=== PATIENT | female | born 1950 | race Caucasian/White ===

== ENCOUNTER 2022-07-01 08:33 | Outpatient (CLI) | payer MEDICARE, BC, SELFPAY ==
[2022-07-01 12:37] LABS: Creatinine Urine 123.6 mg/dL
[2022-07-01 12:45] LABS: Microalbumin Creatinine Ratio 30 mg/g (0-30); Microalbumin Urine 4 mg/dL
== END 2022-07-01 08:34 | disposition home or self-care (01) ==
LOC: NFLDREF 10:30
PROVIDERS: PCP Internal Medicine; Visit Provider Internal Medicine
DX: E11.9 Type 2 diabetes mellitus without complications (principal); F41.8 Other specified anxiety disorders
CPT/HCPCS: 82043; 82570

== ENCOUNTER 2022-08-12 09:03 | Outpatient (CLI) | payer MEDICARE, BC, SELFPAY ==
--- OUTSIDE RECORDS SUMMARY | 2022-08-12 09:06 | XMS_ITS | Clinical Summary ---
:1950 Author Organization [facility] Address [address], [place] [address] Care Team Providers Name Role Phone Tiffanie Romero MD Primary Care Provider Source Comments You are receiving this document as you are listed as the primary care provider,follow-up provider, or the patient has been referred to you for consultation.This is in compliance with the Medicare and Medicaid EHR Incentive Program,which states Providers who transition their patient to another setting of careor provider of care or refers their patient to another provider of care shouldprovide summarycare record for each transition of care or referral. [facility] Allergies No known active allergies Medications Medication Sig Dispensed Refills Start Date End Date Status alendronate (FOSAMAX) Take 35 mg by 0 Active 35 MG tablet mouth once every week. citalopram (CELEXA) 10 Take 10 mg by 0 Active MG tablet mouth daily. atorvastatin (LIPITOR) Take 20 mg by 0 Active 20 MG tablet mouth daily. fluticasone (FLONASE) Place 2 Sprays 0 Active 50 MCG/ACT nasal into both solution nostrils daily. nitroglycerin Place 0.4 mg 0 Act rivera (NITROSTAT) 0.4 MG under tongue sublingual tablet every 5 minutes as needed for Chest Pain. If no relief after 5 min call 911;continue 1 tab every 5 min max 3 tab aspirin 81 MG tablet Take 81 mg by 0 Active mouth daily. Resolved Problems Problem Noted Date Resolved Date Lumbar pain 07/01/2018 11/12/2018 Lumbar radiculopathy 07/01/2018 11/12/2018 Social History Tobacco Use Types Packs/Day Years Used Date Smoking Tobacco: Never Assessed Sex Assigned at Date Recorded Not on file Plan of Treatment Health Maintenance Due Date Last Done Comments Colon Cancer Screening Plan 1950 Due Hep C Screening (Preventive 1950 Services) Medicare Welcome Visit 1950 Mammogram 1950 COVID-19 Vaccine (#1) 01[birth year]02/1951 Cholesterol 1993 Dexa 2013 Pneumococcal 65+ Yrs (2 - 02/16/2016 02/15/2015, 07/05/2010 PPSV23) Influenza (#1) 2022 09/11/2020, 09/06/2019, 08/27/2017, Additional history exists DTaP/Tdap/Td (2 - Tdap) 08/16/2023 08/16/2013 Zoster/Shingles Completed 07/15/2019, 06/10/2019, 03/10/2019, Additional history exists HepA Aged Out No longer eligib le based on patient 's age to complete this topic HepB Aged Out No longer eligib le based on patient 's age to complete this topic Hib Aged Out No longer eligib le based on patient 's age to complete this topic IPV (Polio) Aged Out No longer eligib le based on patient 's age to complete this topic MCV4 Aged Out No longer eligib le based on patient 's age to complete this topic Insurance Payer Benefit Plan / Subscriber ID Effective Dates Phone Addre ss Type Group BCBS BCBS MANZANITA [id number] [facility] [phone] [address] [address] Medicare BLUE t 5 [place] [address] Nicolette Sweeney Personal/Family Self 1950 [address] (Home) [place] [address] Care Teams Sql Report Developer Relationship Specialty Start Date End Date Tiffanie Romero MD PCP - General Internal Medicine 06/30/[address] [place] [id number]
--- OUTSIDE RECORDS SUMMARY | 2022-08-12 09:06 | XMS_ITS | Encounter Summary ---
:1950 Author Organization [facility] Address [address] [place] [address] Care Team Providers Name Role Phone Tiffanie Romero MD Primary Care Provider Reason for Visit Reason Comments BACK PAIN, LOW LEG PAIN Consult/Transfer Care (Routine) - Discharged Specialty Diagnoses / Procedures Referred By Contact Refer red To Contact Physical Therapy Diagnoses CLBP Tiffanie Romero MD [facility] [address] [address] [place] [address] [address] [place] [address] Phone: Fax: Referral ID Status Reason Start Date Expiration Date Visits V isits Requested Authorized [id number] Discharged 06/30/2018 09/29/2019 24 24 Encounter Details Date Type Department Care Team Description 10/28/2018 Therapy Physicians Neck and Back Dylon Majano, Lumbar pain; [facility] Lumbar radiculopathy [id number], [address] [place], [place] [id number] Social History Tobacco Use Types Packs/Day Years Used Date Smoking Tobacco: Never Assessed Sex Assigned at Date Recorded Not on file documented as of this encounter Progress Notes Jayashree Majano, PT - 10/28/2018 9:30 AM CST 10/28/2018 Visit # 16 Protocol: Back, Disc and Osteo Start: 9:36 AM Stop: 10:16 AM (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 A time gap of 1 week between rehab sessions due to the Thanksgiving holiday. L lateral thigh stiffness persists. Cervical Not performed today. Objective Tests & Measures: 4# increase in L-Ext Tests performed today (see [facility] for score and outcomes): : None Performed Today Warm Up: Movement Specific Training: Not Completed Bike: Minutes 5 Intensity Level 4 ICE: Back Lumbar Lumbar & Torso 10/28/2018 Set 1 Ext % Max 100% Set 1 Ext ROM 12-45 Set 1 Ext Wgt 120 Set 1 Ext Reps 20 Set 1 Ext Tul 121 Set 1 Ext Tyson RPE 10 Set 2 Ext % Max 100% Set 2 Ext ROM 12-45 Set 2 Ext Wgt 120 Set 2 Ext Reps 18 Set 2 Ext Tul 118 Set 2 Tyson RPE Failure Left Rot % Max 60% Left Rot ROM 35 Left Rot Wgt 26 Left Rot Reps 25 Left Rot Viet RPE 3-4 Right Rot % Max 60% Right Rot ROM 35 Right Rot Wgt 26 Right Rot Reps 25 Right Rot Tyson RPE 3-4 Therapeutic Exercise (32 min): Patient performed isolated lumbar extension exercise and auxillary exercises to improve muscle strength, to improve muscle endurance, to improve muscle flexibility, to improve range of motion, to increase strength for seated posture, to increase strength for standing posture and increase strength and e ndurance levels of supporting spinal muscle groups to increase tolerance for sitting, standing, lifting and household tasks. Pt presented with an appropriate pace/control of the weights and a proper breathing pattern while exercising in all of the equipment. Neuromuscular Re-Education (8 min): Light resistance in T-Roto for proper movement patterns, muscle recruitment and posture lifting/moving heavier loads from one surface to another without placing excessive strain on pt's lumbar spine. Good pace and form in this MedX.. Auxillary Auxillary 10/28/2018 Abs Wgt Set 1 60 Abs Reps Set 1 20 Abs Wgt Set 2 60 Abs Reps Set 2 20 Glute Wgt Set 1 110 Glute Reps Set 1 14/6 Glute Wgt Set 2 110 Glute Reps Set 2 11/9 Leg Press Wgt Set 1 175 Leg Press Reps Set 1 23 Leg Press Wgt Set 2 175 Leg Press Reps Set 2 25 Lats Wgt Set 1 65 Lats Reps Set 1 20 Lats Wgt Set 2 65 Lats Reps Set 2 20 Other - HEP - Therapeutic Activities (0 min): Not performed today. Patient Education: Patient was instructed in correlation of strength and function to increase her understanding of the benefits related to completing the [facility] program. Assessment: Pt applied very good effort throughout this workout. L-Ext wt of 120# was quite challenging with failure occurring in the 2nd set of reps. Despite the difficulty with this heavier load, pt was able to maintain a good pace and form in L-Ext. Her primary issue at this time is subjective L lateral thigh stiffness, especially noted after arising from a prolonged sitting period on her couch. Pt is quickly approaching a lumbar strength plateau; anticipate that pt will achieve this maximum level in another 1-2 weeks. Will need to place our emphasis on pt's lumbar maintenance HEP (Tao Chair) to ensure proper form/technique prior to program completion. Goals: Short Term Goals (4-6 weeks): 1. Pt will be able to transfer out of her car without low back or R buttock pain.Met 08/28/18 2. Pt will be able to arise to a standing position after sitting for a prolonged period of time without LBP. 10/21/18 - Goal Met. Pt denies LBP with this activity. L lateral thigh stiffness may occur after sitting for a prolonged period of time. 3. Pt will be able to sit x 30' to read/watch TV, etc with low back, R buttock pain </= 2/10.??Met 08/28/18 4. Pt will be able to lift/carry 10# with proper body mechanics and without low back/R buttock pain.??Met 08/28/18 (per note) ? General Intern Goals (>6 weeks): 1. Patient will be independent with home exercise program after discontinued from Physical Therapy.??Progressing, will have therapy gap when vacationing for 2 weeks and need further training on maintenance exercises while away. ??08/28/18 2. Pt will be able to kneel and work in her garden x 10-15' with low back/R buttock pain </= 2/10.??Met 08/28/18 3. Pt will be able to engage in activities with her young grandchildren with low back/R buttock pain</=2/10.Met 08/28/18 4. Pt will be able to arise to a standing position from the floor with proper mechanics and with lowback/R buttock pain </= 2/10.??10/21/18 - Pt was able to transition from the floor to a standing position without back or L thigh pain when using proper body mechanics. Goal Met. ? Insurance: ??Medicare, Needs G-Codes, Recert Date: ??12/27/18 Initial Eval G-Codes: ??Current: 8981-CJ ?Goal: 8982-CH G-Codes based on pt's Oswestry score of 8% and difficulty with prolonged sitting, standing, transferring out of her car, kneeling to work in the garden, transitioning from a kneeling position to standing from the ground and engaging in activities with her grandchildren. 08/28/18: 10th Visit G-Codes: ??Current 8981 CI and Goal 8982 CH. ??G-Codes based on Oswestry = 6%; Patient able to transfer out of car without LBP or R Buttock Pain; Patient able to sit for 30 minutes to watch TV with LBP and R Buttock Pain </= 2/10; Patient able to kneel to garden for 10 to 15 minutes with LBP and R Buttock Pain </= 2/10. ? Plan of Care Frequency:??2x/wk Duration:??90 days ?? Therapeutic Exercise: ??Increase Strength and Endurance to improve transitional movements (sit to stand). Neuromuscular Re-Education: ??Improve neuromuscular 20abilities to improve posture and motor controlwith ADLs??. Therapeutic Activities: ??Train in proper body mechanics/posture to ensure safety and proper form when lifting/carrying heavy objects at home. ?? Recertification from??09/28/18??to 12/27/18 ?? Precautions/Other Information: Full Low Back: Osteo and Disc. ??Advance ROM as tolerated. 80% T-Rotoper Osteo protocol. ??Awaiting MRI results prior to starting MedX. ?PMH includes: Breast CA (2009with lumpectomy and radiation treatments), Osteopenia, L Rotator Cuff discomfort. 07/29/18 - Clearance received. No evidence of osseous metastatic disease. ?? Recommendations/Communication: 60% L-Ext. 100% T-Roto. Review Tao Chair to ensure independence with proper form/technique. Total timed code min: 40 Total treatment time: 40 Jayashree Majano, PT 10/28/2018, 1:35 PM OLOGY DOCTOR documented in this encounter Plan of Treatment Not on filedocumented as of this encounter Visit Diagnoses Diagnosis Lumbar pain Lumbago Lumbar radiculopathy Thoracic or lumbosacral neuritis or radi culitis, unspecified documented in this encounter Care Teams Automatic Buffing Wheel Former Relationship Specialty Start Date End Date Tiffanie Romero MD PCP - General Internal Medicine 06/30/[address] [place] [address] documented as of this encounter
--- OUTSIDE RECORDS SUMMARY | 2022-08-12 09:06 | XMS_ITS | Encounter Summary ---
:1950 Author Organization [facility] Address [address] [place] [address] Care Team Providers Name Role Phone Tiffanie Romero MD Primary Care Provider Reason for Visit Reason Comments BACK PAIN, LOW Consult/Transfer Care (Routine) - Discharged Specialty Diagnoses / Procedures Referred By Contact Refer red To Contact Physical Therapy Diagnoses CLBP Tiffanie Romero MD [facility] [address] [address] [place] [address] [address] [place] [address] Phone: Fax: Referral ID Status Reason Start Date Expiration Date Visits V isits Requested Authorized [id number] Discharged 06/30/2018 09/29/2019 24 24 Encounter Details Date Type Department Care Team Description 10/07/2018 Therapy Physicians Neck and Back Kina Theodore P T Lumbar pain; [facility] Lumbar radiculopathy [address] [address], [address] [place], [place] [id number] Social History Tobacco Use Types Packs/Day Years Used Date Smoking Tobacco: Never Assessed Sex Assigned at Date Recorded Not on file documented as of this encounter Progress Notes Kina Theodore, PT - 10/07/2018 10:00 AM CST 10/07/2018 Visit # 13 Protocol: Back, Disc and Osteo Start: 9:56 End: 10:40 (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 She was out of the country for 2 weeks and then has been busy helping her mother who recently had a stroke. She notes that she spent alot of time on a bus while in [place], but tried to move around as much as possible. Pt notes that her back did fairly well while she was gone, but states that when she got home she was quite stiff, attributing it to a long flight home. Pt notes that her main issue is continued stiffness in B hips/thighs after sitting for awhile (mosted noted when getting out of her car). Pt notes that she is addingmassage into her treatment, hoping that it will help with her leg stiffness. She has had one alreadyand is scheduled for another today. Cervical Not performed today. Objective Tests & Measures: Resume rx after 5 wks with 80% Lext to start and incr to 100% based on RPE. +15# G/H Tests performed today (see reviewflowsheet for score and outcomes): : None Performed Today Warm Up: Movement Specific Training: Not Completed Bike: Minutes 5 Intensity mod ICE: Back Lumbar Lumbar & Torso 10/07/2018 Set 1 Ext % Max 80% Set 1 Ext ROM 12-45 Set 1 Ext Wgt 88 Set 1 Ext Reps 30 Set 1 Ext Tul 111 Set 1 Ext Tyson RPE 5 Set 2 Ext % Max 100% Set 2 Ext ROM 12-45 Set 2 Ext Wgt 110 Set 2 Ext Reps 20 Set 2 Ext Tul 74 Set 2 Tyson RPE 7 Left Rot % Max 60% Left Rot ROM 35 Left Rot Wgt 22 Left Rot Reps 20 Left Rot Viet RPE 4 Right Rot % Max 60% Right Rot ROM 35 Right Rot Wgt 22 Right Rot Reps 20 Right Rot Tyson RPE 4 Therapeutic Exercise (32 min): Patient performed isolated lumbar extension exercise and auxillary exercises to improve muscle strength, to improve muscle endurance and increase strength and endurance levels of supporting spinal muscle groups to increase tolerance for sitting, lifting and transitional movement from sit to stand Verbal cues given for proper pace and form for max benefit and to prevent compensatory movement patterns. Neuromuscular Re-Education (12 min): Patient performed isolated torso rotation to decrease substitution patterns present with chronic pain, to improve ability to direct and regulate movement with decreased compensation, improve muscle recruitment patterns, to improve coordination and movement quality and decrease substitution patterns and normalize movement patterns to increase tolerance for lifting, household tasks and transition from sit to stand. Verbal cues given for proper pace and form for max benefit and to prevent compensatory movement patterns. Auxillary Auxillary 10/07/2018 Abs Wgt Set 1 60 Abs Reps Set 1 20 Abs Wgt Set 2 60 Abs Reps Set 2 20 Glute Wgt Set 1 95 Glute Reps Set 1 30 Glute Wgt Set 2 110 Glute Reps Set 2 20 Leg Press Wgt Set 1 170 Leg Press Reps Set 1 20 Leg Press Wgt Set 2 170 Leg Press Reps Set 2 35 Lats Wgt Set 1 65 Lats Reps Set 1 20 Lats Wgt Set 2 65 Lats Reps Set 2 20 Other - HEP - Therapeutic Activities (0 min): Not performed today. Patient Education: Patient was instructed in specific review of patients progress to increase their understanding of the benefits related to completing the [facility] Rehab program Instruction in plan for today's treatment with resumption of care after being away from treatment for 5 weeks. Assessment: Pt tolerated rx well today with no aggravation of sx throughout rx session. Pt was able to resume Lext workout today at last max wt, reaching appropriate fatigue level. Reviewed pt goals for recert today and updated below. Pt continues to note most functional deficit with standing after sitting for a prolonged period (e.g getting out of her car). Pt is returning today after being away from therapy for an overseas trip and caring for her mother. Pt was continuing with objective weight gains prior to her trip. We will now resume therapy, making appropriate weight increases in machines in order to achieve maximum strength. Pt will benefit from skilled PT to counteract impairments, maximizing strength in order to optimize function. Plan of Care Frequency: 2x/wk Duration: 90 days Therapeutic Exercise: Increase Strength and Endurance to improve transitional movements (sit to stand). Neuromuscular Re-Education: Improve neuromuscular abilities to improve posture and motor control with ADLs . Therapeutic Activities: Train in proper body mechanics/posture to ensure safety and proper form whenlifting/carrying heavy objects at home. Recertification from 09/28/18 to 12/27/18 Kina Theodore, PT 10/07/2018, 12:17 PM Goals: Short Term Goals (4-6 weeks): 1. Pt will be able to transfer out of her car without low back or R buttock pain.Met 08/28/18 2. Pt will be able to arise to a standing position after sitting for a prolonged period of time without LBP. Progressing stiff (hips and thighs) upon standing 10/07/18 3. Pt will be able to sit x 30' to read/watch TV, etc with low back, R buttock pain </= 2/10.??Met 08/28/18 4. Pt will be able to lift/carry 10# with proper body mechanics and without low back/R buttock pain.Met 08/28/18 (per note) ? Perinatology Physician Goals (>6 weeks): 1. Patient will be [...] mechanics and with lowback/R buttock pain </= 2/10.??Progressing stiff more than pain 10/07/18 ? Insurance: ??Medicare, Needs G-Codes, Recert Date: 12/27/18 Initial Eval G-Codes: ??Current: 8981-CJ ?Goal: 8982-CH [...] and R Buttock Pain </= 2/10. ? Precautions/Other Information: Full Low Back: Osteo and Disc. ??Advance ROM as tolerated. 80% T-Rotoper Osteo protocol. ??Awaiting MRI results prior to starting MedX. ?PMH includes: Breast CA (2010with lumpectomy and radiation treatments), Osteopenia, L Rotator Cuff discomfort. 07/29/18 - Clearance received. No evidence of osseous metastatic disease. Recommendations/Communication: Next visit: Lext 60%, Troto 80% Increase LP by 10-20#, as tolerated. Total timed code min: 44 Total treatment time: 44 Kina Theodore, PT 10/07/2018, 12:17 PM NRY SUPERVISOR documented in this encounter Plan of Treatment Not on filedocumented as of this encounter Visit Diagnoses Diagnosis Lumbar pain Lumbago Lumbar radiculopathy Thoracic or lumbosacral neuritis or radi culitis, unspecified documented in this encounter Care Teams Ocean Lifeguard Relationship Specialty Start Date End Date Tiffanie Romero MD PCP - General Internal Medicine 06/30/[address] [place] [address] documented as of this encounter
--- OUTSIDE RECORDS SUMMARY | 2022-08-12 09:06 | XMS_ITS | Encounter Summary ---
:1950 Author [facility] Address [address] [place] [address] Care Team Providers Name Role Phone Tiffanie Romero MD Primary Care Provider Reason for Visit Reason Comments BACK PAIN, LOW Consult/Transfer Care (Routine) - Discharged Specialty Diagnoses / Procedures Referred By Contact Refer red To Contact Physical Therapy Diagnoses CLBP Tiffanie Romero MD [facility] [address] [address] [place] [address] [address] [place] [address] Phone: Fax: Referral ID Status Reason Start Date Expiration Date Visits V isits Requested Authorized [id number] Discharged 06/30/2018 09/29/2019 24 24 Encounter Details Date Type Department Care Team Description 11/04/2018 Therapy Physicians Neck and Back Garcia Holland, PROMOTION WRITER Lumbar pain; [facility] [address] [address], Lumbar radiculopathy [address] [address] [address] [place] [address] [place] [address] [phone] Social History Tobacco Use Types Packs/Day Years Used Date Smoking Tobacco: Never Assessed Sex Assigned at Date Recorded Not on file documented as of this encounter Progress Notes Fani Holland, PROMOTION WRITER - 11/04/2018 10:00 AM CST 11/05/2018 Visit # 18 Protocol: Back, Disc and Osteo Start: 10:05 am End: 10:48 am (PROMOTION WRITER Visit # 5 Subjective: Pt has a tao chair now that she purchased 2 days ago. Pt has been doing overall. Cervical Not performed today. Objective Tests & Measures: 2# increase on lumbar extension Tests performed today (see [facility] for score and outcomes): : None Performed Today Warm Up: Movement Specific Training: Not Completed Bike: Minutes 5 Intensity L4 ICE: Back Lumbar Lumbar & Torso 11/04/2018 Set 1 Ext % Max 100% Set 1 Ext ROM 12-45 Set 1 Ext Wgt 122 Set 1 Ext Reps 20 Set 1 Ext Tul 83 Set 1 Ext Tyson RPE 8/10 Set 2 Ext % Max 100% Set 2 Ext ROM 12-45 Set 2 Ext Wgt 122 Set 2 Ext Reps 20 Set 2 Ext Tul 153 Set 2 Tyson RPE 9/10 Left Rot % Max 60% Left Rot ROM 35 Left Rot Wgt 28 Left Rot Reps 20 Left Rot Viet RPE 3/10 Right Rot % Max 60% Right Rot ROM 35 Right Rot Wgt 28 Right Rot Reps 20 Right Rot Tyson RPE 3/10 Therapeutic Exercise (17min): Patient performed isolated lumbar extension exercise and auxillary exercises to improve muscle strength, to improve muscle endurance, to improve muscle flexibility, to improve range of motion, to increase strength for standing posture and increase strength and endurance levels of supporting spinal muscle groups to increase tolerance for sitting, standing, walking, lifting, driving, personal care tasks and household tasks Verbal cues needed for proper form and control on Lumbar Extension machine with instruction to avoidsubstitution with other muscle groups and to facilitate correct muscle firing sequence and to avoid momentum, improper form and too fast with reps. Pt educated on form on aux exercises to minimize compensatory movement patterns and reminded to keepa steady rep pace on exercises to maximize strengthening along the entire movement. Neuromuscular Re-Education (13 min): Patient performed isolated torso rotation to decrease substitution patterns present with chronic pain, to improve self-correction of posture and to improve kinesio awareness to increase tolerance for sitting, standing, walking, lifting, driving, personal care tasks and household tasks. Pt instructed in proper form on torso rotation exercise with emphasis to keep spine in the middle ofthe machine to avoid substitutions and engage the oblique muscles fully. Pt able to do after cues and reminders of body position. Reviewed tao chair technique to improve proper form/rep speed and ensure a successful HEP upon d/c. Pt required reminders of proper pad ht and keeping the hips firmly planted on the pads for the entire exercise. Pt also encouraged to make a plan for either purchasing a tao chair, joining a gym or find where the tao chair is in their gym. Auxillary Auxillary 11/04/2018 Abs Wgt Set 1 60 Abs Reps Set 1 20 Abs Wgt Set 2 60 Abs Reps Set 2 20 Glute Wgt Set 1 110 Glute Reps Set 1 20 Glute Wgt Set 2 110 Glute Reps Set 2 20 Leg Press Wgt Set 1 180 Leg Press Reps Set 1 25 Leg Press Wgt Set 2 - Leg Press Reps Set 2 - Lats Wgt Set 1 65 Lats Reps Set 1 20 Lats Wgt Set 2 65 Lats Reps Set 2 20 Other - HEP tao chair review Therapeutic Activities (13 min): Therapeutic Activities 11/04/2018 BASE OF SUPPORT Needs further training WEIGHT SHIFT Needs further training PIVOT VS TWIST - OBJECT CLOSE VS FAR AWAY Needs further training PUSH VS PULL Needs further training SQUAT Needs further training LIFT FROM FLOOR Needs further training LIFT OVERHEAD - OTHER ACTIVITY Reviewed the correct form/body mechanics expectation when lifting the 20# crate. Pt instructed to do 5 reps today from floor to waist using good spine alignment and using the legs to lift not the low back. Pt reminded to maintain the curves in the s pine to keep the disc material pressure equal to avoid potential injury. Pt reminded to get assistance if pt feels unsure of their ability to perform the lift. Patient Education: Patient was instructed in correlation of strength and function to increase their understanding of the benefits related to completing the [facility] Rehab program Tao chair review and body worker training with 20# crate. Assessment: Pt tolerated the treatment fine with good effort and no report of increased sx or pain during or after the treatment session. Pt has less tightness in the hips which decreases allows for daily activities to be better. Goals: Short Term Goals (4-6 weeks): 1. Pt will be able to transfer out of her car without low back or R buttock pain.Met 08/28/18 2. Pt will be able to arise to a standing position after sitting for a prolonged period of time without LBP.??10/21/18 - Goal Met. ??Pt denies LBP with this activity. ??L lateral thigh stiffness may occur after sitting for a prolonged period of time. 3. Pt will be able to sit x 30' to read/watch TV, etc with low back, R buttock pain </= 2/10.??Met 08/28/18 4. Pt will be able to lift/carry 10# with proper body mechanics and without low back/R buttock pain.??Met 08/28/18 (per note) ? Cook'S Assistant Goals (>6 weeks): 1. Patient will be independent with home exercise program after discontinued from Physical Therapy.??Progressing, RC ext ??10/29/18 2. Pt will be able to kneel [...] when using proper body mechanics. Goal Met. Insurance: ??Medicare, Needs G-Codes, Recert Date: ??12/27/18 [...] Clearance received. No evidence of osseous metastatic disease., HEP: Pt going to get gym membership Recommendations/Communication: 60% lumbar extension 80% torso rotation. And THERAPEUTIC ACTIVITY forwalking, posture and body worker training. Total timed code min: 43 Total treatment time: 43 Fani Holland PTA 11/04/2018, 1:05 PM K SUPERINTENDENT Associated attestation - Michael Tafoya, PT - 11/05/2018 3:16 PM TRACK SUPERINTENDENT Observed treatment. Goals/Plan of Care discussed with PROMOTION WRITER. Treatment progressing and appropriate. Michael Tafoya, ARIA 11/05/2018, 3:16 PM documented in this encounter Plan of Treatment Not on filedocumented as of this encounter Visit Diagnoses Diagnosis Lumbar pain Lumbago Lumbar radiculopathy Thoracic or lumbosacral neuritis or radi culitis, unspecified documented in this encounter Care Teams College Tutor Relationship Specialty Start Date End Date Tiffanie Romero MD PCP - General Internal Medicine [address] [place] [address] documented as of this encounter
--- OUTSIDE RECORDS SUMMARY | 2022-08-12 09:06 | XMS_ITS | Encounter Summary ---
:[address] [facility] [address] Address [address] [place] [address] Care Team Providers Name Role Phone Tiffanie Romero MD Primary Care Provider Reason for Visit Reason Comments BACK PAIN Consult/Transfer Care (Routine) - Discharged Specialty Diagnoses / Procedures Referred By Contact Refer red To Contact Physical Therapy Diagnoses CLBP Tiffanie Romero MD [facility] [address] [address] [place] [address] [address] [place] [address] Phone: Fax: Referral ID Status Reason Start Date Expiration Date Visits V isits Requested Authorized [id number] Discharged 06/30/2018 09/29/2019 24 24 Encounter Details Date Type Department Care Team Description 11/09/2018 Therapy Physicians Neck and Back Denisse Lemon, PT Lumbar pain; [facility] [id number] [place] [address] Lumbar radiculopathy [address] [place] [address] [address] [place], [place] [id number] [phone] Social History Tobacco Use Types Packs/Day Years Used Date Smoking Tobacco: Never Assessed Sex Assigned at Date Recorded Not on file documented as of this encounter Progress Notes Denisse Conklin, PT - 11/09/2018 10:15 AM CST 11/09/2018 Visit # 19 Protocol: Back, Disc and Osteo Start: 10:19 am End: 11:01 am (MITOCHONDRIAL DISORDERS COUNSELOR Visit # 0 Subjective: Patient reports, My back feels great; no pain. Cervical Not performed today. Objective Tests & Measures: T-Rot 80%. Legpress increased 5 pounds 2nd set. Tests performed today (see reviewflowsheet for score and outcomes): : None Performed Today Warm Up: Movement Specific Training: Not Completed PT did not ask patient which cardio equipment patient used for warmup today. ICE: Back Lumbar Lumbar & Torso 11/09/2018 Set 1 Ext % Max 60% Set 1 Ext ROM 12-45 Set 1 Ext Wgt 73 Set 1 Ext Reps 35 Set 1 Ext Tul 106 Set 1 Ext Tyson RPE 4 Set 2 Ext % Max - Set 2 Ext ROM - Set 2 Ext Wgt - Set 2 Ext Reps - Set 2 Ext Tul - Set 2 Tyson RPE - Left Rot % Max 80% Left Rot ROM 35 Left Rot Wgt 48 Left Rot Reps 24 Left Rot Viet RPE 7 Right Rot % Max 80% Right Rot ROM 35 Right Rot Wgt 48 Right Rot Reps 20 Right Rot Tyson RPE 7.5 Therapeutic Exercise (27 min): Patient performed isolated torso rotation exercise and auxillary exercises to improve muscle strength, to improve muscle endurance and increase strength and endurance levels of supporting spinal musclegroups to increase tolerance for sitting, standing, walking, sleeping, bed mobility, lifting, driving, personal care tasks and household tasks with PT monitoring patient's technique for form and pace. Patient with good form and pace. Neuromuscular Re-Education (15 min): Patient performed isolated lumbar extension to retrain muscles for proper sequencing, improve musclerecruitment patterns and to improve movement patterns in an isolated plane to increase tolerance forsitting, standing, walking, sleeping, bed mobility, lifting, driving, personal care tasks and household tasks. with PT monitoring patient's technique for form and pace. Patient with good form and pace. Tao Chair: Patient performed Trunk Ext x 10 reps x Independent. Patient instructed in Tao Chair B Rot exercise with visual and verbal demonstration from PT. Patient performed R Rot x 7 reps and L Rot x 5 reps with 1 VC for technique and then good technique x Independent. PT explained that Tao Chair exercises are recommended at time of D/C from PT to do 2x/week to fatigue to maintain lumbar strength. Patient reports she bought a Tao Chair. Added above exercises to patient's [employer] HEP - see patient education section below for details. Auxillary Auxillary 11/09/2018 Abs Wgt Set 1 60 Abs Reps Set 1 25 Abs Wgt Set 2 60 Abs Reps Set 2 20 Glute Wgt Set 1 110 Glute Reps Set 1 30 Glute Wgt Set 2 110 Glute Reps Set 2 14 Leg Press Wgt Set 1 180 Leg Press Reps Set 1 30 Leg Press Wgt Set 2 185 Leg Press Reps Set 2 20 Lats Wgt Set 1 65 Lats Reps Set 1 20 Lats Wgt Set 2 65 Lats Reps Set 2 20 Other Abs: Small Block. HEP Tao Chair: Trunk Extension and B Rot - Independent. and added to [employer] HEP. Therapeutic Activities (0 min): Not performed today. Patient Education: Educated patient in desired fatigue levels with Med-X Exercises. See Assessment section for patient education. PT explained breathing technique with Abs auxillary. PT and patient briefly discussed CORE and patient reports she lives in [place] and plans to join a gym. Added Tao Chair Exercises to patient's [employer] HEP and printed entire HEP for patient: Access Code: [email or web address] URL: [email or web address] Date: 11/09/2018 Prepared by: Denisse Conklin Exercises Hooklying Single Knee to Chest Stretch - 3 reps - 1 sets - 5 hold - 2x daily - 7x weekly Hooklying Hamstring Stretch with Strap - 3 reps - 1 sets - 5 hold - 2x daily - 7x weekly Supine Piriformis Stretch - 3 reps - 1 sets - 5 hold - 2x daily - 7x weekly Prone Press Up on Elbows - 3 reps - 1 sets - 5 hold - 2x daily - 7x weekly Prone Press Up - 3 reps - 1 sets - 5 hold - 2x daily - 7x weekly Seated Trunk Rotation - Arms Crossed - 3 reps - 1 sets - 5 hold - 2x daily - 7x weekly Standing Lumbar Extension - 3 reps - 1 sets - 5 hold - 2x daily - 7x weekly Clamshell - 10 reps - 2 sets - 3-5 seconds hold - 1x daily - 3x weekly Lumbar Ball Extension Exercise - muscle fatigue reps - 2 sets - slow reps hold - 2x weekly RC Extension Strength Exercise - 20-30 reps - 1 sets - 7-8 seconds per rep - 2x weekly Superman on Table - 20 reps - 2 sets - 5 hold - 1x daily - 3x weekly RC Extension Strength Exercise - 20-30 reps - 1 sets - 7-8 seconds per rep - 2x weekly RC Rotation Exercise - 20-30 reps - 1 sets - 7-8 Seconds per rep - 2x weekly Assessment: With T-Rot 80% today, kept weight same as last T-Rot 80% workout day on 10/30/18 of 48 pounds due to patient did not get to 20 reps with Right Rotation on that day; patient tolerated this weight well today and did 24 reps with Left Rotation and 20 reps with Right Rotation. Patient asked ifshe is meeting her goals; PT reviewed patient's L-Ext max weights and informed patient that patient appears to be near max weight and plan is for next visit to be patient's last treatment and then patient will be discharged; patient reports she missed one appointment last week; PT informed patient that patient does not need to make up the missed appt and explained that next treatment can be patient'slast treatment/discharge; patient understood. Patient challenged by 2nd set of Lats but able to complete 20 reps. Patient increased weight 2nd set with Legpress. With G/H patient stopped 2nd set at 14 reps. Reviewed/Instructed patient in Tao Chair HEP since next treatment is last treatment and todaywas L-Ext submax workout day, and patient is Independent with Tao Chair HEP. Plan is for next treatment to be last treatment and discharge. Patient reports she bought a Tao Chair and plans to join a gym. Goals: Short Term Goals (4-6 weeks): 1. [...] back/R buttock pain.??Met 08/28/18 (per note) ? Senior Care Goals (>6 weeks): 1. Patient will be independent with home exercise program after discontinued from Physical Therapy.??11/09/18: Goal Met for Tao Chair HEP. Patient reports she plans to also join a gym. 2. Pt will be able to kneel [...] Pt going to get gym membership Recommendations/Communication: Plan is for next treatment to be patient's last treatment and discharge. Next Treatment: L-Ext 100% and T-Rot 60%. 20th Visit/Discharge Oswestry and G-Codes next treatment. Review Goals. Patient is already Independent with Tao Chair HEP today. Please give patient Auxillary Machine Weights as patient plans to workout at gym. Patient reports she bought a Tao Chair andplans to join a gym. Total timed code min: 42 Total treatment time: 42 Denisse Conklin, ARIA 11/09/2018, 4:13 PM BER ROOM ATTENDANT documented in this encounter Plan of Treatment Not on filedocumented as of this encounter Visit Diagnoses Diagnosis Lumbar pain Lumbago Lumbar radiculopathy Thoracic or lumbosacral neuritis or radi culitis, unspecified documented in this encounter Care Teams Logger Driving Horses Relationship Specialty Start Date End Date Tiffanie Romero MD PCP - General Internal Medicine [address] [place] [address] documented as of this encounter
--- OUTSIDE RECORDS SUMMARY | 2022-08-12 09:06 | XMS_ITS | Encounter Summary ---
:1950 Author [facility] Address [address] [place] [address] Care Team Providers Name Role Phone Tiffanie Romero MD Primary Care Provider Reason for Visit Reason Comments BACK PAIN, LOW Consult/Transfer Care (Routine) - Discharged Specialty Diagnoses / Procedures Referred By Contact Refer red To Contact Physical Therapy Diagnoses CLBP Tiffanie Romero MD [facility] [address] [address] [place] [address] [address] [place] [address] Phone: Fax: Referral ID Status Reason Start Date Expiration Date Visits V isits Requested Authorized [id number] Discharged 06/30/2018 09/29/2019 24 24 Encounter Details Date Type Department Care Team Description 10/12/2018 Therapy Physicians Neck and Back Garcia Holland, RIGGING AND CONTROLS AIRCRAFT MECHANIC Lumbar pain; [facility] [address] [address], Lumbar radiculopathy [address] [address] [address] [place] [address] [place] [address] [phone] Social History Tobacco Use Types Packs/Day Years Used Date Smoking Tobacco: Never Assessed Sex Assigned at Date Recorded Not on file documented as of this encounter Progress Notes Fani Holland, RIGGING AND CONTROLS AIRCRAFT MECHANIC - 10/12/2018 10:15 AM CST 10/12/2018 Visit # 14 Protocol: Back, Disc and Osteo Start: 10:20 am End: 11:00 am (RIGGING AND CONTROLS AIRCRAFT MECHANIC Visit # 4 Subjective: Pt reports increased soreness after the last treatment session. Pt didn't sleep well d/tworrying about her mom's healthcare needs and longterm placement. Cervical Not performed today. Objective Tests & Measures: 80% max wt on torso rotation Tests performed today (see reviewfloweet for score and outcomes): : None Performed Today Warm Up: Movement Specific Training: Not Completed Treadmill: Minutes 5 Intensity 3.2 mph ICE: Back Lumbar Lumbar & Torso 10/07/2018 [...] Right Rot Tyson RPE 4 Therapeutic Exercise (25 min): Patient performed isolated torso rotation exercise and auxillary exercises to improve muscle strength, to improve muscle endurance, to improve muscle flexibility, to improve range of motion and increase strength and endurance levels of supporting spinal muscle groups to increase tolerance for sitting, standing, walking, lifting, driving, personal care tasks and household tasks Pt instructed in proper form on torso rotation exercise with emphasis to keep spine in the middle ofthe machine to avoid substitutions and engage the oblique muscles fully. Pt able to do after cues and reminders of body position. Pt monitored on form and rep speed on aux exercises to ensure optimal time to engage the muscle the entire movement of the exercise and avoid momentum. Neuromuscular Re-Education (15 min): Patient performed isolated lumbar extension to decrease substitution patterns present with chronic pain, to retrain muscles for proper sequencing, decrease substitution patterns and normalize movement patterns, to improve self- correction of posture and to improve kinesio awareness to increase tolerance for sitting, standing, walking, lifting, driving, personal care tasks and household tasks. Pt instructed to relax legs and allow only the low back muscles to engage by pushing shoulder/arching back. Pt is monitored for correct speed and control to ensure good form and optimal muscle isolation. Pt instructed in hip flexor stretches 3 different ways Pt had best results with 1/2 knee lunge stretch. Auxillary Auxillary 10/07/2018 Abs Wgt Set 1 [...] of the benefits related to completing the [facility] Rehab program STretch for hip flexor/quad. Assessment: Pt tolerated the treatment fine with good effort on all exercises and no report of increased sx during or after the treatment session. Pt has been experiencing bilateral thigh discomfort (front) so instructed in hip flexor /quad stretches. ?? Goals: Short Term Goals (4-6 weeks): 1. [...] back/R buttock pain.Met 08/28/18 (per note) ? Mcfp Goals (>6 weeks): 1. Patient will be [...] Pain </= 2/10. ? Plan of Care Frequency: 2x/wk Duration: 90 days ?? Therapeutic Exercise: Increase Strength and Endurance to improve transitional movements (sit to stand). Neuromuscular Re-Education: Improve neuromuscular abilities to improve posture and motor control with ADLs . Therapeutic Activities: Train in proper body mechanics/posture to ensure safety and proper form whenlifting/carrying heavy objects at home. ?? Recertification from 09/28/18 to 12/27/18 Precautions/Other Information: Full Low Back: Osteo and Disc. ??Advance ROM as tolerated. 80% T-Rotoper Osteo protocol. ??Awaiting MRI results prior to starting MedX. ?PMH includes: Breast CA (2010with lumpectomy and radiation treatments), Osteopenia, L Rotator Cuff discomfort. 07/29/18 - Clearance received. No evidence of osseous metastatic disease. Recommendations/Communication: 100% lumbar extension 60% torso rotation and HEP review. Total timed code min: 40 Total treatment time: 40 Fani Holland PTA 10/12/2018, 10:13 AM T OFFICE COORDINATOR documented in this encounter Plan of Treatment Not on filedocumented as of this encounter Visit Diagnoses Diagnosis Lumbar pain Lumbago Lumbar radiculopathy Thoracic or lumbosacral neuritis or radi culitis, unspecified documented in this encounter Care Teams Automobile Parker Relationship Specialty Start Date End Date Tiffanie Romero MD PCP - General Internal Medicine [address] [place] [address] documented as of this encounter
--- OUTSIDE RECORDS SUMMARY | 2022-08-12 09:06 | XMS_ITS | Encounter Summary ---
:1950 Author Organization [facility] Address [address] [place] [address] Care Team Providers Name Role Phone Tiffanie Romero MD Primary Care Provider Reason for Visit Reason Comments BACK PAIN, LOW LEG PAIN Consult/Transfer Care (Routine) - Discharged Specialty Diagnoses / Procedures Referred By Contact Refer red To Contact Physical Therapy Diagnoses CLBP Tiffanie Romero MD [facility] [address] [address] [place] [address] [address] [place] [address] Phone: Fax: Referral ID Status Reason Start Date Expiration Date Visits V isits Requested Authorized [id number] Discharged 06/30/2018 09/29/2019 24 24 Encounter Details Date Type Department Care Team Description 10/21/2018 Therapy Physicians Neck and Back Dylon Majano, Lumbar pain; [facility] PT Lumbar radiculopathy [address] [facility], [address] [place], [place] [id number] Social History Tobacco Use Types Packs/Day Years Used Date Smoking Tobacco: Never Assessed Sex Assigned at Date Recorded Not on file documented as of this encounter Progress Notes Jayashree Majano, PT - 10/21/2018 10:00 AM CST 10/21/2018 Visit # 15 Protocol: Back, Disc and Osteo Start: 10:07 AM End: 10:49 AM (PLASTIC TUBING INSULATION SUPERVISOR Visit # 4 Subjective: Time gap between treatment sessions due to family emergency - pt's mother had a stroke last week and needed to be placed in an Assisted Living Facility. Pt is denying low back and hip pain at this date. Currently, her primary issue is L lateral thigh pain that travels up to her groin. Transferring in/out of her car and transitioning from the floor to standing will aggravate her hip/thigh and occasionally low back discomfort. Cervical Not performed today. Objective Tests & Measures: 6# increase in L-Ext PT Recheck - Reviewed goals Tests performed today (see reviewflowsheet for score and outcomes): : None Performed Today Warm Up: Movement Specific Training: Not Completed Bike: Minutes 6 Intensity Level 4 ICE: Back Lumbar Lumbar & Torso 10/21/2018 Set 1 Ext % Max 100% Set 1 Ext ROM 12-45 Set 1 Ext Wgt 116 Set 1 Ext Reps 20 Set 1 Ext Tul 132 Set 1 Ext Tyson RPE 6 Set 2 Ext % Max 100% Set 2 Ext ROM 12-45 Set 2 Ext Wgt 116 Set 2 Ext Reps 20 Set 2 Ext Tul 120 Set 2 Tyson RPE 9 Left Rot % Max 60% Left Rot ROM 35 Left Rot Wgt 24 Left Rot Reps 30 Left Rot Viet RPE 3 Right Rot % Max 60% Right Rot ROM 35 Right Rot Wgt 24 Right Rot Reps 30 Right Rot Tyson RPE 4 Therapeutic Exercise (24 min): Patient performed isolated lumbar extension exercise and auxillary exercises to improve muscle strength, to improve muscle endurance, to improve muscle flexibility, to improve range of motion, to increase strength for seated posture, to increase strength for standing posture and increase strength and e ndurance levels of supporting spinal muscle groups to increase tolerance for sitting, standing, lifting and household tasks. Cued pt to slow her pace in L- Ext to avoid muscle substitution and momentum. Neuromuscular Re-Education (8 min): Light resistance in T-Roto for proper movement patterns, muscle recruitment and posture while arising from the floor into a standing position. Cued pt for for correct breath control/pattern to avoid cardiac strain and to maximize muscle tissue oxygenation in this MedX. Auxillary Auxillary 10/21/2018 Abs Wgt Set 1 60 Abs Reps Set 1 23 Abs Wgt Set 2 60 Abs Reps Set 2 20 Glute Wgt Set 1 110 Glute Reps Set 1 22 Glute Wgt Set 2 110 Glute Reps Set 2 25 Leg Press Wgt Set 1 170 Leg Press Reps Set 1 22 Leg Press Wgt Set 2 170 Leg Press Reps Set 2 25 Lats Wgt Set 1 65 Lats Reps Set 1 20 Lats Wgt Set 2 65 Lats Reps Set 2 20 Other Functional activities: Simulated car transfers, Tranferring to/from the floor HEP - Therapeutic Activities (10 min): Therapeutic Activities 10/21/2018 BASE OF SUPPORT - WEIGHT SHIFT - PIVOT VS TWIST - OBJECT CLOSE VS FAR AWAY - SQUAT - LIFT FROM FLOOR - LIFT OVERHEAD - OTHER ACTIVITY Instructed pt in how to safely transfer in/out of a low seated car with proper body mechanics in order to minimize lumbar strain. PT had pt facing a simulated car door and sit prior to placing her legs into the car. Reversed this movement with pt rot ating her trunk to get both legs to the outside of the car prior to standing. Pt was able to demonstrate this transfer correctly without subjective back, thigh/groin pain after several practice reps. Instructed pt in the proper developmental sequence of arising from the floor into a standing position: 1)Sidesit 2) Quadruped position 3) Tall kneel 4) Half-kneel 5) Push to standing with UE support from a table or chair. Pt was able to demonstrate this movement sequence correctly and denied spin al/thigh/groin pain when using proper body mechanics. Patient Education: Patient was instructed in specific review of patients progress and correlation of strength and function to increase her understanding of the benefits related to completing the [facility] Rehab program. Education provided regarding safe transfers in/out a car and arising to a standing position from the floorusing proper body mechanics. Assessment: Pt applied good effort throughout this workout. Despite a time gap of 9 days between treatments, pt did quite well. L-Ext wt of 116# proved to be a good challenge for her. She continues to demonstrate on-going strength gains with resulting sx relief and improvement in functional activitiessuch as arising to a standing position after a prolonged period of sitting. Pt denies low back pain at this time. Her primary issue at this date is L lateral thigh/groin stiffness, especially noted after sitting on the couch for a prolonged period of time. She was instructed in safe transfers in/out of a low seated car, using proper body mechanics - pt denied LE stiffness with this activity when done properly. We also worked on floor to standing transitions using a proper developmental sequence of movts. Pt was able to demonstrate this movement correctly after practice reps, again, denying back/thigh pain when arising with proper mechanics. Pt has not yet shown evidence of a lumbar strength plateau. PT recommends continued skilled services 2x week x 3 more weeks to maximize pt's lumbar strength and optimize her functional status at home and out in the community. She will need to review her lumbar maintenance HEP every week to ensure independence with proper form/technique. Goals: Short Term Goals (4-6 weeks): 1. [...] back/R buttock pain.??Met 08/28/18 (per note) ? Mcfp Goals (>6 [...] (sit to stand). Neuromuscular Re-Education: ??Improve neuromuscular abilities to improve posture and motor control with ADLs??. Therapeutic Activities: ??Train in proper body [...] received. No evidence of osseous metastatic disease. Recommendations/Communication:PT recommends continued skilled services 2x/week x 3 more weeks to maximize pt's lumbar strength and optimize her functional status. 60% L-Ext. 100% T-Roto, Increase Leg Press by 5#. Tao Chair review every week to meet LTG #1. Total timed code min: 42 Total treatment time: 42 Jayashree Majano, PT 10/21/2018, 12:12 PM CONDITIONER documented in this encounter Plan of Treatment Not on filedocumented as of this encounter Visit Diagnoses Diagnosis Lumbar pain Lumbago Lumbar radiculopathy Thoracic or lumbosacral neuritis or radi culitis, unspecified documented in this encounter Care Teams Technical Aid Relationship Specialty Start Date End Date Tiffanie Romero MD PCP - General Internal Medicine [address] [place] [address] documented as of this encounter
--- OUTSIDE RECORDS SUMMARY | 2022-08-12 09:06 | XMS_ITS | Encounter Summary ---
:1950 Author Organization [facility] Address [address], [place] [address] Care Team Providers Name Role Phone Tiffanie Romero MD Primary Care Provider Encounter Details Date Type Department Care Team Description 11/12/2018 Notes/Orders Physicians Neck and Jayashree Majano mbar pain (Primary Dx); [facility], PT Lumbar radiculo bre [place] [address] [facility], [address] [place] [address] Social History Tobacco Use Types Packs/Day Years Used Date Smoking Tobacco: Never Assessed Sex Assigned at Date Recorded Not on file documented as of this encounter Progress Notes Jayashree Majano, PT - 11/12/2018 5:27 AM CST Physical Therapy Discharge Summary Discharge Date: 11/11/18 Discharge type: formal Patient completed 20 sessions of physical therapy from 07/01/18 to 11/11/18. Short Term Goal Summary STG #1: Pt will be able to transfer out of her car without low back or R buttock pain. - Met STG #2:Pt will be able to arise to a standing position after sitting for a prolonged period of time without LBP - Met STG #3:Pt will be able to sit x 30' to read/watch TV, etc with low back, R buttock pain </= 2/10 - Met STG #4: Pt will be able to lift/carry 10# with proper body mechanics and without low back/R buttock pain. Goal Met. Fpc Goal Summary LTG #1: Patient will be independent with home exercise program after discontinued from Physical Therapy.?? - Met LTG #2:Pt will be able to kneel and work in her garden x 10-15' with low back/R buttock pain </= 2/10 - Met LTG #3:Pt will be able to engage in activities with her young grandchildren with low back/R buttock pain </=2/10 Met LTG #4: Pt will be able to arise to a standing position from the floor with proper mechanics and with low back/R buttock pain </= 2/10. Goal Met Patient has been instructed in and demonstrated proficiency and safe body mechanics with the following tasks: Full and partial squat/half kneel/golfer's lift Wide base of support Weight shift Pivot vs twist Hold object close vs away Floor <> waist lift Bed Mobility Vacuuming Sit<>stand transfers in/out of car Other status update/follow up recommendations: None. Pt has met her objective strength goals and allof her subjective functional goals. Her lumbar maintenance HEP is in place. No further rehab is indicated at this time. Discharge from therapy. Discharge Plans: Gym Tao Chair Final G-Codes: Goal: 8982-CH Discharge: 8983-CH Jayashree Majano PT 11/12/2018, 5:27 AM CAD TECHNICIAN documented in this encounter Plan of Treatment Not on filedocumented as of this encounter Visit Diagnoses Diagnosis Lumbar pain - Primary Lumbago Lumbar radiculopathy Thoracic or lumbosacral neuritis or radi culitis, unspecified documented in this encounter Care Teams Crayon Sorting Machine Feeder Relationship Specialty Start Date End Date Tiffanie Romero MD PCP - General Internal Medicine 06/30/[address] [place] [address] documented as of this encounter
--- OUTSIDE RECORDS SUMMARY | 2022-08-12 09:06 | XMS_ITS | Encounter Summary ---
:1950 Author Organization [facility] Address [address] [place] [address] Care Team Providers Name Role Phone Tiffanie Romero MD Primary Care Provider Reason for Visit Reason Comments BACK PAIN, LOW Consult/Transfer Care (Routine) - Discharged Specialty Diagnoses / Procedures Referred By Contact Refer red To Contact Physical Therapy Diagnoses CLBP Tiffanie Romero MD [facility] [address] [address] [place] [address] [address] [place] [address] Phone: Fax: Referral ID Status Reason Start Date Expiration Date Visits V isits Requested Authorized [id number] Discharged 06/30/2018 09/29/2019 24 24 Encounter Details Date Type Department Care Team Description 10/30/2018 Therapy Physicians Neck and Back Michael Tafoya, Lumbar pain; [facility] PT Lumbar radiculopathy [address] [facility], [address] [facility] [address] [place] [address] [place] [address] [phone] Social History Tobacco Use Types Packs/Day Years Used Date Smoking Tobacco: Never Assessed Sex Assigned at Date Recorded Not on file documented as of this encounter Progress Notes Michael Tafoya, PT - 10/30/2018 1:45 PM CST 10/30/2018 Visit # 17 Protocol: Back, Disc and Osteo Start: 1:51 End: 2:30 (RUG HOOKER Visit # 4 Subjective: States she only has a little ache across her low back now but no pain. Also no longer gets pain into her L thigh. Cervical Not performed today. Objective Tests & Measures: See flowsheet Tests performed today (see reviewflowsheet for score and outcomes): : None Performed Today Warm Up: Movement Specific Training: Completed Bike: Minutes 5 Intensity mod ICE: Declined Lumbar Lumbar & Torso 10/30/2018 Set 1 Ext % Max 60% Set 1 Ext ROM 12-42 Set 1 Ext Wgt 72 Set 1 Ext Reps 25 Set 1 Ext Tul 134 Set 1 Ext Tyson RPE 3 Set 2 Ext % Max - Set 2 Ext ROM - Set 2 Ext Wgt - Set 2 Ext Reps - Set 2 Ext Tul - Set 2 Tyson RPE - Left Rot % Max 80% Left Rot ROM 35 Left Rot Wgt 48 Left Rot Reps 20 Left Rot Viet RPE 10 Right Rot % Max 80% Right Rot ROM 35 Right Rot Wgt 48 Right Rot Reps 15 Right Rot Tyson RPE 10 Therapeutic Exercise (31 min): Patient performed isolated torso rotation exercise and auxillary exercises to increase strength and endurance levels of supporting spinal muscle groups to increase tolerance for transitional movements. Tactile and verbal cues to achieve proper body position and alignment prior to exercise. Verbal cuesfor proper pacing and form during exercise. Verbal cues to perform proper breathing pattern during exercise. Neuromuscular Re-Education (8 min): Patient performed isolated lumbar extension to decrease substitution patterns present with chronic pain, improve muscle recruitment patterns, improve self- correction of posture and improve kinesio awareness, in order to increase tolerance for transitional movemnts up from floor.. Verbal cues for proper pacing and form during exercise. Verbal cues to stop exercise when desired fatigue level reached for goal of exercise today. Auxillary Auxillary 10/30/2018 Abs Wgt Set 1 60 Abs Reps Set 1 22 Abs Wgt Set 2 60 Abs Reps Set 2 20 Glute Wgt Set 1 110 Glute Reps Set 1 21 Glute Wgt Set 2 110 Glute Reps Set 2 22 Leg Press Wgt Set 1 180 Leg Press Reps Set 1 24 Leg Press Wgt Set 2 180 Leg Press Reps Set 2 20 Lats Wgt Set 1 65 Lats Reps Set 1 20 Lats Wgt Set 2 65 Lats Reps Set 2 16 Other - HEP RC lumbar extension with and without support of arms Therapeutic Activities ( min): Not performed today. Patient Education: HEP instruct Assessment: Pt continues to progress toward LTG#1 as they demo good pacing and control of Tao chair exercise, but will require further review to become independent. Goals: Short Term Goals (4-6 weeks): 1. [...] buttock pain.??Met 08/28/18 (per note) ? General Production Worker Goals (>6 weeks): 1. Patient will be [...] ??12/27/18 Initial Eval G-Codes: ??Current: 8981-CJ ?Goal: 8982- G-Codes based on pt's Oswestry score of [...] HEP: Pt going to get gym membership ?? Recommendations/Communication: D/C after a couple more visits on 11/06/18, Pt plans on joining gym close to home, TA's floor to standing transition, L-ext 100%, T-roto 60% Total timed code min: 39 Total treatment time: 39 Michael Tafoya, ARIA 10/30/2018, 2:31 PM GER RESEARCH DEVELOPMENT documented in this encounter Plan of Treatment Not on filedocumented as of this encounter Visit Diagnoses Diagnosis Lumbar pain Lumbago Lumbar radiculopathy Thoracic or lumbosacral neuritis or radi culitis, unspecified documented in this encounter Care Teams Midwife Practitioner Relationship Specialty Start Date End Date Tiffanie Romero MD PCP - General Internal Medicine 06/[address] [place] [address] documented as of this encounter
--- OUTSIDE RECORDS SUMMARY | 2022-08-12 09:06 | XMS_ITS | Clinical Summary ---
:1950 Author Organization [employer] [facility] [place] [address] Care Team Providers Name Role Phone Tiffanie Romero MD Primary Care Provider Allergies Active Allergy Reactions Severity Noted Date Comments Adhesive Contact Dermatitis Low 07/24/2015 Other jaret ction(s): Irritation Amlodipine Edema 04/07/2006 Other reaction( s): Unknown Clonidine Other - Describe In Low 04/07/2006 Slowed h er response Comment Field time-felt extr dave sluggish Other reaction( s): lethargy Simvastatin Myalgia Medium 07/27/2009 Unlisted Allergen Muscle Weakness Low 03/06/2022 (Include Detail In Comments) Medications Medication Sig Dispensed Refills Start Date End Date Status citalopram (CELEXA) Take 1 tablet by 0 10/16/2011 Active 10 mg tablet mouth once daily. LACTOBACILLUS COMBO Take by mouth. 0 Active NO.6 (PROBIOTIC COMPLEX ORAL) FLUTICASONE Inhale in the 0 Acti ve PROPIONATE nostril(s). (FLUTICASONE NASL) Coenzyme Q10 10 mg Take 1 capsule by 0 03/10/2017 Active cap mouth once daily. omega-3 fatty acids Take 1 capsule by 0 09/29/2017 Active (FISH OIL mouth once daily. CONCENTRATE) cap 1500 mg once daily cholecalciferol Take 3 tablets by 0 09/18/2020 Active (VITAMIN D3) 1,000 mouth once daily. unit tablet medication order Elder Grimse Gummies 0 09/18/2020 Active composer Multivitamin Microlet Lancet 4 times daily. 0 12/12/2020 Active Contour Next Test TEST THREE TIMES 0 11/25/2020 Active Strips strip DAILY TO FOUR TIMES DAILY aspirin (ECOTRIN) 81 Take 81 mg by 0 Active mg enteric coated mouth. tablet metoprolol succinate Take 1 Tablet (50 90 Tablet 3 09/21/2021 Active (Toprol XL) 50 mg mg) by mouth once sustained-release daily. tabletIndications: SVT (supraventricular tachycardia) (HC) nitroglycerin Place 1 Tablet 25 Tablet 3 09/21/2021 Active (NITROSTAT) 0.4 mg (0.4 mg) under the sublingual tongue every 5 tabletIndications: minutes if needed Other chest pain for Chest Pain. atorvastatin Take 1 Tablet (40 90 tablet. 3 09/21/2021 Active (LIPITOR) 40 mg mg) by mouth at tabletIndications: bedtime. Coronary artery disease due to lipid rich plaque losartan (COZAAR) 50 Take 1 Tablet (50 90 tablet. 3 09/21/2021 Active mg tabletIndications: mg) by mouth once HTN (hypertension) daily. metFORMIN Take 500 mg by 0 04/01/2022 Acti ve (GLUCOPHAGE) 500 mg mouth 2 times tablet daily with meals. calcium Chew by mouth. 0 05/07/2022 Acti ve carb-magnesium hydrox (MYLANTA MAX STR) 700-300 mg chewable magnesium oxide Daily 0 Acti ve (MAG-OX 400) 400 mg tablet Active Problems Problem Noted Date Colon polyp 04/04/2011 Overview: Colonoscopy 03/2011 polyp repeat in 5 yea rs Acute myocardial infarction, unspecified site, initial episode of care 10/16/2009 Nonulcer dyspepsia 05/25/2009 Other and unspecified hyperlipidemia Overview: FLP 01/13/07: TC 118, TG 74, HDL 45, LDL 58 Unspecified essential hypertension Overview: NEG CT FOR RENAL ARTERY STENOSIS 04/09/06 Palpitations Overview: DOCUMENTED PVC'S Esophageal reflux CHEST DISCOMFORT OR TIGHTNESS Overview: CTA 04/09/06: No significant obstructive coronary artery disease Mild proximal LAD soft plaque, without s tenosis Other nonspecific abnormal cardiovascular system funct ion study Overview: CTA (2005): Mild Soft plaque in LAD Breast cancer Encounters Date Type Specialty Care Team Description 08/07/2022 Orders Only Lab, [facility] 08/07/2022 Travel 07/03/2022 Office Visit Alina Kim Follow Up MAYELA Dunham 07/03/2022 Hospital Encounter Visit for screening mammogram; Personal histor y of malignant neoplasm of breast 2022 Office Visit Shey Feliciano CV General C ardiology Gonzalez Arshad MD (F/U sleep stud y/) 2022 Travel from Last 3 Months Immunizations Name Administration Dates Next Due Amb Influenza, Inactivated AIIV4 (Age 1009/11/2020 65+ Years) Preserv Free Influenza A (H1N1), Inactivated 11/14/2009 Influenza Virus, Unspecified 09/05/2009 Influenza, High-dose Inactivated 08/13/2018, 08/27/2017, , 09/07/2015, 08/31/2014 Influenza, IIV3 (Age 6-35 mos) 08/16/2013, 09/03/2012, 08/30, 09/05/2010 Influenza, IIV3 (Age >=3 years) 09/22/2007, 10/07/2006, 09/01, 09/15/2003, 10/08/2001, 10/16/2000 Influenza, Inactivated AIIV4 (Age 65+ 08/29/2021 Years) Preserv Free Pneumococcal Poly,23-Valent 07/05/2010 (Pneumovax) Pneumococcal conj 13-Valent (Prevnar 02/15/2015 13) Tdap 08/16/2013 Zoster (Shingrix-RZV, recombinant) 05/27/2019, 03/09/2019 Zoster (Zostavax-ZVL, live) 11/03/2009 Family History Medical History Relation Name Comments Cancer-colon Father Heart failure Father Hypertension Father Rectal cancer Father Cancer Maternal Aunt No Known Problems Maternal Grandfather No Known Problems Maternal Grandmother Diabetes Mother Heart Disease Mother CABG in her janay y 60's Heart failure Mother Hyperlipidemia Mother Stroke Mother Lost her ability to speak Cancer-breast Other mat first cousi n 47 yrs old Hypertension Paternal Grandfather No Known Problems Paternal Grandmother Cancer-colon Paternal Uncle 70's yrs old Cancer Sister 1 Tongue cancer No Known Problems Sister 2 No Known Problems Sister 3 No Known Problems Sister 4 Cancer-ovarian No Family History Cancer-prostate No Family History Relation Name Status Comments Father (Age 80) heart failure, htn & colon cancer. Maternal Aunt sarcoma Maternal Grandfather Maternal Grandmother Mother Alive CAD, hyperlipide reginaldo and diabetes. Other Paternal Grandfather Paternal Grandmother Paternal Uncle Sister 1 Sister 2 Alive Sister 3 Alive Sister 4 Alive Social History Tobacco Use Types Packs/Day Years Used Date Never Smoker Smokeless Tobacco: Never Used Tobacco Cessation: Counseling Given: Yes Alcohol Use Standard Drinks/Week Comments Yes 0 (1 standard drink = 0.6 oz pure alcoho l) [facility] Alcohol Habits Answer Date Recorded How often do you have a drink containing alcohol? 2-4 times a month 10/18/2019 How many drinks containing alcohol do you have on a 1 or 2 04/19/2019 typical day when you are drinking? How often do you have six or more drinks on one Never 10/18/2019 occasion? Comment: occ 05/07/2022 Sex Assigned at Date Recorded Not on file COVID-19 Exposure Response Date Recorded In the last 10 days, have you been in contact with No / Unsu re 08/07/2022 10:33 AM CDT someone who was confirmed or suspected to have Coronavirus/COVID-19? Obstetrics History Last Filed Vital Signs Vital Sign Reading Time Taken Comments Blood Pressure 165/97 07/03/2022 8:37 AM CDT Pulse 67 07/03/2022 8:37 AM CDT Temperature 36.6 ??C (97.8 ??F) 07/03/2022 8:37 AM CDT Respiratory Rate 17 07/03/2022 8:37 AM CDT Oxygen Saturation 98% 2022 9:27 AM CDT Inhaled Oxygen Concentration - - Weight 77.7 kg (171 lb 3.2 oz) 07/03/2022 8:37 AM CDT Height 167.6 cm (5' 6) 07/03/2022 8:37 AM CDT Body Mass Index 27.63 07/03/2022 8:37 AM CDT Plan of Treatment Upcoming Encounters Date Type Specialty Care Team Description 09/02/2022 Orders Only 09/25/2022 Office Visit Shey Feliciano MD [address] [place], [place] [phone] (Wo rk) 07/09/2023 Appointment 07/09/2023 Office Visit Alina Kim PA [address] [place], [place] [phone] (Wo rk) Health Maintenance Due Date Last Done Comments Depression screening for age 12+ 1960 Hepatitis C screening for age 0807/02/1966 18-79 DEXA/DXA scan for age 65+ 2013 08/05/2007 Medicare Wellness for age 65+ 2013 Pneumococcal series for age 65+ (3 02/16/2016 02/15/2015, 0 07/05/2010 - PPSV23 or PCV20) Colonoscopy through age 75 04/04/2021 04/04/2011, 1 Influenza for age 65+ 08/01/2022 08/29/2021, 09/11/2020, 08/13/2018, Additional history exists COVID-19 vaccine series (5 - 09/23/2022 05/24/2022, 021, Booster for Moderna series) 02/16/2021, Addition al history exists BMI (ht and wt on same day) for 07/03/2023 07/03/2022, 08/0 01/2022, age 18+ 09/21/2021, Additional history exists Mammogram for age 45-75 07/03/2023 07/03/2022, 06/28/2021, 06/22/2020, Additional history exists Tetanus booster 08/16/2023 08/16/2013 Lipids for age 45-75 08/07/2027 08/07/2022, 09/17/2021, 09/11/2020, Additional history exists Tdap Completed 08/16/2013 Zoster (shingles) series for age Completed 05/27/2019, 08/2019, 50+ 11/03/2009 Procedures Procedure Name Priority Date/Time Associated Diagnosis Comme nts CK TOTAL Routine 08/07/2022 10:42 Hyperlipidemia, Results for this AM CDT unspecified procedure are i n hyperlipidemia type the resu lts section. ALT (SGPT) Routine 08/07/2022 10:42 Hyperlipidemia, Results for this AM CDT unspecified procedure are i n hyperlipidemia type the resu lts section. AST (SGOT) Routine 08/07/2022 10:42 Hyperlipidemia, Results for this AM CDT unspecified procedure are i n hyperlipidemia type the resu lts section. LIPID PANEL Routine 08/07/2022 10:42 Hyperlipidemia, Results for this AM CDT unspecified procedure are i n hyperlipidemia type the resu lts section. XR MAMMO AYAN Routine 07/03/2022 8:06 AM Visit for screening R esults for this BILAT SCREEN CDT mammogram procedure are in Personal history of the [facility] malignant neoplasm of sectio n. breast from Last 3 Months Results ALT (SGPT) (08/07/2022 10:42 AM CDT) athologist Signature ALT (SGPT) 15 8 - 45 IU/L 08/08/2022 [email or web address] 5:05 AM CDT LABORATORY-CENT [facility]AL LABORATORY Specimen Anatomical Collection Method / Collection Time Recei freddy Time (Source) Location / Volume Laterality Blood BLOOD SPECIMEN / Venipuncture / 08/07/2022 10:42 08/07 Unknown Unknown AM CDT 10:43 AM CDT Shey Feliciano MD CHEMISTRY Performing Organization Address City/[facility]/ZIP Code Phon e Number [email or web address] [phone] [place] [address] LABORATORY-CENTRAL 2000 LABORATORY AST (SGOT) (08/07/2022 10:42 AM CDT) athologist Signature AST (SGOT) 22 2 - 40 IU/L 08/08/2022 [email or web address] 5:05 AM CDT LABORATORY-[facility]ENT [facility]AL LABORATORY Specimen Anatomical Collection Method / Collection Time Recei freddy Time (Source) Location / Volume Laterality Blood BLOOD SPECIMEN / Venipuncture / 08/07/2022 10:42 08/07 Unknown Unknown AM CDT 10:43 AM CDT Shey Feliciano MD CHEMISTRY Performing Organization Address City/State/ZIP Code Phon e Number [facility] [address] [place] [address] LABORATORY-CENTRAL 2000 LABORATORY CK TOTAL (08/07/2022 10:42 AM CDT) P athologist Signature CK,TOTAL 75 29 - 168 08/08/2022 [facility] IU/L 5:05 AM CDT LABORATORY-CENTR AL LABORATORY Specimen Anatomical Collection Method / Collection Time Recei freddy Time (Source) Location / Volume Laterality Blood BLOOD SPECIMEN / Venipuncture / 08/07/2022 10:42 08/07 Unknown Unknown AM CDT 10:43 AM CDT Shey Feliciano MD CHEMISTRY Performing Organization Address City/State/ZIP Code Phon e Number [facility] [address] [facility] [place] [address] LABORATORY-CENTRAL 2000 LABORATORY LIPID PANEL (08/07/2022 10:42 AM CDT) Patholo gist Method Time Signature CHOLESTEROL,TOTAL 143 100 - 199 08/08/2022 [facility] mg/dL 5:05 AM CDT LABORATORY-JOSE TRAL LABORATORY TRIGLYCERIDES 84 <150 08/08/2022 [facility] mg/dL 5:05 AM CDT LABORATORY-[facility] LABORATORY HDL CHOLESTEROL 58 >40 mg/dL 08/08/2022 [facility] 5:05 AM CDT LABORATORY-[facility] LABORATORY NON-HDL 85 <145 08/08/2022 [facility] CHOLESTEROL mg/dl 5:05 AM CDT LABORATORY-JOSE TRAL LABORATORY CHOL/HDL RATIO 2.47 <4.50 08/08/2022 [facility] 5:05 AM CDT LABORATORY-[facility] LABORATORY LDL CHOLESTEROL 68 <=130 08/08/2022 [facility] mg/dL 5:05 AM CDT LABORATORY-JO[facility]AL LABORATORY VLDL CHOLESTEROL 17 <=30 08/08/2022 [facility] mg/dL 5:05 AM CDT LABORATORY-[facility] LABORATORY PROVIDER ORDERED RANDOM 08/08/2022 [facility] STATUS 5:05 AM CDT LABORATORY-JOSE TRAL LABORATORY Specimen Anatomical Collection Method / Collection Time Recei freddy Time (Source) Location / Volume Laterality Blood BLOOD SPECIMEN / Venipuncture / 08/07/2022 10:42 08/07 Unknown Unknown AM CDT 10:43 AM CDT Shey Feliciano MD CHEMISTRY Performing Organization Address City/State/ZIP Code Phon e Number [email or web address] [phone] [place] [address] LABORATORY-CENTRAL 2000 LABORATORY XR MAMMO AYAN BILAT SCREEN (07/03/2022 8:06 AM CDT) Anatomical Region Laterality Modality BREASTS, Breast Left, Breast Right Bilateral Mammo graphy Specimen (Source) Anatomical Location Collection Method / Collectio n Time Received Time / Laterality Volume Impressions 07/03/2022 8:18 AM CDT ??There is no radiographic evidence for malignancy. ??Recommend annual mammograms. MAMMOGRAM ASSESSMENT: ??ACR 2 Benign PATIENTS: You will also receive a letter with your examination results in an easy to read format. ??If you have qu estions about your results, please contact your referring provider. Narrative 07/03/2022 8:18 AM CDT For Patients: As a result of the Cures Act, medical imaging exams and procedure reports are released immediately into your electronic medical record. You may view this report before your referring provider. If you have questions, please contact [facility] provider. XR MAMMO AYAN BILAT SCREEN [[id number]] CLINICAL HISTORY: ??This is an asymptoma tic 72 y.o. patient. INDICATION FOR EXAM: Mammogram Screening . TECHNIQUE: CC & MLO views were obtained. ??This study was evaluated with the assistance of Computer-Aided Detecti on. Breast Tomosynthesis was used in interpretation. COMPARISON FILMS: Yes 06/28/21 [place] 06/22/20 [place] FINDINGS: ??The breasts have scattered a reas of fibroglandular density. ??No suspicious masses or microcalcifications . ??Post surgical changes within ?? both breasts. Tiffanie Romero MD MAMMO from Last 3 Months Insurance Payer Benefit Plan / Subscriber ID Effective Dates Phone Addre ss Type Group MEDICARE PART B MEDICARE PART B [id number] 2013-Presen ATTN: CLAIMS - HB USE ONLY HB ONLY t [address] [place] [address] MEDICARE PART A MEDICARE PART A [id number] 2013-Presen ATTN: CLAIMS - HB USE ONLY HB ONLY t [address] [place] [address] BL[employer]OSS MR BLUE CROSS [id number] 2016-Presen [address] [address] [place] [id number] BLUE CROSS BLUE CROSS [id number] 2016-Presen [address] [address] [place] [address] [place], [place] [id number] Advance Directives Latest Code Status on File Code Status Date Activated Date Inactivated Comments Full Code 10/14/2012 10:10 AM 10/14/2012 5:16 PM Full Code 08/22/2010 6:37 AM 08/22/2010 12:40 PM Full Code 08/15/2010 10:09 AM 08/15/2010 6:07 PM Full Code 10/16/2009 7:39 PM 10/17/2009 5:58 PM Care Teams Fire Battalion Chief Relationship Specialty Start Date End Date Tiffanie Romero MD PCP - General 03/02/09
--- OUTSIDE RECORDS SUMMARY | 2022-08-12 09:06 | XMS_ITS | Encounter Summary ---
:1950 Author Organization [employer] Address [address] [place] [address] Care Team Providers Name Role Phone Tiffanie Romero MD Primary Care Provider Reason for Visit Reason Comments BACK PAIN, LOW LEG PAIN Consult/Transfer Care (Routine) - Discharged Specialty Diagnoses / Procedures Referred By Contact Refer red To Contact Physical Therapy Diagnoses CLBP Tiffanie Romero MD [facility] [address] [address] [place] [address] [address] [place] [address] Phone: Fax: Referral ID Status Reason Start Date Expiration Date Visits V isits Requested Authorized [id number] Discharged 06/30/2018 09/29/2019 24 24 Encounter Details Date Type Department Care Team Description 11/11/2018 Therapy Physicians Neck and Back Dylon Majano, Lumbar pain; [facility] PT Lumbar radiculopathy [address] [facility], [address] [place], [place] [phone] Social History Tobacco Use Types Packs/Day Years Used Date Smoking Tobacco: Never Assessed Sex Assigned at Date Recorded Not on file documented as of this encounter Progress Notes Jayashree Majano, PT - 11/11/2018 10:15 AM CST 11/11/2018 Visit # 20 Protocol: Back, Disc and Osteo Start: 10:24 AM End: 11:07 AM ([employer]IP YARD ELECTRICAL PERSON Visit # 0 Subjective: Pt is ready to be discharged today. She denies low back pain with any daily activity. She will experience low back muscle stiffness if driving 45- 60'. She reports that her R buttock pain has disappeared as a result of this program. Pt purchased a Tao Chair to use at Home for her HEP. Cervical Not performed today. Objective Tests & Measures: 3# wt increase in L-Ext Issued a Home Exercise Sheet to patient with current aux wts to take with her to the gym. Tests performed today (see reviewflowsheet for score and outcomes): : Oswestry Final KSENIA = 0% as compared with an initial score of 8%. Warm Up: Movement Specific Training: Not Completed Bike: Minutes 5 Intensity Level 4 ICE: Back Lumbar Lumbar & Torso 11/11/2018 Set 1 Ext % Max 100% Set 1 Ext ROM 12-45 Set 1 Ext Wgt 125 Set 1 Ext Reps 20 Set 1 Ext Tul 85 Set 1 Ext Tyson RPE 7 Set 2 Ext % Max 100% Set 2 Ext ROM 12-45 Set 2 Ext Wgt 125 Set 2 Ext Reps 20 Set 2 Ext Tul 97 Set 2 Tyson RPE 7 Left Rot % Max 60% Left Rot ROM 35 Left Rot Wgt 30 Left Rot Reps 30 Left Rot Viet RPE 3 Right Rot % Max 60% Right Rot ROM 35 Right Rot Wgt 30 Right Rot Reps 30 Right Rot Tyson RPE 3 Therapeutic Exercise (35 min): Patient performed isolated lumbar extension exercise and auxillary exercises to improve muscle strength, to improve muscle endurance, to improve muscle flexibility, to improve range of motion, to increase strength for seated posture, to increase strength for standing posture and increase strength and e ndurance levels of supporting spinal muscle groups to increase tolerance for sitting and driving. Cued pt to slow her pace in L-Ext to minimize muscle substitution and avoid using momentum to complete a rep. Pt presented with a good breathing pattern while exercising. Neuromuscular Re-Education (8 min): Light resistance in T-Roto for proper movement patterns, muscle recruitment and posture while driving longer commutes in order to minimize stress on pt's lumbar spine. Cued for a slower pace in this MedX. Auxillary Auxillary 11/11/2018 Abs Wgt Set 1 60 Abs Reps Set 1 22 Abs Wgt Set 2 60 Abs Reps Set 2 11/ Glute Wgt Set 1 110 Glute Reps Set 1 25 Glute Wgt Set 2 110 Glute Reps Set 2 30 Leg Press Wgt Set 1 180 Leg Press Reps Set 1 30 Leg Press Wgt Set 2 180 Leg Press Reps Set 2 30 Lats Wgt Set 1 65 Lats Reps Set 1 20 Lats Wgt Set 2 65 Lats Reps Set 2 20 Other Final Oswestry HEP - Therapeutic Activities (0 min): Not performed today. Patient Education: Patient was instructed in correlation of strength and function to increase her understanding of the benefits related to completing the [facility] program. Emphasized the necessity of maintaining her lumbar/Core muscle strength after program completion in order to avoid muscle deconditioning. Assessment: Pt applied good effort throughout this workout. Pt is ready to be discharged. She has met her objective strength goals as well as all of her subjective functional goals. She is independent while using the Tao Chair for her maintenance HEP. She scored a 0% on her final Oswestry. She no longer is experiencing R buttock pain. No further rehab is indicated at this time. Discharge from therapy. Goals: Short Term Goals (4-6 weeks): 1. [...] back/R buttock pain.??Met 08/28/18 (per note) ? Men'S Swim Coach Goals (>6 weeks): 1. Patient will be [...] LBP and R Buttock Pain </= 2/10. ?? Final Oswestry = 0%. G-Codes: Goal: 8982- Discharge:8983-CH. G-Codes based on pt's Oswestry score and meeting all of her functional goals. ?? Precautions/Other Information: Full Low Back: Osteo and Disc. ??Advance ROM as tolerated. 80% T-Rotoper Osteo protocol. ??Awaiting MRI results prior to starting MedX. ?PMH includes: Breast CA (2010with lumpectomy and radiation treatments), Osteopenia, L Rotator Cuff discomfort. 07/29/18 - Clearance received. No evidence of osseous metastatic disease., HEP: Pt going to get gym membership ?? Recommendations/Communication: Pt has met her objective strength goals and subjective functional goals. Her lumbar maintenance HEP is in place. No further rehab is indicated. Discharge from therapy. Total timed code min: 43 Total treatment time: 43 Jayashree Majano, PT 11/11/2018, 11:03 AM ARYNGOLOGY SURGEON documented in this encounter Plan of Treatment Not on filedocumented as of this encounter Visit Diagnoses Diagnosis Lumbar pain Lumbago Lumbar radiculopathy Thoracic or lumbosacral neuritis or radi culitis, unspecified documented in this encounter Care Teams I[employer] Portal Developer Relationship Specialty Start Date End Date Tiffanie Romero MD PCP - General Internal Medicine 06/30/[address] [place] [address] documented as of this encounter
--- OUTSIDE RECORDS SUMMARY | 2022-08-12 09:07 | XMS_ITS | Encounter Summary ---
:1950 Author [facility] Address [address] [place] [address] Care Team Providers Name Role Phone Tiffanie Romero MD Primary Care Provider Reason for Visit Reason Comments BACK PAIN, LOW Consult/Transfer Care (Routine) - Discharged Specialty Diagnoses / Procedures Referred By Contact Refer red To Contact Physical Therapy Diagnoses CLBP Tiffanie Romero MD [facility] [address] [address] [place] [address] [address] [place] [address] Phone: Fax: Referral ID Status Reason Start Date Expiration Date Visits V isits Requested Authorized [id number] Discharged 06/30/2018 09/29/2019 24 24 Encounter Details Date Type Department Care Team Description 08/18/2018 Therapy Physicians Neck and Back Carlos Pinto, PAPER HANGER Lumbar pain; [facility] [address] [address], Lumbar radiculopathy [address] [address] [address] [place] [address] [place] [address] [phone] Social History Tobacco Use Types Packs/Day Years Used Date Smoking Tobacco: Never Assessed Sex Assigned at Date Recorded Not on file documented as of this encounter Progress Notes Carlos Pinto PTA - 08/18/2018 10:45 AM CDT 08/18/2018 Visit # 7 Protocol: low back, osteo, disc Start: 1045a End: 1123a (PAPER HANGER Visit # 5 Subjective: Doing well and feeling little stronger, balance is better too. Pleased with progress overall. Cervical Not performed today. Objective Tests & Measures: Tests performed today (see [facility] and outcomes): : None Performed Today Warm Up: Movement Specific Training: Not Completed Bike: Minutes 5 Intensity moderate ICE: Back Lumbar Lumbar & Torso 08/18/2018 Set 1 Ext % Max 100% Set 1 Ext ROM 12-45 Set 1 Ext Wgt 90 Set 1 Ext Reps 20 Set 1 Ext Tul 76 Set 1 Ext Tyson RPE 5 Set 2 Ext % Max 100% Set 2 Ext ROM 12-45 Set 2 Ext Wgt 90 Set 2 Ext Reps 25 Set 2 Ext Tul 104 Set 2 Tyson RPE 5-6 Left Rot % Max 60% Left Rot ROM 35 Left Rot Wgt 22 Left Rot Reps 25 Left Rot Viet RPE 3 Right Rot % Max 60% Right Rot ROM 35 Right Rot Wgt 22 Right Rot Reps 25 Right Rot Tyson RPE 3 Therapeutic Exercise (30 min): Patient performed isolated lumbar extension exercise and auxillary exercises to improve muscle strength, to improve muscle endurance, increase strength and endurance levels of supporting spinal muscle groups and to strengthen postural muscles to decrease stresses on the spine to increase tolerance forsitting, standing, lifting, personal care tasks and household tasks Verbal cues needed for proper form and control on Lumbar Extension machine with instruction to avoidsubstitution with other muscle groups and to facilitate correct muscle firing sequence and to avoid momentum, improper form and too fast with reps. Neuromuscular Re-Education (8 min): Patient performed isolated torso rotation to decrease substitution patterns present with chronic pain, to retrain muscles for proper sequencing and improve muscle recruitment patterns to increase tolerance for sitting, standing, lifting, personal care tasks and household tasks. Verbal cues for proper form and control on Thoracic Rotation with instruction on which shoulder to push with to avoid substitution on the wrong side of muscle groups. Instructed in slow reps to avoid momentum and improper form. Auxillary Auxillary 08/18/2018 Abs Wgt Set 1 55 Abs Reps Set 1 20 Abs Wgt Set 2 55 Abs Reps Set 2 20 Glute Wgt Set 1 90 Glute Reps Set 1 20 Glute Wgt Set 2 90 Glute Reps Set 2 20 Leg Press Wgt Set 1 150 Leg Press Reps Set 1 25 Leg Press Wgt Set 2 150 Leg Press Reps Set 2 25 Lats Wgt Set 1 65 Lats Reps Set 1 15 Lats Wgt Set 2 65 Lats Reps Set 2 15 Other - HEP - Therapeutic Activities (0 min): Not performed today. Patient Education: Patient was instructed in correlation of strength and function to increase their understanding of the benefits related to completing the [facility] Rehab program Assessment: Nicolette Sweeney tolerated treatment well, challenged on all exercises today. Good effort and more fatigued per pt today. Should improve as she gets stronger with less pain and more flexible with stretches. Observed form and speed on all reps to avoid substitution, proper positioning and good technique. Gives good effort in machines. Goals: Short Term Goals (4-6 weeks): 1. Pt will be able to transfer out of her car without low back or R buttock pain. 2. Pt will be able to arise to a standing position after sitting for a prolonged period of time without LBP. 3. Pt will be able to sit x 30' to read/watch TV, etc with low back, R buttock pain </= 2/10. 4. Pt will be able to lift/carry 10# with proper body mechanics and without low back/R buttock pain. ? Video Tape Editor Goals (>6 weeks): 1. Patient will be independent with home exercise program after discontinued from Physical Therapy. 2. Pt will be able to kneel and work in her garden x 10-15' with low back/R buttock pain </= 2/10. 3. Pt will be able to engage in activities with her young grandchildren with low back/R buttock pain</=2/10. 4. Pt will be able to arise to a standing position from the floor with proper mechanics and with lowback/R buttock pain </= 2/10. ? Insurance: ??Medicare, Needs G-Codes, Recert Date: 09/28/18 Initial Eval G-Codes: ??Current: 8981-CJ ?Goal: 8982- G-Codes based on pt's Oswestry score of 8% and difficulty with prolonged sitting, standing, transferring out of her car, kneeling to work in the garden, transitioning from a kneeling position to standing from the ground and engaging in activities with her grandchildren. ? Precautions/Other Information: Full Low Back: Osteo and Disc. ??Advance ROM as tolerated. 80% T-Rotoper Osteo protocol. ??Awaiting MRI results prior to starting MedX. ?PMH includes: Breast CA (2010with lumpectomy and radiation treatments), Osteopenia, L Rotator Cuff discomfort. 07/29/18 - Clearance received. No evidence of osseous metastatic disease. Recommendations/Communication: 60% lumbar extension and 80% thoracic rotation next. Lifting or HEP next. Total timed code min: 38 Total treatment time: 38 Carlos Pinto, CHARLA 08/18/2018, 11:23 AM Associated attestation - Denisse Conklin, PT - 08/18/2018 11:47 AM CDT Observed treatment. Goals/Plan of Care discussed with PAPER HANGER. Treatment progressing and appropriate. Denisse Conklin, ARIA 08/18/2018, 11:47 AM documented in this encounter Plan of Treatment Not on filedocumented as of this encounter Visit Diagnoses Diagnosis Lumbar pain Lumbago Lumbar radiculopathy Thoracic or lumbosacral neuritis or radi culitis, unspecified documented in this encounter Care Teams Human Services Care Specialist Relationship Specialty Start Date End Date Tiffanie Romero MD PCP - General Internal Medicine 06/[address] [place] [address] documented as of this encounter
--- OUTSIDE RECORDS SUMMARY | 2022-08-12 09:07 | XMS_ITS | Encounter Summary ---
:1950 Author Organization [facility] Address [address] [place] [address] Care Team Providers Name Role Phone Tiffanie Romero MD Primary Care Provider Reason for Visit Reason Comments MRI Results Encounter Details Date Type Department Care Team Description 07/22/2018 Telephone Physicians Neck and Back Nataliya Paulino MD [facility] Results [facility] [place] [address] [place] [address] [id number] [place], [place] [id number] [phone] Social History Tobacco Use Types Packs/Day Years Used Date Smoking Tobacco: Never Assessed Sex Assigned at Date Recorded Not on file documented as of this encounter Nursing Notes Nataliya Paulino MD - 07/22/2018 4:09 PM CDT Called patient about MRI results from 07/22/2018 with mild degenerative changes with facet arthropathy at the lower lumbar levels and suggestion of bilateral effusions involving the sacroiliac joints, no evidence of osseous metastatic disease. Let her know ok to schedule therapy sessions. She noted that she will be traveling on two vacations in August and I advised that she start therapy now as opposed to waiting until after her trips. She is in agreement and will call or stop in to schedule sessions. Nataliya Paulino MD 07/22/2018, 4:10 PM documented in this encounter Plan of Treatment Not on filedocumented as of this encounter Visit Diagnoses Not on filedocumented in this encounter Care Teams Pharmacy Aide Relationship Specialty Start Date End Date Tiffanie Romero MD PCP - General Internal Medicine 06/30/[address] [place] [address] documented as of this encounter
--- OUTSIDE RECORDS SUMMARY | 2022-08-12 09:07 | XMS_ITS | Encounter Summary ---
:1950 Author Organization [facility] Address [address] [place] [address] Care Team Providers Name Role Phone Tiffanie Romero MD Primary Care Provider Reason for Visit Procedure/Equipment (Routine) - Incomplete Specialty Diagnoses / Procedures Referred By Contact Refer red To Contact Diagnoses Mechanical low back pain Lumbar radiculopathy Nataliya Paulino MD Procedures MR Lumbar Spine W/WO IV Cont MR Lumbar Spine WO IV Cont [address] [facility] [place], [place] [address] Referral ID Status Reason Start Date Expiration Date Visits V isits Requested Authorized [id number] Incomplete 07/01/2018 09/30/2019 1 1 Encounter Details Date Type Department Care Team Description 07/22/2018 Imaging [facility] Nataliya Paulino, Lumbar pain (Primary Dx); MRI Mechanical low back pain; [address] [facility] [place] [address] [place], [place] [phone] [address] (Wo rk) Social History Tobacco Use Types Packs/Day Years Used Date Smoking Tobacco: Never Assessed Sex Assigned at Date Recorded Not on file documented as of this encounter Plan of Treatment Not on filedocumented as of this encounter Procedures Procedure Name Priority Date/Time Associated Diagnosis Comme nts MR LUMBAR SPINE Routine 07/22/2018 9:27 AM Mechanical low back Results for this W/WO IV CONT CDT pain procedure are in Lumbar radiculopathy the res ults section. NPT CREATININE STAT 07/22/2018 8:23 AM Lumbar pain Results for this CDT procedure are i n the results section. documented in this encounter Results MR Lumbar Spine W/WO IV Cont (07/22/2018 9:27 AM CDT) Anatomical Region Laterality Modality Spine, L-Spine, Skeletal Magnetic Resona nce Specimen (Source) Anatomical Collection Method Collection Time Re ceived Time Location / / Volume Laterality 07/22/2018 8:31 AM CDT Impressions 07/22/2018 9:55 AM CDT IMPRESSION: 1. Mild degenerative changes are seen as described above without significant narrowing or stenosis at any lumbar level. No evidence of osseous metastatic disease. There is facet arthropathy at the lower lumbar levels and suggestion of bilater al effusions involving the sacroiliac joints. Narrative 07/22/2018 9:55 AM CDT INDICATION: chronic back pain with right radicular symptoms, history of breast cancer ?? TECHNIQUE: ??MRI of the lumbar spine wit h and without contrast, GADOBUTROL 1 MMOL/ML IV SOLN 8 mL. COMPARISON: ??None. ? FINDINGS: Sagittal: ??Five lumbar-type vertebral b odies. ??The conus medullaris terminates at the level of L2. Normal cord signal. ??Normal marrow signal. ??Normal alignment. ??Normal enhancement. There is partia l visualization of a renal cyst. There i s suggestion of potential bilateral effusions involving the sacroiliac joints which are incompletely visualized. Axial: T12-L1: Unremarkable. L1-2: Unremarkable. L2-3: Unremarkable. L3-4: Small broad-based bulge is seen wi thout significant mass effect. L4-5: Small broad-based bulges seen with out significant mass effect. There is moderate facet arthropathy with bilateral facet joint effusions. L5-S1: Small broad-based bulges seen wit hout significant mass effect. There is severe facet arthropathy with hypertrophic change. Procedure Note Jacey Eugene MD - 07/22/2018Formattin g of this note might be different from the original. INDICATION: chronic back pain with right radicular symptoms, history of breast cancer TECHNIQUE: MRI of the lumbar spine with and without contrast, GADOBUTROL 1 MMOL/ML IV SOLN 8 mL. COMPARISON: None. FINDINGS: Sagittal: Five lumbar-type vertebral bod ies. The conus medullaris terminates at the level of L2. Normal cord signal. Normal marrow signal. Normal alignment. Normal enhancement. There is partial visualization of a renal cyst. There is suggestion of poten tial bilateral effusions involving the sacroiliac joints which are incompletely visualized. Axial: T12-L1: Unremarkable. L1-2: Unremarkable. L2-3: Unremarkable. L3-4: Small broad-based bulge is seen wi thout significant mass effect. L4-5: Small broad-based bulges seen with out significant mass effect. There is moderate facet arthropathy with bilateral facet joint effusions. L5-S1: Small broad-based bulges seen wit hout significant mass effect. There is severe facet arthropathy with hypertrophic change. IMPRESSION IMPRESSION: 1. Mild degenerative changes are seen as described above without significant narrowing or stenosis at any lumbar level. No evidence of osseous metastatic disease. There is facet arthropathy at the lower lumbar levels and suggestion of bilateral effus ions involving the sacroiliac joints. Naatliya Paulino MD RAD MRI NPT Lab Creatinine (Arvin and sites only) (07/22/2018 8:23 AM CDT) athologist Signature Creatinine Rapid 0.8 0.5 - 1.5 PN SOFT mg/dL Comment: The rapid creatinine test may be falsely elevated by high concentrations of acetaminophen, n-acety l cysteine, ascorbic acid, hydroxyurea, bromide, and high pCO 2 > 60 mmHG. Consider confirmatory testing by the serum creati nine method of the main lab, not subject to these interfere nces. Specimen Anatomical Collection Method Collection Time Receive d Time (Source) Location / / Volume Laterality 07/22/2018 8:23 AM 8 8:23 CDT AM CDT Narrative PN SOFT - 07/22/2018 8:37 AM CDT Performed at [facility] [address] [place] [address] CLIA number [id number] Nataliya Paulino MD LAB_1 Performing Organization Address City/State/ZIP Code Phon e Number PN SOFT [address] [place] [address] documented in this encounter Visit Diagnoses Diagnosis Lumbar pain - Primary Lumbago Mechanical low back pain Lumbago Lumbar radiculopathy Thoracic or lumbosacral neuritis or radi culitis, unspecified documented in this encounter Administered Medications Inactive Administered Medications - up to 3 most recent administrations Medication Order MAR Action Action Date Dose Rate Site gadobutrol (GADAVIST) 1 MMOL/ML Given 07/22/2018 9:00 AM CDT 8 m L injection 8 mL 8 mL, Intravenous, ONCE, On Fri07/22/18 at 0900, For 1 dose sodium chloride 0.9% injection 20 mL Given 07/22/2018 9:00 AM CDT 20 mL 20 mL, Intravenous, ONCE, On Fri07/22/18 at 0900, For 1 dose documented in this encounter Care Teams International Broadcast Music Librarian Relationship Specialty Start Date End Date Tiffanie Romero MD PCP - General Internal Medicine [address] [place] [address] documented as of this encounter
--- OUTSIDE RECORDS SUMMARY | 2022-08-12 09:07 | XMS_ITS | Encounter Summary ---
:1950 Author Organization [employer] Address [address] [place] [address] Care Team Providers Name Role Phone Tiffanie Romero MD Primary Care Provider Reason for Visit Reason Comments BACK PAIN Consult/Transfer Care (Routine) - Discharged Specialty Diagnoses / Procedures Referred By Contact Refer red To Contact Physical Therapy Diagnoses CLBP Tiffanie Romero MD [facility] [address] [address] [place] [address] [address] [place] [address] Phone: Fax: Referral ID Status Reason Start Date Expiration Date Visits V isits Requested Authorized [id number] Discharged 06/30/2018 09/29/2019 24 24 Encounter Details Date Type Department Care Team Description 08/20/2018 Therapy Physicians Neck and Back Denisse Lemon, PT Lumbar pain; [facility] [id number] [place] [address] Lumbar radiculopathy [address] [place] [address] [address] [place], [place] [id number] [phone] Social History Tobacco Use Types Packs/Day Years Used Date Smoking Tobacco: Never Assessed Sex Assigned at Date Recorded Not on file documented as of this encounter Progress Notes Denisse Conklin, PT - 08/20/2018 10:00 AM CDT 08/20/2018 Visit # 8 Protocol: low back, osteo, disc Start: 10:00 am End: 10:36 am (APPEALS OFFICER Visit # 0 Subjective: Patient reports her back is feeling good. Patient reports hasn't had right low back painsince she started PT treatments and started doing the stretches. Cervical Not performed today. Objective Tests & Measures: T-Rot 80% increased 2 pounds since last max day. Tests performed today (see [facility] score and outcomes): : None Performed Today Warm Up: Movement Specific Training: Not Completed Mat Exercises Completed Bike: Minutes 5 Intensity Light to Moderate Intensity per patient. ICE: Back Lumbar Lumbar & Torso 08/20/2018 Set 1 Ext % Max 60% Set 1 Ext ROM 12-45 Set 1 Ext Wgt 54 Set 1 Ext Reps 32 Set 1 Ext Tul 114 Set 1 Ext Tyson RPE 3 Set 2 Ext % Max - Set 2 Ext ROM - Set 2 Ext Wgt - Set 2 Ext Reps - Set 2 Ext Tul - Set 2 Tyson RPE - Left Rot % Max 80% Left Rot ROM 35 Left Rot Wgt 28 Left Rot Reps 30 Left Rot Viet RPE 4 Right Rot % Max 80% Right Rot ROM 35 Right Rot Wgt 28 Right Rot Reps 30 Right Rot Tyson RPE 4 Therapeutic Exercise (26 min): Patient performed isolated torso rotation exercise and auxillary exercises to improve muscle strength, to improve muscle endurance and increase strength and endurance levels of supporting spinal musclegroups to increase tolerance for sitting, standing, walking, sleeping, bed mobility, lifting, driving, personal care tasks and household tasks with PT monitoring patient's technique for form and pace. Patient with good form and pace. Neuromuscular Re-Education (10 min): Patient performed isolated lumbar extension to retrain muscles for proper sequencing, improve musclerecruitment patterns and to improve movement patterns in an isolated plane to increase tolerance forsitting, standing, walking, sleeping, bed mobility, lifting, driving, personal care tasks and household tasks. with PT monitoring patient's technique for form and pace. Patient with good form and pace. Tao Chair: Patient instructed in Tao Chair exercises with visual and verbal demonstration from PT. Patient performed Tao Chair Trunk Extension x 10 reps with VCs to lead with head in both directions. PT explained that Tao Chair exercises are recommended at time of D/C from PT to do 2x/week to fatigue to maintain lumbar strength. Patient reports she is shopping for a Tao Chair. Auxillary Auxillary 08/20/2018 Abs Wgt Set 1 55 Abs Reps Set 1 20 Abs Wgt Set 2 55 Abs Reps Set 2 Glute Wgt Set 1 90 Glute Reps Set 1 20 Glute Wgt Set 2 90 Glute Reps Set 2 20 Leg Press Wgt Set 1 150 Leg Press Reps Set 1 30 Leg Press Wgt Set 2 150 Leg Press Reps Set 2 20 Lats Wgt Set 1 65 Lats Reps Set 1 20 Lats Wgt Set 2 65 Lats Reps Set 2 15 Other Abs: Small Block. HEP Tao Chair: Trunk Extension. Therapeutic Activities (0 min): Not performed today. Patient Education: PT explained to patient that with L-Ext and T-Rot Med-X exercises that alternate between max and submax workouts; explained that when one machine is max workout then the other machine is a submax workout. Assessment: Patient challenged by Lats 2nd set and stopped at 15 reps. Patient challenged by Abs 2ndset and took 2 short rest breaks to do 20 reps total. Patient gave good effort throughout treatment.Patient tolerated treatment well. Goals: Short Term Goals (4-6 weeks): 1. [...] and without low back/R buttock pain. ? Alf Goals (>6 weeks): 1. Patient will be [...] evidence of osseous metastatic disease. ?? Recommendations/Communication: Next Treatment: L-Ext 100% and T-Rot 60%. Increase Legpress 5 pounds.Practice Body Mechanics/Lifting. Total timed code min: 36 Total treatment time: 36 Denisse Conklin, PT 08/20/2018, 10:46 AM documented in this encounter Plan of Treatment Not on filedocumented as of this encounter Visit Diagnoses Diagnosis Lumbar pain Lumbago Lumbar radiculopathy Thoracic or lumbosacral neuritis or radi culitis, unspecified documented in this encounter Care Teams Commissioning Manager Relationship Specialty Start Date End Date Tiffanie Romero MD PCP - General Internal Medicine 06/30/[address] [place] [address] documented as of this encounter
--- OUTSIDE RECORDS SUMMARY | 2022-08-12 09:07 | XMS_ITS | Encounter Summary ---
:1950 Author [facility] Address [address] [place] [address] Care Team Providers Name Role Phone Tiffanie Romero MD Primary Care Provider Reason for Visit Reason Comments BACK PAIN, LOW LEG PAIN Consult/Transfer Care (Routine) - Discharged Specialty Diagnoses / Procedures Referred By Contact Refer red To Contact Physical Therapy Diagnoses CLBP Tiffanie Romero MD [facility] [address] [address] [place] [address] [address] [place] [address] Phone: Fax: Referral ID Status Reason Start Date Expiration Date Visits V isits Requested Authorized [id number] Discharged 06/30/2018 09/29/2019 24 24 Encounter Details Date Type Department Care Team Description 09/02/2018 Therapy Physicians Neck and Back Dylon Majano, Lumbar pain; [facility] PT Lumbar radiculopathy [address] [facility], [address] [place], [place] [id number] Social History Tobacco Use Types Packs/Day Years Used Date Smoking Tobacco: Never Assessed Sex Assigned at Date Recorded Not on file documented as of this encounter Progress Notes Jayashree Majano, PT - 09/02/2018 12:15 PM CDT 09/03/2018 Visit # 12 Protocol: Back and Osteo and Disc. Start: 12:15 PM End: 12:58 PM (ORACLE APPLICATION CONSULTANT Visit # 3 Subjective: Pt reports a decrease in LBP, however, she continues to experience a constant achinessin her R buttock. Arising after a prolonged period of sitting continues to be impacted by low back muscle stiffness. Cervical Not performed today. Objective Tests & Measures: 2# increase in T-Roto. Recheck Tests performed today (see reviewflowsheet for score and outcomes): : None Performed Today Warm Up: Movement Specific Training: Not Completed Mat Exercises Completed Bike: Minutes 5 Intensity Level 4 ICE: Back Lumbar Lumbar & Torso 09/02/2018 Set 1 Ext % Max 60% Set 1 Ext ROM 12-45 Set 1 Ext Wgt 66 Set 1 Ext Reps 30 Set 1 Ext Tul 168 Set 1 Ext Tyson RPE 3 Set 2 Ext % Max - Set 2 Ext ROM - Set 2 Ext Wgt - Set 2 Ext Reps - Set 2 Ext Tul - Set 2 Tyson RPE - Left Rot % Max 80% Left Rot ROM 35 Left Rot Wgt 36 Left Rot Reps 20 Left Rot Viet RPE 5 Right Rot % Max 80% Right Rot ROM 35 Right Rot Wgt 36 Right Rot Reps 20 Right Rot Tyson RPE 5 Therapeutic Exercise (28 min): Thoracic and aux exercises to increase pt's spinal and Core muscle strength/endurance/stability for improvement in her ability to arise from a chair or the floor after a prolonged period of sitting andto lift/move heavier loads such as groceries or a basket of laundry without LB/R buttock pain/achines s. Pt presented with an appropriate pace and control of the weights while exercising. Neuromuscular Re-Education (15 min): Patient performed isolated lumbar extension to decrease substitution patterns present with chronic pain, improve muscle recruitment patterns and to improve movement patterns in an isolated plane to increase tolerance for standing, walking and household tasks. Reviewed prone over pillows' exercise to maintain pt's lumbar muscle strength while she is vacationing for the next 2 weeks in [place]. Verbaland visual cues were provided for a correct isolating technique with this exercise. Pt was able to demonstrate this exercise with a correct technique. Auxillary Auxillary 09/02/2018 Abs Wgt Set 1 60 Abs Reps Set 1 20 Abs Wgt Set 2 60 Abs Reps Set 2 20 Glute Wgt Set 1 95 Glute Reps Set 1 30 Glute Wgt Set 2 - Glute Reps Set 2 - Leg Press Wgt Set 1 160 Leg Press Reps Set 1 30 Leg Press Wgt Set 2 170 Leg Press Reps Set 2 25 Lats Wgt Set 1 65 Lats Reps Set 1 21 Lats Wgt Set 2 65 Lats Reps Set 2 20 Other MD recheck HEP Prone over pillows' review for upcoming vacation Therapeutic Activities (0 min): Not performed today. Patient Education: Patient was instructed in correlation of strength and function to increase her understanding of the benefits related to completing the [facility] program. Verbal/visual cues provided for a correct technique while performing the prone over pillows' exercise while on vacation. Assessment: Pt applied good effort throughout this session. She followed all instructions/corrections well. She continues to demonstrate on-going strength gains with subjective sx relief and improvement in her functional status at home and out in the community. Her initial wt in L-Ext was 50#; she is now lifting 110#. She has not yet attained a lumbar strength plateau. Will continue to advance wts per pt's tolerance in order to maximize her spinal/Core strength. Goals: Short Term Goals (4-6 weeks): 1. Pt will be able to transfer out of her car without low back or R buttock pain.Met 08/28/18 2. Pt will be able to arise to a standing position after sitting for a prolonged period of time without LBP. Progressing stiff upon standing 08/28/18 3. Pt will be able to sit x 30' to read/watch TV, etc with low back, R buttock pain </= 2/10.??Met 08/28/18 4. Pt will be able to lift/carry 10# with proper body mechanics and without low back/R buttock pain. ? Underground Foreman Goals (>6 weeks): 1. Patient will be [...] pain </= 2/10.??Progressing stiff more than pain 08/28/18 ? Insurance: ??Medicare, Needs G-Codes, Recert Date: 09/28/18 Initial Eval G-Codes: ??Current: 8981-CJ ?Goal: 8982-CH [...] No evidence of osseous metastatic disease. Recommendations/Communication: Pt will be leaving for [place] on 09/06/18 - will be gone x 2 weeks. Next visit: Check MD orders for any changes in pt's POC. 100% L-Ext, 60% T-Roto. Total timed code min: 43 Total treatment time: 43 Jayashree Majano PT 09/02/2018, 5:07 AM documented in this encounter Plan of Treatment Not on filedocumented as of this encounter Visit Diagnoses Diagnosis Lumbar pain Lumbago Lumbar radiculopathy Thoracic or lumbosacral neuritis or radi culitis, unspecified documented in this encounter Care Teams Parts Identification Technician Relationship Specialty Start Date End Date Tiffanie Romero MD PCP - General Internal Medicine 06/[address] [place] [address] documented as of this encounter
--- OUTSIDE RECORDS SUMMARY | 2022-08-12 09:07 | XMS_ITS | Encounter Summary ---
:1950 Author Organization [facility] Address [address] [place] [address] Care Team Providers Name Role Phone Tiffanie Romero MD Primary Care Provider Reason for Visit Reason Comments BACK PAIN, LOW Consult/Transfer Care (Routine) - Discharged Specialty Diagnoses / Procedures Referred By Contact Refer red To Contact Physical Therapy Diagnoses CLBP Tiffanie Romero MD [facility] [address] [address] [place] [address] [address] [place] [address] Phone: Fax: Referral ID Status Reason Start Date Expiration Date Visits V isits Requested Authorized [id number] Discharged 06/30/2018 09/29/2019 24 24 Encounter Details Date Type Department Care Team Description 08/07/2018 Therapy Physicians Neck and Back Kamilla Ash, Lumbar pain; [facility] 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 Lumbar radiculopathy [address] [facility], [address], [place] [address] [place] [address] [place] [address] [phone] (Wo rk) Social History Tobacco Use Types Packs/Day Years Used Date Smoking Tobacco: Never Assessed Sex Assigned at Date Recorded Not on file documented as of this encounter Progress Notes Katlyn Ash, 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 - 08/07/2018 12:00 PM CDT 08/07/2018 Visit # 4 Protocol: full low back, osteo and disc Start: 12:03 End: 12:49 (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 Visit # 2 Subjective: Pt states that she likes the exercise. Has not been sore yet from the workouts. Cervical Not performed today. Objective Tests & Measures:Initial T-Roto Tests performed today (see reviewflowsheet for score and outcomes): : None Performed Today Warm Up: Movement Specific Training: Completed Mat Exercises Completed Bike: Minutes 5 Intensity mod ICE: Back Lumbar Lumbar & Torso 08/07/2018 Set 1 Ext % Max 60% Set 1 Ext ROM 12-42 Set 1 Ext Wgt 60 Set 1 Ext Reps 30 Set 1 Ext Tul 111 Set 1 Ext Tyson RPE 4 Set 2 Ext % Max - Set 2 Ext ROM - Set 2 Ext Wgt - Set 2 Ext Reps - Set 2 Ext Tul - Set 2 Tyson RPE - Left Rot % Max 60% Left Rot ROM 35 Left Rot Wgt 20 Left Rot Reps 25 Left Rot Viet RPE 4 Right Rot % Max 60% Right Rot ROM 35 Right Rot Wgt 20 Right Rot Reps 25 Right Rot Tyson RPE 4 Therapeutic Exercise (16min): Patient performed auxillary exercises to improve muscle strength, to improve muscle endurance, to improve muscle flexibility, to improve range of motion and to provide postural and scapular stability to increase tolerance for sitting, bed mobility and household tasks Analyzed data from previous treatment to determine changes in range of motion and weight capacity for today's RX. Cued pt for correct body alignment and form during the exercises. Advised on optimal pace to achieve most benefits of the exercise. See Daily Exercise flow sheet for numeric details. Neuromuscular Re-Education (22 min): Patient performed isolated lumbar extension and isolated torso rotation to retrain muscles for proper sequencing and improve muscle recruitment patterns to increase tolerance for sitting, bed mobility and household tasks. Analyzed data from previous treatment to determine changes in range of motion and weight capacity for today's RX. Cued pt for correct body alignment and form during the exercises. Advised on optimal pace to achieve most benefits of the exercise. See Daily Exercise flow sheet for numeric details. Instruction in oblique strengthe Auxillary Auxillary 08/07/2018 Abs Wgt Set 1 50 Abs Reps Set 1 20 Abs Wgt Set 2 50 Abs Reps Set 2 20 Glute Wgt Set 1 70 Glute Reps Set 1 20 Glute Wgt Set 2 75 Glute Reps Set 2 20 Leg Press Wgt Set 1 130 Leg Press Reps Set 1 30 Leg Press Wgt Set 2 145 Leg Press Reps Set 2 20 Lats Wgt Set 1 55 Lats Reps Set 1 22 Lats Wgt Set 2 60 Lats Reps Set 2 20 Other TA vacuuming Therapeutic Activities (8 min): Therapeutic Activities 08/07/2018 PIVOT VS TWIST Independent OTHER ACTIVITY Instruction in correct body mechanics for household task of vacuuming. She was able to feel the reduction in low back strain when correct BM where used. Patient Education: Patient was instructed in pain/time scale and correlation of strength and function to increase theirunderstanding of the benefits related to completing the [facility] Rehab program Assessment: Pt has not been getting delayed onset muscle soreness. Tolerated weight increases in Auxand instruction in 1st T-Roto without complications. Goals: Short Term Goals (4-6 weeks): 1. [...] and without low back/R buttock pain. ? Hot Dog Vender Goals (>6 weeks): 1. Patient will be [...] evidence of osseous metastatic disease. Recommendations/Communication: 100% Lumbar Ext May need higher percentage - consider 80#. 60% T-Roto Total timed code min: 46 Total treatment time: 46 Katlyn Ash PTA 08/07/2018, 1:03 PM documented in this encounter Plan of Treatment Not on filedocumented as of this encounter Visit Diagnoses Diagnosis Lumbar pain Lumbago Lumbar radiculopathy Thoracic or lumbosacral neuritis or radi culitis, unspecified documented in this encounter Care Teams Telephone Diaphragm Assembler Relationship Specialty Start Date End Date Tiffanie Romero MD PCP - General Internal Medicine 06/[address] [place] [address] documented as of this encounter
--- OUTSIDE RECORDS SUMMARY | 2022-08-12 09:07 | XMS_ITS | Encounter Summary ---
:1950 Author Organization [facility] Address [address] [place] [address] Care Team Providers Name Role Phone Tiffanie Romero MD Primary Care Provider Reason for Visit Reason Comments BACK PAIN, LOW LEG PAIN Consult/Transfer Care (Routine) - Discharged Specialty Diagnoses / Procedures Referred By Contact Refer red To Contact Physical Therapy Diagnoses CLBP Tiffanie Romero MD [facility] [address] [address] [place] [address] [address] [place] [address] Phone: Fax: Referral ID Status Reason Start Date Expiration Date Visits V isits Requested Authorized [id number] Discharged 06/30/2018 09/29/2019 24 24 Encounter Details Date Type Department Care Team Description 07/01/2018 Therapy Physicians Neck and Jayashree Majano mbar pain (Primary Dx); [facility] Lola Yancey, PT Lumbar radiculopathy [address] [facility], [address] [place] [address] Social History Tobacco Use Types Packs/Day Years Used Date Smoking Tobacco: Never Assessed Sex Assigned at Date Recorded Not on file documented as of this encounter Progress Notes Jayashree Majano, PT - 07/01/2018 1:15 PM CDT PHYSICAL THERAPY EVALUATION Patient Report Symptoms: Low Back pain with R buttock pain and mm stiffness in R groin and bilateral anterior thighs. Onset: Chronic x 10 years (NSI) No current facility-administered medications for this visit. Medications reviewed with patient: no No past medical history on file. No past surgical history on file. Review of systems reviewed with patients: yes. Breast CA (2010 - Lumpectomy and radiation), Osteopenia, L Rotator Cuff discomfort Previous Treatment: PT treatments - not helpful, Chiro, Massage Occupation: Retired Restrictions: None Exercise habits: None FUNCTION Oswestry Disability Index: 8% Neck Disability Index: NA Personal Care: No limitations Lifting: No limitations Walking: No limitations Sitting: > 15-20' Standing: Mild pain in low back Sleeping: No limitations Reading: N/A Driving: No limitations Other Limitations: Transferring out of her car, Engaging in play with her grandchildren, Kneeling towork in the garden, Arising to a standing position from a kneeling position, Arising to a standing position after prolonged seated position. Pain Characteristics: See patient PAIN DIAGRAM and PAIN CHARACTERISTICS on QUESTIONNAIRE form. Improved by: Walking, Stretches, Changing positions Aggravated by: Prolonged sitting, Arising to a standing position after a prolonged period of sitting Description/Quality: Achy EXAMINATION: Tests and measures: Posture: Normal lumbar lordosis, Mild rounding of shoulders with a forward head position Cervical ROM Lumbar ROM No flowsheet data found. Lumbar ROM 07/01/2018 Flexion Fingertips to the floor (No LBP) Extension 20 cm Side Bend Left 54 cm Side Bend Right 52 cm Trunk Rotation Left About 25% of normal range (Limited by tight obliques) Trunk Rotation Right About 25% of normal range (Limited by tight obliques) Mobility: Mild to moderate hypomobility of thoracic/lumbosacral spine. Tight hips, Tight thoracic and lumbar paraspinals, Bilateral SLR = 90 degrees. Tenderness at R SI joint. Gait: Slight antalgic pattern with off-loading on the R LE. Functional Testing: Oswestry and Range of Motion Other: LE = 5/5 bilaterally for Psoas, Quads, Ankle DF/PF, Glute Angelito. 5/5 for L Glute Medius, 4/5 for R Glute Medius Directional Preference: Neutral position P.T. DIAGNOSIS: ICD-10-CM 1. Lumbar pain (HRC) M54.5 2. Lumbar radiculopathy M54.16 PROGNOSIS: good Risk factors/potential barriers: None ASSESSMENT Pt is a very pleasant 67 year old female who comes to rehab c/o increased LB and R buttock pain withsignificant mm stiffness in her R groin and bilateral anterior thighs (NSI.) Pt has experienced LBP since 2007 (NSI.) PT and Chiro treatments in the past have not been very helpful. Trunk ROM limitations are noted in bilateral rotation. She is able to place her fingertips to the floor without pain. Her SLR, bilaterally, is 90 degrees. She presents with a mild antalgic gait pattern; off-loading on theR LE. Activities which aggravate her sxs are prolonged sitting, arising to a standing position from a kneeling position or after a prolonged period in the seated position, engaging in play with her young grandchildren and transferring out of her car. Walking and stretches will alleviate her sxs. Pt should respond favorably to this progressive strengthening program. We are awaiting MRI results of her lumbar spine prior to the start of this MedX program. PLAN OF CARE Frequency: 2 visits/week. Duration: 90 days (90 days max for Medicare and MS patients). Short Term Goals (4-6 weeks): 1. Pt [...] mechanics and without low back/R buttock pain. Senior Care Goals (>6 weeks): 1. Patient [...] and with lowback/R buttock pain </= 2/10. Planned Interventions: Therapeutic Exercise: Increase Strength and Endurance to improve pt's sitting, kneeling tolerance and ability to arise to a standing position after a prolonged period of sitting. Neuromuscular Re-Education: Improve neuromuscular abilities to improve posture and motor control with functional activities at home and out in the community. Therapeutic Activities: Train in proper body mechanics/posture to ensure safety and proper form whenlifting/carrying heavy objects at home and out in the community. Discharge Plan: [place] in strength maintenance home exercise program TODAY'S INTERVENTIONS: Therapeutic Exercise, Therapeutic Activity and Neuromuscular re-education Jayashree Majano, PT 07/01/2018, 5:47 AM 2018 Visit # 1 Protocol: Full Low Back: Osteo and Disc. Advance ROM as tolerated. Awaiting MRI results prior to start of MedX. Start: 1:20 PM End: 2:13 PM (SUPPORT TEAM MEMBER Visit # 0 Subjective: See Initial Evaluation Cervical Not performed today. Objective Tests & Measures: See Initial Evaluation. Stretches only today per MD. Awaiting MRI results prior to start of MedX. Tests performed today (see reviewflowsheet for score and outcomes): : Oswestry and Range of Motion Oswestry = 8% Warm Up: Movement Specific Training: Completed Bike: Minutes 5 Intensity Level 4 ICE: Not given today. Stretches only. Lumbar Not performed today. Therapeutic Exercise (30 min): Instructed pt in lumbar and thoracic movt specific exercises to increase mm flexibility and minimizepain sxs in order to improve pt's functional status. Exercises included knee to chest, hamstring stretch,supine piriformis stretch, seated lumbar rotation, press ups and standing lumbar extension. Verbal and visual cues were provided for a correct technique with each exercise. Instructed pt in clamshell exercises to strengthen her hip abductor mms. Pt was able to demonstrate this exercise correctly following PT's instructions. Neuromuscular Re-Education (0 min): None performed today. Auxillary Auxillary 07/01/2018 Other Stretches only today. Awaiting MRI results prior to start of MedX machines. Therapeutic Activities (8 min): Therapeutic Activities 07/01/2018 OTHER ACTIVITY Instructed pt in a proper movt sequence with bed mobility. Verbal/visual cues included: correct sit<>supine transitions at edge of bed and log rolling without a pillow between the legs to minimize lumbar mm strain. Pt was able to demonstrate this mo vt correctly after several practice reps. Pt denied LB or groin pain when performing this activity with proper mechanics. Patient Education: Patient was instructed in pain/time scale and correlation of strength and function to increase her understanding of the benefits related to completing the [facility] Rehab program. Discussed program objectives, POC, DOMs, ice vs heat, maintenance spinal HEP and the importance of daily movt/stretching and jung lication of cold packs for sx relief. Access Code: [email or web address] URL: [email or web address] Date: 07/01/2018 Prepared by: Jayashree Majano Exercises Hooklying Single Knee to Chest Stretch [...] hold - 1x daily - 3x weekly Assessment: See Initial Evaluation. Good rehab candidate. Pt appears motivated to improve her spinalhealth and functional status at home and out in the community. Pt was able to perform her stretches correctly after PT's instructions. Awaiting MD's orders to begin MedX and Core exercises. Goals: Short Term Goals (4-6 weeks): 1. [...] mechanics and without low back/R buttock pain. Ash Pit Worker Goals (>6 weeks): 1. Patient will [...] and with lowback/R buttock pain </= 2/10. Insurance: Medicare, Needs G-Codes, Recert Date: 09/28/18 Initial Eval G-Codes: Current: 8981-CJ Goal: 8982-CH G-Codes based on pt's Oswestry score of 8% and difficulty with prolonged sitting, standing, transferring out of her car, kneeling to work in the garden, transitioning from a kneeling position to standing from the ground and engaging in activities with her grandchildren. Precautions/Other Information: Full Low Back: Osteo and Disc. Advance ROM as tolerated. 80% T-Roto per Osteo protocol. Awaiting MRI results prior to starting MedX. PMH includes: Breast CA (2009 with lumpectomy and radiation treatments), Osteopenia, L Rotator Cuff discomfort Recommendations/Communication: Awaiting MRI results and MD orders to start MedX. 60% L-Ext. Add ABs,G/H, Leg Press and Lats - start with light wts due to h/o L Rotator Cuff discomfort. Total timed code min: 38 Total treatment time: 53 Jayashree Majano, PT 07/01/2018, 5:47 AM documented in this encounter Plan of Treatment Not on filedocumented as of this encounter Visit Diagnoses Diagnosis Lumbar pain - Primary Lumbago Lumbar radiculopathy Thoracic or lumbosacral neuritis or radi culitis, unspecified documented in this encounter Care Teams Svp Digital Sales Relationship Specialty Start Date End Date Tiffanie Romero MD PCP - General Internal Medicine 06/[address] [place] [address] documented as of this encounter
--- OUTSIDE RECORDS SUMMARY | 2022-08-12 09:07 | XMS_ITS | Encounter Summary ---
:1950 Author [facility] Address [address] [place] [address] Care Team Providers Name Role Phone Tiffanie Romero MD Primary Care Provider Reason for Visit Reason Comments BACK PAIN, LOW LEG PAIN Consult/Transfer Care (Routine) - Discharged Specialty Diagnoses / Procedures Referred By Contact Refer red To Contact Physical Therapy Diagnoses CLBP Tiffanie Romero MD [facility] [address] [address] [place] [address] [address] [place] [address] Phone: Fax: Referral ID Status Reason Start Date Expiration Date Visits V isits Requested Authorized [id number] Discharged 06/30/2018 09/29/2019 24 24 Encounter Details Date Type Department Care Team Description 07/29/2018 Therapy Physicians Neck and Back Dylon Majano, Lumbar pain; [facility] PT Lumbar radiculopathy [address] [facility], [address] [place], [place] [id number] Social History Tobacco Use Types Packs/Day Years Used Date Smoking Tobacco: Never Assessed Sex Assigned at Date Recorded Not on file documented as of this encounter Progress Notes Jayashree Majano, PT - 07/29/2018 1:15 PM CDT 07/29/2018 Visit # 2 Protocol: Full Low Back: Osteo and Disc. Start: 1:24 PM End: 2:08 PM (UNIT SUPERVISOR Visit # 0 Subjective: Pt reports sx relief in right buttock and groin since the initiation of her movement specific HEP. She requested a review of the supine piriformis stretch. Pt was pleased to learn that her MRI showed no evidence of osseous metastatic disease. Cervical Not performed today. Objective Tests & Measures: Initiated L-Ext with a light resistance and ROM per Osteo protocol. Added aux equipment: Abdominals, G/H, Leg Press and Lats Tests performed today (see reviewflowsheet for score and outcomes): : None Performed Today Warm Up: Movement Specific Training: Not Completed Bike: Minutes 7 Intensity Level 4 ICE: Back Lumbar Lumbar & Torso 07/29/2018 Set 1 Ext % Max 60% Set 1 Ext ROM 12-42 Set 1 Ext Wgt 50 Set 1 Ext Reps 20 Set 1 Ext Tul 119 Set 1 Ext Tyson RPE 3-4 Therapeutic Exercise (34 min): Aux exercises to increase pt's spinal and Core mm strength/endurance/stability for improvement in her ability to transfer out of her car and arise to a standing position from the floor without LBP/R buttock and groin pain. Cued pt for an appropriate pace, control of the weights, proper posture/form/technique in the Abdominals, G/H, Leg Press and Lats' machines. Reviewed pt's form with her supine piriformis stretch. Instructed her in a seated version of this stretch due to degree of difficulty she was having with this exercise in supine. Neuromuscular Re-Education (10 min): Initiated L-Ext with a light resistance for proper movement patterns, mm recruitment and posture while working in her garden. Cued pt for an appropriate pace, breath control and technique in this MedX. Auxillary Auxillary 07/29/2018 Abs Wgt Set 1 40 Abs Reps Set 1 21 Abs Wgt Set 2 40 Abs Reps Set 2 20 Glute Wgt Set 1 55 Glute Reps Set 1 21 Glute Wgt Set 2 70 Glute Reps Set 2 23 Leg Press Wgt Set 1 120 Leg Press Reps Set 1 20 Leg Press Wgt Set 2 120 Leg Press Reps Set 2 20 Lats Wgt Set 1 50 Lats Reps Set 1 20 Lats Wgt Set 2 55 Lats Reps Set 2 20 Other - Therapeutic Activities (0 min): Not performed today. Patient Education: Patient was instructed in correlation of strength and function to increase her understanding of the benefits related to completing the [facility] Rehab program. Verbal and visual cues were provided for an appropriate pace, breath control, posture/technique in L-Ext and aux equipment. Assessment: Good start to this program. Pt reports early improvement in right buttock and groin painsince the initiation of her home stretching program. She appeared to tolerate the ROM and sub wt workout well in L-Ext. No reports of increased L shoulder pain during or immediately following her workout on the Lats' machine. She followed all cues very well. Focused and motivated to improve her spinalhealth in order to resume her previous active lifestyle with her family. Goals: Short Term Goals (4-6 weeks): 1. [...] and with lowback/R buttock pain </= 2/10. ?? Insurance: Medicare, Needs G-Codes, Recert Date: 09/28/18 [...] No evidence of osseous metastatic disease. Recommendations/Communication: 80%-100% L-Ext. Hold T-Roto start until right buttock/groin sxs subside. Begin crate program. Total timed code min: 44 Total treatment time: 44 Jayashree Majano, PT 07/29/2018, 2:31 PM documented in this encounter Plan of Treatment Not on filedocumented as of this encounter Visit Diagnoses Diagnosis Lumbar pain Lumbago Lumbar radiculopathy Thoracic or lumbosacral neuritis or radi culitis, unspecified documented in this encounter Care Teams Nick Setter Relationship Specialty Start Date End Date Tiffanie Romero MD PCP - General Internal Medicine 06/30/[address] [place] [address] documented as of this encounter
--- OUTSIDE RECORDS SUMMARY | 2022-08-12 09:07 | XMS_ITS | Encounter Summary ---
:1950 Author [facility] Address [address] [place] [address] Care Team Providers Name Role Phone Tiffanie Romero MD Primary Care Provider Reason for Visit Reason Comments BACK PAIN, LOW Consult/Transfer Care (Routine) - Discharged Specialty Diagnoses / Procedures Referred By Contact Refer red To Contact Physical Therapy Diagnoses CLBP Tiffanie Romero MD [facility] [address] [address] [place] [address] [address] [place] [address] Phone: Fax: Referral ID Status Reason Start Date Expiration Date Visits V isits Requested Authorized [id number] Discharged 06/30/2018 09/29/2019 24 24 Encounter Details Date Type Department Care Team Description 08/26/2018 Therapy Physicians Neck and Back Garcia Holland, GRINDER Lumbar pain; [facility] [address], Lumbar radiculopathy [address] [address] [address] [place] [address] [place] [address] [phone] Social History Tobacco Use Types Packs/Day Years Used Date Smoking Tobacco: Never Assessed Sex Assigned at Date Recorded Not on file documented as of this encounter Progress Notes Fani Holland PTA - 08/26/2018 9:15 AM CDT 08/26/2018 Visit # 9 Protocol: low back, disc, osteo Start: 9:22 am End: 10:03 am (GRINDER Visit # 1 Subjective: Pt doesn't know if it is her back as she continues with the bilateral groin and front ofthe thighs with the discomfort. Cervical Not performed today. Objective Tests & Measures: 10# increase on lumbar extension Tests performed today (see reviewfloweet for score and outcomes): : None Performed Today Warm Up: Movement Specific Training: Not Completed Treadmill: Minutes 5 Intensity 3.2 mph ICE: Back Lumbar Lumbar & Torso 08/26/2018 Set 1 Ext % Max 100% Set 1 Ext ROM 12-45 Set 1 Ext Wgt 100 Set 1 Ext Reps 20 Set 1 Ext Tul 75 Set 1 Ext Tyson RPE 5/10 Set 2 Ext % Max 100% Set 2 Ext ROM 12-45 Set 2 Ext Wgt 100 Set 2 Ext Reps 30 Set 2 Ext Tul 80 Set 2 Tyson RPE 5.5/10 Left Rot % Max 60% Left Rot ROM 35 Left Rot Wgt 24 Left Rot Reps 20 Left Rot Viet RPE 3/10 Right Rot % Max 60% Right Rot ROM 35 Right Rot Wgt 24 Right Rot Reps 20 Right Rot Tyson RPE 3/10 Therapeutic Exercise (24 min): Patient performed isolated lumbar extension exercise and auxillary exercises to improve muscle strength, to improve muscle endurance, to improve muscle flexibility, to improve range of motion, to increase strength for standing posture and to provide postural and scapular stability to increase tolerance for sitting, standing, walking, sleeping, bed mobility, lifting, driving, personal care tasks and household tasks Verbal cues needed for proper form and control on Lumbar Extension machine with instruction to avoidsubstitution with other muscle groups and to facilitate correct muscle firing sequence and to avoid momentum, improper form and too fast with reps. Pt monitored on form and rep speed on aux exercises to ensure optimal time to engage the muscle the entire movement of the exercise and avoid momentum. Neuromuscular Re-Education (17 min): Patient performed isolated torso rotation to decrease substitution patterns present with chronic pain, to retrain muscles for proper sequencing, improve muscle recruitment patterns, to improve coordination and movement quality, to improve self-correction of posture and to improve kinesio awareness to increase tolerance for sitting, standing, walking, sleeping, bed mobility, lifting, reading, driving,personal care tasks and household tasks. Pt instructed in proper form on torso rotation exercise with emphasis to keep spine in the middle ofthe machine to avoid substitutions and engage the oblique muscles fully. Pt able to do after cues and reminders of body position. Pt instructed in right IT band stretch. Pt did have more stretch with the right side versus the leftside. The right side is more symptomatic. Auxillary Auxillary 08/26/2018 Abs Wgt Set 1 55 Abs Reps Set 1 22 Abs Wgt Set 2 55 Abs Reps Set 2 20 Glute Wgt Set 1 95 Glute Reps Set 1 20 Glute Wgt Set 2 95 Glute Reps Set 2 20 Leg Press Wgt Set 1 160 Leg Press Reps Set 1 30 Leg Press Wgt Set 2 160 Leg Press Reps Set 2 30 Lats Wgt Set 1 65 Lats Reps Set 1 20 Lats Wgt Set 2 65 Lats Reps Set 2 20 Other auto body mechanic apprentice HEP - Therapeutic Activities (0 min): Not performed today. Patient Education: Patient was instructed in specific review of patients progress to increase their understanding of the benefits related to completing the [facility] Re[facility] program IT band stretch to help decrease right lateral hip pain. Assessment: Pt tolerated the treatment well without increase in sx.s. Pt is progressing nicely with increased muscle strength in the lumbar extension at 100# today. Pt continues to have the bilateral hip/groin pain and trickles down the quad past the knee to the lateral aspect of anterior tibialis. Pthas overall less pain but still there. No goals met as of yet but pt is doing better with transfers in/out of the car, standing and sitting episodes. Goals: Short Term Goals (4-6 weeks): 1. [...] and without low back/R buttock pain. ? Recep Goals (>6 weeks): 1. Patient will be [...] No evidence of osseous metastatic disease. Recommendations/Communication: Gcodes, 10th visit/KSENIA and 80% torso rotation and 60% lumbar extension Total timed code min: 41 Total treatment time: 41 Fani Holland PTA 08/26/2018, 9:18 AM documented in this encounter Plan of Treatment Not on filedocumented as of this encounter Visit Diagnoses Diagnosis Lumbar pain Lumbago Lumbar radiculopathy Thoracic or lumbosacral neuritis or radi culitis, unspecified documented in this encounter Care Teams Dental Claims Processor Relationship Specialty Start Date End Date Tiffanie Romero MD PCP - General Internal Medicine 06/30/[address] [place] [address] documented as of this encounter
--- OUTSIDE RECORDS SUMMARY | 2022-08-12 09:07 | XMS_ITS | Encounter Summary ---
:1950 Author Organization [employer] Address [address] [place] [address] Care Team Providers Name Role Phone Tiffanie Romero MD Primary Care Provider Reason for Visit Reason Comments BACK PAIN, LOW Consult/Transfer Care (Routine) - Discharged Specialty Diagnoses / Procedures Referred By Contact Refer red To Contact Physical Therapy Diagnoses CLBP Tiffanie Romero MD [facility] [address] [address] [place] [address] [address] [place] [address] Phone: Fax: Referral ID Status Reason Start Date Expiration Date Visits V isits Requested Authorized [id number] Discharged 06/30/2018 09/29/2019 24 24 Encounter Details Date Type Department Care Team Description 08/05/2018 Therapy Physicians Neck and Back Garcia Holland, OXYGEN THERAPY TEACHER Lumbar pain; [facility] [address] [address], Lumbar radiculopathy [address] [address] [address] [place] [address] [place] [address] [phone] Social History Tobacco Use Types Packs/Day Years Used Date Smoking Tobacco: Never Assessed Sex Assigned at Date Recorded Not on file documented as of this encounter Progress Notes Fani Holland PTA - 08/05/2018 8:30 AM CDT 08/05/2018 Visit # 3 Protocol: full low back, osteo and disc Start: 8:40 am End: 9:22 am (OXYGEN THERAPY TEACHER Visit # 1 Subjective: Pt did ok after the intro to the lumbar extension and aux exercises last time. Pt had some questions on the stretches so reviewed them for more effective stretch. Cervical Not performed today. Objective Tests & Measures: 1st max on lumbar extension 60# Tests performed today (see [facility] for score and outcomes): : None Performed Today Warm Up: Movement Specific Training: Not Completed Treadmill: Minutes 5 Intensity 3.2 mph ICE: Back Lumbar Lumbar & Torso 08/05/2018 Set 1 Ext % Max 100% Set 1 Ext ROM 12-42 Set 1 Ext Wgt 63 Set 1 Ext Reps 20 Set 1 Ext Tul 65 Set 1 Ext Tyson RPE 4-5/10 Set 2 Ext % Max 100% Set 2 Ext ROM 12-42 Set 2 Ext Wgt 65 Set 2 Ext Reps 20 Set 2 Ext Tul 85 Set 2 Tyson RPE 4-5/10 Therapeutic Exercise (27 min): Patient performed isolated lumbar extension exercise and auxillary exercises to improve muscle strength, to improve muscle endurance, to improve muscle flexibility, to improve range of motion, to increase strength for standing posture, to provide postural and scapular stability and increase strength and endurance levels of supporting spinal muscle groups to increase tolerance for sitting, standing, walking, sleeping, lifting, driving, personal care tasks and household [...] movement of the exercise and avoid momentum. Reviewed piriformis stretch and hip flexor stretch for more ease of body mechanics. Neuromuscular Re-Education (0 min): None performed today. Auxillary Auxillary 08/05/2018 Abs Wgt Set 1 40 Abs Reps Set 1 20 Abs Wgt Set 2 40 Abs Reps Set 2 20 Glute Wgt Set 1 70 Glute Reps Set 1 20 Glute Wgt Set 2 70 Glute Reps Set 2 20 Leg Press Wgt Set 1 120 Leg Press Reps Set 1 23 Leg Press Wgt Set 2 120 Leg Press Reps Set 2 24 Lats Wgt Set 1 55 Lats Reps Set 1 20 Lats Wgt Set 2 55 Lats Reps Set 2 20 Other Crate 5# Therapeutic Activities (15 min): Therapeutic Activities 08/05/2018 OTHER ACTIVITY Initiated the crate program with 5# to promote life long habits of using correct bodymechanics when lifting objects or doing household tasks/work tasks. Pt educated to always engage theabdominals and use the legs to do the lifting. Pt educated on t he maintaining the correct curves in the spine during the entire lift. Pt reminded to keep the wt close to the body and use a wide base of support when removing the crate off the shelf and lifting fromthe floor. Patient Education: Patient was instructed in pain/time scale to increase their understanding of the benefits related tocompleting the [facility] Rehab program Crate 5#, see above. Assessment: Pt tolerated the treatment fine with moderate to challenging muscle fatigue on th lumbarextension and aux exercises. Pt follows cues easily and changes form appropriately on all aux exercises to improve the muscle isolation activation effectiveness. Goals: Short Term Goals (4-6 weeks): 1. [...] and without low back/R buttock pain. ? Pinmaker Goals (>6 weeks): 1. Patient will be [...] metastatic disease. Recommendations/Communication: 60% lumbar extension and start torso rotation. Instruct in vacuuming technique Total timed code min: 42 Total treatment time: 42 Fani Holland PTA 08/05/2018, 8:37 AM documented in this encounter Plan of Treatment Not on filedocumented as of this encounter Visit Diagnoses Diagnosis Lumbar pain Lumbago Lumbar radiculopathy Thoracic or lumbosacral neuritis or radi culitis, unspecified documented in this encounter Care Teams Weaving Teacher Relationship Specialty Start Date End Date Tiffanie Romero MD PCP - General Internal Medicine 06/30/[address] [place] [address] documented as of this encounter
--- OUTSIDE RECORDS SUMMARY | 2022-08-12 09:07 | XMS_ITS | Encounter Summary ---
:1950 Author Organization [facility] Address [address] [address] Care Team Providers Name Role Phone Tiffanie Romero MD Primary Care Provider Reason for Visit Reason Onset Date Comments BACK PAIN, LOW 09/02/2018 Encounter Details Date Type Department Care Team Description 09/02/2018 Office Visit Physicians Neck and Heather, Tiffanie wilkins MD Mechanical low back pain; [facility] New Garza MD Muscular deconditioning [place] [id number] [place] [address], [address] [place] [address] Social History Tobacco Use Types Packs/Day Years Used Date Smoking Tobacco: Never Assessed Sex Assigned at Date Recorded Not on file documented as of this encounter Progress Notes New Garza MD - 09/02/2018 1:22 PM CDT Nicolette Sweeney is making good progress in rehabilitation.her low back pain and right buttock pain is gone fornow. I took time to explain to her that her pain may return.I advised her to complete the program. I also told her to look into the CORE program. Exam She can do 10 toe raises on the right and 10 toe raises on the left.she can do a deep knee bend. Straight leg raising is 90?? bilaterally in the supine position. STRENGTH Big toe flexion (S1) is 5/5 bilaterally. Big toe extension (L5) is 5/5 bilaterally. Ankle plantar flexion (S1) is 5/5 bilaterally. Ankle dorsiflexion (L5) is 5/5 bilaterally. Knee flexion (S1-S2) is 5/5 bilaterally. Knee extension (L2-3-4) is 5/5 bilaterally. Psoas flexion (L1) is 5/5 bilaterally. Reflexes. Patellar reflexes are 2+ and symmetrical Achilles reflexes are 2+ and symmetrical There is no clonus. The patient was easily able to get from a supine to sitting position. She will be seen again in 6 weeks. 15 minutes were spent with the patient today, of which over half was spent in education and counseling. New Garza MD Phys[facility] 09/02/2018 Voice recognition software was used to create this note, please excuse any small errors that occur while using this. Nicolette is making good progress in rehabilitation.her low back pain and right buttock pain is gone fornow. I took time to explain to her that her pain may return.I advised her to complete the program. I also told her to look into the CORE program. Exam She can do 10 toe raises on the right and 10 toe raises on the left.she can do a deep knee bend. Straight leg raising is 90?? bilaterally in the supine position. STRENGTH Big toe flexion (S1) is 5/5 bilaterally. Big toe extension (L5) is 5/5 bilaterally. Ankle plantar flexion (S1) is 5/5 bilaterally. Ankle dorsiflexion (L5) is 5/5 bilaterally. Knee flexion (S1-S2) is 5/5 bilaterally. Knee extension (L2-3-4) is 5/5 bilaterally. Psoas flexion (L1) is 5/5 bilaterally. Reflexes. Patellar reflexes are 2+ and symmetrical Achilles reflexes are 2+ and symmetrical There is no clonus. The patient was easily able to get from a supine to sitting position. She will be seen again in 6 weeks. 15 minutes were spent with the patient today, of which over half was spent in education and counseling. New Garza MD [facility] 09/02/2018 Voice recognition software was used to create this note, please excuse any small errors that occur while using this. Nicolette is making good progress in rehabilitation.her low back pain and right buttock pain is gone fornow. I took time to explain to her that her pain may return.I advised her to complete the program. I also told her to look into the CORE program. Exam She can do 10 toe raises on the right and 10 toe raises on the left.she can do a deep knee bend. Straight leg raising is 90?? bilaterally in the supine position. STRENGTH Big toe flexion (S1) is 5/5 bilaterally. Big toe extension (L5) is 5/5 bilaterally. Ankle plantar flexion (S1) is 5/5 bilaterally. Ankle dorsiflexion (L5) is 5/5 bilaterally. Knee flexion (S1-S2) is 5/5 bilaterally. Knee extension (L2-3-4) is 5/5 bilaterally. Psoas flexion (L1) is 5/5 bilaterally. Reflexes. Patellar reflexes are 2+ and symmetrical Achilles reflexes are 2+ and symmetrical There is no clonus. The patient was easily able to get from a supine to sitting position. She will be seen again in 6 weeks. 15 minutes were spent with the patient today, of which over half was spent in education and counseling. New Garza MD [facility] 09/02/2018 Voice recognition software was used to create this note, please excuse any small errors that occur while using this. Nicolette is making good progress in rehabilitation.her low back pain and right buttock pain is gone fornow. I took time to explain to her that her pain may return.I advised her to complete the program. I also told her to look into the CORE program. Exam She can do 10 toe raises on the right and 10 toe raises on the left.she can do a deep knee bend. Straight leg raising is 90?? bilaterally in the supine position. STRENGTH Big toe flexion (S1) is 5/5 bilaterally. Big toe extension (L5) is 5/5 bilaterally. Ankle plantar flexion (S1) is 5/5 bilaterally. Ankle dorsiflexion (L5) is 5/5 bilaterally. Knee flexion (S1-S2) is 5/5 bilaterally. Knee extension (L2-3-4) is 5/5 bilaterally. Psoas flexion (L1) is 5/5 bilaterally. Reflexes. Patellar reflexes are 2+ and symmetrical Achilles reflexes are 2+ and symmetrical There is no clonus. The patient was easily able to get from a supine to sitting position. She will be seen again in 6 weeks. 15 minutes were spent with the patient today, of which over half was spent in education and counseling. New Garza MD [facility] 09/02/2018 Voice recognition software was used to create this note, please excuse any small errors that occur while using this. Nicolette is making good progress in rehabilitation.her low back pain and right buttock pain is gone fornow. I took time to explain to her that her pain may return.I advised her to complete the program. I also told her to look into the CORE program. Exam She can do 10 toe raises on the right and 10 toe raises on the left.she can do a deep knee bend. Straight leg raising is 90?? bilaterally in the supine position. STRENGTH Big toe flexion (S1) is 5/5 bilaterally. Big toe extension (L5) is 5/5 bilaterally. Ankle plantar flexion (S1) is 5/5 bilaterally. Ankle dorsiflexion (L5) is 5/5 bilaterally. Knee flexion (S1-S2) is 5/5 bilaterally. Knee extension (L2-3-4) is 5/5 bilaterally. Psoas flexion (L1) is 5/5 bilaterally. Reflexes. Patellar reflexes are 2+ and symmetrical Achilles reflexes are 2+ and symmetrical There is no clonus. The patient was easily able to get from a supine to sitting position. She will be seen again in 6 weeks. 15 minutes were spent with the patient today, of which over half was spent in education and counseling. New Garza MD [facility] 09/02/2018 Voice recognition software was used to create this note, please excuse any small errors that occur while using this. documented in this encounter Plan of Treatment Not on filedocumented as of this encounter Visit Diagnoses Diagnosis Mechanical low back pain Lumbago Muscular deconditioning Muscular wasting and disuse atrophy, not elsewhere classified documented in this encounter Care Teams Sanitation Associate Relationship Specialty Start Date End Date Tiffanie Romero MD PCP - General Internal Medicine 06/[address] [place] [address] documented as of this encounter
--- OUTSIDE RECORDS SUMMARY | 2022-08-12 09:07 | XMS_ITS | Encounter Summary ---
:1950 Author Organization [facility] Address [address] [place] [address] Care Team Providers Name Role Phone Tiffanie Romero MD Primary Care Provider Reason for Referral Procedure/Equipment (Routine) - Incomplete Specialty Diagnoses / Procedures Referred By Contact Refer red To Contact Diagnoses Mechanical low back pain Lumbar radiculopathy Nataliya Paulino MD Procedures MR Lumbar Spine W/WO IV Cont MR Lumbar Spine WO IV Cont [address] [facility] [place], [place] [address] Referral ID Status Reason Start Date Expiration Date Visits V isits Requested Authorized [id number] Incomplete 07/01/2018 09/30/2019 1 1 Reason for Visit Reason Onset Date Comments LEG PAIN 07/01/2018 BACK PAIN, LOW 07/01/2018 Encounter Details Date Type Department Care Team Description 07/01/2018 Office Visit Physicians Neck and Nataliya Paulino anical low back pain (Primary Dx); Back Center MD [place] Lumbar radiculopathy; [place] [address] [facility] Lumbar radiculitis; [address] [place], [place] [facility], [address] [address] [place] [address] Social History Tobacco Use Types Packs/Day Years Used Date Smoking Tobacco: Never Assessed Sex Assigned at Date Recorded Not on file documented as of this encounter Progress Notes Nataliya Paulino MD - 07/01/2018 12:30 PM CDT Nicolette Sweeney is a 67 y.o. year old female who presents today for evaluation of her low back. Shenotes the pain began in approximately 2007 after no specific event or episode. Since that time she has had continuous pain. Today she reports constant 3/10 aching in her right low back/buttock with stiffness in her left and right anterior thighs/right groin and some aching pain in her right knee and sandhu. No weakness. Symptoms are worse with activity and improved with rest/change of positions/stretching/walking. There are no changes in bowel/bladder function. Imaging includes: X-ray of lumbar spine on 11/28/2016 significant for mild degenerative changes. She also had a hip x-ray on 11/28/2016 significant for moderate to marketed bilateral hip osteoarthritis. Treatments include occasionally Advil 400 mg. 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 I have reviewed her outside records from [facility] and clinics where she has been primarily seen for her back pain, most recently on 06/30/[address] Tiffanie Romero who referred her to us. There is no history of spine surgery in the past. 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 PMH: she does have a history of breast cancer status post lumpectomy and radiation 2009. She has also been told she has osteopenia. PSH: lumpectomy as above, appendecomy, cholecystectomy, and right great toe surgery about 10 yrs ago, no limitations FH: No family history of inflammatory conditions that she is aware of but notes her father had severe back pain and underwent back surgery, sister with back pain, and sister with neck pain. Social History Substance Use Topics ??? Smoking status: Not on file ??? Smokeless tobacco: Not on file ??? Alcohol use Not on file Objective: Exam: She is pleasant and cooperative, alert, oriented and in no acute distress. Patient observation: moves with discomfort. Transitional movements with ease, able to rise, ambulate and climb exam table without difficulty. HEENT: Normocephalic, atraumatic, no conjunctival injection, PERRLA, extraocular movements intact Skin: no rashes Psych: normal affect Neuro: intact CV/Vascular -- Extremities warm and well perfused, distal pulses intact, no ankle swelling. Respiratory -- Non-labored breathing. MSK: The patient is able to ambulate normally and can walk on heels and toes easily. On inspection: Weight appears overweight. Lumbar flexion was measured at ??, extension at 70??, lateral bending at 20?? bilaterally. Hip range of motion was within normal limits total right was less and left. Tenderness onpalpation was noted in the area of right buttock/sacroiliac joint area. No significant tenderness noted elsewhere. Reflexes were 2+ and symmetric at the knees, and 1+ and symmetric at the ankles. Strength (in hip flexion, knee flexion, knee extension, ankle flexion, ankle extension, great toe flexion and great toe extension) and sensation throughout bilateral lower extremities was normal. Straight leg raise was 80?? bilaterally, limited due to hamstring tightness. Assessment: ICD-10-CM 1. Mechanical low back pain (HRC) M54.5 MR Lumbar Spine WO IV Cont [facility] Therapy 2. Lumbar radiculopathy M54.16 MR Lumbar Spine WO IV Cont [facility] Therapy 3. Lumbar radiculitis M54.16 [facility] Therapy 4. Muscular deconditioning R29.898 [facility] Therapy Plan: Nicolette Sweeney is a good candidate for [facility]???s rehabilitation program. The patient has long standing back pain, ongoing for many years with possible lumbar radiculitis radiating to groin region. I would like and MRI of her lumbar spine to further evaluate this and also considering her history of breast cancer. Once I have received the MRI results, I will give her call and discuss plans for therapy. Her prognosis for improvement is good, though dependent on consistent attendance, good effort and steady objective progression. If she can significantly improve her spinal fitness level, I think she has a good chance of getting meaningful relief. Unless concerning findings on the MRI, the patient will follow-up after approximately 6 weeks of treatment attending twice a week in the lumbar full disc osteo protocol, with expected duration of treatment 9-12 weeks. I have reviewed the program with the patient and answered all of her questions. I explained the anatomy and pathophysiology of their condition. The natural course of treatment was outlined. We discussed that there may be some initial increase in her discomfort as the active rehabilitation begins. Thepatient will be actively involved in her own treatment. She will need to participate in a home program and learn to be responsible for self-care by the end of treatment. Finally, we discussed the necessity to do the home program indefinitely after discharge from rehabilitation to maintain benefits. This note was completed using voice recognition software. Clarification of any unclear and unintended substitutions should be requested, if needed. Nataliya Paulino MD, MPH, [facility] Physicians Neck and Back Center 07/01/2018 documented in this encounter Plan of Treatment Not on filedocumented as of this encounter Results MR Lumbar Spine W/WO [...] bilateral effus ions involving the sacroiliac joints. Nataliya Paulino MD RAD MRI documented in this encounter Visit Diagnoses Diagnosis Mechanical low back pain - Primary Lumbago Lumbar radiculopathy Thoracic or lumbosacral neuritis or radi culitis, unspecified Lumbar radiculitis Thoracic or lumbosacral neuritis or radi culitis, unspecified Muscular deconditioning Muscular wasting and disuse atrophy, not elsewhere classified Lumbar pain - Primary Lumbago Mechanical low back pain Lumbago Lumbar radiculopathy Thoracic or lumbosacral neuritis or radi culitis, unspecified documented in this encounter Care Teams Transit Worker Relationship Specialty Start Date End Date Tiffanie Romero MD PCP - General Internal Medicine [address] [place] [address] documented as of this encounter
--- OUTSIDE RECORDS SUMMARY | 2022-08-12 09:07 | XMS_ITS | Encounter Summary ---
:1950 Author Organization [facility] Address [address] [place] [address] Care Team Providers Name Role Phone Tiffanie Romero MD Primary Care Provider Reason for Visit Reason Comments BACK PAIN, LOW Consult/Transfer Care (Routine) - Discharged Specialty Diagnoses / Procedures Referred By Contact Refer red To Contact Physical Therapy Diagnoses CLBP Tiffanie Romero MD [facility] [address] [address] [place] [address] [address] [place] [address] Phone: Fax: Referral ID Status Reason Start Date Expiration Date Visits V isits Requested Authorized [id number] Discharged 06/30/2018 09/29/2019 24 24 Encounter Details Date Type Department Care Team Description 08/31/2018 Therapy Physicians Neck and Back Garcia Holland, GALLEY WORKER Lumbar pain; [facility] [address] [address], Lumbar radiculopathy [address] [address] [address] [place] [address] [place] [address] [phone] Social History Tobacco Use Types Packs/Day Years Used Date Smoking Tobacco: Never Assessed Sex Assigned at Date Recorded Not on file documented as of this encounter Progress Notes Fani Holland, CHARLA - 08/31/2018 9:30 AM CDT 08/31/2018 Visit # 11 Protocol: Back and Osteo Start: 9:31 am End: 10:13 am (GALLEY WORKER Visit # 3 Subjective: Pt Reports having some odd sx on left leg sx which is opposite of the normal right glut pain. (this started this am when getting out of her car to walk up to rehab) Pt did not have any of these sx during rehab today. Pt will be gone 2 weeks leaving on this coming Friday. Cervical Not performed today. Objective Tests & Measures: 10% wt increase on lumbar extension Tests performed today ([facility] score and outcomes): : None Performed Today Warm Up: Movement Specific Training: Not Completed Bike: Minutes 10 Intensity L4 ICE: Back Lumbar Lumbar & Torso 08/31/2018 Set 1 Ext % Max 100% Set 1 Ext ROM 12-45 Set 1 Ext Wgt 110 Set 1 Ext Reps 20 Set 1 Ext Tul 78 Set 1 Ext Tyson RPE 5/10 Set 2 Ext % Max 100% Set 2 Ext ROM 12-45 Set 2 Ext Wgt 110 Set 2 Ext Reps 23 Set 2 Ext Tul 141 Set 2 Tyson RPE 6/10 Left Rot % Max 60% Left Rot ROM 35 Left Rot Wgt 22 Left Rot Reps 20 Left Rot Viet RPE 3/10 Right Rot % Max 60% Right Rot ROM 35 Right Rot Wgt 22 Right Rot Reps 20 Right Rot Tyson RPE 3/10 Therapeutic Exercise (26 min): Patient performed isolated lumbar extension exercise and auxillary exercises to improve muscle strength, to improve muscle endurance, to improve muscle flexibility, to improve range of motion, to increase strength for standing posture and increase strength and endurance levels of supporting spinal muscle groups to increase tolerance for sitting, standing, walking, sleeping, lifting, driving, personalcare tasks, household tasks and work activities Verbal cues needed for proper form and [...] the exercise and avoid momentum. Neuromuscular Re-Education (16 min): Patient performed isolated torso rotation and home shameka chair exercises to decrease substitution patterns present with chronic pain, to retrain muscles for proper sequencing, improve muscle recruitment patterns, to improve self- correction of posture and to improve movement patterns in an isolated plane to increase tolerance for sitting, standing, walking, sleeping, lifting, driving, personal care tasks and household tasks. Pt instructed in proper form on torso rotation exercise with emphasis to keep spine in the middle ofthe machine to avoid substitutions and engage the oblique muscles fully. Pt was having trouble with keeping the spine in the midddle of the machine when doing right rotation. Fully instructed in HEP ball extension and prone over pillows d/t 2 week trip out of the country coming up at the end of the week. Pt did well with the instruction and demonstrates good form on both but will need 1 more review before going on trip. Auxillary Auxillary 08/31/2018 Abs Wgt Set 1 60 Abs Reps Set 1 22 Abs Wgt Set 2 60 Abs Reps Set 2 20 Glute Wgt Set 1 95 Glute Reps Set 1 20 Glute Wgt Set 2 95 Glute Reps Set 2 20 Leg Press Wgt Set 1 160 Leg Press Reps Set 1 20 Leg Press Wgt Set 2 160 Leg Press Reps Set 2 20 Lats Wgt Set 1 65 Lats Reps Set 1 20 Lats Wgt Set 2 65 Lats Reps Set 2 21 Other - HEP - Therapeutic Activities (0 min): Not performed today. Patient Education: Patient was instructed in specific review of patients progress to increase their understanding of the benefits related to completing the [facility] Rehab program Prone over pillow and ball extension instruction for prep for HEP during 2 week vacation. Assessment: Pt tolerated the treatment well with good effort and no increase in sx. Pt is achieving good muscle strength values on the lumbar extension but does not rate the PRE very high. Goals: Short Term Goals (4-6 weeks): 1. [...] low back, R buttock pain </= 2/10. Met08/28/18 4. Pt will be able to lift/carry 10# with proper body mechanics and without low back/R buttock pain. ? Delivery Coordinator Goals (>6 weeks): 1. Patient will be independent with home exercise program after discontinued from Physical Therapy. Progressing, will have therapy gap when vacationing for 2 weeks and need further training on maintenance exercises while away. 08/28/18 2. Pt will be able to kneel and work in her garden x 10-15' with low back/R buttock pain </= 2/10. Met 08/28/18 3. Pt will be able to engage in activities with her young grandchildren with low back/R buttock pain</=2/10.Met 08/28/18 4. Pt will be able to arise to a standing position from the floor with proper mechanics and with lowback/R buttock pain </= 2/10. Progressing stiff more than pain 08/28/18 ? Insurance: [...] with her grandchildren. 08/28/18: 10th Visit G-Codes: Current 8981 CI and Goal 8982 CH. G-Codes based on Oswestry = 6%; Patient able to transfer out of car without LBP or R Buttock Pain; Patient able to sit for 30 minutes to watch TV with LBP and R Buttock Pain </= 2/10; Patient able to kneel to garden for 10 to 15 minuteswith LBP and R Buttock Pain </= 2/10. ? Precautions/Other Information: Full Low Back: Osteo and Disc. ??Advance ROM as tolerated. 80% T-Rotoper Osteo protocol. ??Awaiting MRI results prior to starting MedX. ?PMH includes: Breast CA (2010with lumpectomy and radiation treatments), Osteopenia, L Rotator Cuff discomfort. 07/29/18 - Clearance received. No evidence of osseous metastatic disease. Recommendations/Communication: Pt leaves Friday for vacation Friday which pt leaves on Aug And comes back Aug. REview HEP for ball extension and prone over pillows. Watch form on torso rotation with right rotation, 80% torso rotation 60% lumbar extension Total timed code min: 42 Total treatment time: 42 Fani Holland PTA 08/31/2018, 9:30 AM documented in this encounter Plan of Treatment Not on filedocumented as of this encounter Visit Diagnoses Diagnosis Lumbar pain Lumbago Lumbar radiculopathy Thoracic or lumbosacral neuritis or radi culitis, unspecified documented in this encounter Care Teams Bench Mover Relationship Specialty Start Date End Date Tiffanie Romero MD PCP - General Internal Medicine [address] [place] [address] documented as of this encounter
--- OUTSIDE RECORDS SUMMARY | 2022-08-12 09:07 | XMS_ITS | Encounter Summary ---
:1950 Author Organization [facility] Address [address], [place] [address] Care Team Providers Name Role Phone Tiffanie Romero MD Primary Care Provider Reason for Visit Reason Comments BACK PAIN, LOW Encounter Details Date Type Department Care Team Description 09/24/2018 Telephone Physicians Neck and Back Garcia Holland, FULL DECATOR OPERATOR BACK PAIN, LOW Center [place] [address] [facility] [address] [facility], [address] [place] [address] [place] [address] [phone] Social History Tobacco Use Types Packs/Day Years Used Date Smoking Tobacco: Never Assessed Sex Assigned at Date Recorded Not on file documented as of this encounter Plan of Treatment Not on filedocumented as of this encounter Visit Diagnoses Not on filedocumented in this encounter Care Teams Rail Switchman Relationship Specialty Start Date End Date Tiffanie Romero MD PCP - General Internal Medicine [address] [place] [address] documented as of this encounter
--- OUTSIDE RECORDS SUMMARY | 2022-08-12 09:07 | XMS_ITS | Encounter Summary ---
:1950 Author Organization [facility] Address [address] [place] [address] Care Team Providers Name Role Phone Tiffanie Romero MD Primary Care Provider Reason for Visit Reason Comments BACK PAIN, LOW Consult/Transfer Care (Routine) - Discharged Specialty Diagnoses / Procedures Referred By Contact Refer red To Contact Physical Therapy Diagnoses CLBP Tiffanie Romero MD [facility] [address] [address] [place] [address] [address] [place] [address] Phone: Fax: Referral ID Status Reason Start Date Expiration Date Visits V isits Requested Authorized [id number] Discharged 06/30/2018 09/29/2019 24 24 Encounter Details Date Type Department Care Team Description 08/28/2018 Therapy Physicians Neck and Back Kamilla Ash, Lumbar pain; [facility] ROR ENGINEER Lumbar radiculopathy [address] [facility], [address], [place] [address] [place] [address] [place] [address] [phone] (Wo rk) Social History Tobacco Use Types Packs/Day Years Used Date Smoking Tobacco: Never Assessed Sex Assigned at Date Recorded Not on file documented as of this encounter Progress Notes Denisse Conklin, PT - 08/28/2018 9:45 AM CDT 08/28/2018 Visit # 10 Protocol: Back and Osteo Start: 9:50 End: 10:39 (ROR ENGINEER Visit # 2 Subjective: Pt states that there is no low back pain in her buttock anymore but still is stiff when getting up. Cervical Not performed today. Objective Tests & Measures: Tests performed today (see reviewflowsheet for score and outcomes): : Oswestry 6 v 8 at start of care Warm Up: Movement Specific Training: Completed Mat Exercises Completed Bike: Minutes 5 Intensity mod ICE: Back Lumbar Lumbar & Torso 08/28/2018 Set 1 Ext % Max 60% Set 1 Ext ROM 12-45 Set 1 Ext Wgt 60 Set 1 Ext Reps 30 Set 1 Ext Tul 134 Set 1 Ext Tyson RPE 4 Set 2 Ext % Max - Set 2 Ext ROM - Set 2 Ext Wgt - Set 2 Ext Reps - Set 2 Ext Tul - Set 2 Tyson RPE - Left Rot % Max 80% Left Rot ROM 35 Left Rot Wgt 34 Left Rot Reps 25 Left Rot Viet RPE 6 Right Rot % Max 80% Right Rot ROM 35 Right Rot Wgt 34 Right Rot Reps 25 Right Rot Tyson RPE 6-7 Therapeutic Exercise (20 min): Patient performed isolated torso rotation exercise to improve muscle strength, to improve muscle endurance, to improve muscle flexibility, to provide postural and scapular stability and increase strength and endurance levels of supporting spinal muscle groups to increase tolerance for sitting and tranistions Analyzed data from previous treatment to determine changes in range of motion and weight capacity for today's RX. Cued pt for correct body alignment and form during the exercises. Advised on optimal pace to achieve most benefits of the exercise. See Daily Exercise flow sheet for numeric details. Neuromuscular Re-Education 20min): Patient performed isolated lumbar extension to retrain muscles for proper sequencing and improve muscle recruitment patterns to increase tolerance for sitting and transitions. Analyzed data from previous treatment to determine changes in range of motion and weight capacity for today's RX. Cued pt for correct body alignment and form during the exercises. Advised on optimal pace to achieve most benefits of the exercise. See Daily Exercise flow sheet for numeric details. Auxillary Auxillary 08/28/2018 Abs Wgt Set 1 60 Abs Reps Set 1 20 Abs Wgt Set 2 60 Abs Reps Set 2 14/ Glute Wgt Set 1 160 Glute Reps Set 1 20 Glute Wgt Set 2 160 Glute Reps Set 2 20 Leg Press Wgt Set 1 160 Leg Press Reps Set 1 20 Leg Press Wgt Set 2 160 Leg Press Reps Set 2 25 Lats Wgt Set 1 65 Lats Reps Set 1 20 Lats Wgt Set 2 65 Lats Reps Set 2 18 Other - HEP - Therapeutic Activities (9min): Therapeutic Activities 08/28/2018 BASE OF SUPPORT Independent WEIGHT SHIFT Independent PIVOT VS TWIST - OBJECT CLOSE VS FAR AWAY Independent SQUAT Independent LIFT FROM FLOOR Independent LIFT OVERHEAD Independent OTHER ACTIVITY Using 10# crate demonstrated independence with body mechanics and no pain. Ambulated approc 200 feet carrying 10# without causing LBP. Patient Education: Patient was instructed in pain/time scale and specific review of patients progress to increase theirunderstanding of the benefits related to completing the [facility] Rehab program Assessment:Pt attained target fatigue level goals for today's plan of care. Met and is progressing with several goals, see section. Describes biggest barrier to be stiffness upon standing after sittingor sleeping. Right hip intermittent pain which she describes as a diagnosis of bursitis. Avoids sleeping on that right hip. Goals: Short Term Goals (4-6 weeks): 1. [...] and without low back/R buttock pain. ? Manager [facility]cu Goals (>6 weeks): 1. Patient will be [...] of osseous metastatic disease. Recommendations/Communication: 100% lumbar Ext, 60% T-Roto Total timed code min: 49 Total treatment time: 49 Katlyn Ash, CHARLA 08/28/2018, 11:59 AM documented in this encounter Plan of Treatment Not on filedocumented as of this encounter Visit Diagnoses Diagnosis Lumbar pain Lumbago Lumbar radiculopathy Thoracic or lumbosacral neuritis or radi culitis, unspecified documented in this encounter Care Teams Millinery Designer Relationship Specialty Start Date End Date Tiffanie Romero MD PCP - General Internal Medicine [address] [place] [address] (work) documented as of this encounter
--- OUTSIDE RECORDS SUMMARY | 2022-08-12 09:07 | XMS_ITS | Encounter Summary ---
:1950 Author Organization [facility] Address [address] [place] [address] Care Team Providers Name Role Phone Tiffanie Romero MD Primary Care Provider Reason for Visit Reason Comments BACK PAIN, LOW Consult/Transfer Care (Routine) - Discharged Specialty Diagnoses / Procedures Referred By Contact Refer red To Contact Physical Therapy Diagnoses CLBP Tiffanie Romero MD [facility] [address] [address] [place] [address] [address] [place] [address] Phone: Fax: Referral ID Status Reason Start Date Expiration Date Visits V isits Requested Authorized [id number] Discharged 06/30/2018 09/29/2019 24 24 Encounter Details Date Type Department Care Team Description 08/10/2018 Therapy Physicians Neck and Back Garcia Holland, LEAD SOLUTIONS ARCHITECT Lumbar pain; [facility] [address], Lumbar radiculopathy [address] [address] [address] [place] [address] [place] [address] [phone] Social History Tobacco Use Types Packs/Day Years Used Date Smoking Tobacco: Never Assessed Sex Assigned at Date Recorded Not on file documented as of this encounter Progress Notes Fani Holland, CHARLA - 08/10/2018 10:15 AM CDT 08/10/2018 Visit # 5 Protocol: full low back, osteo and disc Start: 10:17 am End: 10:57 am (LEAD SOLUTIONS ARCHITECT Visit # 3 Subjective: Pt reports having some soreness but not much. Cervical Not performed today. Objective Tests & Measures: 15 % wt increase on lumbar extension Tests performed today ([facility] score and outcomes): : None Performed Today Warm Up: Movement Specific Training: Not Completed Mat Exercises Completed Treadmill: Minutes 5 Intensity L4 ICE: Back Lumbar Lumbar & Torso 08/10/2018 Set 1 Ext % Max 100% Set 1 Ext ROM 12-42 Set 1 Ext Wgt 80 Set 1 Ext Reps 25 Set 1 Ext Tul 80 Set 1 Ext Tyson RPE 4/10 Set 2 Ext % Max 100% Set 2 Ext ROM 12-45 Set 2 Ext Wgt 84 Set 2 Ext Reps 23 Set 2 Ext Tul 78 Set 2 Tyson RPE 5/10 Left Rot % Max 60% Left Rot ROM 35 Left Rot Wgt 22 Left Rot Reps 20 Left Rot Viet RPE 4-5/10 Right Rot % Max 60% Right Rot ROM 35 Right Rot Wgt 22 Right Rot Reps 20 Right Rot Tyson RPE 4-5/10 Therapeutic Exercise (25 min): Patient performed isolated lumbar extension exercise [...] Neuromuscular Re-Education (15 min): Patient performed isolated torso rotation to decrease substitution patterns present with chronic pain, to retrain muscles for proper sequencing, to improve ability to direct and regulate movement with decreased compensation, improve muscle recruitment patterns, to improve coordination and movement quality, to improve self-correction of posture and to improve kinesio awareness to increase tolerance for sitting, standing, sleeping, lifting, driving, personal care tasks and household tasks. Pt instructed in proper form on torso rotation exercise with emphasis to keep spine in the middle ofthe machine to avoid substitutions and engage the oblique muscles fully. Pt able to do after cues and reminders of body position. Auxillary Auxillary 08/10/2018 Abs Wgt Set 1 50 Abs Reps Set 1 21 Abs Wgt Set 2 50 Abs Reps Set 2 20 Glute Wgt Set 1 75 Glute Reps Set 1 25 Glute Wgt Set 2 80 Glute Reps Set 2 20 Leg Press Wgt Set 1 145 Leg Press Reps Set 1 - Leg Press Wgt Set 2 - Leg Press Reps Set 2 - Lats Wgt Set 1 60 Lats Reps Set 1 20 Lats Wgt Set 2 60 Lats Reps Set 2 - Other - Therapeutic Activities (0 min): Not performed today. Patient Education: Patient was instructed in specific review of patients progress to increase their understanding of the benefits related to completing the [facility] Re[facility] program Piriformis stretch in standing with lateral side of foot on chair/bed in front and let gravity stretch the hip more. Pt did well and states it feels like a better stretch than seated piriformis stretch. Assessment: Pt tolerated the treatment fine with good effort on lumbar extension exercise with the desired mm fatigue response. Pt follows cues and changes form on stretches and rows as directed to geta more effective mm isolation and activation. Goals: Short Term Goals (4-6 weeks): 1. [...] and without low back/R buttock pain. ? Group Home Goals (>6 weeks): 1. Patient will be [...] No evidence of osseous metastatic disease. Recommendations/Communication: 80% troto and 60% lumbar extension. And HEP start Total timed code min: 40 Total treatment time: 40 Fani Holland PTA 08/10/2018, 10:20 AM documented in this encounter Plan of Treatment Not on filedocumented as of this encounter Visit Diagnoses Diagnosis Lumbar pain Lumbago Lumbar radiculopathy Thoracic or lumbosacral neuritis or radi culitis, unspecified documented in this encounter Care Teams Sailing Officer Relationship Specialty Start Date End Date Tiffanie Romero MD PCP - General Internal Medicine 06/30/[address] [place] [address] documented as of this encounter
--- OUTSIDE RECORDS SUMMARY | 2022-08-12 09:07 | XMS_ITS | Encounter Summary ---
:1950 Author Organization [facility] Address [address] [place] [address] Care Team Providers Name Role Phone Tiffanie Romero MD Primary Care Provider Reason for Visit Reason Comments BACK PAIN, LOW Consult/Transfer Care (Routine) - Discharged Specialty Diagnoses / Procedures Referred By Contact Refer red To Contact Physical Therapy Diagnoses CLBP Tiffanie Romero MD [facility] [address] [address] [place] [address] [address] [place] [address] Phone: Fax: Referral ID Status Reason Start Date Expiration Date Visits V isits Requested Authorized [id number] Discharged 06/30/2018 09/29/2019 24 24 Encounter Details Date Type Department Care Team Description 08/12/2018 Therapy Physicians Neck and Back Garcia Holland, BELT MOLDER Lumbar pain; [facility] [address], Lumbar radiculopathy [address] [address] [address] [place] [address] [place] [address] [phone] Social History Tobacco Use Types Packs/Day Years Used Date Smoking Tobacco: Never Assessed Sex Assigned at Date Recorded Not on file documented as of this encounter Progress Notes Fani Holland PTA - 08/12/2018 10:45 AM CDT 08/12/2018 Visit # 6 Protocol: low back, osteo, disc Start: 10:54 am End: 11:30 am (BELT MOLDER Visit # 4 Subjective: Pt reports sore legs and hips after the last treatment session. Cervical Not performed today. Objective Tests & Measures: 80% of max wt. On torso rotation Tests performed today (see [facility] for score and outcomes): : None Performed Today Warm Up: Movement Specific Training: Not Completed Bike: Minutes 5 Intensity L4 ICE: Back Lumbar Lumbar & Torso 08/12/2018 Set 1 Ext % Max 60% Set 1 Ext ROM 12-45 Set 1 Ext Wgt 50 Set 1 Ext Reps 30 Set 1 Ext Tul 125 Set 1 Ext Tyson RPE 3/10 Set 2 Ext % Max - Set 2 Ext ROM - Set 2 Ext Wgt - Set 2 Ext Reps - Set 2 Ext Tul - Set 2 Tyson RPE - Left Rot % Max 80% Left Rot ROM 35 Left Rot Wgt 26 Left Rot Reps 20 Left Rot Viet RPE 5/10 Right Rot % Max 80% Right Rot ROM 35 Right Rot Wgt 26 Right Rot Reps 20 Right Rot Tyson RPE 5/10 Therapeutic Exercise (25 min): Patient performed isolated [...] the exercise and avoid momentum. Neuromuscular Re-Education (13 min): Patient performed isolated lumbar extension to decrease substitution patterns present with chronic pain, to retrain muscles for proper sequencing, improve muscle recruitment patterns, to improve self-correction of posture and to [...] after cues and reminders of body position. Instructed patient in tao chair technique using cues on form/rep speed for best lumbar extensor muscle isolation/activation. Pt required cues to keep the hips firmly pressed against the pads and onlyengage the lower back muscle to lift the shoulders towards the ceiling. Pt educated on expected rep count and frequency to perform once fully into the HEP. Auxillary Auxillary 08/12/2018 Abs Wgt Set 1 50 Abs Reps Set 1 20 Abs Wgt Set 2 50 Abs Reps Set 2 20 Glute Wgt Set 1 80 Glute Reps Set 1 20 Glute Wgt Set 2 90 Glute Reps Set 2 25 Leg Press Wgt Set 1 150 Leg Press Reps Set 1 20 Leg Press Wgt Set 2 150 Leg Press Reps Set 2 25 Lats Wgt Set 1 60 Lats Reps Set 1 20 Lats Wgt Set 2 60 Lats Reps Set 2 20 Other - HEP tao chair instruction Therapeutic Activities (0 min): Not performed today. Patient Education: Patient was instructed in correlation of strength and function to increase their understanding of the benefits related to completing the [facility] Rehab program Tao chair instruction, see above. Info given on tao chair requirements. Assessment: Pt tolerated the treatment well with good effort and no increase in sx. Pt follows cues easily and changes form on aux exercises when directed. Pt will do well as she improves the spinal muscle strength for more stability and support. Goals: Short Term Goals (4-6 weeks): 1. [...] and without low back/R buttock pain. ? Shelter Goals (>6 weeks): 1. Patient will be [...] No evidence of osseous metastatic disease. Recommendations/Communication: 10# increase on leg press, 100% lumbar extension and 60% torso rotation and lifting technique. Total timed code min: 38 Total treatment time: 38 Fani Holland PTA 08/12/2018, 10:52 AM documented in this encounter Plan of Treatment Not on filedocumented as of this encounter Visit Diagnoses Diagnosis Lumbar pain Lumbago Lumbar radiculopathy Thoracic or lumbosacral neuritis or radi culitis, unspecified documented in this encounter Care Teams Trim Machine Adjuster Relationship Specialty Start Date End Date Tiffanie Romero MD PCP - General Internal Medicine 06/30/[address] [place] [address] documented as of this encounter
== END 2022-08-12 09:04 | disposition home or self-care (01) ==
LOC: LONREF 09:03
PROVIDERS: PCP Internal Medicine; Visit Provider Obstetrics & Gynecology
DX: R35.0 Frequency of micturition (principal)
CPT/HCPCS: 87086

== ENCOUNTER 2022-08-14 10:46 | Outpatient (CLI) | payer MEDICARE, BC, SELFPAY ==
--- OUTSIDE RECORDS SUMMARY | 2022-08-14 10:49 | XMS_ITS | Encounter Summary ---
:1950 Author Organization [facility] Address [address] [place] [address] Care Team Providers Name Role Phone Tiffanie Romero MD Primary Care Provider Reason for Visit Reason Comments BACK PAIN, LOW Consult/Transfer Care (Routine) - Discharged Specialty Diagnoses / Procedures Referred By Contact Refer red To Contact Physical Therapy Diagnoses CLBP Tiffanie Romero MD [facility] [address] [address] [place] [address] [address] [place] [address] Phone: Fax: Referral ID Status Reason Start Date Expiration Date Visits V isits Requested Authorized [id number] Discharged 06/30/2018 09/29/2019 24 24 Encounter Details Date Type Department Care Team Description 11/04/2018 Therapy Physicians Neck and Back Garcia Holland, INSOLE BOTTOM FILLER Lumbar pain; [facility] [address], Lumbar radiculopathy [address] [address] [address] [place] [address] [place] [address] [phone] Social History Tobacco Use Types Packs/Day Years Used Date Smoking Tobacco: Never Assessed Sex Assigned at Date Recorded Not on file documented as of this encounter Progress Notes Fani Holland, INSOLE BOTTOM FILLER - 11/04/2018 10:00 AM CST 11/05/2018 Visit # 18 Protocol: Back, Disc and Osteo Start: 10:05 am End: 10:48 am (INSOLE BOTTOM FILLER Visit # 5 Subjective: Pt has a tao chair now that she purchased 2 days ago. Pt has been doing overall. Cervical Not performed today. Objective Tests & Measures: 2# increase on lumbar extension Tests performed today (see [facility] for score and outcomes): : None [...] of the benefits related to completing the [facility] Rehab program Tao chair review and auto body shop manager training with 20# crate. Assessment: Pt tolerated [...] back/R buttock pain.??Met 08/28/18 (per note) ? Lan Analyst Goals (>6 weeks): 1. Patient will be [...] rotation. And THERAPEUTIC ACTIVITY forwalking, posture and auto body shop manager training. Total timed code min: 43 Total treatment time: 43 Fani Holland PTA 11/04/2018, 1:05 PM L MIXER Associated attestation - Michael Tafoya, PT - 11/05/2018 3:16 PM METAL MIXER Observed treatment. Goals/Plan of Care discussed with INSOLE BOTTOM FILLER. Treatment progressing and appropriate. Michael Tafoya, ARIA 11/05/2018, 3:16 PM documented in this encounter Plan of Treatment Not on filedocumented as of this encounter Visit Diagnoses Diagnosis Lumbar pain Lumbago Lumbar radiculopathy Thoracic or lumbosacral neuritis or radi culitis, unspecified documented in this encounter Care Teams Decorating Inspector Relationship Specialty Start Date End Date Tiffanie Romero MD PCP - General Internal Medicine 06/30/[address] [place] [address] documented as of this encounter
--- OUTSIDE RECORDS SUMMARY | 2022-08-14 10:49 | XMS_ITS | Encounter Summary ---
:1950 Author Organization [facility] Address [address] [place] [address] Care Team Providers Name Role Phone Tiffanie Romero MD Primary Care Provider Reason for Visit Reason Comments BACK PAIN Consult/Transfer Care (Routine) - Discharged Specialty Diagnoses / Procedures Referred By Contact Refer red To Contact Physical Therapy Diagnoses CLBP Tiffanie Romero MD [facility] [address] [address] [place] [address] [address] [place] [address] Phone: Fax: Referral ID Status Reason Start Date Expiration Date Visits V isits Requested Authorized [id number] Discharged 06/30/2018 09/29/2019 24 24 Encounter Details Date Type Department Care Team Description 11/09/2018 Therapy Physicians Neck and Back Denisse Lemon, PT Lumbar pain; [facility] [id number] [place] [address] Lumbar radiculopathy [address] [place] [address] [address] [place], [place] [id number] [phone] Social History Tobacco Use Types Packs/Day Years Used Date Smoking Tobacco: Never Assessed Sex Assigned at Date Recorded Not on file documented as of this encounter Progress Notes Denisse Conklin, PT - 11/09/2018 10:15 AM CST 11/09/2018 Visit # 19 Protocol: Back, Disc and Osteo Start: 10:19 am End: 11:01 am (GLACING MACHINE TENDER Visit # 0 Subjective: Patient reports, My [...] Tao Chair. Added above exercises to patient's [employer] HEP - see patient education section below [...] B Rot - Independent. and added to [employer] HEP. Therapeutic Activities (0 min): Not performed today. Patient Education: Educated patient in desired fatigue levels with Med-X Exercises. See Assessment section for patient education. PT explained breathing technique with Abs auxillary. PT and patient briefly discussed CORE and patient reports she lives in [place] and plans to join a gym. Added Tao Chair Exercises to patient's [employer] HEP and printed entire HEP for patient: Access Code: [email or web address] URL: [email or web address] Date: 11/09/2018 Prepared by: Denisse Conklin Exercises [...] and discharge. Patient reports she bought a Ato Chair and plans to join a gym. [...] back/R buttock pain.??Met 08/28/18 (per note) ? [facility] Goals (>6 weeks): 1. Patient will be [...] 42 Denisse Conklin, ARIA 11/09/2018, 4:13 PM HIC ARTIST documented in this encounter Plan of Treatment Not on filedocumented as of this encounter Visit Diagnoses Diagnosis Lumbar pain Lumbago Lumbar radiculopathy Thoracic or lumbosacral neuritis or radi culitis, unspecified documented in this encounter Care Teams Operating Room Surgical Technician Relationship Specialty Start Date End Date Tiffanie Romero MD PCP - General Internal Medicine 06/30/[address] [place] [address] documented as of this encounter
--- OUTSIDE RECORDS SUMMARY | 2022-08-14 10:49 | XMS_ITS | Encounter Summary ---
:1950 Author Organization [employer] Address [address], [place] [address] Care Team Providers Name Role Phone Tiffanie Romero MD Primary Care Provider Encounter Details Date Type Department Care Team Description 11/12/2018 Notes/Orders Physicians Neck and Jayashere Majano mbar pain (Primary Dx); [facility], PT Lumbar radiculo bre [place] [address] [facility], [address] [place] [address] Social History Tobacco Use Types [...] without low back/R buttock pain. Goal Met. [facility] Goal Summary LTG #1: Patient will be [...] [id number] Jayashree Majano PT 11/12/2018, 5:27 AM ET POST INSPECTOR documented in this encounter Plan of Treatment Not on filedocumented as of this encounter Visit Diagnoses Diagnosis Lumbar pain - Primary Lumbago Lumbar radiculopathy Thoracic or lumbosacral neuritis or radi culitis, unspecified documented in this encounter Care Teams Inspector Assembly Relationship Specialty Start Date End Date Tiffanie Romero MD PCP - General Internal Medicine 06/30/[address] [place] [address] documented as of this encounter
--- OUTSIDE RECORDS SUMMARY | 2022-08-14 10:49 | XMS_ITS | Clinical Summary ---
:1950 Author Organization [facility] [place] [address] Care Team Providers Name Role Phone Tiffanie [...] once daily. unit tablet medication order Elder Grimes Gummies 0 09/18/2020 Active composer Multivitamin Microlet [...] drink = 0.6 oz pure alcoho l) [facility] Alcohol Habits Answer Date Recorded How often [...] MD [address] [place], [place] [id number] (Wo rk) 07/09/2023 Appointment 07/09/2023 Office Visit Alina Kim PA [address] [place], [place] [id number] (Wo rk) Health Maintenance Due Date Last [...] procedure are in Personal history of the [facility] malignant neoplasm of sectio n. breast from Last 3 Months Results ALT (SGPT) (08/07/2022 10:42 AM CDT) athologist Signature ALT (SGPT) 15 8 - 45 IU/L 08/08/2022 [facility] 5:05 AM CDT LABORATORY-CENT RAL LABORATORY Specimen Anatomical Collection Method / Collection Time Recei freddy Time (Source) Location / Volume Laterality Blood BLOOD SPECIMEN / Venipuncture / 08/07/2022 10:42 08/07 Unknown Unknown AM CDT 10:43 AM CDT Shey Feliciano MD CHEMISTRY Performing Organization Address City/[facility]/ZIP Code Phon e Number [facility] [address] [place] [address] LABORATORY-CENTRAL 2000 LABORATORY AST (SGOT) (08/07/2022 10:42 AM CDT) athologist Signature AST (SGOT) 22 2 - 40 IU/L 08/08/2022 [facility] 5:05 AM CDT LABORATORY-CENT RAL LABORATORY Specimen Anatomical Collection Method / Collection Time Recei freddy Time (Source) Location / Volume Laterality Blood BLOOD SPECIMEN / Venipuncture / 08/07/2022 10:42 08/07 Unknown Unknown AM CDT 10:43 AM CDT Shey Feliciano MD CHEMISTRY Performing Organization Address City/State/ZIP Code Phon e Number [facility] [address] [place] [address] LABORATORY-CENTRAL 2000 LABORATORY CK TOTAL (08/07/2022 10:42 [...] Organization Address City/State/ZIP Code Phon e Number [facility] [address] [facility] [place] [address] LABORATORY-CENTRAL 2000 LABORATORY LIPID PANEL (08/07/2022 10:42 [...] Organization Address City/State/ZIP Code Phon e Number [facility] [address] [place] [address] LABORATORY-CENTRAL 2000 LABORATORY XR MAMMO AYAN BILAT [...] provider. If you have questions, please contact [facility] provider. XR MAMMO AYAN BILAT SCREEN [[id number]] CLINICAL HISTORY: ??This is an asymptoma tic 72 y.o. patient. INDICATION FOR EXAM: Mammogram Screening . TECHNIQUE: CC & MLO views were obtained. ??This study was evaluated with the assistance of Computer-Aided Detecti on. Breast Tomosynthesis was used in interpretation. COMPARISON FILMS: Yes 06/28/21 Miner 06/22/20 Miner FINDINGS: ??The breasts have scattered a reas of fibroglandular density. ??No suspicious masses or microcalcifications . ??Post surgical changes within ?? both breasts. Tiffanie Romero MD MAMMO from Last 3 Months Insurance Payer Benefit Plan / Subscriber ID Effective Dates Phone Addre ss Type Group MEDICARE PART B MEDICARE PART B [id number] 2013-[employer] ATTN: CLAIMS - HB USE ONLY HB ONLY t [address] [place] [address] MEDICARE PART A MEDICARE PART A [id number] 2013-Presen ATTN: CLAIMS - HB USE ONLY HB ONLY t [address] [place] [address] BLUE CROSS MR BLUE CROSS [id number] 2016-Presen [address] [address] [place], [place] [id number] BLUE CROSS BLUE CROSS [id number] 2016-Presen [address] [address] [place], [place] [id number] Advance Directives Latest Code Status on File Code Status Date Activated Date Inactivated Comments Full Code 10/14/2012 10:10 AM 10/14/2012 5:16 PM Full Code 08/22/2010 6:37 AM 08/22/2010 12:40 PM Full Code 08/15/2010 10:09 AM 08/15/2010 6:07 PM Full Code 10/16/2009 7:39 PM 10/17/2009 5:58 PM Care Teams Lawn Maintenance Worker Relationship Specialty Start Date End Date Tiffanie Romero MD PCP - General 03/02/09
--- OUTSIDE RECORDS SUMMARY | 2022-08-14 10:49 | XMS_ITS | Encounter Summary ---
:1950 Author Organization [email or web address] Address [address] [place] [address] Care Team Providers Name Role Phone Tiffanie Romero MD Primary Care Provider Reason for Visit Reason Comments BACK PAIN, LOW LEG PAIN Consult/Transfer Care (Routine) - Discharged Specialty Diagnoses / Procedures Referred By Contact Refer red To Contact Physical Therapy Diagnoses CLBP Tiffanie Romero MD [facility] [address] [address] [place] [address] [address] [place] [address] Phone: Fax: Referral ID Status Reason Start Date Expiration Date Visits V isits Requested Authorized [id number] Discharged 06/30/2018 09/29/2019 24 24 Encounter Details Date Type Department Care Team Description 11/11/2018 Therapy Physicians Neck and Back Dylon Majano, Lumbar pain; [facility] PT Lumbar radiculopathy [address] [facility], [address] [place], [place] [id number] Social History Tobacco Use Types Packs/Day Years Used Date Smoking Tobacco: Never Assessed Sex Assigned at Date Recorded Not on file documented as of this encounter Progress Notes Jayashree Majano, PT - 11/11/2018 10:15 AM CST 11/11/2018 Visit # 20 Protocol: Back, Disc and Osteo Start: 10:24 AM End: 11:07 AM (PRESIDENT [employer] Visit # 0 Subjective: Pt is ready [...] back/R buttock pain.??Met 08/28/18 (per note) ? Shop Steward Goals (>6 weeks): 1. Patient will be [...] 43 Jayashree Majano, PT 11/11/2018, 11:03 AM ICULTURE SUPERVISOR documented in this encounter Plan of Treatment Not on filedocumented as of this encounter Visit Diagnoses Diagnosis Lumbar pain Lumbago Lumbar radiculopathy Thoracic or lumbosacral neuritis or radi culitis, unspecified documented in this encounter Care Teams Cabin Outfitter Relationship Specialty Start Date End Date Tiffanie Romero MD PCP - General Internal Medicine 06/30/[address] [place] [address] documented as of this encounter
--- OUTSIDE RECORDS SUMMARY | 2022-08-14 10:49 | XMS_ITS | Clinical Summary ---
:1950 Author Organization [facility] Address [address], [place] [address] Care Team Providers Name Role Phone Tiffanie [...] for each transition of care or referral. [facility] Allergies No known active allergies Medications Medication [...] Phone Addre ss Type Group BCBS BCBS IGIUGIG [id number] 2016-[facility] [phone] [address] [address] Medicare BLUE t [address] [place] [address] Nicolette Sweeney Personal/Family Self 1950 [address] (Home) [place] [address] Care Teams Psychological Anthropologist Relationship Specialty Start Date End Date Tiffanie Romero MD PCP - General Internal Medicine 06/30/[address] [place] [id number]
--- OUTSIDE RECORDS SUMMARY | 2022-08-14 10:50 | XMS_ITS | Encounter Summary ---
:1950 Author Organization [facility] Address [address] [place] [address] Care Team Providers Name Role Phone Tiffanie Romero MD Primary Care Provider Reason for Visit Reason Comments BACK PAIN, LOW LEG PAIN Consult/Transfer Care (Routine) - Discharged Specialty Diagnoses / Procedures Referred By Contact Refer red To Contact Physical Therapy Diagnoses CLBP Tiffanie Romero MD [facility] [address] [address] [place] [address] [address] [place] [address] Phone: Fax: Referral ID Status Reason Start Date Expiration Date Visits V isits Requested Authorized [id number] Discharged 06/30/2018 09/29/2019 24 24 Encounter Details Date Type Department Care Team Description 09/02/2018 Therapy Physicians Neck and Back Dylon Majano, Lumbar pain; [facility] PT Lumbar radiculopathy [address] [facility], [address] [place], [place] [id number] Social History Tobacco Use Types Packs/Day Years Used Date Smoking Tobacco: Never Assessed Sex Assigned at Date Recorded Not on file documented as of this encounter Progress Notes Jayashree Majano, PT - 09/02/2018 12:15 PM CDT 09/03/2018 Visit # 12 Protocol: Back and Osteo and Disc. Start: 12:15 PM End: 12:58 PM (FARE COLLECTOR Visit # 3 Subjective: Pt reports a [...] vacationing for the next 2 weeks in [place]. Verbaland visual cues were provided for a [...] and without low back/R buttock pain. ? Transitional Care Nurse Goals (>6 weeks): 1. Patient will be [...] disease. Recommendations/Communication: Pt will be leaving for [place] on 09/06/18 - will be gone x [...] unspecified documented in this encounter Care Teams Box Spring Maker Relationship Specialty Start Date End Date Tiffanie Romero MD PCP - General Internal Medicine 06/30/[address] [place] [address] documented as of this encounter
--- OUTSIDE RECORDS SUMMARY | 2022-08-14 10:50 | XMS_ITS | Encounter Summary ---
:1950 Author Organization [facility] Address [address], [place] [address] Care Team Providers Name Role Phone Tiffanie Romero MD Primary Care Provider Reason for Visit Reason Comments BACK PAIN, LOW Encounter Details Date Type Department Care Team Description 09/24/2018 Telephone Physicians Neck and Back Garcia Hl[place]and, GAS ADJUSTER BACK PAIN, LOW [place] [address] [facility] [address] [facility], [address] [place] [address] [place] [address] [phone] Social History Tobacco Use Types Packs/Day Years Used Date Smoking Tobacco: Never Assessed Sex Assigned at Date Recorded Not on file documented as of this encounter Plan of Treatment Not on filedocumented as of this encounter Visit Diagnoses Not on filedocumented in this encounter Care Teams Service Director Relationship Specialty Start Date End Date Tiffanie Romero MD PCP - General Internal Medicine 06/30/[address] [place] [address] documented as of this encounter
--- OUTSIDE RECORDS SUMMARY | 2022-08-14 10:50 | XMS_ITS | Encounter Summary ---
:1950 Author Organization [facility] Address [address] [place] [address] Care Team Providers Name Role Phone Tiffanie Romero MD Primary Care Provider Reason for Visit Reason Comments BACK PAIN, LOW LEG PAIN Consult/Transfer Care (Routine) - Discharged Specialty Diagnoses / Procedures Referred By Contact Refer red To Contact Physical Therapy Diagnoses CLBP Tiffanie Romero MD [facility] [address] [address] [place] [address] [address] [place] [address] Phone: Fax: Referral ID Status Reason Start Date Expiration Date Visits V isits Requested Authorized [id number] Discharged 06/30/2018 09/29/2019 24 24 Encounter Details Date Type Department Care Team Description 10/21/2018 Therapy Physicians Neck and Back Dylon Majano, Lumbar pain; [facility] PT Lumbar radiculopathy [address] [facility], [address] [place], [place] [id number] Social History Tobacco Use Types Packs/Day Years Used Date Smoking Tobacco: Never Assessed Sex Assigned at Date Recorded Not on file documented as of this encounter Progress Notes Jayashree Majano, PT - 10/21/2018 10:00 AM CST 10/21/2018 Visit # 15 Protocol: Back, Disc and Osteo Start: 10:07 AM End: 10:49 AM (RESIDENTIAL THERAPIST Visit # 4 Subjective: Time gap between [...] of the benefits related to completing the [facility] Rehab program. Education provided regarding safe [...] back/R buttock pain.??Met 08/28/18 (per note) ? Correction Goals (>6 weeks): 1. Patient will be [...] 40 Jayashree Majano, PT 10/21/2018, 12:12 PM NISTRATIVE PROCESSOR documented in this encounter Plan of Treatment Not on filedocumented as of this encounter Visit Diagnoses Diagnosis Lumbar pain Lumbago Lumbar radiculopathy Thoracic or lumbosacral neuritis or radi culitis, unspecified documented in this encounter Care Teams Sys Dir Relationship Specialty Start Date End Date Tiffanie Romero MD PCP - General Internal Medicine 06/30/[address] [place] [address] documented as of this encounter
--- OUTSIDE RECORDS SUMMARY | 2022-08-14 10:50 | XMS_ITS | Encounter Summary ---
:1950 Author Organization [facility] Address [address] [place] [address] Care Team Providers Name Role Phone Tiffanie Romero MD Primary Care Provider Reason for Visit Reason Comments MRI Results Encounter Details Date Type Department Care Team Description 07/22/2018 Telephone Physicians Neck and Back Nataliya Paulino MD MRI Results [facility] [place] [address] [place] [address] [id number] [place], [place] [id number] [phone] Social History Tobacco Use Types Packs/Day Years [...] on filedocumented in this encounter Care Teams Personal Investment Adviser Relationship Specialty Start Date End Date Tiffanie Romero MD PCP - General Internal Medicine 06/30/[address] [place] [address] documented as of this encounter
--- OUTSIDE RECORDS SUMMARY | 2022-08-14 10:50 | XMS_ITS | Encounter Summary ---
:1950 Author Organization [employer] Address [address] [place] [address] Care Team Providers Name Role Phone Tiffanie Romero MD Primary Care Provider Reason for Visit Reason Comments BACK PAIN, LOW Consult/Transfer Care (Routine) - Discharged Specialty Diagnoses / Procedures Referred By Contact Refer red To Contact Physical Therapy Diagnoses CLBP Tiffanie Romero MD [facility] [address] [address] [place] [address] [address] [place] [address] Phone: Fax: Referral ID Status Reason Start Date Expiration Date Visits V isits Requested Authorized [id number] Discharged 06/30/2018 09/29/2019 24 24 Encounter Details Date Type Department Care Team Description 08/26/2018 Therapy Physicians Neck and Back Garcia Holland, SALESPERSON FLOWERS Lumbar pain; [facility] [address], Lumbar radiculopathy [address] [address] [address] [place] [address] [place] [address] [phone] Social History Tobacco Use Types Packs/Day Years Used Date Smoking Tobacco: Never Assessed Sex Assigned at Date Recorded Not on file documented as of this encounter Progress Notes Fani Holland PTA - 08/26/2018 9:15 AM CDT 08/26/2018 Visit # 9 Protocol: low back, disc, osteo Start: 9:22 am End: 10:03 am (SALESPERSON FLOWERS Visit # 1 Subjective: Pt doesn't know [...] 65 Lats Reps Set 2 20 Other body shop estimator HEP - Therapeutic Activities (0 min): Not [...] and without low back/R buttock pain. ? Grader Meat Goals (>6 weeks): 1. Patient will be [...] unspecified documented in this encounter Care Teams Mapping Technician Relationship Specialty Start Date End Date Tiffanie Romero MD PCP - General Internal Medicine 06/30/[address] [place] [address] documented as of this encounter
--- OUTSIDE RECORDS SUMMARY | 2022-08-14 10:50 | XMS_ITS | Encounter Summary ---
:1950 Author Organization [facility] Address [address] [place] [address] Care Team Providers Name Role Phone Tiffanie Romero MD Primary Care Provider Reason for Visit Reason Comments BACK PAIN, LOW Consult/Transfer Care (Routine) - Discharged Specialty Diagnoses / Procedures Referred By Contact Refer red To Contact Physical Therapy Diagnoses CLBP Tiffanie Romero MD [facility] [address] [address] [place] [address] [address] [place] [address] Phone: Fax: Referral ID Status Reason Start Date Expiration Date Visits V isits Requested Authorized [id number] Discharged 06/30/2018 09/29/2019 24 24 Encounter Details Date Type Department Care Team Description 08/28/2018 Therapy Physicians Neck and Back Kamilla Ash, Lumbar pain; [facility] THREAD MILLING MACHINE SET UP OPERATOR Lumbar radiculopathy [address] [facility], [address], [place] [address] [place] [address] [place] [address] [phone] (Wo rk) Social History Tobacco Use Types Packs/Day Years Used Date Smoking Tobacco: Never Assessed Sex Assigned at Date Recorded Not on file documented as of this encounter Progress Notes Denisse Conklin, PT - 08/28/2018 9:45 AM CDT 08/28/2018 Visit # 10 Protocol: Back and Osteo Start: 9:50 End: 10:39 (THREAD MILLING MACHINE SET UP OPERATOR Visit # 2 Subjective: Pt states that [...] of the benefits related to completing the [facility] Rehab program Assessment:Pt attained target fatigue level [...] and without low back/R buttock pain. ? Inclinometer Tester Goals (>6 weeks): 1. Patient will be [...] unspecified documented in this encounter Care Teams Health Advisor Relationship Specialty Start Date End Date Tiffanie Romero MD PCP - General Internal Medicine 06/[address] [place] [address] (work) documented as of this encounter
--- OUTSIDE RECORDS SUMMARY | 2022-08-14 10:50 | XMS_ITS | Encounter Summary ---
:1950 Author Organization [facility] Address [address] [place] [address] Care Team Providers Name Role Phone Tiffanie Rmoero MD Primary Care Provider Reason for Visit Reason Comments BACK PAIN, LOW Consult/Transfer Care (Routine) - Discharged Specialty Diagnoses / Procedures Referred By Contact Refer red To Contact Physical Therapy Diagnoses CLBP Tiffanie Romero MD [facility] [address] [address] [place] [address] [address] [place] [address] Phone: Fax: Referral ID Status Reason Start Date Expiration Date Visits V isits Requested Authorized [id number] Discharged 06/30/2018 09/29/2019 24 24 Encounter Details Date Type Department Care Team Description 10/12/2018 Therapy Physicians Neck and Back Garcia Holland, RETAIL ASSISTANT MANAGER Lumbar pain; [facility] [address] [address], Lumbar radiculopathy [address] [address] [address] [place] [address] [place] [address] [phone] Social History Tobacco Use Types Packs/Day Years Used Date Smoking Tobacco: Never Assessed Sex Assigned at Date Recorded Not on file documented as of this encounter Progress Notes Fani Holland, RETAIL ASSISTANT MANAGER - 10/12/2018 10:15 AM CST 10/12/2018 Visit # 14 Protocol: Back, Disc and Osteo Start: 10:20 am End: 11:00 am (RETAIL ASSISTANT MANAGER Visit # 4 Subjective: Pt reports increased soreness after the last treatment session. Pt didn't sleep well d/tworrying about her mom's healthcare needs and penitentiary placement. Cervical Not performed today. Objective Tests [...] of the benefits related to completing the [facility] Rehab program STretch for hip flexor/quad. Assessment: [...] back/R buttock pain.Met 08/28/18 (per note) ? Alf Goals (>6 weeks): 1. Patient [...] 38 Fani Holland PTA 10/12/2018, 10:13 AM MOLD COATER documented in this encounter Plan of Treatment Not on filedocumented as of this encounter Visit Diagnoses Diagnosis Lumbar pain Lumbago Lumbar radiculopathy Thoracic or lumbosacral neuritis or radi culitis, unspecified documented in this encounter Care Teams Desizing Pad Operator Relationship Specialty Start Date End Date Tiffanie Romero MD PCP - General Internal Medicine 06/[address] [place] [address] documented as of this encounter
--- OUTSIDE RECORDS SUMMARY | 2022-08-14 10:50 | XMS_ITS | Encounter Summary ---
:1950 Author Organization [facility] Address [address] [place] [address] Care Team Providers Name Role Phone Tiffanie Romero MD Primary Care Provider Reason for Visit Reason Comments BACK PAIN, LOW Consult/Transfer Care (Routine) - Discharged Specialty Diagnoses / Procedures Referred By Contact Refer red To Contact Physical Therapy Diagnoses CLBP Tiffanie Romero MD [facility] [address] [address] [place] [address] [address] [place] [address] Phone: Fax: Referral ID Status Reason Start Date Expiration Date Visits V isits Requested Authorized [id number] Discharged 06/30/2018 09/29/2019 24 24 Encounter Details Date Type Department Care Team Description 08/07/2018 Therapy Physicians Neck and Back Kamilla Ash, Lumbar pain; [facility] DYNAMITE PACKING MACHINE OPERATOR Lumbar radiculopathy [address] [facility], [address], [place] [address] [place] [address] [place] [address] [phone] (Wo rk) Social History Tobacco Use Types Packs/Day Years Used Date Smoking Tobacco: Never Assessed Sex Assigned at Date Recorded Not on file documented as of this encounter Progress Notes Katlyn Ash, DYNAMITE PACKING MACHINE OPERATOR - 08/07/2018 12:00 PM CDT 08/07/2018 Visit # 4 Protocol: full low back, osteo and disc Start: 12:03 End: 12:49 (DYNAMITE PACKING MACHINE OPERATOR Visit # 2 Subjective: Pt states [...] of the benefits related to completing the [facility] Rehab program Assessment: Pt has [...] and without low back/R buttock pain. ? Block Cableman Goals (>6 weeks): 1. Patient will be [...] unspecified documented in this encounter Care Teams Contract Negotiation Specialist Relationship Specialty Start Date End Date Tiffanie Romero MD PCP - General Internal Medicine 06/[address] [place] [address] documented as of this encounter
--- OUTSIDE RECORDS SUMMARY | 2022-08-14 10:50 | XMS_ITS | Encounter Summary ---
:1950 Author Organization [employer] Address [address] [place] [address] Care Team Providers Name Role Phone Tiffanie Romero MD Primary Care Provider Reason for Visit Reason Comments BACK PAIN, LOW Consult/Transfer Care (Routine) - Discharged Specialty Diagnoses / Procedures Referred By Contact Refer red To Contact Physical Therapy Diagnoses CLBP Tiffanie Romero MD [facility] [address] [address] [place] [address] [address] [place] [address] Phone: Fax: Referral ID Status Reason Start Date Expiration Date Visits V isits Requested Authorized [id number] Discharged 06/30/2018 09/29/2019 24 24 Encounter Details Date Type Department Care Team Description 08/05/2018 Therapy Physicians Neck and Back Garcai Holland, OFFICE AGENT Lumbar pain; [facility] [address], Lumbar radiculopathy [address] [address] [address] [place] [address] [place] [address] [phone] Social History Tobacco Use Types Packs/Day Years Used Date Smoking Tobacco: Never Assessed Sex Assigned at Date Recorded Not on file documented as of this encounter Progress Notes Fani Holland PTA - 08/05/2018 8:30 AM CDT 08/05/2018 Visit # 3 Protocol: full low back, osteo and disc Start: 8:40 am End: 9:22 am (OFFICE AGENT Visit # 1 Subjective: Pt did ok after the intro to the lumbar extension and aux exercises last time. Pt had some questions on the stretches so reviewed them for more effective stretch. Cervical Not performed today. Objective Tests & Measures: 1st max on lumbar extension 60# Tests performed today (see [facility] for score and outcomes): : None Performed [...] understanding of the benefits related tocompleting the [facility] Rehab program Crate 5#, see above. Assessment: [...] and without low back/R buttock pain. ? Sports Team Marketing Intern Goals (>6 weeks): 1. Patient will [...] unspecified documented in this encounter Care Teams Supervisor Travel Information Center Relationship Specialty Start Date End Date Tiffanie Romero MD PCP - General Internal Medicine 06/[address] [place] [address] documented as of this encounter
--- OUTSIDE RECORDS SUMMARY | 2022-08-14 10:50 | XMS_ITS | Encounter Summary ---
:1950 Author Organization [facility] Address [address] [place] [address] Care Team Providers Name Role Phone Tiffanie Romero MD Primary Care Provider Reason for Referral Procedure/Equipment (Routine) - Incomplete Specialty Diagnoses / Procedures Referred By Contact Refer red To Contact Diagnoses Mechanical low back pain Lumbar radiculopathy Nataliya Paulino MD Procedures MR Lumbar Spine W/WO IV Cont MR Lumbar Spine WO IV Cont [address] [facility] [place] [address] Referral ID Status Reason Start Date Expiration Date Visits V isits Requested Authorized [id number] Incomplete 07/01/2018 09/30/2019 1 1 Reason for Visit Reason Onset Date Comments LEG PAIN 07/01/2018 BACK PAIN, LOW 07/01/2018 Encounter Details Date Type Department Care Team Description 07/01/2018 Office Visit Physicians Neck and Nataliya Paulino anical low back pain (Primary Dx); Back [facility] MD [place] Lumbar radiculopathy; [place] [address] [facility] Lumbar radiculitis; [address] [place], [place] Muscular d econditioning Center, [address] [address] [place] [address] Social History Tobacco Use Types [...] traditional physical therapy in 2007 with no termite exterminator helper relief. I have reviewed her outside records from [facility] and clinics where she has been primarily seen for her back pain, most recently on 06/30/[address] Tiffanie Romero who referred her to us. There is no history of spine surgery in the past. 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 Review of systems is significant for nighttime [...] requested, if needed. Nataliya Paulino MD, MPH, [facility] Physicians Neck and Back Center 07/01/2018 documented [...] unspecified documented in this encounter Care Teams Education Department Registrar Relationship Specialty Start Date End Date Tiffanie Romero MD PCP - General Internal Medicine 06/[address] [place] [address] documented as of this encounter
--- OUTSIDE RECORDS SUMMARY | 2022-08-14 10:50 | XMS_ITS | Encounter Summary ---
:1950 Author Organization [facility] Address [address] [place] [address] Care Team Providers Name Role Phone Tiffanie Romero MD Primary Care Provider Reason for Visit Reason Comments BACK PAIN, LOW Consult/Transfer Care (Routine) - Discharged Specialty Diagnoses / Procedures Referred By Contact Refer red To Contact Physical Therapy Diagnoses CLBP Tiffanie Romero MD [facility] [address] [address] [place] [address] [address] [place] [address] Phone: Fax: Referral ID Status Reason Start Date Expiration Date Visits V isits Requested Authorized [id number] Discharged 06/30/2018 09/29/2019 24 24 Encounter Details Date Type Department Care Team Description 10/30/2018 Therapy Physicians Neck and Back Michael Tafoya, Lumbar pain; [facility] PT Lumbar radiculopathy [address] [facility], [address] [facility] [address] [place] [address] [place] [address] [phone] Social History Tobacco Use Types Packs/Day Years Used Date Smoking Tobacco: Never Assessed Sex Assigned at Date Recorded Not on file documented as of this encounter Progress Notes Michael Tafoya, PT - 10/30/2018 1:45 PM CST 10/30/2018 Visit # 17 Protocol: Back, Disc and Osteo Start: 1:51 End: 2:30 (HEATING ELEMENT WINDER Visit # 4 Subjective: States she only [...] back/R buttock pain.??Met 08/28/18 (per note) ? Homebirth Midwife Goals (>6 weeks): 1. Patient will be [...] 39 Michael Tafoya, ARIA 10/30/2018, 2:31 PM AR REPAIR TECHNICIAN documented in this encounter Plan of Treatment Not on filedocumented as of this encounter Visit Diagnoses Diagnosis Lumbar pain Lumbago Lumbar radiculopathy Thoracic or lumbosacral neuritis or radi culitis, unspecified documented in this encounter Care Teams Section Hand Relationship Specialty Start Date End Date Tiffanie Romero MD PCP - General Internal Medicine 06/[address] [place] [address] documented as of this encounter
--- OUTSIDE RECORDS SUMMARY | 2022-08-14 10:50 | XMS_ITS | Encounter Summary ---
:1950 Author Organization [facility]Christ[facility] St[email or web address] Address [address] [place] [address] Care Team Providers Name Role Phone Tiffanie Romero MD Primary Care Provider Reason for Visit Reason Comments BACK PAIN, LOW Consult/Transfer Care (Routine) - Discharged Specialty Diagnoses / Procedures Referred By Contact Refer red To Contact Physical Therapy Diagnoses CLBP Tiffanie Romero MD [facility] [address] [address] [place] [address] [address] [place] [address] Phone: Fax: Referral ID Status Reason Start Date Expiration Date Visits V isits Requested Authorized [id number] Discharged 06/30/2018 09/29/2019 24 24 Encounter Details Date Type Department Care Team Description 08/12/2018 Therapy Physicians Neck and Back Garcia Holland, COMMUNITY SPECIALIST Lumbar pain; [facility] [address] [address], Lumbar radiculopathy [address] [address] [address] [place] [address] [place] [address] [phone] Social History Tobacco Use Types Packs/Day Years Used Date Smoking Tobacco: Never Assessed Sex Assigned at Date Recorded Not on file documented as of this encounter Progress Notes Fani Holland PTA - 08/12/2018 10:45 AM CDT 08/12/2018 Visit # 6 Protocol: low back, osteo, disc Start: 10:54 am End: 11:30 am (COMMUNITY SPECIALIST Visit # 4 Subjective: Pt reports sore legs and hips after the last treatment session. Cervical Not performed today. Objective Tests & Measures: 80% of max wt. On torso rotation Tests performed today ([facility] for score and outcomes): : [...] and without low back/R buttock pain. ? Senior Living Goals (>6 weeks): 1. Patient will be [...] unspecified documented in this encounter Care Teams Manager Business Intelligence Relationship Specialty Start Date End Date Tiffanie Romero MD PCP - General Internal Medicine 06/[address] [place] [address] documented as of this encounter
--- OUTSIDE RECORDS SUMMARY | 2022-08-14 10:50 | XMS_ITS | Encounter Summary ---
:1950 Author Organization [employer] Address [address] [address] Care Team Providers Name Role Phone Tiffanie Romero MD Primary Care Provider Reason for Visit Reason Onset Date Comments BACK PAIN, LOW 09/02/2018 Encounter Details Date Type Department Care Team Description 09/02/2018 Office Visit Physicians Neck and Heather, Tiffanie wilkins MD Mechanical low back pain; [facility] [place] MD Muscular deconditioning [place] [address] [place] [address], [address] [place] [address] Social History Tobacco Use Types [...] classified documented in this encounter Care Teams Gold Frame Assembler Relationship Specialty Start Date End Date Tiffanie Romero MD PCP - General Internal Medicine 06/30/[address] [place] [address] documented as of this encounter
--- OUTSIDE RECORDS SUMMARY | 2022-08-14 10:50 | XMS_ITS | Encounter Summary ---
:1950 Author Organization [facility] Address [address] [place] [address] Care Team Providers Name Role Phone Tiffanie Romero MD Primary Care Provider Reason for Visit Reason Comments BACK PAIN, LOW Consult/Transfer Care (Routine) - Discharged Specialty Diagnoses / Procedures Referred By Contact Refer red To Contact Physical Therapy Diagnoses CLBP Tiffanie Romero MD [facility] [address] [address] [place] [address] [address] [place] [address] Phone: Fax: Referral ID Status Reason Start Date Expiration Date Visits V isits Requested Authorized [id number] Discharged 06/30/2018 09/29/2019 24 24 Encounter Details Date Type Department Care Team Description 08/10/2018 Therapy Physicians Neck and Back Garcia Holland, OCCUPATIONAL HEALTH MANAGER Lumbar pain; [facility] [address], Lumbar radiculopathy [address] [address] [address] [place] [address] [place] [address] [phone] Social History Tobacco Use Types Packs/Day Years Used Date Smoking Tobacco: Never Assessed Sex Assigned at Date Recorded Not on file documented as of this encounter Progress Notes Fani Holland, CHARLA - 08/10/2018 10:15 AM CDT 08/10/2018 Visit # 5 Protocol: full low back, osteo and disc Start: 10:17 am End: 10:57 am (OCCUPATIONAL HEALTH MANAGER Visit # 3 Subjective: Pt reports having some soreness but not much. Cervical Not performed today. Objective Tests & Measures: 15 % wt increase on lumbar extension Tests performed today (see [facility] for score and outcomes): : [...] and without low back/R buttock pain. ? Fci Goals (>6 weeks): 1. Patient will be [...] unspecified documented in this encounter Care Teams Chief Wharfinger Relationship Specialty Start Date End Date Tiffanie Romero MD PCP - General Internal Medicine 06/30/[address] [place] [address] documented as of this encounter
--- OUTSIDE RECORDS SUMMARY | 2022-08-14 10:50 | XMS_ITS | Encounter Summary ---
:1950 Author Organization [facility] Address [address] [place] [address] Care Team Providers Name Role Phone Tiffanie Romero MD Primary Care Provider Reason for Visit Reason Comments BACK PAIN, LOW LEG PAIN Consult/Transfer Care (Routine) - Discharged Specialty Diagnoses / Procedures Referred By Contact Refer red To Contact Physical Therapy Diagnoses CLBP Tiffanie Romero MD [facility] [address] [address] [place] [address] [address] [place] [address] Phone: Fax: Referral ID Status Reason Start Date Expiration Date Visits V isits Requested Authorized [id number] Discharged 06/30/2018 09/29/2019 24 24 Encounter Details Date Type Department Care Team Description 10/28/2018 Therapy Physicians Neck and Back Dylon Majano, Lumbar pain; [facility] PT Lumbar radiculopathy [address] [facility], [address] [place], [place] [id number] Social History Tobacco Use Types Packs/Day Years Used Date Smoking Tobacco: Never Assessed Sex Assigned at Date Recorded Not on file documented as of this encounter Progress Notes Jayashree Majano, PT - 10/28/2018 9:30 AM CST 10/28/2018 Visit # 16 Protocol: Back, Disc and Osteo Start: 9:36 AM Stop: 10:16 AM (TELEPHONE CLAIMS REPRESENTATIVE Visit # 4 Subjective: Pt was quite sore after her previous treatment. A time gap of 1 week between rehab sessions due to the Thanksgiving holiday. L lateral thigh stiffness persists. Cervical Not performed today. Objective Tests & Measures: 4# increase in L-Ext Tests performed today (see [facility] for score and outcomes): : None [...] back/R buttock pain.??Met 08/28/18 (per note) ? Enamel Cracker Goals (>6 weeks): 1. Patient will be [...] 38 Jayashree Majano, PT 10/28/2018, 1:35 PM R LATCHER documented in this encounter Plan of Treatment Not on filedocumented as of this encounter Visit Diagnoses Diagnosis Lumbar pain Lumbago Lumbar radiculopathy Thoracic or lumbosacral neuritis or radi culitis, unspecified documented in this encounter Care Teams Tool/Die Maker Relationship Specialty Start Date End Date Tiffanie Romero MD PCP - General Internal Medicine 06/30/[address] [place] [address] documented as of this encounter
--- OUTSIDE RECORDS SUMMARY | 2022-08-14 10:50 | XMS_ITS | Encounter Summary ---
:1950 Author Organization [facility] Address [address] [place] [address] Care Team Providers Name Role Phone Tiffanie Romero MD Primary Care Provider Reason for Visit Reason Comments BACK PAIN, LOW Consult/Transfer Care (Routine) - Discharged Specialty Diagnoses / Procedures Referred By Contact Refer red To Contact Physical Therapy Diagnoses CLBP Tiffanie Romero MD [facility] [address] [address] [place] [address] [address] [place] [address] Phone: Fax: Referral ID Status Reason Start Date Expiration Date Visits V isits Requested Authorized [id number] Discharged 06/30/2018 09/29/2019 24 24 Encounter Details Date Type Department Care Team Description 08/31/2018 Therapy Physicians Neck and Back Garcia Holland, SAFE DEPOSIT ATTENDANT Lumbar pain; [facility] [address], Lumbar radiculopathy [address] [address] [address] [place] [address] [place] [address] [phone] Social History Tobacco Use Types Packs/Day Years Used Date Smoking Tobacco: Never Assessed Sex Assigned at Date Recorded Not on file documented as of this encounter Progress Notes Fani Holland, CHARLA - 08/31/2018 9:30 AM CDT 08/31/2018 Visit # 11 Protocol: Back and Osteo Start: 9:31 am End: 10:13 am (SAFE DEPOSIT ATTENDANT Visit # 3 Subjective: Pt Reports having [...] on lumbar extension Tests performed today (see [facility] for score and outcomes): : [...] and without low back/R buttock pain. ? Digital Marketing Analyst Goals (>6 weeks): 1. Patient will [...] unspecified documented in this encounter Care Teams Loan Review Officer Relationship Specialty Start Date End Date Tiffanie Romero MD PCP - General Internal Medicine 06/30/[address] [place] [address] documented as of this encounter
--- OUTSIDE RECORDS SUMMARY | 2022-08-14 10:50 | XMS_ITS | Encounter Summary ---
:1950 Author Organization [facility] Address [address] [place] [address] Care Team Providers Name Role Phone Tiffanie Romero MD Primary Care Provider Reason for Visit Reason Comments BACK PAIN, LOW Consult/Transfer Care (Routine) - Discharged Specialty Diagnoses / Procedures Referred By Contact Refer red To Contact Physical Therapy Diagnoses CLBP Tiffanie Romero MD [facility] [address] [address] [place] [address] [address] [place] [address] Phone: Fax: Referral ID Status Reason Start Date Expiration Date Visits V isits Requested Authorized [id number] Discharged 06/30/2018 09/29/2019 24 24 Encounter Details Date Type Department Care Team Description 10/07/2018 Therapy Physicians Neck and Back Kina Theodore P T Lumbar pain; [facility] Lumbar radiculopathy [address] [facility], [address] [place], [place] [id number] Social History Tobacco Use Types Packs/Day Years Used Date Smoking Tobacco: Never Assessed Sex Assigned at Date Recorded Not on file documented as of this encounter Progress Notes Kina Theodore, PT - 10/07/2018 10:00 AM CST 10/07/2018 Visit # 13 Protocol: Back, Disc and Osteo Start: 9:56 End: 10:40 (NOZZLE AND SLEEVE WORKER Visit # 3 Subjective: Pt is returning today after 5 weeks away from therapy. [place] was [place] the [place] and then has been busy helping her mother who recently had a stroke. She notes that she spent alot of time on a bus while in [place], but tried to move around as much [...] of the benefits related to completing the [facility] Rehab program Instruction in plan for today's [...] back/R buttock pain.Met 08/28/18 (per note) ? Relationship Manager Goals (>6 weeks): 1. Patient will be [...] 42 Kina Theodore, PT 10/07/2018, 12:17 PM PROCESSING SUPERVISOR documented in this encounter Plan of Treatment Not on filedocumented as of this encounter Visit Diagnoses Diagnosis Lumbar pain Lumbago Lumbar radiculopathy Thoracic or lumbosacral neuritis or radi culitis, unspecified documented in this encounter Care Teams Public Housing Manager Relationship Specialty Start Date End Date Tiffanie Romero MD PCP - General Internal Medicine 06/30/[address] [place] [address] documented as of this encounter
--- OUTSIDE RECORDS SUMMARY | 2022-08-14 10:50 | XMS_ITS | Encounter Summary ---
:1950 Author Organization [facility] Address [address] [place] [address] Care Team Providers Name Role Phone Tiffanie Romero MD Primary Care Provider Reason for Visit Reason Comments BACK PAIN, LOW LEG PAIN Consult/Transfer Care (Routine) - Discharged Specialty Diagnoses / Procedures Referred By Contact Refer red To Contact Physical Therapy Diagnoses CLBP Tiffanie Romero MD [facility] [address] [address] [place] [address] [address] [place] [address] Phone: Fax: Referral ID Status Reason Start Date Expiration Date Visits V isits Requested Authorized [id number] Discharged 06/30/2018 09/29/2019 24 24 Encounter Details Date Type Department Care Team Description 07/29/2018 Therapy Physicians Neck and Back Dylon Majano, Lumbar pain; [facility] PT Lumbar radiculopathy [address] [facility], [address] [place], [place] [id number] Social History Tobacco Use Types Packs/Day Years Used Date Smoking Tobacco: Never Assessed Sex Assigned at Date Recorded Not on file documented as of this encounter Progress Notes Jayashree Majano, PT - 07/29/2018 1:15 PM CDT 07/29/2018 Visit # 2 Protocol: Full Low Back: Osteo and Disc. Start: 1:24 PM End: 2:08 PM (FLIGHT ENGINEER MANAGER Visit # 0 Subjective: Pt reports sx [...] and without low back/R buttock pain. ? Mcc Goals (>6 weeks): 1. Patient will be [...] unspecified documented in this encounter Care Teams Electronic Equipment Repairer Relationship Specialty Start Date End Date Tiffanie Romero MD PCP - General Internal Medicine 06/30/[address] [place] [address] documented as of this encounter
--- OUTSIDE RECORDS SUMMARY | 2022-08-14 10:50 | XMS_ITS | Encounter Summary ---
:1950 Author Organization [facility] Address [address] [place] [address] Care Team Providers Name Role Phone Tiffanie Romero MD Primary Care Provider Reason for Visit Reason Comments BACK PAIN, LOW LEG PAIN Consult/Transfer Care (Routine) - Discharged Specialty Diagnoses / Procedures Referred By Contact Refer red To Contact Physical Therapy Diagnoses CLBP Tiffanie Romero MD [facility] [address] [address] [place] [address] [address] [place] [address] Phone: Fax: Referral ID Status Reason Start Date Expiration Date Visits V isits Requested Authorized [id number] Discharged 06/30/2018 09/29/2019 24 24 Encounter Details Date Type Department Care Team Description 07/01/2018 Therapy Physicians Neck and Jayashree Majano mbar pain (Primary Dx); [facility] Lola Yancey, PT Lumbar radiculopathy [address] [facility], [address] [place] [address] Social History Tobacco Use Types [...] days (90 days max for [place] and [place] patients). Short Term Goals (4-6 weeks): 1. [...] mechanics and without low back/R buttock pain. Alf Goals (>6 weeks): 1. Patient will [...] and out in the community. Discharge Plan: [place] in strength maintenance home exercise program TODAY'S INTERVENTIONS: Therapeutic Exercise, Therapeutic Activity and Neuromuscular re-education Jayashree Majano, PT 07/01/2018, 5:47 AM 2018 Visit # 1 Protocol: Full Low Back: Osteo and Disc. Advance ROM as tolerated. Awaiting MRI results prior to start of MedX. Start: 1:20 PM End: 2:13 PM (ENVIRONMENTAL RESEARCH PROJECT MANAGER Visit # 0 Subjective: See Initial Evaluation [...] the benefits related to completing the [facility] Rehab program. Discussed program objectives, POC, DOMs, ice vs heat, maintenance spinal HEP and the importance of daily movt/stretching and jung lication of cold packs for sx relief. Access Code: [email or web address] URL: [email or web address] Date: 07/01/2018 Prepared by: Jayashree Majano Exercises [...] mechanics and without low back/R buttock pain. Ged Preparation Teacher Goals (>6 weeks): 1. Patient will be [...] unspecified documented in this encounter Care Teams Golf Course Superintendent Relationship Specialty Start Date End Date Tiffanie Romero MD PCP - General Internal Medicine 06/30/[address] [place] [address] documented as of this encounter
--- OUTSIDE RECORDS SUMMARY | 2022-08-14 10:50 | XMS_ITS | Encounter Summary ---
:1950 Author Organization [facility] Address [address] [place] [address] Care Team Providers Name Role Phone Tiffanie Romero MD Primary Care Provider Reason for Visit Reason Comments BACK PAIN Consult/Transfer Care (Routine) - Discharged Specialty Diagnoses / Procedures Referred By Contact Refer red To Contact Physical Therapy Diagnoses CLBP Tiffanie Romero MD [facility] [address] [address] [place] [address] [address] [place] [address] Phone: Fax: Referral ID Status Reason Start Date Expiration Date Visits V isits Requested Authorized [id number] Discharged 06/30/2018 09/29/2019 24 24 Encounter Details Date Type Department Care Team Description 08/20/2018 Therapy Physicians Neck and Back Denisse Lemon, PT Lumbar pain; [facility] [id number] [place] [address] Lumbar radiculopathy [address] [place] [address] [address] [place], [place] [id number] [phone] Social History Tobacco Use Types Packs/Day Years Used Date Smoking Tobacco: Never Assessed Sex Assigned at Date Recorded Not on file documented as of this encounter Progress Notes Denisse Conklin, PT - 08/20/2018 10:00 AM CDT 08/20/2018 Visit # 8 Protocol: low back, osteo, disc Start: 10:00 am End: 10:36 am (BUSINESS MGR Visit # 0 Subjective: Patient reports her back is feeling good. Patient reports hasn't had right low back painsince she started PT treatments and started doing the stretches. Cervical Not performed today. Objective Tests & Measures: T-Rot 80% increased 2 pounds since last max day. Tests performed today (see [facility] for score and outcomes): : None Performed [...] and without low back/R buttock pain. ? Custodial Goals (>6 weeks): 1. Patient will be [...] unspecified documented in this encounter Care Teams Radiology Technician Relationship Specialty Start Date End Date Tiffanie Romero MD PCP - General Internal Medicine 06/30/[address] [place] [address] documented as of this encounter
--- OUTSIDE RECORDS SUMMARY | 2022-08-14 10:50 | XMS_ITS | Encounter Summary ---
:1950 Author Organization [facility] Address [address] [place] [address] Care Team Providers Name Role Phone Tiffanie Romero MD Primary Care Provider Reason for Visit Reason Comments BACK PAIN, LOW Consult/Transfer Care (Routine) - Discharged Specialty Diagnoses / Procedures Referred By Contact Refer red To Contact Physical Therapy Diagnoses CLBP Tiffanie Romero MD [facility] [address] [address] [place] [address] [address] [place] [address] Phone: Fax: Referral ID Status Reason Start Date Expiration Date Visits V isits Requested Authorized [id number] Discharged 06/30/2018 09/29/2019 24 24 Encounter Details Date Type Department Care Team Description 08/18/2018 Therapy Physicians Neck and Back Carlos Pinto, PROSPECTING DRILLER HELPER Lumbar pain; [facility] [address] [address], Lumbar radiculopathy [address] [address] [address] [place] [address] [place] [address] [phone] Social History Tobacco Use Types Packs/Day Years Used Date Smoking Tobacco: Never Assessed Sex Assigned at Date Recorded Not on file documented as of this encounter Progress Notes Carlos Pinto PTA - 08/18/2018 10:45 AM CDT 08/18/2018 Visit # 7 Protocol: low back, osteo, disc Start: 1045a End: 1123a (PROSPECTING DRILLER HELPER Visit # 5 Subjective: Doing well and feeling little stronger, balance is better too. Pleased with progress overall. Cervical Not performed today. Objective Tests & Measures: Tests performed today (see [facility] for score and outcomes): [...] the benefits related to completing the [facility] Rehab program Assessment: Nicolette Sweeney tolerated treatment [...] and without low back/R buttock pain. ? Loan Secretary Goals (>6 weeks): 1. Patient will be [...] Observed treatment. Goals/Plan of Care discussed with PROSPECTING DRILLER HELPER. Treatment progressing and appropriate. Denisse Conklin, ARIA 08/18/2018, 11:47 AM documented in this encounter Plan of Treatment Not on filedocumented as of this encounter Visit Diagnoses Diagnosis Lumbar pain Lumbago Lumbar radiculopathy Thoracic or lumbosacral neuritis or radi culitis, unspecified documented in this encounter Care Teams Ice Cream Shop Associate Relationship Specialty Start Date End Date Tiffanie Romero MD PCP - General Internal Medicine 06/30/[address] [place] [address] documented as of this encounter
--- OUTSIDE RECORDS SUMMARY | 2022-08-14 10:50 | XMS_ITS | Encounter Summary ---
:1950 Author Organization [facility] Address [address] [place] [address] Care Team Providers Name Role Phone Tiffanie Romero MD Primary Care Provider Reason for Visit Procedure/Equipment (Routine) - Incomplete Specialty Diagnoses / Procedures Referred By Contact Refer red To Contact Diagnoses Mechanical low back pain Lumbar radiculopathy Nataliya Paulino MD Procedures MR Lumbar Spine W/WO IV Cont MR Lumbar Spine WO IV Cont [address] [facility] [place], [place] [address] Referral ID Status Reason Start Date Expiration Date Visits V isits Requested Authorized [id number] Incomplete 07/01/2018 09/30/2019 1 1 Encounter Details Date Type Department Care Team Description 07/22/2018 Imaging [facility] Nataliya Paulino, Lumbar pain (Primary Dx); MRI Mechanical low back pain; [address] [facility] [place] [address] [place], [place] [phone] (Wo rk) Social History Tobacco Use Types [...] sacroiliac joints. Nataliya Paulino MD RAD MRI NPT Lab Creatinine ([place] and sites only) (07/22/2018 8:23 AM CDT) [...] - 07/22/2018 8:37 AM CDT Performed at [facility], [address] [place] [address] CLIA number [id number] Nataliya Paulino MD LAB_1 Performing Organization Address City/State/ZIP Code Phon e Number PN [address] [place] [address] [phone] documented in this encounter Visit Diagnoses Diagnosis [...] dose documented in this encounter Care Teams Implant Polisher Relationship Specialty Start Date End Date Tiffanie Romero MD PCP - General Internal Medicine 06/[address] [place] [address] documented as of this encounter
--- NOTE | 2022-08-14 11:00 | CRLHL7_ITS ---
For Patients: As a result of the Century Cures Act, medical imaging exams and procedure reports are released immediately into your electronic medical record. You may view this report before your referring provider. If you have questions, please contact your health care provider. Indication: CHRONIC SINUSITIS Technique: Performed without IV contrast Comparison: 09/09/2014 Findings: Frontal sinuses: Clear. Ethmoid sinuses: Clear. 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 Clear right maxillary sinus. The maxillary sinus drainage pathways are patent on both sides. Sphenoid sinuses: Clear, including both sphenoethmoidal recesses. Nasal Cavity: Rightward curvature nasal septum. Mild paradoxical turn of the right middle turbinates. Small dioni bullosa within the left middle turbinate. Normal inferior turbinate mucosa. No polyp. No TMJ abnormalities identified. The visualized portions of the orbits, intracranial contents and upper soft tissue neck are grossly negative. Impression: 1. Chronic minimal left maxillary sinus disease. 2. Rightward curvature nasal septum, similar to the prior study. Please note that all CT scans at this facility use dose modulation, iterative reconstruction, and/or weight-based dosing when appropriate to reduce radiation dose to as low as reasonably achievable. Dictated by Beny Salmon MD @ 08/14/2022 11:24:43 AM (Electronically Signed)
== END 2022-08-14 10:47 | disposition home or self-care (01) ==
LOC: CT 10:48
PROVIDERS: PCP Internal Medicine; Visit Provider Otolaryngology
DX: J32.9 Chronic sinusitis, unspecified (principal); J32.0 Chronic maxillary sinusitis; J34.2 Deviated nasal septum
CPT/HCPCS: 70486

== ENCOUNTER 2022-12-06 10:23 | Outpatient (CLI) | payer MEDICARE, BC, SELFPAY ==
[2022-12-06 09:58] LABS: Microalbumin Urine 1 mg/dL
[2022-12-06 09:59] LABS: Albumin* 4.1 g/dL (3.3-5.0)
[2022-12-06 10:00] LABS: Chloride* 109 mmol/L (96-114); Potassium* 4.6 mmol/L (3.6-5.1); Sodium* 142 mmol/L (135-149)
[2022-12-06 10:01] LABS: Creatinine Urine 65.3 mg/dL; Microalbumin Creatinine Ratio 10 mg/g (0-30)
[2022-12-06 10:02] LABS: Aspartate Amino Transferase* 24 U/L (12-35); Bilirubin Total* 0.8 mg/dL (0.1-1.5); Blood Urea Nitrogen* 19 mg/dL (7-30); Carbon Dioxide* 29 mmol/L (20-32); Cholesterol* 138 mg/dL (90-199); Creatinine* 0.7 mg/dL (0.5-1.5); Estimated Glomerular Filt Rate 91 ml/min; Total Protein* 6.7 g/dL (6.0-8.3)
[2022-12-06 10:03] LABS: Alanine Aminotransferase* 15 U/L (4-35); Alkaline Phosphatase* 84 U/L (40-150); Calcium* 9.5 mg/dL (8.4-10.6); Glucose* 154 mg/dL (60-115); HDL Cholesterol* 59 mg/dL (>=50); LDL Cholesterol Calculated 64 mg/dL (<100); Triglycerides* 77 mg/dL (40-149)
== END 2022-12-06 10:24 | disposition home or self-care (01) ==
PROVIDERS: PCP Internal Medicine; Visit Provider Internal Medicine
DX: E11.9 Type 2 diabetes mellitus without complications (principal); E78.5 Hyperlipidemia, unspecified; I10 Essential (primary) hypertension
CPT/HCPCS: 80053; 80061; 82043; 82570

== ENCOUNTER 2023-10-31 08:40 | Outpatient (CLI) | payer MEDICARE, BC, SELFPAY ==
--- OUTSIDE RECORDS SUMMARY | 2023-11-03 07:11 | XMS_ITS | Continuity of Care Document ---
Author Name Unknown Organization [facility] Address [address] [address] [place] [address] Phone Care Team Providers Care [employer] Teacher Name Role Phone Michelle Carroll MD Unavailable Unavailable Allergies, Adverse Reactions, Alerts Substance Reaction Status Criticality clonidine Active No Information Medications Medication Instructions Dosage Effective Dates (start - stop) Status Comments tamoxifen 20 mg tablet take 1 tablet by oral route every day 20 MG - Active atenolol 25 mg tablet take 1 tablet by oral route every day 25 MG - Active spironolactone 25 mg tablet take 1 tablet by oral route every day 25 MG - Active omeprazole 40 mg capsule,delayed release take 1 capsule by oral route every day before a meal 40 MG - Active citalopram 10 mg tablet take 1 tablet by oral route every day 10 MG - Active atorvastatin 20 mg tablet take 1 tablet by oral route every day 20 MG - Active Aspir-81 81 mg tablet,delayed release take 1 tablet by ORAL route every day 81 MG - Active loratadine 10 mg tablet take 1 tablet by oral route every day 10 MG - Active Vitamin D3 5,000 unit tablet take 1 by Oral route every day 1 - Active [place]-3 Fish Oil 910 mg-1,400 mg capsule - Active multivitamin tablet take 1 by Oral route every day 1 - Active PROBIOTIC (unknown strength) take 2 Capsule by Oral route once Not Available - Active MiralaxBisacodylMagCit Colon Prep Use as directed - No Longer Active Procedures Procedure Date Colorectal Ca Screen Hi Risk I 14 Advance Directives Directive Yes / No Effective Date File Name No Information Encounters Encounter Description Practice Location Reason(s) For Visit Diagnoses Date Provider Providers Copied on Encounter [facility], [address] [address], [place], [id number], [place] tel:[phone] [facility] Colon cancer screeningDivertic ulosis of colonPersonal History Colon PolypsFamily Hx GI Tract CancerColon Cancer ScreeningDivertic ulosis Of Colon [address]. [address] [facility], [facility] [address], [place], [id number] , [place]. tel:[phone] [facility], [address] [address], [place], [id number], [place] tel:[phone] [facility] No Information 4 Brian Robert. [address] [facility], [facility] [address], [place], [id number] , [place]. tel:[phone] Family History Family Member Type Diagnosis Age At Onset No Information Payers Payer name Insurance type Covered green party ID Kieran arroyo(s) Blue Cross [place] Blue BL [id number] Social History Type Description Quantity Date Captured Comments Alcohol Use Details Unknown Caffeine Use Details Unknown Tobacco Use Status No Information Smoking Status No Information Sex Female Chief Complaint And Reason For Visit No Information Reason For Referral Reason For Referral No Information History Of Present Illness Encounter Date Complaint History Of Prese nt Illness No Information Functional Status Date Functional Assessmen t No Information Instructions Date Instruction Additional Infor mation Colon Cancer Prevention Related to Diverticulosis of colon Diverticulosis/Diverticulitis Re lated to Diverticulosis of colon High Fiber Diet Related to Diver ticulosis of colon Assessments Type Assessment Date assessment Colon cancer screening 14 assessment Diverticulosis of colon 014 Patient Care Teams Name Effective Dates (start - stop) Status Members No Information
== END 2023-10-31 08:41 | disposition home or self-care (01) ==
LOC: NFLDREF 11-03 07:09
PROVIDERS: PCP Internal Medicine; Referring Provider Internal Medicine; Visit Provider Internal Medicine
DX: E11.9 Type 2 diabetes mellitus without complications (principal)
CPT/HCPCS: 80053; 80061; 82043; 82570

== ENCOUNTER 2024-05-17 08:55 | Outpatient (CLI) | payer MEDICARE, BC, SELFPAY ==
--- OUTSIDE RECORDS SUMMARY | 2024-05-21 15:47 | XMS_ITS | Continuity of Care Document ---
Author Organization [facility] Address [address] [address] [place] [address] Phone Care Team Providers Care Production Cloth Cutter Name Role Phone Michelle Carroll MD Unavailable [...] Oral route every day 1 - Active [place]-3 Fish Oil 910 mg-1,400 mg capsule - [...] Diagnoses Date Provider Providers Copied on Encounter [facility], [address] [address], [place], [id number], [place] tel:[phone] [facility] Colon cancer screeningDivertic ulosis of colonPersonal History Colon PolypsFamily Hx GI Tract CancerColon Cancer ScreeningDivertic ulosis Of Colon 4 Glen Martinez. [address] [facility], [place], [id number] , [place]. tel: [phone] [facility], [address] [address], [place], [id number], [place] tel:[phone] [facility] No Information 4 Brian Robert. [address] [facility], [facility] [address], [place], [id number] , [place]. tel: [phone] Family History Family Member Type Diagnosis Age At Onset No Information Payers Payer name Insurance type Covered libertarian ID Kieran arroyo(s) Blue Cross [place] Blue BL [id number] Social History Type Description Quantity Date Captured [...]
--- OUTSIDE RECORDS SUMMARY | 2024-05-21 15:47 | XMS_ITS | Clinical Summary ---
Author Organization [facility] Address [address] [place] [address] Care Team Providers Care Community Health Nurse Staff Name Role Phone Tiffanie Romero MD Primary Care Provider [phone] Allergies Active Allergy Reactions Criticality Noted Date Comments Adhesive Tape Dermatitis 05/08/2023 Amlodipine Swelling 05/08/2023 Clonidine Fatigue 05/08/2023 Lethargy Simvastatin Muscle Pain (Myalgia) 05/08/2023 Medications Medication Sig Dispensed Refills Start Date End Date Status atorvastatin (LIPITOR) 40 MG tablet Take 1 tablet by mouth At Bedtime 10/21/2022 Active metoprolol succinate ER (TOPROL XL) 50 MG 24 hr tablet Take 1 tablet by mouth every evening 09/16/2022 Active [place]-3 Fatty Acids (FISH OIL) 1200 MG capsule Take 1 capsule by mouth daily Active losartan (COZAAR) 100 MG tablet Take 1 tablet by mouth daily Active nitroGLYcerin (NITROSTAT) 0.[address] 1 tablet under the tongue every 5 minutes as needed for chest pain For chest pain place 1 tablet under the tongue every 5 minutes for 3 doses. If symptoms persist 5 minutes after 1st dose call 911. Active Vitamin D3 (CHOLECALCIFEROL) 25 mcg (1000 units) tablet Take 1 tablet by mouth daily Active citalopram (CELEXA) 10 MG tablet Take 1 tablet by mouth daily Active coenzyme Q-10 10 MG CAPS Take 1 capsule by mouth daily Active Probiotic Product (PROBIOTIC PO) Take 1 capsule by mouth daily Active magnesium oxide 400 MG tablet Take 1 tablet by mouth daily Active ELDERBERRY PO Take 1 chew tab by mouth daily Active Alum Hydroxide-Mag Carbonate (GAVISCON PO) Take 1-2 chew tab by mouth as needed Active metFORMIN (GLUCOPHAGE) 500 MG tablet Take 1 tablet by mouth 2 times daily (with meals) Active senna-docusate (SENOKOT-S/PERICOLA CE) 8.6-50 MG tabletIndications:S tatus post total hip replacement, right Take 1-2 tablets by mouth 2 times daily Take while on oral narcotics to prevent or treat constipation. 30 tablet 05/08/2023 Active acetaminophen (TYLENOL) 325 MG tabletIndications:S tatus post total hip replacement, right Take 3 tablets (975 mg) by mouth every 6 hours as needed for mild pain 100 tablet 05/08/2023 Active celecoxib (CELEBREX) 200 MG capsuleIndications: Status post total hip replacement, right Take 1 capsule (200 mg) by mouth daily for 42 days Do not take within 6 hours of ibuprofen (MOTRIN, ADVIL) or ketorolac (TORADOL) if prescribed. 42 capsule 05/08/2023 Active aspirin 81 MG EC tabletIndications:S tatus post total hip replacement, right Take 1 tablet (81 mg) by mouth daily 05/09/2023 Active oxyCODONE (ROXICODONE) 5 MG tabletIndications:S tatus post total hip replacement, right Take 0.5-1 tablets (2.5-5 mg) by mouth every 4 hours as needed for moderate pain 20 tablet 05/09/2023 Active Active Problems Problem Noted Date Diagnosed Date Status post right hip replacement 05/08/2023 Social History Tobacco Use Types Packs/Day Years Used Date Smoking Tobacco: Never Smokeless Tobacco: Never Tobacco Cessation:Counseling Given: Not Answered Alcohol Use Standard Drinks/Week Comments Yes 0 (1 standard drink = 0.6 oz pur e alcohol) 1 drink every 2 weeks Adolescent Education Answer Date Record ed Getting School Help Needed Not on file 09/15 Sex and Gender Information Value Date Recorded Sex Assigned at Female 06/24/2023 3:55 PM CDT Gender Identity Female 06/24/2023 3:55 PM CDT Sexual Orientation Straight 06/24/2023 3: 55 PM CDT Last Filed Vital Signs Vital Sign Reading Time Taken Comments Blood Pressure 125/62 05/09/2023 8:02 AM CDT Pulse 53 05/09/2023 8:02 AM CDT Temperature 36.8 ??C (98.2 ??F) 05/09/2023 8:02 AM CD T Respiratory Rate 16 05/09/2023 8:02 AM CDT Oxygen Saturation 96% 05/09/2023 8:02 AM CDT Inhaled Oxygen Concentration - - Weight 74.7 kg (164 lb 11.2 oz) 05/08/2023 7:44 AM CDT Height 167.6 cm (5' 6) 05/08/2023 7:44 AM CDT Body Mass Index 26.58 05/08/2023 7:44 AM CDT Plan of Treatment Health Maintenance Due Date Last Done Comments ANNUAL REVIEW OF HM ORDERS 1948 CT COLONOGRAPHY 1948 DEXA 1948 FIT 1948 FLEX SIG 1948 MAMMO SCREENING 1948 sDNA (Cologuard) 1948 COLONOSCOPY 1958 COLORECTAL CANCER SCREENING 1958 HEPATITIS C SCREENING 1966 RSV VACCINE ( & 60+) (1 - 1-dose 60+ series) 2008 LIPID 07/23/2011 07/23/2010 FALL RISK ASSESSMENT 2013 MEDICARE ANNUAL WELLNESS VISIT 2013 COVID-19 Vaccine ( season) 2023 10/09/2022, 05/24/2022, 10/02/2021, Additional history exists DTAP/TDAP/TD IMMUNIZATION (2 - Td or Tdap) 08/16/2023 08/16/2013 PHQ-2 (once per calendar year) 2023 INFLUENZA VACCINE (Season Ended) 2024 09/05/2022, 08/29/2021, 09/11/2020, Additional history exists GLUCOSE 05/09/2026 05/09/2023, 06/08/2023, 05/09/2023, Additional history exists ADVANCE CARE PLANNING 05/14/2028 05/14/2023 ZOSTER IMMUNIZATION Completed 07/15/2019, 06/10/2019, 05/27/2019, Additional history exists Pneumococcal Vaccine: 65+ Years Completed 08/30/2021, 02/15/2015, 07/05/2010 HPV IMMUNIZATION Aged Out No longer e ligible based on patient's age to complete this topic IPV IMMUNIZATION Aged Out No longer e ligible based on patient's age to complete this topic MENINGITIS IMMUNIZATION Aged Out No l onger eligible based on patient's age to complete this topic RSV MONOCLONAL ANTIBODY Aged Out No l onger eligible based on patient's age to complete this topic Goals Goal Patient Goal Type Associated Problems Recent Progress Patient-Stated? Author Total Joint Replacement Hip Pathway Care Plan Total Joint Replacement Hip Pathway No [employer] Implanted Type Area Claims Support Specialist Device Identifier Shelf Expiration Date Model / Serial / Lot Imp Marble Hole Eliminator Hip Depuy Duraloc 1246-03-000 - [id number] Implanted:Qty : 1 on 05/08/2023 by Asael Melo MD at [facility] Metallic Hardware/An chor Right: Hip [employer]- [id number] 02/28/2033 [id number] / / [id number] Imp Scr Bone Can Sean 6.5x25mm 1217-25-500 - [id number] Implanted:Qty : 1 on 05/08/2023 by Asael Melo MD at [facility] Metallic Hardware/An chor Right: Hip [employer] [id number] 02/28/2033 [id number] / / [id number] Imp Scr Bone Can Sean 6.5x20mm 1217-20-500 - [id number] Implanted:Qty : 1 on 05/08/2023 by Asael Melo MD at [facility] Metallic Hardware/An chor Right: Hip [employer] [id number] 01/28/2033 [id number] / / [id number] Imp Scr Bone Can Sean 6.5x30mm 1217-30-500 - [id number] Implanted:Qty : 1 on 05/08/2023 by Asael Melo MD at [facility] Metallic Hardware/An chor Right: Hip [employer]- [id number] 01/28/2033 [id number] / / [id number] Imp Cup Sean Bomoseen 56mm 1217-22-056 - [id number] Implanted:Qty : 1 on 05/08/2023 by Asael Melo MD at [facility] Total Joint Component/I nsert Right: Hip [employer]- [id number] 04/30/2032 [id number] / / [id number] Liner Acetabular Altrx Neutral [id number] - [id number] Implanted:Qty : 1 on 05/08/2023 by Asael Melo MD at [facility] Total Joint Component/I nsert Right: Hip [employer]- [id number] 01/29/2028 1221-36-056 / / [id number] Imp Stem Fem Depuy Actis Std Collar Tpr Sz 6mm 1010-11-060 - [id number] Implanted:Qty : 1 on 05/08/2023 by Asael Melo MD at [facility] Total Joint Component/I nsert Right: Hip [employer]- [id number] 10/30/2032 [id number] / / [id number] Imp Head Femoral Depuy Ceramic 36mm +1.5mm 1365-36-310 - [id number] Implanted:Qty : 1 on 05/08/2023 by Asael Melo MD at [facility] Total Joint Component/I nsert Right: Hip [employer]- [id number] 02/29/2028 [id number] / / [id number] Procedures Procedure Name Priority Date/Time Associated Diagnosis Comments GLUCOSE BY METER Routine 05/09/2023 2:13 AM CDT CL AFF A.M.A. LIPID PANEL Routine 07/23/2010 6:15 AM CDT from Last 3 Months or Most Recently Relevant to Health Maintenance Results * (ABNORMAL) Glucose by meter (05/09/2023 2:13 AM CDT) GLUCOSE BY METER POCT 254(H) 70 - 99 mg/dL 05/09/2023 2:22 AM CDT LABORATORY POC Blood, Capillary BLOOD SPECIMEN / Unknown 05/09/2023 2:13 AM CDT 05/09/2023 2:22 AM CDT Asael Melo MD LAB - [facility] PO[facility] LABORATORY POC [facility] [address], [address] [place] [address], [facility] [phone] * (ABNORMAL) A.M.A. LIPID PANEL (07/23/2010 6:15 AM CDT) Cholesterol 187 0 - 200 mg/dL [facility] Comment: LDL Cholesterol is the primary guide to therapy. The NCEP recommends further evaluation of: patients with cholesterol <200 mg/dL if additional risk factors are present, cholesterol >240 mg/dL, triglycerides >150 mg/dL, or HDL <40 mg/dL. Triglycerides 106 0 - 150 mg/dL [facility] HDL Cholesterol 45(L) 50 - 110 mg/dL [facility] LDL Cholesterol Calculated 121 0 - 129 mg/dL [facility] Comment: LDL Cholesterol is the primary guide to therapy: LDL-cholesterol goal in high risk patients is <100 mg/dL and in very high risk patients is <70 mg/dL. 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 Advance Directives and Living Will 05/14/2023 Health Care Directiv e 11/06/2015 * Full Code (Latest Code Status on File) Date Activated Date Inactivated Comments 05/08/2023 2:04 PM 05/09/2023 2:29 PM All basic and advanced life-sustaining interventions are performed as appropriate Question Answer Comments Code status determined by: Unable to det ermine; FULL CODE until documents or legal decision maker available Healthcare Agents on File Name Relationship Healthcare Agent Relationship Communication Philippe Sweeney Spouse Health Care Agent Chalo Sweeney Son First Alternate Health Care Agent Yousif Sweeney Son Second Alternate Health Care Agent Care Teams Community Health Nurse Staff Relationship Specialty Start Date End Date Tiffanie Romero MD [facility] [address] [place] [address] PCP - General Internal Medicine 05/08/23
--- OUTSIDE RECORDS SUMMARY | 2024-05-21 15:47 | XMS_ITS | Clinical Summary ---
Author Organization [facility] Address [place], [place] [address] Care Team Providers Care Flatwork Feeder Name Role Phone Tiffanie Romero MD Primary Care Provider [phone]- [phone] Allergies Active Allergy Reactions Criticality Noted Date Comments Adhesive Contact Dermatitis Low 07/24/2015 Other reaction(s): Irritation Amlodipine Edema 04/07/2006 Other reaction(s): Unknown Clonidine Other - Describe In Comment Field Low 04/07/2006 Slowed her response time-felt extremely sluggish Other reaction(s): lethargy Simvastatin Myalgia Medium 07/27/2009 Unlisted Allergen (Include Detail In Comments) Muscle Weakness Low 03/06/2022 Medications Medication Sig Dispensed Refills Start Date End Date Status citalopram (CELEXA) 10 mg tablet Take 1 tablet by mouth once daily. 0 10/16/2011 Active LACTOBACILLUS COMBO NO.6 (PROBIOTIC COMPLEX ORAL) Take by mouth. Active FLUTICASONE PROPIONATE (FLUTICASONE NASL) Inhale in the nostril(s). Active Coenzyme Q10 10 mg cap Take 1 capsule by mouth once daily. 0 03/10/2017 Active omega-3 fatty acids (FISH OIL CONCENTRATE) cap Take 1 capsule by mouth once daily. 1500 mg once daily 0 09/29/2017 Active cholecalciferol (VITAMIN D3) 1,000 unit tablet Take 3 tablets by mouth once daily. 09/18/2020 Active medication order composer Elder Grimes Gummies Multivitamin 0 09/18/2020 Active Microlet Lancet 4 times daily. 12/12/2020 Activ e Contour Next Test Strips strip TEST THREE TIMES DAILY TO FOUR TIMES DAILY 11/25/2020 Active aspirin (ECOTRIN) 81 mg enteric coated tablet Take 81 mg by mouth. Active metFORMIN (GLUCOPHAGE) 500 mg tablet Take 500 mg by mouth 2 times daily with meals. 04/01/2022 Active calcium carb-magnesium hydrox (MYLANTA MAX STR) 700-300 mg chewable Chew by mouth. 0 05/07/2022 A ctive magnesium oxide (MAG-OX 400) 400 mg tablet Daily Active losartan (COZAAR) 100 mg tabletIndications:HTN (hypertension) Take 1 Tablet (100 mg) by mouth once daily. 90 Tablet 3 04/15/2023 Active nitroglycerin (NITROSTAT) 0.4 mg sublingual tabletIndications:Oth er chest pain Place 1 Tablet (0.4 mg) under the tongue every 5 minutes if needed for Chest Pain. 25 Tablet 3 05/08/2023 Active metoprolol succinate (TOPROL XL) 50 mg sustained-release tabletIndications:SVT (supraventricular tachycardia) (HC) TAKE 1 TABLET(50 MG) BY MOUTH EVERY DAY 90 Tablet 3 09/11/2023 Active losartan-hydrochlorot hiazide (HYZAAR) 100-25 mg tabletIndications:HTN (hypertension) Take 1 Tablet by mouth once daily. 90 Tablet 3 09/26/2023 Active atorvastatin (LIPITOR) 40 mg tabletIndications:Cor onary artery disease due to lipid rich plaque TAKE 1 TABLET(40 MG) BY MOUTH AT BEDTIME 90 Tablet 3 09/30/2023 Active Active Problems Problem Noted Date Diagnosed Date Colon polyp 04/04/2011 Overview: Colonoscopy 03/2011 polyp repeat in 5 years Acute myocardial infarction, unspecified site, initial episode [...] disease Mild proximal LAD soft plaque, without stenosis Other nonspecific abnormal c ardiovascular system function study Overview: CTA (2005): Mild Soft plaque in LAD Breast cancer Immunizations Name Administration Dates Next Due Amb Influenza, Inactivated A IIV4 (Age 65+ Years) Preserv Free 09/11/2020 Influenza A (H1N1), Inactivated 11/14/2009 Influenza Virus, Unspecified 09/05/2009 Influenza, High-dose Inactivated 018,08/27/2017,09/19/2016,2014,08/31/2014 Influenza, IIV3 (Age 6-35 mos) 3,09/03/2012,08/30/2011,2009 Influenza, IIV3 (Age >=3 years) 09/22/20 07,10/07/2006,09/24/2005,2002,10/08/2001,10/16/2000 Influenza, Inactivated AIIV4 (Age 65+ Years) Preserv Free 08/29/2021 Pneumococcal Poly,23-Valent (Pneumovax) 07/05/2010 Pneumococcal conj 13-Valent (Prevnar 13) 02/15/2015 Tdap 08/16/2013 Zoster (Shingrix-RZV, recombinant) 05/27/2019, Zoster (Zostavax-ZVL, live) 11/03/2009 Family History Medical History Relation Name Comments Cancer-colon Father Heart failure Father Hypertension Father Rectal cancer Father Cancer Maternal Aunt No Known Problems Maternal Grandfather No Known Problems Maternal Grandmother Diabetes Mother Heart Disease Mother CABG in her ea rly 60's Heart failure Mother Hyperlipidemia Mother Stroke Mother Lost her abilit y to speak Cancer-breast Other mat first cous in 47 yrs old Hypertension Paternal Grandfather No Known Problems Paternal Grandmother Cancer-colon Paternal Uncle 70's yrs old Cancer Sister 1 Tongue cancer No Known Problems Sister 2 No Known Problems Sister 3 No Known Problems Sister 4 Cancer-ovarian No Family History Cancer-prostate No Family History Relation Name Status Comments Father (Age 80) heart fail ure, htn & colon cancer. Maternal Aunt sarcoma Maternal Grandfather Maternal Grandmother Mother Alive CAD, hyperlipid emia and diabetes. Other Paternal Grandfather Paternal Grandmother Paternal Uncle Sister 1 Sister 2 Alive Sister 3 Alive Sister 4 Alive Social History Tobacco Use Types Packs/Day Years Used Date Smoking Tobacco: Never Smokeless Tobacco: Never Tobacco Cessation:Counseling Given: No Alcohol Use Standard Drinks/Week Comments Yes 0 (1 standard drink = 0.6 oz pur e alcohol) occ Social Connections Answer Date Recorded Frequency of Communication with Friends and Fami ly Not on file 12/01/2021 Financial Resource Strain Answer Date R ecorded Difficulty of Paying Living Expenses Not on file 12/01/2021 Difficulty of Paying Living Expenses Not on file 12/01/2021 Sex and Gender Information Value Date Recorded Sex Assigned at Not on file Gender Identity Not on file Sexual Orientation Not on file Obstetrics History Last Filed Vital Signs Vital Sign Reading Time Taken Comments Blood Pressure 158/82 09/26/2023 9:02 AM CDT Pulse 65 09/26/2023 9:02 AM CDT Temperature 35.8 ??C (96.5 ??F) 07/09/2023 8:28 AM CD T Respiratory Rate 17 07/03/2022 8:37 AM CDT Oxygen Saturation 99% 09/26/2023 9:02 AM CDT Inhaled Oxygen Concentration - - Weight 74.8 kg (165 lb) 09/26/2023 9:02 AM CDT Height 167.6 cm (5' 6) 09/26/2023 9:02 AM CDT Body Mass Index 26.63 09/26/2023 9:02 AM CDT Plan of Treatment Upcoming Encounters Date Type Department Care Team (Late st Contact Info) Description 07/14/2024 8:15 AM CDT Appointment [address] [place] [address] 07/14/2024 8:30 AM CDT Office Visit [address] [place] [address] Cathleen Garcia PA [address] [address] Health Maintenance Due Date Last Done Comments Depression screening for age 12+ 1960 Hepatitis C screening for ag e 18-79 1966 DEXA/DXA scan for age 65+ 2013 08/05/2007 Medicare Wellness for age 65+ 2013 Pneumococcal series for age 65+ (3 of 3 - PPSV23 or PCV20) 02/16/2016 02/15/2015, 07/05/2010 Colonoscopy through age 75 04/04/2021 04/04/2011, Tetanus booster 08/16/2023 08/16/2013 COVID-19 vaccine series ( season) 2024 09/11/2023, 10/09/2022, 05/24/2022, Additional history exists Influenza for age 65+ 08/01/2024 08/29/2021 , 09/11/2020, 08/13/2018, Additional history exists BMI (ht and wt on same day) for age 18+ 09/26/2024 09/26/2023, 04/15/2023, 09/25/2022, Additional history exists Lipids for age 45-75 09/11/2028 09/11/2023, 08/07/2022, 09/17/2021, Additional history exists Tdap Completed 08/16/2013 Zoster (shingles) series for age 50+ Completed 05/27/2019, 03/09/2019, 11/03/2009 Procedures Procedure Name Priority Date/Time Associated Diagnosis Comments LIPID PANEL Routine 09/11/2023 10:50 AM CDT Hyperlipidemia, unspecified hyperlipidemia type SCAN-BONE DENSITOMETRY DEXA 08/05/2007 12:00 AM CDT from Last 3 Months or Most Recently Relevant to Health Maintenance Results * LIPID PANEL (09/11/2023 10:50 AM CDT) CHOLESTEROL,TOTAL 148 100 - 199 mg/dL 09/11/2023 5:50 PM CDT [facility] Comment: Cholesterol, Total Reference Ranges Desirable <200 mg/dL Borderline 200-239 mg/dL High >=240 mg/dL TRIGLYCERIDES 86 <150 mg/dL 09/11/2023 5:50 PM CDT [facility] HDL CHOLESTEROL 66 >40 mg/dL 5:50 PM CDT [facility] NON-HDL CHOLESTEROL 82 <145 mg/dl 09/11/2023 5:50 PM CDT [facility] CHOL/HDL RATIO 2.24 <4.50 09/11/2023 5:50 PM CDT [facility] LDL CHOLESTEROL 65 <=130 mg/dL 09/11/2023 5:50 PM CDT [facility] VLDL CHOLESTEROL 17 <=30 mg/dL 09/11/2023 5:50 PM CDT [facility] PROVIDER ORDERED STATUS RANDOM 09/11/2023 5:50 PM CDT [facility] Blood BLOOD SPECIMEN / Unknown Venipuncture / Unknown 09/11/2023 10:50 AM CDT 09/11/2023 10:54 AM CDT Katlyn Gudino NP CHEMISTRY [facility] [address] [place] [address], * SCAN-BONE DENSITOMETRY DEXA (08/05/2007 12:00 AM CDT) Anatomical Region Laterality Modality Other Scanner OTHER from Last 3 Months or Most Recently Relevant to Health Maintenance Advance Directives * Full Code (Latest Code Status on File) Date Activated Date Inactivated Comments 10/14/2012 10:10 AM 10/14/2012 5:16 PM * Full Code Date Activated Date Inactivated Comments 08/22/2010 6:37 AM 08/22/2010 12:40 PM * Full Code Date Activated Date Inactivated Comments 08/15/2010 10:09 AM 08/15/2010 6:07 PM * Full Code Date Activated Date Inactivated Comments 10/16/2009 7:39 PM 10/17/2009 5:58 PM Care Teams Flatwork Feeder Relationship Specialty Start Date End Date Tiffanie Romero MD PCP - General 03/02/09
--- OUTSIDE RECORDS SUMMARY | 2024-05-21 15:47 | XMS_ITS | Clinical Summary ---
Author Organization [facility] Address [address] [place] [address] Care Team Providers Care Online Media Buyer Name Role Phone Tiffanie Romero MD Primary Care Provider [phone]- [phone] Source Comments You are receiving this document as you are listed as the primary care provider,follow-up provider, or the patient has been referred to you for consultation.This is in compliance with the Medicare and[facility] EHR Incentive Program,which states Providers who transition their patient to another setting of careor provider of care or refers their patient to another provider of care shouldprovide summary care record for each transition of care or referral. [facility] Allergies No known active allergies Medications Medication Sig Dispensed Refills Start Date End Date Status alendronate (FOSAMAX) 35 MG tablet Take 35 mg by mouth once every week. Active citalopram (CELEXA) 10 MG tablet Take 10 mg by mouth daily. Active atorvastatin (LIPITOR) 20 MG tablet Take 20 mg by mouth daily. Active fluticasone (FLONASE) 50 MCG/ACT nasal solution Place 2 Sprays into both nostrils daily. Active nitroglycerin (NITROSTAT) 0.[address] 0.4 mg under tongue every 5 minutes as needed for Chest Pain. If no relief after 5 min call 911;continue 1 tab every 5 min max 3 tab Active aspirin 81 MG tablet Take 81 mg by mouth daily. Active Resolved Problems Problem Noted Date Diagnosed Date Resolved Date Lumbar pain 07/01/2018 11/12/2018 Lumbar radiculopathy 07/01/[address]82 018 Social History Tobacco Use Types Packs/Day Years Used Date Smoking Tobacco: Never Assessed Sex and Gender Information Value Date Recorded Sex Assigned at Not on file Gender Identity Not on file Sexual Orientation Not on file Plan of Treatment Health Maintenance Due Date Last Done Comments Colon Cancer Screening Plan Due 1950 Hep C Screening (Preventive Services) 1950 Medicare Welcome Visit 1950 Mammogram 1950 Dexa 2013 Pneumococcal 65+ Yrs (3 - PPSV23 or PCV20) 02/16/2020 02/15/2015, 07/05/2010 COVID-19 Vaccine (3 - season) 2023 02/16/2021, 01/19/2021 DTaP/Tdap/Td (2 - Tdap) 08/16/2023 08/16/2013 Influenza (Season Ended) 2024 020, 09/06/2019, 08/27/2017, Additional history exists Zoster/Shingles Completed 07/15/2019, 05/31, 03/10/2019, Additional history exists HepA Aged Out No longer eligi ble based on patient's age to complete this topic HepB Aged Out No longer eligi ble based on patient's age to complete this topic Hib Aged Out No longer eligi ble based on patient's age to complete this topic IPV (Polio) Aged Out No longer eligi ble based on patient's age to complete this topic MCV4 Aged Out No longer eligi ble based on patient's age to complete this topic Care Teams Online Media Buyer Relationship Specialty Start Date End Date Tiffanie Romero MD [address] [place] [address] PCP - General Internal Medicine 06/30/18
--- OUTSIDE RECORDS SUMMARY | 2024-05-21 15:47 | XMS_ITS | Referral Summary ---
Author Organization [facility] Address [address] [place] [address] Care Team Providers Care Diabetes Territory Manager Name Role Phone Tiffanie Romero MD Primary Care Provider Allergies Active Allergy Reactions Criticality Noted Date [...] tablet by mouth every evening 09/16/2022 Active Clawson-3 Fatty Acids (FISH OIL) 1200 MG capsule [...] 05/08/2023 7:44 AM CDT Plan of Treatment Not on file Goals Goal Patient Goal Type Associated Problems Recent Progress Patient-Stated? Author Total Joint Replacement Hip Pathway Care Plan Total Joint Replacement Hip Pathway [employer] Implanted Type Area Tuber Helper Device Identifier Shelf Expiration Date Model / Serial / Lot Imp [place] Hole Eliminator Hip Depuy Duraloc 1246-03-000 - [id number] Implanted:Qty : 1 on 05/08/2023 by Asael Melo MD at [facility] Metallic Hardware/An chor Right: Hip [employer]- [id number] 02/28/2033 [id number] / / [id number] Imp Scr Bone Can Sean 6.5x25mm 1217-25-500 - [id number] Implanted:Qty : 1 on 05/08/2023 by Asael Melo MD at [facility] Metallic Hardware/An chor Right: Hip [employer]- [id number] 02/28/2033 [id number] / / [id number] Imp Scr Bone Can Sean 6.5x20mm 1217-20-500 - [id number] Implanted:Qty : 1 on 05/08/2023 by Asael Melo MD at [facility] Metallic Hardware/An chor Right: Hip [employer] [id number] 01/28/2033 [id number] / / [id number] Imp Scr Bone Can Sean 6.5x30mm 1217-30-500 - [id number] Implanted:Qty : 1 on 05/08/2023 by Asael Melo MD at [facility] Metallic Hardware/An chor Right: Hip [employer]- [id number] 01/28/2033 [id number] / / [id number] Imp Cup Sean [place] 56mm 1217-22-056 - [id number] Implanted:Qty : 1 on 05/08/2023 by Asael Melo MD at [facility] Total Joint Component/I nsert Right: Hip [employer]- [id number] 04/30/2032 [id number] / / [id number] Liner Acetabular Altrx Neutral 66v87wi - [id number] Implanted:Qty : 1 on 05/08/2023 by Asael Melo MD at [facility] Total Joint Component/I nsert Right: Hip [employer]- [id number] 01/29/2028 1221-36-056 / / [id number] Imp Stem Fem Depuy Actis Std Collar Tpr Sz 6mm 1010-11-060 - [id number] Implanted:Qty : 1 on 05/08/2023 by Asael Melo MD at [facility] Total Joint Component/I nsert Right: Hip [employer]- [id number] 10/30/2032 [id number] / / [id number] Imp Head Femoral Depuy Ceramic 36mm +1.5mm 1365-36-310 - [id number] Implanted:Qty : 1 on 05/08/2023 by Asael Melo MD at [facility] Total Joint Component/I nsert Right: Hip [employer]- [id number] 02/29/2028 [id number] / / [id number] Procedures Procedure Name Priority Date/Time Associated Diagnosis [...] MD LAB - [facility] LABORAT[facility] POC [facility] [address] 1[address] floor, [address] [place] [address], [facility] [phone] * (ABNORMAL) A.M.A. LIPID PANEL (07/23/2010 6:15 AM CDT) Cholesterol 187 0 - 200 mg/dL [facility] Comment: LDL Cholesterol is the primary guide to therapy. The NCEP recommends further evaluation of: patients with cholesterol <200 mg/dL if additional risk factors are present, cholesterol >240 mg/dL, triglycerides >150 mg/dL, or HDL <40 mg/dL. Triglycerides 106 0 - 150 mg/dL [facility] HDL Cholesterol 45(L) 50 - 110 mg/dL [facility] LDL Cholesterol Calculated 121 0 - 129 mg/dL [facility] Comment: LDL Cholesterol is the primary guide to therapy: LDL-cholesterol goal in high risk patients is <100 mg/dL and in very high risk patients is <70 mg/dL. 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
== END 2024-05-17 08:56 | disposition home or self-care (01) ==
LOC: NFLDREF 05-21 15:45
PROVIDERS: PCP Internal Medicine; Referring Provider Internal Medicine; Visit Provider Internal Medicine
DX: M85.80 Other specified disorders of bone density and structure, unspecified site (principal); E11.9 Type 2 diabetes mellitus without complications; E78.5 Hyperlipidemia, unspecified; I10 Essential (primary) hypertension
CPT/HCPCS: 80053; 80061; 82306

== ENCOUNTER 2024-07-22 09:15 | Outpatient (CLI) | payer MEDICARE, BC, SELFPAY | END 2024-07-22 09:16 | disposition home or self-care (01) | LOC: NFLDREF 09:16 | PROVIDERS: PCP Internal Medicine; Visit Provider Internal Medicine | DX: Z01.818 Encounter for other preprocedural examination (principal) | CPT/HCPCS: 80053 ==

== ENCOUNTER 2024-07-29 14:53 | Outpatient (CLI) | payer MEDICARE, BC, SELFPAY ==
--- OUTSIDE RECORDS SUMMARY | 2024-07-29 14:57 | XMS_ITS | Clinical Summary ---
Author Organization [facility] Address [address] [place] [address] Care Team Providers Care Water Plumber Name Role Phone Tiffanie Romero MD Primary Care Provider +1- [phone] Source Comments You are receiving this document as you are listed as the primary care provider,follow-up provider, or the patient has been referred to you for consultation.This is in compliance with the Medicare and[facility] EHR Incentive Program,which states Providers who transition their patient to another setting of careor provider of care or refers their patient to another provider of care shouldprovide summary care record for each transition of care or referral. [facility] Allergies No known active allergies Medications Medication [...] Health Maintenance Due Date Last Done Comments Hep C Screening (Preventive Services) 1950 Medicare Welcome Visit 1950 Dexa 2013 Pneumococcal 65+ Yrs (3 - PPSV23 or PCV20) 02/16/2020 02/15/2015, 07/05/2010 COVID-19 Vaccine (3 - 2022- season) 2023 02/16/2021, 01/19/2021 DTaP/Tdap/Td (2 - Tdap) 08/16/2023 08/16/2013 Influenza (#1) 2024 09/11/2020, 05/2019, 08/27/2017, Additional history exists Zoster/Shingles Completed 07/15/2019, [...] age to complete this topic Care Teams Water Plumber Relationship Specialty Start Date End Date Tiffanie Romero MD [address] [place] [address] PCP - General Internal Medicine 06/30/18
--- OUTSIDE RECORDS SUMMARY | 2024-07-29 14:57 | XMS_ITS | Clinical Summary ---
Author Organization [email or web address] [facility] Address [place], [place] [address] Care Team Providers Care Sign Painter Helper Name Role Phone Tiffanie Romero MD Primary Care Provider [phone] Allergies Active Allergy Reactions Criticality Noted Date [...] mg chewable Chew by mouth. 0 05/07/2022 Active magnesium oxide (MAG-OX 400) 400 mg tablet Daily Active losartan (COZAAR) 100 mg tabletIndications :HTN (hypertension) Take 1 Tablet (100 mg) by mouth once daily. 90 Tablet 3 04/15/2023 Active nitroglycerin (NITROSTAT) 0.4 mg sublingual tabletIndications :Other chest pain Place 1 Tablet (0.4 mg) under the tongue every 5 minutes if needed for Chest Pain. 25 Tablet 3 05/08/2023 Active metoprolol succinate (TOPROL XL) 50 mg sustained-release tabletIndications :SVT (supraventricular tachycardia) (HC) TAKE 1 TABLET(50 MG) BY MOUTH EVERY DAY 90 Tablet 3 09/11/2023 Active losartan-hydrochl orothiazide (HYZAAR) 100-25 mg tabletIndications :HTN (hypertension) Take 1 Tablet by mouth once daily. 90 Tablet 3 09/26/2023 Active polyethylene glycol-electrolyt e (GOLYTELY) 236-22.74-6.74 -5.86 gram suspensionIndicat ions:Polyp of colon, unspecified part of colon, unspecified type Drink 2 liters the day before colonoscopy and 2 liters 6 hours before colonoscopy appointment 4000 mL 05/25/2024 Active polyethylene glycol-electrolyt e (GOLYTELY) 236-22.74-6.74 -5.86 gram suspensionIndicat ions:Encounter for screening colonoscopy Drink 2 liters the day before the procedure and 2 liters 6 hours prior to procedure. 4000 mL 2024 Active atorvastatin (LIPITOR) 40 mg tabletIndications :Coronary artery disease due to lipid rich plaque TAKE 1 TABLET(40 MG) BY MOUTH AT BEDTIME 90 Tablet 07/06/2024 Active omeprazole (PRILOSEC) 20 mg Delayed-Release capsule Take 20 mg by mouth. 06/21/2024 Active atorvastatin (LIPITOR) 40 mg tabletIndications :Coronary artery disease due to lipid rich plaque TAKE 1 TABLET(40 MG) BY MOUTH AT BEDTIME 90 Tablet 3 09/30/2023 4 Discontinued Active Problems Problem Noted Date Diagnosed Date [...] in LAD Breast cancer Encounters Date Type Department Care Team Description 07/20/2024 Telephone [facility] [address] [place] [address] Tiffanie Romero MD Referral (colonoscopy ) 07/20/2024 Telephone [facility] [address] [place] [address] Nas Burden MD Colorectal Cancer Screening ([employer]) 07/15/2024 Telephone [facility] [address] [place] [address] Nas Burden MD Appointment Reminder (Colonoscopy) 07/14/2024 8:30 AM CDT Office Visit [address] [place] [address] Cathleen Garcia PA Follow Up 07/14/2024 8:10 AM CDT - 07/14/2024 11:59 PM CDT Hospital Encounter [address] [place] [address] Encounter for other screening for malignant neoplasm of breast 07/14/2024 Travel 07/13/2024 Orders Only [facility] [place] [address] [place] [address] Shey Feliciano MD <No scans attached> 07/08/2024 Refill [facility] [place] [address] [place] [address] Shey Feliciano MD Refill Request (Atorvastatin) 07/06/2024 Refill [facility] [place] [address] [place] [address] Shey Feliciano MD Refill Request (Atorvastatin) 06/08/2024 Telephone [facility] [address] [place] [address] Nas Burden MD Screening 05/24/2024 Telephone [facility] [address] [place] [address] Nas Burden MD Appointment from Last 3 Months Immunizations Name Administration [...] Sister 2 No Known Problems Sister 3 Multiple myeloma Sister 4 Cancer-ovarian No Family History Cancer-prostate No Family History Relation Name Status Comments Father (Age 80) heart fail ure, htn & colon cancer. Maternal Aunt sarcoma Maternal Grandfather Maternal Grandmother Mother CAD, hyperlipid emia and diabetes. Other Paternal [...] Sign Reading Time Taken Comments Blood Pressure 138/86 07/14/2024 8:39 AM CDT Pulse 79 07/14/2024 8:39 AM CDT Temperature 35.7 ??C (96.2 ??F) 07/14/2024 8:39 AM CD T Respiratory Rate 17 07/03/2022 8:37 AM CDT Oxygen Saturation 98% 07/14/2024 8:39 AM CDT Inhaled Oxygen Concentration - - Weight 73 kg (161 lb) 07/14/2024 8:39 AM CDT Height 167.6 cm (5' 6) 07/14/2024 8:39 AM CDT Body Mass Index 25.99 07/14/2024 8:39 AM CDT Plan of Treatment Upcoming Encounters Date Type Department Care Team (Late st Contact Info) Description 09/13/2024 9:15 AM CDT Orders Only [facility] [address] [place] [address] [place], [place] 09/16/2024 10:00 AM CDT Orders Only [facility] [address] [facility] [address] [place] [address] 10/08/2024 6:30 AM CUPOLA TAPPER Office Visit [facility] at [facility] [address] [place] [address] Nas Burden MD [address] [place] [address] Health Maintenance Due Date Last Done Comments Depression screening for age 12+ 1960 Hepatitis C screening for ag e 18-79 1966 DEXA/DXA scan for age 65+ 2013 08/05/2007 Medicare Wellness for age 65+ 2013 Pneumococcal series for age 65+ (3 of 3 - PPSV23 or PCV20) 07/05/2015 02/15/2015, 07/05/2010 Tetanus booster 08/16/2023 08/16/2013 COVID-19 vaccine series ( season) 2023 09/11/2023, 10/09/2022, 05/24/2022, Additional history exists Influenza for age 65+ 08/01/2024 08/29/2021 , 09/11/2020, 08/13/2018, Additional history exists BMI (ht and wt on same day) for age 18+ 07/14/2025 07/14/2024, 09/26/2023, 04/15/2023, Additional history exists Tdap Completed 08/16/2013 Zoster (shingles) series for age 50+ Completed 05/27/2019, 03/09/2019, 11/03/2009 Procedures Procedure Name Priority Date/Time Associated Diagnosis Comments XR MAMMO AYAN BILAT SCREEN Routine 07/14/2024 8:28 AM CDT Encounter for other screening for malignant neoplasm of breast SCAN-BONE DENSITOMETRY DEXA 08/05/2007 12:00 AM CDT from Last 3 Months or Most Recently Relevant to Health Maintenance Results * XR MAMMO AYAN BILAT SCREEN (07/14/2024 8:28 AM CDT) Anatomical Region Laterality Modality BREASTS, Breast Left, Breast Right Bilateral Mammography Impressions 07/14/2024 9:02 AM CDT ??There is no radiographic evidence for malignancy. ??Recommend annual mammograms. MAMMOGRAM ASSESSMENT: ??ACR 2 Benign PATIENTS: You will also receive a letter with your examination results in an easy to read format. ??If you have questions about your results, please contact your referring provider. Narrative 07/14/2024 9:02 AM CDT For Patients: As a result of the Century Cures Act, medical imaging exams and procedure reports are released immediately into your electronic medical record. You may view this report before your referring provider. If you have questions, please contact your health care provider. XR MAMMO AYAN BILAT SCREEN [[id number]] CLINICAL HISTORY: ??This is an asymptomatic 74 y.o. patient. INDICATION FOR EXAM: Mammogram Screening. TECHNIQUE: CC & MLO views were obtained. ??This study was evaluated with the assistance of Computer-Aided Detection. Breast Tomosynthesis was used in interpretation. COMPARISON FILMS: Yes 07/09/23 ?? 07/03/22 ?? FINDINGS: ??There are scattered areas of fibroglandular density. ??No suspicious masses or microcalcifications. ??There are changes of breast reduction. Cathleen PEDRO MAMMO * SCAN-BONE DENSITOMETRY DEXA (08/05/2007 12:00 AM [...] 7:39 PM 10/17/2009 5:58 PM Care Teams Sign Painter Helper Relationship Specialty Start Date End Date Tiffanie Romero MD PCP - General 03/02/09
--- OUTSIDE RECORDS SUMMARY | 2024-07-29 14:57 | XMS_ITS | Referral Summary ---
Author Organization [facility] Address [address] [place] [address] Care Team Providers Care Production Underwriter Name Role Phone Tiffanie Romero MD Primary [...] tablet by mouth every evening 09/16/2022 Active [place]andal[place]-3 Fatty Acids (FISH OIL) 1200 MG capsule [...] [employer] Implanted Type Area Cork Slabs Sawyer Device Identifier Shelf Expiration Date Model / Serial / Lot Imp [place] Hole Eliminator Hip Depuy Duraloc 1246-03-000 - [id number] Implanted:Qty : 1 on 05/08/2023 by Asael Melo MD at [facility] Metallic Hardware/An chor Right: Hip [employer] [id number] 02/28/2033 [id number] / / [id number] Imp Scr Bone Can Sean 6.5x25mm 1217-25-500 - [id number] Implanted:Qty : 1 on 05/08/2023 by Asael Melo MD at [facility] Metallic Hardware/An chor Right: Hip [employer] [id number] 02/28/2033 [id number] / / [id number] Imp Scr Bone Can Sean 6.5x20mm 1217-20-500 - [id number] Implanted:Qty : 1 on 05/08/2023 by Asael Melo MD at [facility] Metallic Hardware/An chor Right: Hip [employer] [id number] 01/28/2033 [id number] / / [id number] Imp Scr Bone Can Sean 6.5x30mm 1217-30-500 - [id number] Implanted:Qty : 1 on 05/08/2023 by Asael Melo MD at [facility] Metallic Hardware/An chor Right: Hip [employer] [id number] 01/28/2033 [id number] / / [id number] Imp Cup Sean Mcgregor 56mm 1217-22-056 - [id number] Implanted:Qty : 1 on 05/08/2023 by Asael Melo MD at [facility] Total Joint Component/I nsert Right: Hip [employer] [id number] 04/30/2032 [id number] / / [id number] Liner Acetabular Altrx Neutral 45t40cz - [id number] Implanted:Qty : 1 on 05/08/2023 by Asael Melo MD at [facility] Total Joint Component/I nsert Right: Hip [employer] [id number] 01/29/2028 1221-36-056 / / [id number] Imp Stem Fem Depuy Actis Std Collar Tpr Sz 6mm 1010-11-060 - [id number] Implanted:Qty : 1 on 05/08/2023 by Asael Melo MD at [facility] Total Joint Component/I nsert Right: Hip [employer] [id number] 10/30/2032 [id number] / / [id number] Imp Head Femoral Depuy Ceramic 36mm +1.5mm 1365-36-310 - [id number] Implanted:Qty : 1 on 05/08/2023 by Asael Melo MD at [facility] Total Joint Component/I nsert Right: Hip [employer] [id number] 02/29/2028 [id number] / / [id number] Procedures Procedure Name Priority Date/Time Associated Diagnosis [...] MD LAB - [facility] POCT LABORATORY POC [facility] [address] floor, [address] [place] [address], [place] [phone] * (ABNORMAL) A.M.A. LIPID PANEL (07/23/2010 6:15 AM CDT) Cholesterol 187 0 - 200 mg/dL [facility] Comment: LDL Cholesterol is the primary guide to therapy. The NCEP recommends further evaluation of: patients with cholesterol <200 mg/dL if additional risk factors are present, cholesterol >240 mg/dL, triglycerides >150 mg/dL, or HDL <40 mg/dL. Triglycerides 106 0 - 150 mg/dL [facility] HDL Cholesterol 45(L) 50 - 110 mg/dL [facility] LDL Cholesterol Calculated 121 0 - 129 mg/dL [facility] Comment: LDL Cholesterol is the primary guide to therapy: LDL-cholesterol goal in high risk patients is <100 mg/dL and in very high risk patients is <70 mg/dL. VLDL-Cholesterol 21 0 - 30 mg/dL [facility] Cholesterol/HDL Ratio 4.0 0.0 - 5.0 [facility] 07/23/2010 6:15 AM CDT 07/23/2010 6:20 AM CDT Bjorn Moyer MD LABORATORY [facility] from Last 3 Months or Most Recently Relevant to Health Maintenance Additional Health Concerns Active Problems Noted Date Diagnosed Date Total Joint Replacement Hip Pathway 12/05/2022 Advance Directives For more information, please contact: [phone] Documents on File Type Date Recorded Patient Automobile Insurance Claim Examiner Expl anation Advance Directives and Living Will [...] Second Alternate Health Care Agent Care Teams Production Underwriter Relationship Specialty Start Date End Date Tiffanie Romero MD [facility] [place] [place] [address] PCP - General Internal Medicine 05/08/23
--- OUTSIDE RECORDS SUMMARY | 2024-07-29 14:57 | XMS_ITS | Clinical Summary ---
Author Organization [facility] Address [address] [place] [address] Care Team Providers Care Statistical Analyst Name Role Phone Tiffanie Romero MD Primary [...] tablet by mouth every evening 09/16/2022 Active Barbeau-3 Fatty Acids (FISH OIL) 1200 MG capsule [...] Comments ANNUAL REVIEW OF HM ORDERS 1950 DEXA 1950 MAMMO SCREENING 1948 HEPATITIS C SCREENING 1966 RSV VACCINE (1 - 1-dose 60+ series) 2008 LIPID 07/23/2011 07/23/2010 FALL RISK ASSESSMENT 2013 MEDICARE ANNUAL WELLNESS VISIT 2013 COVID-19 Vaccine ( season) 2023 10/09/2022, 05/24/2022, 10/02/2021, Additional history exists DTAP/TDAP/TD IMMUNIZATION (2 - Td or Tdap) 08/16/2023 08/16/2013 PHQ-2 (once per calendar year) 2023 INFLUENZA VACCINE (#1) 2024 , 08/29/2021, 09/11/2020, Additional history exists GLUCOSE 05/09/2026 05/09/2023, 06/0 08/2023, 05/09/2023, Additional history exists ADVANCE CARE PLANNING [...] [employer] Implanted Type Area Stripper And Opaquer Apprentice Device Identifier Shelf Expiration Date Model / Serial / Lot Imp Norphlet Hole Eliminator Hip Depuy Duraloc 1246-03-000 - [id number] Implanted:Qty : 1 on 05/08/2023 by Asael Melo MD at [facility] Metallic Hardware/An chor Right: Hip [employer]- [id number] 02/28/2033 [id number] / / [id number] Imp Scr Bone Can Sean 6.5x25mm 1217-25-500 - [id number] Implanted:Qty : 1 on 05/08/2023 by Asael Melo MD at [facility] Metallic Hardware/An chor Right: Hip [employer]- [id number] 02/28/2033 [id number] / / [id number] Imp Scr Bone Can Sean 6.5x20mm 1217-20-500 - [id number] Implanted:Qty : 1 on 05/08/2023 by Asael Melo MD at [facility] Metallic Hardware/An chor Right: Hip [employer]- [id number] 01/28/2033 [id number] / / [id number] Imp Scr Bone Can Sean 6.5x30mm 1217-30-500 - [id number] Implanted:Qty : 1 on 05/08/2023 by Asael Melo MD at [facility] Metallic Hardware/An chor Right: Hip [employer]- [id number] 01/28/2033 [id number] / / [id number] Imp Cup Sean Heiskell 56mm 1217-22-056 - [id number] Implanted:Qty : 1 on 05/08/2023 by Asael Melo MD at [facility] Total Joint Component/I nsert Right: Hip [employer]- [id number] 04/30/2032 [id number] / / [id number] Liner Acetabular Altrx Neutral 58x68ae - [id number] Implanted:Qty : 1 on 05/08/2023 by Asael Melo MD at [facility] Total Joint Component/I nsert Right: Hip [employer]- [id number] 01/29/2028 1221-36-056 / / [id number] Imp Stem Fem Depuy Actis Std Collar Tpr Sz 6mm 1010-11-060 - [id number] Implanted:Qty : 1 on 05/08/2023 by Asael Melo MD at [facility] Total Joint Component/I nsert Right: Hip [employer]- [id number] 10/30/2032 [id number] / / [id number] Imp Head Femoral Depuy Ceramic 36mm +1.5mm 1365-36-310 - [id number] Implanted:Qty : 1 on 05/08/2023 by Asael Melo MD at [facility] Total Joint Component/I nsert Right: Hip [employer]- [id number] 02/29/2028 [id number] / / [id number] Procedures Procedure Name Priority Date/Time Associated Diagnosis Comments GLUCOSE BY METER Routine 05/09/2023 2:13 AM CDT CL AFF A.M.A. LIPID PANEL Routine 07/23/2010 6:15 AM CDT from Last 3 Months or Most Recently Relevant to Health Maintenance Results * (ABNORMAL) Glucose by meter (05/09/2023 2:13 AM CDT) [facility] GLUCOSE BY METER POCT 254(H) 70 - 99 mg/dL 05/09/2023 2:22 AM CDT LABORATORY POC Blood, Capillary BLOOD SPECIMEN / Unknown 05/09/2023 2:13 AM CDT 05/09/2023 2:22 AM CDT Asael Melo MD LAB - [facility] POCT LABORATORY POC [facility] [address] floor, [address] [place] [address], [facility] [phone] * (ABNORMAL) A.M.A. LIPID PANEL (07/23/2010 6:15 AM CDT) Cholesterol 187 0 - 200 mg/dL [facility] Comment: LDL Cholesterol is the primary guide to therapy. The NCEP recommends further evaluation of: patients with cholesterol <200 mg/dL if additional risk factors are present, cholesterol >240 mg/dL, triglycerides >150 mg/dL, or HDL <40 mg/dL. Triglycerides 106 0 - 150 mg/dL [facility] HDL Cholesterol 45(L) 50 - 110 mg/dL [facility] LDL Cholesterol Calculated 121 0 - 129 mg/dL [facility] Comment: LDL Cholesterol is the primary guide to therapy: LDL-cholesterol goal in high risk patients is <100 mg/dL and in very high risk patients is <70 mg/dL. VLDL-Cholesterol 21 0 - 30 mg/dL [facility] Cholesterol/HDL Ratio 4.0 0.0 - 5.0 [facility] 07/23/2010 6:15 AM CDT 07/23/2010 6:20 AM CDT Bjorn Moyer MD LABORATORY [facility] from Last 3 Months or Most Recently Relevant to Health Maintenance Additional Health Concerns Active Problems Noted Date Diagnosed Date Total Joint Replacement Hip Pathway 12/05/2022 Advance Directives For more information, please contact: [phone] Documents on File Type Date Recorded Patient Mud Jack Operator Expl anation Advance Directives and Living Will [...] Second Alternate Health Care Agent Care Teams Statistical Analyst Relationship Specialty Start Date End Date Tiffanie Romero MD [facility] [address] [place] [address] PCP - General Internal Medicine 05/08/23
--- NOTE | 2024-07-29 15:00 | CRLHL7_ITS ---
For Patients: As a result of the Century Cures Act, medical imaging exams and procedure reports are released immediately into your electronic medical record. You may view this report before your referring provider. If you have questions, please contact your health care provider. DXA BONE MINERAL DENSITY STUDY Reason for exam: Screening. Current height (in): 66. Weight (lb): 158. Menopause age: 48. Ethnicity: White. 1. Have you had a previous hip or vertebral fracture? No. 2. Have you had any fractures during your adult life which did not result from significant trauma (e.g., auto accident)? Yes. 3. Did either of your parents have a hip fracture? No. 4. Do you smoke? No. 5. Have you ever taken Glucocorticoids? No. 6. Do you have rheumatoid arthritis? No. 7. Do you have secondary osteoporosis? No. 8. Do you drink 3 or more alcoholic drinks per day? No. 9. Are you being treated for osteoporosis? No. 10. Have you ever taken any of the following medications: Actonel, Evista, Fosamax, Miacalcin, Reclast, Boniva, Forteo, HRT (i.e., estrogen/hormone therapy), Protelos, Prolia, Vitamin D, Calcium, other ??? please specify. ANSWER: Yes, Evista (i.e., raloxifene), Fosamax (i.e., alendronate), Vitamin D, HRT (i.e., estrogen/hormone therapy), and Tamoxifen. 11. Do you have any of the following medical conditions: Anorexia or bulimia, asthma or emphysema, end stage renal disease, hyperparathyroidism, any seizure disorders, cancer, inflammatory bowel diseases, hysterectomy, other ??? please specify. ANSWER: Yes, cancer. 12. What was your maximum height (inches)? 66. 13. Do you perform weight bearing exercise regularly? No. 14. Do you regularly consume dairy products? Yes. 15. Do you drink caffeinated beverages? Yes. 16. At what age did your period start? 11. 17. Are you premenopausal? No. 18. How many full-term pregnancies have you had? 2. 19. Have you ever missed your period for more than 6 months in a row (not including or menopause)? No. TECHNIQUE: Bone mineral density study was performed using the [facility]. FINDINGS: The results of the study expressed as bone mineral density (BMD) are as follows: Lumbar spine L1 to L4: BMD: 0.952 g/cm2. T-score: -0.9. Z-score: 1.6 Neck Left: BMD: 0.700 g/cm2. T-score: -1.3. Z-score: 0.8 Total Left: BMD: 0.785 g/cm2. T-score: -1.3. Z-score: 0.6 Radius Left 33%: BMD: 0.524 g/cm2. T-score: -2.8. Z-score: -0.2 IMPRESSION: Osteoporosis. *Comparison exams done prior to 05/2020 were performed on different unit, [employer]. COMPARISON: Compared with scan of 10/24/2021, the bone mineral density has decreased by 1.5 percent at the spine and no change 0.0 percent at the hip. Compared with scan of 10/04/2019, the bone mineral density has increased by 0.6 percent at the spine and decreased by 1.3 percent at the hip. FRAX 10-year Fracture Risk Major Osteoporotic Fracture: 17% Hip Fracture: 3.0% Reported Risk Factors: [place] () Neck BMD=0.700, BMI=25.5, previous fracture. Beny Salmon M.D. Diagnostic Radiologist [email or web address] ETIENNE/shamika wick/Dictated by: Beny Salmon MD @ 07/30/2024 1:15:00 PM (Electronically Signed)
== END 2024-07-29 14:54 | disposition home or self-care (01) ==
LOC: RAD 14:54
PROVIDERS: PCP Internal Medicine; Visit Provider Internal Medicine
DX: Z13.820 Encounter for screening for osteoporosis (principal); M81.0 Age-related osteoporosis without current pathological fracture; M85.88 Other specified disorders of bone density and structure, other site
CPT/HCPCS: 77080

== ENCOUNTER 2024-10-08 06:20 | Outpatient (CLI) | payer MEDICARE, BC, SELFPAY ==
--- OUTSIDE RECORDS SUMMARY | 2024-10-08 06:23 | XMS_ITS | Clinical Summary ---
Author Organization [facility] Address [place], [place] [address] Care Team Providers Care Production Internship Name Role Phone Tiffanie Romero MD Primary Care Provider [phone]- [phone] Allergies Active Allergy Reactions Criticality Noted Date [...] Chest Pain. 25 Tablet 3 05/08/2023 Active polyethylene glycol-electrolyt e (GOLYTELY) 236-22.74-6.74 -5.86 [...] Take 20 mg by mouth. 06/21/2024 Active metoprolol succinate (TOPROL XL) 50 mg sustained-release tabletIndications :SVT (supraventricular tachycardia) (HC) TAKE 1 TABLET(50 MG) BY MOUTH EVERY DAY 90 Tablet 3 09/10/2024 Active losartan-hydrochl orothiazide (HYZAAR) 100-25 mg tabletIndications :HTN (hypertension) TAKE 1 TABLET BY MOUTH EVERY DAY 90 Tablet 3 09/20/2024 Active metoprolol succinate (TOPROL XL) 50 mg sustained-release tabletIndications :SVT (supraventricular tachycardia) (HC) TAKE 1 TABLET(50 MG) BY MOUTH EVERY DAY 90 Tablet 3 09/11/2023 4 Discontinued losartan-hydrochl orothiazide (HYZAAR) 100-25 mg tabletIndications :HTN (hypertension) Take 1 Tablet by mouth once daily. 90 Tablet 3 09/26/2023 4 Discontinued Active Problems Problem Noted Date Diagnosed Date Colon polyp 04/04/2011 Overview (04/04/2011): Colonoscopy 03/2011 polyp repeat in 5 years Acute myocardial infarction, unspecified site, initial episode of care 10/16/2009 Nonulcer dyspepsia 05/25/2009 Other and unspecified hyperlipidemia Overview (01/07/2011): FLP 01/13/07: TC 118, TG 74, HDL 45, LDL 58 Unspecified essential hypertension Overview (04/23/2006): NEG CT FOR RENAL ARTERY STENOSIS 04/09/06 Palpitations Overview (04/07/2006): DOCUMENTED PVC'S Esophageal reflux CHEST DISCOMFORT OR TIGHTNESS Overview (04/23/2006): CTA 04/09/06: No significant obstructive coronary artery disease Mild proximal LAD soft plaque, without stenosis Other nonspecific abnormal c ardiovascular system function study Overview (03/02/2009): CTA (2005): Mild Soft plaque in LAD Breast cancer Encounters Date Type Department Care Team Description 10/06/2024 Travel 10/06/2024 Orders Only [facility] [place] [address] [place] [address] Matteo Rosenbaum MD <No scans attached> 10/04/2024 Orders Only [facility] [place] [address] [place] [address] Matteo Rosenbaum MD Lab (Order update) 09/20/2024 Refill [facility] [place] [address] [place] [address] Matteo Rosenbaum MD Refill Request (Losartan-hydrochlo rothiazide) 09/16/2024 10:00 AM CDT Orders Only [facility] [address] [place] [address] 1 scan: (1-Ord) ECHO TTE COMPLETE WO CONTRAST ([id number]) 09/16/2024 Travel 09/09/2024 Refill [facility] [place] [address] [place] [address] Matteo Rosenbaum MD Refill Request (Metoprolol Succinate) 08/03/2024 Telephone [facility] [place] [address] [place] [address] Matteo Rosenbaum MD Lab 07/20/2024 Telephone [facility] [address] [place] [address] Tiffanie Romero MD Error-please disregard (/) 07/20/2024 Telephone [facility] [address] [place] [address] Nas Burden MD Colorectal Cancer Screening ([facility]) 07/15/2024 Telephone [facility] [address] [place] [address] Nas Burden MD Appointment Reminder (Colonoscopy) 07/14/2024 8:30 AM CDT Office Visit [address] [place] [address] Cathleen Garcia PA Follow Up 07/14/2024 8:10 AM CDT - 07/14/2024 11:59 PM CDT Hospital Encounter [address] [place] [address] Encounter for other screening for malignant neoplasm of breast 07/14/2024 Travel 07/13/2024 Orders Only [facility] [place] [address] [place] [address] Matteo Rosenbaum MD <No scans attached> 07/08/2024 Refill [facility] [place] [address] [place] [address] Matteo Rosenbaum MD Refill Request (Atorvastatin) from Last 3 Months Immunizations Name Administration [...] Care Team (Late st Contact Info) Description 10/08/2024 6:30 AM GENETICS NURSE Office Visit [facility] [address] [place] [id number] Nas Burden MD [address] [facility] [place] [address] 10/11/2024 8:45 AM GENETICS NURSE Orders Only [facility] [address] [place] [address] [place] 10/14/2024 10:00 AM GENETICS NURSE Office Visit [facility] [address] [facility] [address] [place] [address] Matteo Rosenbaum MD [address] [place] [address] 07/19/2025 8:15 AM CDT Appointment [address] [place] [address] 07/19/2025 9:00 AM CDT Office Visit [address] [place] [address] Cathleen Garcia PA [address] [place] [address] Health Maintenance Due Date Last Done Comments Depression screening for age 12+ 1960 Hepatitis C screening for ag e 18-79 1966 DEXA/DXA scan for age 65+ 2013 08/05/2007 Medicare Wellness for age 65+ 2013 Pneumococcal series for age 65+ (3 of 3 - PPSV23 or PCV20) 07/05/2015 02/15/2015, 07/05/2010 RSV vaccine for adults or (1 - 1-dose 75+ series) 2023 Tetanus booster 08/16/2023 08/16/2013 COVID-19 vaccine series [...] Procedure Name Priority Date/Time Associated Diagnosis Comments ECHO TTE COMPLETE WO CONTRAST Routine 09/16/2024 10:38 AM CDT HTN (hypertension) Hyperlipidemia, unspecified hyperlipidemia type PVC (premature ventricular contraction) ASHD (arteriosclerotic heart disease) XR MAMMO AYAN BILAT SCREEN Routine 07/14/2024 8:28 AM CDT Encounter for other screening for malignant neoplasm of breast SCAN-BONE DENSITOMETRY DEXA 08/05/2007 12:00 AM CDT from Last 3 Months or Most Recently Relevant to Health Maintenance Results * ECHO TTE COMPLETE WO CONTRAST (09/16/2024 10:38 AM CDT) AORTIC VALVE MEAN PG 5 mmHg EJECTION FRACTION 58 % LVEDD 4.6 cm EJECTION FRACTION 55 - 60% Anatomical Region Laterality Modality Ultrasound 09/16/2024 10:0 4 AM CDT Narrative 09/16/2024 10:57 AM CDT ECHOCARDIOGRAM JEFF SWEENEY ?Accession#: ?? [id number] : ?1950 74 years Study Date: ?? 09/16/2024 10:04:44 AM Gender: F ? BP: ? 0/0 mmHg Height: 167.64 cm ? BSA: ?1.82 m? ? ? Weight: 73.03 kg ?Tech: ? LRT ?Referring MD: MATTEO ROSENBAUM Site: ? I - [facility] Reading Location: MOBILE - OP Patient Location: Outpatient. Procedure: 2D, Color Doppler and Spectral Doppler. Indication for study: Hypertension, PVCs, ASHD Cardiac Rhythm: Normal sinus.Study quality: Fair. Final Impressions: 1. Normal LV size, normal wall thickness, normal global systolic function with an estimated EF of 55 - 60%. 2. The aortic valve is sclerotic, no stenosis and no regurgitation. 3. The mitral valve is sclerotic, trace mitral regurgitation. 4. Since the echo from 09/21, there is no change. Chamber Sizes and Function Normal left ventricular size, normal wall thickness, normal global systolic function with an estimated EF of 55 - 60%. No resting regional wall motion abnormality visualized. Left atrial size is normal. Right ventricular cavity size is normal, global systolic RV function is normal. RV wall thickness is normal. The right atrium is not well visualized. The pulmonary artery is not well visualized. The sinus of Valsalva is normal sized. The ascending aorta is normal sized. Valves, RV Pressures and Diastolic Function The aortic valve is sclerotic, no stenosis and no regurgitation. The mitral valve is sclerotic, trace mitral regurgitation. Spectral Doppler shows Grade 1 pattern of LV diastolic filling. The tricuspid valve is normal in structure. Tricuspid regurgitation is regurgitation is not evident. The pulmonic valve is not well visualized. Trace pulmonary regurgitation. Masses, Effusion, Shunts There is no pericardial effusion. The inferior vena cava is normal sized, respiratory size variation greater than 50%. No left to right shunting was detected by limited color flow Doppler interrogation of the interatrial septum. MEASUREMENTS AND CALCULATIONS 2-D Measurements and LV Function: LVID (d) 4.6 cm LV FS% (2D) ?? 33 % LVID (s) 3.1 cm LVOT diameter 2.0 cm IVS (d) ??1.1 cm HR ?66 bpm LVPW (d) 1.1 cm LA Vol index ??25 ml/m2 Ao Sinus 3.3 cm RV Max 4C (d) 3.7 cm Asc Ao ?? 3.5 cm Diastology: Mitral ?Tissue Doppler E Peak 0.6 m/s ??e', Septum ? 0.08 m/s A Peak 0.7 m/s ??e', Lateral ?0.10 m/s E/A ?0.8 ?E/e' Average ?? 6.19 DT ? 357 msec Aortic Valve: Vmax ? 1.5 m/s ??AKOSUA (V) ?? 2.08 cm? ? ? VTI ?0.34 m ?? AKOSUA (I) ?? 1.99 cm? ? ? LVOT V max 1.0 m/s ??Max PG ?9 mmHg LVOT VTI ?? 0.21 m ?? Mean PG ?? 5 mmHg SV ? 67 ml ?Dim Index 0.62 SV index ?? 37 ml/m? ? ? CO ?4.4 l/min ?CI ?2.4 l/min/m? ? ? Mitral Valve: MVA ?2.1 cm? ? ? MV P 1/2 103 msec Tricuspid Valve and estimated PA pressures: TAPSE 2.2 cm Pulmonic Valve: PV AT 130 msec . This study was interpreted by an [facility] accredited facility. ??Final ?? Procedure Note Rey Hansen MD - 09/16/2024 ECHOCARDIOGRAM JEFF SWEENEY : 1950 74 years Study Date: 09/16/2024 10:04:44 AM Gender: F BP: 0/0 mmHg Height: 167.64 cm BSA: 1.82 m? ? ? Weight: 73.03 kg Tech: LRT Referring MD: MATTEO ROSENBAUM Site: [facility] Location: MOBILE - OP Patient Location: Outpatient. Procedure: 2D, Color Doppler and Spectral Doppler. Indication for study: Hypertension, PVCs, ASHD Cardiac Rhythm: Normal sinus.Study quality: Fair. Final Impressions: 1. Normal LV size, normal wall thickness, normal global systolic functionwith an estimated EF of 55 - 60%. 2. The aortic valve is sclerotic, no stenosis and no regurgitation. 3. The mitral valve is sclerotic, trace mitral regurgitation. 4. Since the echo from 09/21, there is no change. Chamber Sizes and Function Normal left ventricular size, normal wall thickness, normal globalsystolic function with an estimated EF of 55 - 60%. No resting regionalwall motion abnormality visualized. Left atrial size is normal. Rightventricular cavity size is normal, global systolic RV function is normal.RV wall thickness is normal. The right atrium is not well visualized. Thepulmonary artery is not well visualized. The sinus of Valsalva is normalsized. The ascending aorta is normal sized. Valves, RV Pressures and Diastolic Function The aortic valve is sclerotic, no stenosis and no regurgitation. Themitral valve is sclerotic, trace mitral regurgitation. Spectral Dopplershows Grade 1 pattern of LV diastolic filling. The tricuspid valve isnormal in structure. Tricuspid regurgitation is regurgitation is notevident. The pulmonic valve is not well visualized. Trace pulmonaryregurgitation. Masses, Effusion, Shunts There is no pericardial effusion. The inferior vena cava is normal sized,respiratory size variation greater than 50%. No left to right shunting wasdetected by limited color flow Doppler interrogation of the interatrialseptum. MEASUREMENTS AND CALCULATIONS 2-D Measurements and LV Function: LVID (d) 4.6 cm LV FS% (2D) 33 % LVID (s) 3.1 cm LVOT diameter 2.0 cm IVS (d) 1.1 cm HR 66 bpm LVPW (d) 1.1 cm LA Vol index 25 ml/m2 Ao Sinus 3.3 cm RV Max 4C (d) 3.7 cm Asc Ao 3.5 cm Diastology: Mitral Tissue Doppler E Peak 0.6 m/s e', Septum 0.08 m/s A Peak 0.7 m/s e', Lateral 0.10 m/s E/A 0.8 E/e' Average 6.19 DT 357 msec Aortic Valve: Vmax 1.5 m/s AKOSUA (V) 2.08 cm? ? ? VTI 0.34 m AKOSUA (I) 1.99 cm? ? ? LVOT V max 1.0 m/s Max PG 9 mmHg LVOT VTI 0.21 m Mean PG 5 mmHg SV 67 ml Dim Index 0.62 SV index 37 ml/m? ? ? CO 4.4 l/min CI 2.4 l/min/m? ? ? Mitral Valve: MVA 2.1 cm? ? ? MV P 1/2 103 msec Tricuspid Valve and estimated PA pressures: TAPSE 2.2 cm Pulmonic Valve: PV AT 130 msec . This study was interpreted by an [facility] accredited facility. Final Matteo Rosenbaum MD ECHO ORD * XR MAMMO AYAN BILAT SCREEN (07/14/2024 [...] care provider. XR MAMMO AYAN BILAT SCREEN [[id number]] CLINICAL HISTORY: ??This is an asymptomatic 74 [...] ??There are changes of breast reduction. Cathleen Garcia PA MAMMO * SCAN-BONE DENSITOMETRY DEXA (08/05/2007 12:00 [...] 7:39 PM 10/17/2009 5:58 PM Care Teams Production Internship Relationship Specialty Start Date End Date Tiffanie Roemro MD PCP - General 03/02/09
--- OUTSIDE RECORDS SUMMARY | 2024-10-08 06:23 | XMS_ITS | Clinical Summary ---
Author Organization [facility] Address [address] [place] [address] Care Team Providers Care General Forecaster Name Role Phone Tiffanie Romero MD Primary Care Provider [phone]- [phone] Source Comments You are receiving this document as you are listed as the primary care provider,follow-up provider, or the patient has been referred to you for consultation.This is in compliance with the Medicare and[facility] Hospital[facility] EHR Incentive Program,which states Providers who transition their patient to another setting of careor provider of care or refers their patient to another provider of care shouldprovide summary care record for each transition of care or referral. [facility] Allerg[facility] No known active allergies Medications Medication [...] - PPSV23 or PCV20) 02/16/2020 02/15/2015, 07/05/2010 RSV (1 - 1-dose 75+ series) 2023 DTaP/Tdap/Td (2 - Tdap) 08/16/2023 08/16/2013 COVID-19 Vaccine (3 - season) 2024 02/16/2021, 01/19/2021 Influenza (#1) 2024 09/11/2020, 05/2019, 08/27/2017, Additional [...] on patient's age to complete this topic Infant RSV Aged Out No longer eligi ble based on patient's age to complete this topic MCV4 Aged Out No longer eligi ble based on patient's age to complete this topic Care Teams General Forecaster Relationship Specialty Start Date End Date Tiffanie Romero MD [address] [place] [address] PCP - General Internal Medicine 06/30/18
--- OUTSIDE RECORDS SUMMARY | 2024-10-08 06:23 | XMS_ITS | Referral Summary ---
Author Organization [facility] Address [address] [place] [address] Care Team Providers Care Receiving And Processing Supervisor Name Role Phone Tiffanie Romero MD Primary Care Provider [phone] Allergies Active Allergy Reactions Criticality Noted Date Comments Adhesive Tape Dermatitis 05/08/2023 Amlodipine Swelling 05/08/2023 Clonidine Fatigue 05/08/2023 Lethargy Simvastatin Muscle Pain (Myalgia) 05/08/2023 Medications atorvastatin (LIPITOR) 40 MG tablet Take 1 tablet by mouth At Bedtime 2 Active metoprolol succinate ER (TOPROL XL) 50 MG 24 hr tablet Take 1 tablet by mouth every evening 2 Active [place]-3 Fatty Acids (FISH OIL) 1200 MG capsule [...] 1st dose call 911. Active Vitamin D3 (CHOLECALCIFERO L) 25 mcg (1000 units) tablet Take 1 [...] 2 times daily (with meals) Active senna-docusate (SENOKOT-S/LORI COLACE) 8.6-50 MG tabletIndicatio ns:Status post total hip replacement, right Take 1-2 tablets by mouth 2 times daily Take while on oral narcotics to prevent or treat constipation. 30 tablet 3 Active acetaminophen (TYLENOL) 325 MG tabletIndicatio ns:Status post total hip replacement, right Take 3 tablets (975 mg) by mouth every 6 hours as needed for mild pain 100 tablet 3 Active celecoxib (CELEBREX) 200 MG capsuleIndicati ons:Status post total hip replacement, right Take 1 capsule (200 mg) by mouth daily for 42 days Do not take within 6 hours of ibuprofen (MOTRIN, ADVIL) or ketorolac (TORADOL) if prescribed. 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 Gender Identity Female 06/24/2023 3:55 PM CDT [...] Care Plan Total Joint Replacement Hip Pathway [employer] Implanted Type Area Cattle Feeder Device Identifier Shelf Expiration Date Model / Serial / Lot Imp [place] Hole Eliminator Hip Depuy Duraloc 1246-03-000 - [id number] Implanted:Qty : 1 on 05/08/2023 by Asael Melo MD at [facility] Metallic Hardware/An chor Right: Hip [employer]- [id number] 02/28/2033 [id number] / / [id number] Imp Scr Bone Can Sean 6.5x25mm [id number] - [id number] Implanted:Qty : 1 on 05/08/2023 by Asael Melo MD at [facility] Metallic Hardware/An chor Right: Hip [employer] [id number] 02/28/2033 [id number] / / [id number] Imp Scr Bone Can Sean 6.5x20mm [id number] - [id number] Implanted:Qty : 1 on 05/08/2023 by Asael Melo MD at [facility] Metallic Hardware/An chor Right: Hip [employer] [id number] 01/28/2033 [id number] / / [id number] Imp Scr Bone Can Sean 6.5x30mm 1217-30-500 - [id number] Implanted:Qty : 1 on 05/08/2023 by Asael Melo MD at [facility] Metallic Hardware/An chor Right: Hip [employer]- [id number] 01/28/2033 [id number] / / [id number] Imp Cup Sean Dolliver 56mm 1217-22-056 - [id number] Implanted:Qty : 1 on 05/08/2023 by Asael Melo MD at [facility] Total Joint Component/I nsert Right: Hip [employer]- [id number] 04/30/2032 [id number] / / [id number] Liner Acetabular Altrx Neutral [id number] - [id number] Implanted:Qty : 1 on 05/08/2023 by Asael Melo MD at [facility] Total Joint Component/I nsert Right: Hip [employer] [id number] 01/29/2028 1221-36-056 / / [id number] Imp Stem Fem Depuy Actis Std Collar Tpr Sz 6mm 1010-11-060 - [id number] Implanted:Qty : 1 on 05/08/2023 by Asael Melo MD at [facility] Total Joint Component/I nsert Right: Hip [employer] [id number] 10/30/2032 [id number] / / [id number] Imp Head Femoral Depuy Ceramic 36mm +1.5mm 1365-36-310 - [id number] Implanted:Qty : 1 on 05/08/2023 by Asael Melo MD at [facility] Total Joint Component/I nsert Right: Hip [employer] [id number] 02/29/2028 [id number] / / [id number] Procedures Procedure Name Priority Date/Time Associated Diagnosis [...] 2:13 AM CDT 05/09/2023 2:22 AM CDT us Asael Melo MD LAB - BEAKER POCT Final Resul t LABORATORY POC [facility] [address] [place] [address], [facility] [phone] * (ABNORMAL) A.M.A. LIPID PANEL (07/23/2010 6:15 AM CDT) Cholesterol 187 0 - 200 mg/dL [facility] Comment: LDL Cholesterol is the primary guide to therapy. The NCEP recommends further evaluation of: patients with cholesterol <200 mg/dL if additional risk factors are present, cholesterol >240 mg/dL, triglycerides >150 mg/dL, or HDL <40 mg/dL. Triglycerides 106 0 - 150 mg/dL [facility] HDL Cholesterol 45(L) 50 - 110 mg/dL [facility] LDL Cholesterol Calculated 121 0 - 129 mg/dL [facility] Comment: LDL Cholesterol is the primary guide to therapy: LDL-cholesterol goal in high risk patients is <100 mg/dL and in very high risk patients is <70 mg/dL. VLDL-Cholesterol 21 0 - 30 mg/dL [facility] Cholesterol/HDL Ratio 4.0 0.0 - 5.0 [facility] 07/23/2010 6:15 AM CDT 07/23/2010 6:20 AM CDT Bjorn Moyer MD LABORATORY Final Result [facility] [address] [place] [address] from Last 3 Months or Most Recently Relevant to Health Maintenance Additional Health Concerns Active Problems Noted Date Diagnosed Date Total Joint Replacement Hip Pathway 12/05/2022 Insurance BCBS [facility] BS [facility] MEDICARE Advance Directives For more information, please contact: [phone] Documents on File Type Date Recorded Patient Utility System Repairer Expl anation Advance Directives and Living Will [...] Name Relationship Healthcare Agent Relationship Communication Philippe Zahra Spouse Health Care Agent Chalo Sweeney Son First Alternate Health Care Agent Yousif Sweeney Son Second Alternate Health Care Agent Care Teams Receiving And Processing Supervisor Relationship Specialty Start Date End Date Tiffanie Romero MD [facility] [place] [address] PCP - General Internal Medicine 05/08/23
--- OUTSIDE RECORDS SUMMARY | 2024-10-08 06:23 | XMS_ITS | Clinical Summary ---
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 Gender Identity Female 06/24/2023 3:55 PM CDT [...] MAMMO SCREENING 1948 HEPATITIS C SCREENING 1966 LIPID 07/23/2011 07/23/2010 FALL RISK ASSESSMENT 2013 MEDICARE ANNUAL WELLNESS VISIT 2013 RSV VACCINE (1 - 1-dose 75+ series) 2023 DTAP/TDAP/TD IMMUNIZATION (2 - Td or Tdap) 08/16/2023 08/16/2013 PHQ-2 (once per calendar year) 2023 COVID-19 Vaccine ( season) 2024 10/09/2022, 05/24/2022, 10/02/2021, Additional history exists INFLUENZA VACCINE (#1) 2024 , 08/29/2021, 09/11/2020, [...] [employer] Implanted Type Area Counter Pocket Sewer Device Identifier Shelf Expiration Date Model / Serial / Lot Imp [place] Hole Eliminator Hip Depuy Duraloc 1246-03-000 - [id number] Implanted:Qty : 1 on 05/08/2023 by Asael Melo MD at [facility] Metallic Hardware/An chor Right: Hip [employer] [id number] 02/28/2033 [id number] / / [id number] Imp Scr Bone Can Sean 6.5x25mm 1217-25-500 - [id number] Implanted:Qty : 1 on 05/08/2023 by Asael Melo MD at [facility] Metallic Hardware/An chor Right: Hip [employer] [id number] 02/28/2033 [id number] / / [id number] Imp Scr Bone Can Sean 6.5x20mm 1217-20-500 - [id number] Implanted:Qty : 1 on 05/08/2023 by Asael Melo MD at [facility] Metallic Hardware/An chor Right: Hip [employer] [id number] 01/28/2033 [id number] / / [id number] Imp Scr Bone Can Sean 6.5x30mm 1217-30-500 - [id number] Implanted:Qty : 1 on 05/08/2023 by Asael Melo MD at [facility] Metallic Hardware/An chor Right: Hip [employer] [id number] 01/28/2033 [id number] / / [id number] Imp Cup Sean [place] 56mm 1217-22-056 - [id number] Implanted:Qty : 1 on 05/08/2023 by Asael Melo MD at [facility] Total Joint Component/I nsert Right: Hip [employer] [id number] 04/30/2032 [id number] / / [id number] Liner Acetabular Altrx Neutral 10p85mb - [id number] Implanted:Qty : 1 on 05/08/2023 by Asael Melo MD at [facility] Total Joint Component/I nsert Right: Hip [employer] [id number] 01/29/2028 1221-36-056 / / [id number] Imp Stem Fem Depuy Actis Std Collar Tpr Sz 6mm 1010-11-060 - [id number] Implanted:Qty : 1 on 05/08/2023 by Asael Melo MD at [facility] Total Joint Component/I nsert Right: Hip [employer] [id number] 10/30/2032 [id number] / / [id number] Imp Head Femoral Depuy Ceramic 36mm +1.5mm 1365-36-310 - [id number] Implanted:Qty : 1 on 05/08/2023 by Asael Melo MD at [facility] Total Joint Component/I nsert Right: Hip [employer] [id number] 02/29/2028 [id number] / / [id number] Procedures Procedure Name Priority Date/Time Associated Diagnosis Comments GLUCOSE BY METER Routine 05/09/2023 2:13 AM CDT CL AFF A.M.A. LIPID PANEL Routine 07/23/2010 6:15 AM CDT from Last 3 Months or Most Recently Relevant to Health Maintenance Results * (ABNORMAL) Glucose by meter (05/09/2023 2:13 AM CDT) [facility] GLUCOSE BY METER POCT 254(H) 70 - 99 mg/dL 05/09/2023 2:22 AM CDT LABORATORY POC Blood, Capillary BLOOD SPECIMEN / Unknown 05/09/2023 2:13 AM CDT 05/09/2023 2:22 AM CDT Asael Melo MD [facility] POCT Final Resul t LABORATORY POC [facility] [address], [address] [place] [address], [facility] [phone] * (ABNORMAL) A.M.A. LIPID PANEL (07/23/2010 6:15 AM CDT) Cholesterol 187 0 - 200 mg/dL [facility] Comment: LDL Cholesterol is the primary guide to therapy. The NCEP recommends further evaluation of: patients with cholesterol <200 mg/dL if additional risk factors are present, cholesterol >240 mg/dL, triglycerides >150 mg/dL, or HDL <40 mg/dL. Triglycerides 106 0 - 150 mg/dL [facility] HDL Cholesterol 45(L) 50 - 110 mg/dL [facility] LDL Cholesterol Calculated 121 0 - 129 mg/dL [facility] Comment: LDL Cholesterol is the primary guide to therapy: LDL-cholesterol goal in high risk patients is <100 mg/dL and in very high risk patients is <70 mg/dL. VLDL-Cholesterol 21 0 - 30 mg/dL [facility] Cholesterol/HDL Ratio 4.0 0.0 - 5.0 [facility] 07/23/2010 6:15 AM CDT 07/23/2010 6:20 AM CDT Bjorn Moyer MD LABORATORY Final Result [facility] [address] [place] [address] from Last 3 Months or Most Recently Relevant to Health Maintenance Additional Health Concerns Active Problems Noted Date Diagnosed Date Total Joint Replacement Hip Pathway 12/05/2022 Insurance BCBS [facility] BCBS [facility] MEDICARE Advance Directives For more information, please contact: [phone] Documents on File Type Date Recorded Patient Life Skills Coach Expl anation Advance Directives and Living Will [...] Second Alternate Health Care Agent Care Teams Machine Carton Marker Relationship Specialty Start Date End Date Tiffanie Romero MD [address] [address] PCP - General Internal Medicine 05/08/23
--- NOTE | 2024-10-08 07:57 | W.ANESCHARGE ---
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
--- NOTE | 2024-10-08 08:42 | W.ANESCHARGE ---
Anesthesia Charges Start Date/Time Anesthesia Start Date: 10/08/24 Anesthesia Start Time: 07:18 Stop Date/Time Anesthesia Stop Date: 10/08/24 Anesthesia Stop Time: 07:50 Summary Extremes of Age - Over 70 or under 1: MDA
== END 2024-10-08 06:21 | disposition home or self-care (01) ==
LOC: OP CLINIC 06:21
PROVIDERS: PCP Internal Medicine; Visit Provider Internal Medicine Gastroenterology
DX: Z12.11 Encounter for screening for malignant neoplasm of colon (principal); D12.3 Benign neoplasm of transverse colon; K57.30 Diverticulosis of large intestine without perforation or abscess without bleeding; Z86.0100 Personal history of colon polyps, unspecified
CPT/HCPCS: 00811; 45385; 88305; 99100; J2704

== ENCOUNTER 2024-12-21 13:30 | Outpatient (CLI) | payer MEDICARE, BC, SELFPAY | END 2024-12-21 13:31 | disposition home or self-care (01) | LOC: NFLDREF 12-22 01:47 | PROVIDERS: PCP Internal Medicine; Referring Provider Internal Medicine; Visit Provider Internal Medicine | DX: E11.65 Type 2 diabetes mellitus with hyperglycemia (principal); Z79.84 Long term (current) use of oral hypoglycemic drugs | CPT/HCPCS: 82043; 82570 ==

== ENCOUNTER 2025-03-24 08:47 | Outpatient (CLI) | payer MEDICARE, BC, SELFPAY | END 2025-03-24 08:48 | disposition home or self-care (01) | LOC: NFLDREF 08:49 | PROVIDERS: PCP Internal Medicine; Visit Provider Internal Medicine | DX: E11.65 Type 2 diabetes mellitus with hyperglycemia (principal); Z79.84 Long term (current) use of oral hypoglycemic drugs | CPT/HCPCS: 80053 ==

== ENCOUNTER 2025-04-25 13:24 | Outpatient (CLI) | payer MEDICARE, BC, SELFPAY | END 2025-04-25 13:25 | disposition home or self-care (01) | LOC: AMB 04-26 11:41 | PROVIDERS: PCP Internal Medicine; Visit Provider Family Medicine | DX: R55 Syncope and collapse (principal) | CPT/HCPCS: A0425; A0427 ==

== ENCOUNTER 2025-04-25 14:05 | Observation (INO) | payer MEDICARE, BC, SELFPAY ==
--- OUTSIDE RECORDS SUMMARY | 2025-04-20 08:55 | XMS_ITS | Encounter Summary ---
Author Organization [facility] Address [address] [address] Phone Care Team Providers Care Staff Software Engineer Name Role Phone Tiffanie Romero MD Primary Care Provider [phone] Reason for Visit * Auth/Cert Specialty Diagnoses / Procedures Referred By Arcelia t Referred To Contact Diagnoses M16.12 Degenerative joint disease of the left hip Procedures TOTAL HIP REPLACEMENT Left total hip arthroplasty direct anterior approach Yenni Newsome MD [facility] [address] [address] Phone: tel: fax: Referral ID Status Reason Start Date Expiration Date Visits Re quested Visits Authorized [id number] 1 1 Encounter Details Date Type Department Care Team (Late st Contact Info) Description 04/20/2025 8:55 AM CDT - 04/21/2025 10:07 AM CDT Hospital Encounter [address] [id number] Yenni Newsome MD [facility] [address] [id number] S/P total left hip arthroplasty (Primary Dx) Discharge Disposition: Home and/or Self Care Social History Tobacco Use Types Packs/Day Years Used Date Smoking Tobacco: Never Smokeless Tobacco: Never Tobacco Cessation:Counseling Given: Not Answered Alcohol Use Standard Drinks/Week Comments Yes 0 (1 standard drink = 0.6 oz pur e alcohol) 1 drink every 2 weeks [facility] Utilities Answer Date Recorded In the past 12 months has th e electric, gas, oil, or water company threatened to shut off services in your home? No 04/20/2025 Hunger Vital Sign Answer Date Recorded Within the past 12 months, y ou worried that your food would run out before you got the money to buy more. Never true 04/20/20 25 Within the past 12 months, t he food you bought just didn't last and you didn't have money to get more. Never true 04/20/2025 PRAPARE - Transportation Answer Date Re corded In the past 12 months, has l ack of transportation kept you from medical appointments or from getting medications? No 04/01 In the past 12 months, has l ack of transportation kept you from meetings, work, or from getting things needed for daily living? No 04/20/2025 Housing Stability Vital Sign Answer Carmine e Recorded In the last 12 months, was t here a time when you were not able to pay the mortgage or rent on time? No 04/20/2025 In the past 12 months, how m any times have you moved where you were living? 0 04/20/2025 At any time in the past 12 m [facility], were you homeless or living in a senior living (including now)? No 04/20/2025 IP Custom IPV Answer Date Recorded Do you feel UNSAFE in any of your personal relationships with your family members or any other acquaintances? No 2024 Comments No Sex and Gender Information Value Date Recorded Sex Assigned at Female 04/18/2025 2:16 PM CDT Legal Sex Female 2:15 PM CDT Gender Identity Female 04/18/2025 2:16 PM CDT Sexual Orientation Not on file documented as of this encounter Last Filed Vital Signs Vital Sign Reading Time Taken Comments Blood Pressure 129/70 04/21/2025 5:41 AM CDT Pulse 59 04/21/2025 5:41 AM CDT Temperature 36.6 C (97.8 F) 04/21/2025 4:05 AM CDT Respiratory Rate 16 04/21/2025 5:41 AM CDT Oxygen Saturation 96% 04/21/2025 5:41 AM CDT Inhaled Oxygen Concentration - - Weight 70.1 kg (154 lb 8 oz) 04/20/2025 10:04 AM CDT Height 167.6 cm (5' 6) 04/18/2025 2:22 PM CDT Body Mass Index 24.94 04/18/2025 2:22 PM CDT documented in this encounter Functional Status * Patient's Vision Adequate to Safely Complete Daily Activities Answer Date of Assessment Author Yes 04/20/2025 3:07 PM CDT Nicole Parker RN * Patient's Memory Adequate to Safely Complete Daily Activities Answer Date of Assessment Author Yes 04/20/2025 3:07 PM CDT Nicole Parker RN documented as of this encounter Mental Status * Patient's Judgment Adequate to Safely Complete Daily Activities Answer Entry Date Author Yes 04/20/2025 3:07 PM CDT Nicole Parker RN documented in this encounter Discharge Summaries * Jackie Romero PA-C - 04/21/2025 8:01 AM CDT Images from the original note were not included. HOSPITAL DISCHARGE SUMMARY Jackie Romero PA-C 04/21/2025 Patient Name: Nicolette Sweeney Date of : 1950 Age: [age] year old Primary Physician: Tiffanie Romero MD Admitting Physician: Yenni Newsome MD Admission Date: 04/20/2025 Discharging Physician: Jackie Romero PA-C Discharge Date: 04/21/25 Discharge Diagnoses: Principal Problem: S/P total left hip arthroplasty Resolved Problems: * No resolved hospital problems. * Discharge Disposition: See Orders Hospital Course: Patient presents to the perioperative period after failing to manage their hip osteoarthritis. Risks, benefits, and complications were reviewed with the patient, they elected to proceed with the scheduled surgery. A total hip replacement was completed without complication. she was admitted to orthopedics where physical therapy and education was completed. Subjective: Patient is doing well today on POD #1. They have no nausea, vomiting, chest pain, lightheadedness or dizziness. They deny any numbness or paresthesias in their surgical lower extremity. They are ambulating in the hallways, tolerating oral intake, voiding and pain is controlled with oral medications. Using IS. VSS. Hgb 10.1 (12.1 pre-op). Their discharge medications were discussed at length. They understand they will be using multiple medications for pain control to be used together. We discussed their tylenol, Celebrex and Oxycodone prescriptions for pain control on discharge. Senokot Prilosec were also reviewed. Appropriate anticoagulation therapy was also discussed, including aspirin 325 mg daily x42 days. Their questions were answered, and dressing care instructions were clearly given. They understand no twisting or torquingof the operative hip as well as no strengthening exercises of the hip & leg x8 weeks. Objective: Blood pressure 129/70, pulse 59, temperature 36.6 ??C (97.8 ??F), temperature source Temporal, resp. rate 16, height 1.676 m (5' 6), weight 70.1 kg (154 lb 8 oz), SpO2 96%. The patient is A&Ox3. Appears comfortable, sitting up at bedside. Prineo dressing C/D/I without strikethrough. No surrounding erythema. Mild edema. Sensation intact to light touch & equal bilaterally in the femoral, DP, SP and tibial nerve distributions. ROM: Flexes at the left hip. Appropriately flexes & extends all toes bilaterally. Motor: +5/5 dorsiflexion, plantar flexion & EHL bilaterally. Fires quad. Bilateral calves soft and non-tender. Negative Franco's sign bilaterally. Palpable left dorsalis pedis and posterior tibial pulses. Brisk <2 sec capillary refill in the toes. Foot warm & well perfused. Labs: Lab Results Component Value Date HGB 10.1 04/21/2025 Current Discharge Medication List New Prescriptions Details acetaminophen 325 MG tablet Commonly known as: Tylenol Dose: 975 mg 975 mg, Oral, EVERY 6 HOURS NEEDED, Limit acetaminophen to 4000 mg per day from all sources. aspirin EC 325 MG tablet Dose: 325 mg 325 mg, Oral, ONCE DAILY, For DVT prevention. Do not split or crush. celecoxib 200 MG capsule Commonly known as: CeleBREX Dose: 200 mg 200 mg, Oral, ONCE DAILY oxyCODONE 5 MG immediate release tablet Commonly known as: Roxicodone Dose: 5 mg 5 mg, Oral, EVERY 4 HOURS NEEDED senna-docusate 8.6-50 MG oral tablet Commonly known as: Senna S Dose: 1-2 Tablet 1-2 Tablets, Oral, 2 TIMES DAILY Changed Prescriptions Details omeprazole 20 MG delayed-release capsule Commonly known as: PriLOSEC Dose: 20 mg 20 mg, Oral, ONCE DAILY, Do not crush. What changed: when to take this additional instructions Continued Details ACIDOPHILUS PROBIOTIC COMPLEX OR Dose: 2 Tablet 2 Tablets, Oral, ONCE DAILY atorvaSTATin 80 MG tablet Commonly known as: Lipitor Dose: 80 mg 80 mg, AT BEDTIME citalopram 10 MG tablet Commonly known as: CeleXA Dose: 10 mg 10 mg, ONCE DAILY coenzyme Q10 10 MG capsule Dose: 10 mg 10 mg, ONCE DAILY losartan-hydroCHLOROthiazide 100-25 MG oral tablet Commonly known as: Hyzaar Dose: 1 Tablet Start taking on: April 22, 2025 1 Tablet, Oral, ONCE DAILY metFORMIN 1000 MG tablet Commonly known as: Glucophage Dose: 1,000 mg 1,000 mg, Oral, 2 TIMES DAILY metoprolol succinate 50 MG 24 hour extended-release tablet Commonly known as: Toprol-XL Dose: 50 mg 50 mg, ONCE DAILY MULTIVITAMIN ADULTS OR Dose: 1 Tablet 1 Tablet, EVERY MORNING nitroglycerin 0.4 MG sublingual tablet Commonly known as: Nitrostat Dose: 0.4 mg 0.4 mg, EVERY 5 MINUTES NEEDED SM Fish Oil 1000 MG capsule Dose: 1,000 mg 1,000 mg, ONCE DAILY Vitamin D-[address] 25 mcg (1000 units) tablet Generic drug: vitamin D3 (cholecalciferol) Dose: 3,000 Units 3,000 Units, ONCE DAILY You might also be taking other medications not listed above. If you have questions about any of your other medications, talk to the person who prescribed them or your Primary Care Provider. Follow Up Instructions: Yenni Newsome MD [facility] [place] [address] [facility] [address] Go on 05/11/2025 POST-OP APPOINTMENT SCHEDULED WITH IGNACIO MARTIN PA-C AT THE [place] OFFICE AT 1:20 PM. Jackie Romero PA-C [facility] documented in this encounter Discharge Instructions * Appointments* Kaylee Martinez RN - 04/21/2025 3:07 AM CDT In the event of a concern arising after surgery: During business hours, call surgeon's patient centered care specialist, Marlen Combs at [phone]. After business hours, call the on-call provider at [phone]. [facility] was discussed. They were asked to first contact [facility] for continuity of care prior to going to another urgent care or ER for issues related to their surgery. They were instructed to go to the ER promptly for any medical emergency that may arise after discharge. documented in this encounter Medications at Time of Discharge losartan-hydroCH LOROthiazide (Hyzaar) 100-25 MG oral tablet Take 1 Tablet by mouth one time a day. 04/22/2025 oxyCODONE (Roxicodone) 5 MG immediate release tablet Take 1 Tablet by mouth every four hours as needed for Pain. 30 Tablet 04/20/2025 aspirin EC 325 MG tablet Take 1 Tablet by mouth one time a day for 42 days. For DVT prevention. Do not split or crush. 42 Tablet 04/20/2025 5 celecoxib (CeleBREX) 200 MG capsule Take 1 Capsule by mouth one time a day for 42 days. 42 Capsule 04/20/2025 5 senna-docusate (Senna S) 8.6-50 MG oral tablet Take 1-2 Tablets by mouth two times a day. 30 Tablet 04/20/2025 omeprazole (PriLOSEC) 20 MG delayed-release capsule Take 1 Capsule by mouth one time a day for 42 days. Do not crush. 42 Capsule 04/20/2025 5 acetaminophen (TYLENOL) 325 MG tablet Take 3 Tablets by mouth every six hours as needed for Pain. Limit acetaminophen to 4000 mg per day from all sources. 100 Tablet 04/20/2025 atorvaSTATin (Lipitor) 80 MG tablet Take 80 mg by mouth at bedtime. 02/14/2025 vitamin D3, cholecalciferol, (Vitamin D-[address]) 25 mcg (1000 units) tablet Take 3,000 Units by mouth one time a day. 09/18/2020 citalopram (CeleXA) 10 MG tablet Take 10 mg by mouth one time a day. 10/16/2011 coenzyme Q10 10 MG capsule Take 10 mg by mouth one time a day. 03/10/2017 metFORMIN (GLUCOPHAGE) 1000 MG tablet Take 1,000 mg by mouth two times a day. 04/01/2022 metoprolol succinate (Toprol-XL) 50 MG 24 hour extended-release tablet Take 50 mg by mouth one time a day. 09/16/2022 nitroglycerin (Nitrostat) 0.[address] 0.4 mg under the tongue every five minutes as needed. 05/08/2023 [place]-3 Fatty Acids (SM Fish Oil) 1000 MG capsule Take 1,000 mg by mouth one time a day. 09/29/2017 Multiple Vitamins-Mineral s (MULTIVITAMIN ADULTS OR) Take 1 Tablet by mouth every morning. Probiotic Product (ACIDOPHILUS PROBIOTIC COMPLEX OR) Take 2 Tablets by mouth one time a day. documented as of this encounter Ordered Prescriptions Prescription Sig Dispense Quantity Refills Last Filled Start Date End Date losartan-hydroCHL OROthiazide (Hyzaar) 100-25 MG oral tablet Take 1 Tablet by mouth one time a day. 04/22/2025 acetaminophen (TYLENOL) 325 MG tablet Take 3 Tablets by mouth every six hours as needed for Pain. Limit acetaminophen to 4000 mg per day from all sources. 100 Tablet 04/20/2025 omeprazole (PriLOSEC) 20 MG delayed-release capsule Take 1 Capsule by mouth one time a day for 42 days. Do not crush. 42 Capsule 04/20/2025 06/01/20 25 senna-docusate (Senna S) 8.6-50 MG oral tablet Take 1-2 Tablets by mouth two times a day. 30 Tablet 04/20/2025 celecoxib (CeleBREX) 200 MG capsule Take 1 Capsule by mouth one time a day for 42 days. 42 Capsule 04/20/2025 06/01/20 25 aspirin EC 325 MG tablet Take 1 Tablet by mouth one time a day for 42 days. For DVT prevention. Do not split or crush. 42 Tablet 04/20/2025 06/01/20 25 oxyCODONE (Roxicodone) 5 MG immediate release tablet Take 1 Tablet by mouth every four hours as needed for Pain. 30 Tablet 04/20/2025 documented in this encounter Discharge Disposition Disposition Code Departure Means Destination Comment s Home and/or Self Half-Way documented in this encounter Progress Notes * Alaina Domingo, PT - 04/21/2025 9:45 AM CDT PHYSICAL THERAPY ACUTE CARE BINDU DISCHARGE NOTE SUBJECTIVE Patient agreeable to participate with physical therapy. Patient seated in recliner, greeted greeting card writer - patient reported that she feels more discomfort in the anterior thigh - patient stated that she felt like her thigh pulled when she was getting in and out of bed but stated that it does not bother her at all when she is ambulating - PT reviewed the bed mobility and advised patient as instructed yesterday to use some kind of strap or the help of her to lift her leg in bed - I indicated that PT was concerned that the patient may muscle through and strain with movement and educated her of the importance to be nice to her hip and help it and not force movement into pain Date of Admission: 04/20/2025 Patient is s/p LEFT BINDU by Dr. Newsome Pain: 1-2/10 at rest and during ambulation - patient reported no change Precautions: No hip precaution secondary to surgical approach WBAT Cognition: Alert , Oriented, and Cooperative OBJECTIVE Functional Mobility Assessment: Supine to Sit: reviewed bed mobility and demonstrated how to keep the leg straight Sit to Supine: reviewed Sit<>Stand: independent Gait: Patient ambulated 220 ft with FWW and supervision to indepedent Gait pattern: reciprocal, steady, no concerns Stairs: 2x3 with bilateral hands on rail; supervision Tests and Measures: 10M WALK TEST: Patient's preferred gait speed is 23 seconds calculated from a distance of 10 meters. Gait speed: 26-50 sec = Household ambulator (gait speed 0.38 m/s-0.2 m/s) 25-12 sec = Limited community ambulators (gait speed of 0.4 to 0.83 m/s) 12.5-8 sec = Community ambulators (gait speed of 0.8-1.25 m/s) 7 sec or less = Able to safely cross the street (gait speed of 1.2 m/sec or greater) MODIFIED KIRBY INDEX: Self-Care Assessment MBI Score: 89/ 100 Indicating: moderate Score Interpretation 0-20 Total Dependence 21-60 Severe Dependence 61-90 Moderate Dependence 91-99 Slight Dependence 100 Meally Score Prediction Less than 40 Unlikely to go Home Dependent in Mobility Dependent in Self Care 60 Pivotal score where patients move from dependency to assisted independence 60-80 If living alone will probably need a number of community services to cope More than 85 Likely to be discharged to community living Independent in transfers and able to walk or use wheelchair independently Strength/Range of Motion Assessment: Lower Extremity Strength: Right: WFL Left: max a for SLR Therapeutic Exercise/ Today's Treatment: Therapeutic Exercises: no exercise per surgeon preference Gait Training: The patient participated in gait training to improve functional mobility as it relates to ambulation. The patient ambulated 220 feet with ww and supervision assist. The patient participated in stair ambulation with use of one rail(s) and bilateral hands on rail Car Transfer Training: Patient assisted to car in transport chair by therapist. Therapist demonstrated car transfer technique followed by assisting patient with verbal cues and stand by assist. Patient and customer care team coach were also educated on exit of vehicle technique at home along with hip precautions if applicable. Vitals/Observations/Response to Treatment: Stable throughout session Patient Education Provided: Education provided on hip precautions (per surgeon, if applicable); adaptive medical equipment; fall avoidance: shower transfer, proper footwear and tripping hazards. Recommendations for mobility including: frequency of ambulation every 1-1.5 hours for 5 minutes with walker and icing every hour [id number] minutes during the day; HEP - 2x/day; avoidance of over-doing activity; elevation on multiple pillows to decrease swelling and comfortable coaching handling techniques to avoid discomfort when assisting. Patient verbalized and demonstrated excellent understanding verbalized and demonstrated excellent understanding. Barriers to Learning: None ASSESSMENT The patient demonstrates SBA/modified independence with functional mobility for discharge home, appropriate performance and understanding of HEP, post op recommendations and precautions following BINDU. The patient and their customer care team coach have been instructed on safe patient handling and mobility/DME recommendations for discharge. They have met their goals and will be discharged from PT at this time. Barrier to Discharge Home: No anticipated barriers PLAN OF CARE Recommendations for Discharge: Home with caregiver / Family support Anticipated DME Needs for Discharge: patients has all necessary AD's Progress towards Goals: - met 1. Patient will ambulate >120 feet with stand by assistance and appropriate assistive device 2. Patient will demonstrate modified independence assistance with bed, chair and car transfer whilemaintaining hip precautions. 3. Patient will demonstrate >= 3 stairs with stand by assistance with appropriate assistive device. 4. Patient will demonstrate/verbalize understanding of post op HEP, precautions, fall avoidance education and recommendations for home s/p BINDU. Interdisciplinary Communication: Treatment, goals, and plan of care discussed with nursing and PT. Frequency of Physical Therapy Recommended: Discharge PT Total Treatment Time: 35 minutes Therapeutic Activities (57285) = 12 minutes Gait Training (72503) = 23 minutes * Radha Ardon PA-C - 04/21/2025 9:01 AM CDT HOSPITALIST PROGRESS NOTE Subjective Patient was seen POD1 in the AM. Patient sitting up in chair. States pain has been well-controlled with medications. Denies chest pain, shortness of breath, abdominal pain, nausea, vomiting, dizziness. Is tolerating regular diet well and urinating well. Objective Vitals BP 129/70 (BP Location: Right arm) Pulse 59 Temp 36.6 ??C (97.8 ??F) (Temporal) Resp 16 Ht 1.676 m (5' 6) Wt 70.1 kg (154 lb 8 oz) SpO2 96% BMI 24.94 kg/m?? Const: NAD HEENT: Normocephalic, atraumatic CV: RRR without murmur, rubs or gallops Lung: CTAB without wheezing, rales or rhonchi Abdomen: Soft, with positive bowel sounds Neuro: Alert and orientated, moves all 4 extremities Psych: Appropriate mood and affect Telemetry: N/A All lines/tubes etc other than PIV's: I reviewed and interpreted the new labs. Recent Results (from the past 24 hours) GLUCOSE, METER Result Value Ref Range Glucose Meter 171 (H) 74 - 100 mg/dL GLUCOSE, METER Result Value Ref Range Glucose Meter 168 (H) 74 - 100 mg/dL GLUCOSE, METER Result Value Ref Range Glucose Meter 199 (H) 74 - 100 mg/dL GLUCOSE, METER Result Value Ref Range Glucose Meter 297 (H) 74 - 100 mg/dL GLUCOSE, METER Result Value Ref Range Glucose Meter 335 (H) 74 - 100 mg/dL GLUCOSE, METER Result Value Ref Range Glucose Meter 294 (H) 74 - 100 mg/dL HEMOGLOBIN Result Value Ref Range HGB 10.1 (L) 12.0 - 16.0 g/dl GLUCOSE, METER Result Value Ref Range Glucose Meter 285 (H) 74 - 100 mg/dL PRE-OP LABS (03/24/25): HGB: 12.1 Cr: 0.9 GFR: 67 Glucose: 152 Hgb A1c: 7.5% Na: 139 K: 3.7 I personally reviewed the new imaging studies. Recent Results (from the past 24 hours) XR C ARM FLUORO Narrative PROCEDURE: C-ARM FLUOROSCOPIC SUPPORT HISTORY: Placement. TECHNIQUE: C-arm fluoroscopic imaging. Total fluoroscopy time: 34 seconds. Number of saved fluoroscopic images: 9. COMPARISON: None. IMPRESSION: Existing right total hip arthroplasty. Images were obtained during performance of a left total hip arthroplasty. Components are in anatomic alignment. No unexpected foreign body on the final image. Hemostat noted in the [id number]. Please see the operative note for additional details. Electronically signed by Carlos Chaves MD Report Date: 04/20/2025 1:47 PM XR HIP LEFT 2 OR 3 VIEWS W PELVIS Narrative PROCEDURE: XR HIP LEFT 2 OR 3 VIEWS W PELVIS HISTORY: Hip replacement surgery. COMPARISON: Intraoperative fluoroscopic images from earlier the same day. FINDINGS: Interval completion of left total hip arthroplasty. The hardware appears intact and well-positioned. No dislocation or displaced fracture. Postoperative gas about the left hip. Stable right hip arthroplasty hardware. IMPRESSION: Expected postoperative changes of recent left total hip arthroplasty. Electronically signed by Juni Beverly MD Report Date: 04/20/2025 2:42 PM Echo (09/16/24): 1. Normal LV size, normal wall thickness, normal global systolic function with an estimated EF of 55 - 60%. 2. The aortic valve is sclerotic, no stenosis and no regurgitation. 3. The mitral valve is sclerotic, trace mitral regurgitation. 4. Since the echo from 09/21, there is no change. EKG (03/24/2025): sinus bradycardia with first-degree AV block, heart rate 56 bpm EKG (04/20/2025): Sinus rhythm with occasional PVC's, HR 81 bpm Hospital Course Nicolette Sweeney is a 74 year old female with significant medical problems including HTN, HLD, T2DM, GERD, HERBERT, hx of breast cancer s/p lumpectomy, depression/anxiety, who presented on 04/20/25 for LTHA. Assessment/Plan Active Hospital Problems S/P total left hip arthroplasty - Orthopedic surgery primary- follow their recommendations for pain control, bowel regimen, activity, anticoagulation, wound care, and discharge instructions - Advance diet as tolerated - PT/OT to evaluate and treat Essential hypertension - Continue WOOD REPATCHER metoprolol succinate 50 mg QPM with hold parameters - Hold WOOD REPATCHER losartan 100 mg QAM & HCTZ 25 mg QAM due to soft BP's, resume POD2/tomorrow, discussed with patient - Hydralazine as needed for SBP greater than 180 Hyperlipidemia - Continue WOOD REPATCHER atorvastatin QPM Diabetes mellitus type 2 Steroid induced hyperglycemia - Last A1c 7.5 in March 2025 - Continue WOOD REPATCHER metformin 1000 mg twice daily - Patient did receive 10 mg of Decadron in the OR, Glucose in the 200's this AM GERD - Continue WOOD REPATCHER PPI QAM HERBERT - Patient does not use CPAP Hx of left breast cancer s/p lumpectomy and radiation - Noted Depression/anxiety - Continue WOOD REPATCHER Celexa QAM Advanced Age - Patient is of advanced age (age>65). They are at an increased risk for postop delirium. Recommend judicious use of narcotic pain medications. Rapid advancement to oral agents only. DVT Prophylaxis Measures: Maintain sequential compression device Active anticoagulants: Code Status: Full Code Discharge: Patient medically cleared for discharge home later today. Radha Ardon PA-C Hospitalist Greater than 25 minutes spent in care of the patient including counseling of pt, coordination of care in chart review, discussion with interdisciplinary care team. Please feel free to contact me via [employer] chat or cell phone from the hours of 7 AM to 5 PM at [phone] After hours please page hospitalist on-call * Radha Ardon PA-C - 04/20/2025 3:50 PM CDT HOSPITALIST PROGRESS NOTE Subjective Patient was seen postoperatively. Patient laying comfortably in bed. Denies any significant pain atthis time. Denies chest pain, shortness of breath, abdominal pain, vomiting, dizziness. States she has had intermittent nausea without vomiting. Objective Vitals BP 122/72 (BP Location: Right arm, BP Patient Position: Semi-Fowlers) Pulse 79 Temp 36.1 ??C (96.9 ??F) (Temporal) Resp 14 Ht 1.676 m (5' 6) Wt 70.1 kg (154 lb 8 oz) SpO2 95% BMI 24.94kg/m?? Const: NAD HEENT: Normocephalic, atraumatic CV: RRR without murmur, rubs or gallops Lung: CTAB without wheezing, rales or rhonchi Abdomen: Soft, with positive bowel sounds Extremity: No lower extremity edema noted, peripheral pulses palpable and equal Neuro: Alert and orientated, moves all 4 extremities Psych: Appropriate mood and affect Telemetry: N/A All lines/tubes etc other than PIV's: I reviewed and interpreted the new labs. Recent Results (from the past 24 hours) GLUCOSE, METER Result Value Ref Range Glucose Meter 171 (H) 74 - 100 mg/dL GLUCOSE, METER Result Value Ref Range Glucose Meter 168 (H) 74 - 100 mg/dL GLUCOSE, METER Result Value Ref Range Glucose Meter 199 (H) 74 - 100 mg/dL PRE-OP LABS (03/24/25): HGB: 12.1 Cr: 0.9 GFR: 67 Glucose: 152 Hgb A1c: 7.5% Na: 139 K: 3.7 I personally reviewed the new imaging studies. Recent Results (from the past 24 hours) XR C ARM FLUORO Narrative PROCEDURE: C-ARM FLUOROSCOPIC SUPPORT HISTORY: Placement. TECHNIQUE: C-arm fluoroscopic imaging. Total fluoroscopy time: 34 seconds. Number of saved fluoroscopic images: 9. COMPARISON: None. IMPRESSION: Existing right total hip arthroplasty. Images were obtained during performance of a left total hip arthroplasty. Components are in anatomic alignment. No unexpected foreign body on the final image. Hemostat noted in the [id number]. Please see the operative note for additional details. Electronically signed by Carlos Chaves MD Report Date: 04/20/2025 1:47 PM XR HIP LEFT 2 OR 3 VIEWS W PELVIS Narrative PROCEDURE: XR HIP LEFT 2 OR 3 VIEWS W PELVIS HISTORY: Hip replacement surgery. COMPARISON: Intraoperative fluoroscopic images from earlier the same day. FINDINGS: Interval completion of left total hip arthroplasty. The hardware appears intact and well-positioned. No dislocation or displaced fracture. Postoperative gas about the left hip. Stable right hip arthroplasty hardware. IMPRESSION: Expected postoperative changes of recent left total hip arthroplasty. Electronically signed by Juni Beverly MD Report Date: 04/20/2025 2:42 PM Echo (09/16/24): 1. Normal LV size, normal wall thickness, normal global systolic function with an estimated EF of 55 - 60%. 2. The aortic valve is sclerotic, no stenosis and no regurgitation. 3. The mitral valve is sclerotic, trace mitral regurgitation. 4. Since the echo from 09/21, there is no change. EKG (03/24/2025): sinus bradycardia with first-degree AV block, heart rate 56 bpm EKG (04/20/2025): Sinus rhythm with occasional PVC's, HR 81 bpm Hospital Course Nicolette Sweeney is a 74 year old female with significant medical problems including HTN, HLD, T2DM, GERD, HERBERT, hx of breast cancer s/p lumpectomy, depression/anxiety, who presented on 04/20/25 for LTHA. Assessment/Plan Active Hospital Problems S/P total left hip arthroplasty - Orthopedic surgery primary- follow their recommendations for pain control, bowel regimen, activity, anticoagulation, wound care, and discharge instructions - Advance diet as tolerated - PT/OT to evaluate and treat Essential hypertension - Continue WOOD REPATCHER metoprolol succinate 50 mg QPM with hold parameters - Continue WOOD REPATCHER losartan 100 mg QAM on POD1 with hold parameters - Hold WOOD REPATCHER HCTZ 25 mg QAM - Hydralazine as needed for SBP greater than 180 Hyperlipidemia - Continue WOOD REPATCHER atorvastatin QPM Diabetes mellitus type 2 - Last A1c 7.5 in March 2025 - Continue WOOD REPATCHER metformin 1000 mg twice daily - Patient did receive 10 mg of Decadron in the OR, patient is at high risk for steroid-induced hyperglycemia - Accu-Cheks and sliding scale insulin ordered GERD - Continue WOOD REPATCHER PPI QAM HERBERT - Patient does not use CPAP Hx of left breast cancer s/p lumpectomy and radiation - Noted Depression/anxiety - Continue WOOD REPATCHER Celexa QAM Advanced Age - Patient is of advanced age (age>65). They are at an increased risk for postop delirium. Recommend judicious use of narcotic pain medications. Rapid advancement to oral agents only. DVT Prophylaxis Measures: Maintain sequential compression device Active anticoagulants: Code Status: Full Code Discharge: Plan to discharge POD #1 Radha Ardon PA-C Hospitalist Greater than 45 minutes spent in care of the patient including counseling of pt, coordination of care in chart review, discussion with interdisciplinary care team. Pre-op labs, pre-op EKG, pre-op testing, and H&P reviewed if available. Please feel free to contact me via [employer] chat or cell phone from the hours of 7 AM to 5 PM at [phone] After hours please page hospitalist on-call * Imelda Trivedi RN - 03/29/2025 10:56 AM CDT 03/29/25 1000 Pre-op Call Department Department [facility] Pre-op Call Schedule Pre-op H&P with PCP Completed Do you take a blood thinner? Yes Pre-op Education Completed Guidebook Received Pre-op Call Completed Previous Joint Surgery Yes Previous Joint Surgery Comment R BINDU Urinary Health Questionaire Complete Female Questionnaire Discharge Plan Home Other Issues no antibodies or O2 use, no falls in the last year Will you have help at home? Yes Is your bathroom on the main level? Yes Are you currently using an assistive device? No Length of Stay Plan reviewed;Overnight stay Gear Cutting Machine Set Up Operator name & phone number Philippe [phone] Will your customer care team coach be the one picking you up from the hospital? Yes Do you have stairs to enter your home? Yes Is your bedroom on the main level? Yes Do you have a tub shower or walk-in shower? Walk-in shower How many blocks can you currently walk? 2+ blocks Do you have any assistive devices at home? Yes Do you have a CPAP? No What pain medications are you currently taking? None Pain Management Preferences avoid opioid use- didn't use any after last BINDU Goal after surgery getting back to normal life Concerns about surgery worried about what would happen if there were medical emergency Past post-op complications? Not applicable Are you diabetic? Yes Do you have a metal allergy? No Pre-op H&P date 03/24/25 Pre-op H&P location [facility] What blood thinner medication do you take? ASA Blood thinner stop date details Reviewed with patient Blood thinner stop date 04/13/25 How many stairs to enter your home? 2 Is there a handrail on the stairs to enter your home? Yes What device(s) doyou have at home? walker Reminded to bring device to hospital Yes Last A1C 7.5 Urinary Health Questionnaire - Female Difficulty urinating after surgery No Have you had surgery on you bladder? No Do you leak urine (even small drops) wet yourself or wet your pads or undergarments? When you cough or sneeze? 0 When you bend down or lift something up? 0 When you walk quickly, jog or exercise 0 While you are undressing in order to use the toilet? 0 When you are at rest? 1 Do you get a need to urinate that you leak urine? 0 Do you have to cordon to the bathroom? 1 Total Urinary Health Score - Female 2 BINDU/TKA CHRONIC NARCOTIC USE Use of narcotics > 90 days at time of surgery? No documented in this encounter H&P Notes * Yenni Newsome MD - 04/20/2025 7:13 AM CDT The H&P has been reviewed and the patient examined. No change has occurred in the patient's condition since the H&P was completed. Yenni Newsome MD documented in this encounter Miscellaneous Notes * Care Plan - Nandini Andrew RN - 04/21/2025 7:49 AM CDT End of Shift Summary and Plan of Care Procedure(s): Left - Left total hip arthroplasty direct anterior approach Surgeon(s): Yenni Newsome MD Kretsch, Kaylyn S, PASukh 1 Day Post-Op Pain/Comfort: Pt had no to mild pain. Pain controlled with scheduled pain meds, along with use of the ice packs and repositioning. Assessment/Interventions: CMS intact. Has prineo that is CDI. VSS on RA. Voiding adequately. Tolerating a regular diet. No further complaint. Activity: Pt ambulating with 1A w/ walker. Tolerating well. Worked with PT prior to discharge. Goals/Discharge Plan: AVS given and reviewed, Discharge education reviewed , All questions answered, and Pt discharging home with spouse after PT. Ice packs and lunches sent with on discharge. Patient has met discharge criteria and goals adequately for discharge Goals/Plan for Shift Patient/Family stated goal for shift: Discharge home. Nursing goal for shift: Continue pain control, last therapy and discharge education. Plan/Interventions to meet goal: Assessment, interventions, last therapy and discharge teaching. Summary of goal(s) progression: Met Goals per Patient Condition Fall Prevention Plan - Absence of falls. See Fall Risk flowsheet for intervention documentation. * Care Plan - Yessy Hansen RN - 04/21/2025 4:25 AM CDT Procedure(s): Left - Left total hip arthroplasty direct anterior approach Surgeon(s): Yenni Newsome MD Kretsch, Ignacio Aguila, PABrandenC Pain/Comfort: Patient rates pain 0/10 most the shift to L hip. Patient rates pain 2/10 at its highest with walking. Declines prn use for pain this shift. Using ice pack, repositioning, elevation , and distraction as well as scheduled Tylenol and IV Torodol for pain control . Reported more pain whenlifting leg up and down as night progressed pt very anxious greeting card writer reassured , and passed concern to charge and oncoming staff. Assessment/Interventions: - A&Ox4. CMS intact. -Gi/Gu ;Resp, & Cardiac systems are WNL. -Vital signs are WNL. Skin intact with exception to L hip incision covered with ABD dressing. No drainage noted. When abd removed she has prineo dressing with mild pink to immediate surrounding area,pt verbalized concern. Does not have any sxs of infection No results found for: VITB12 No results found for: FOL Denies Nausea, dizziness, or headache. - Patient is worried that she heard Clicking in her surgical hip when getting onto toilet and getting into bed . Conservation Agent has not heard clicking. The limb appears equal in length, no distortion noted, pain 0/10 to L hip , baseline admission ROM intact . Patient ambulated without issue . Charge informed to update provider in AM,will pass to oncoming staff. Activity: Assist 1 with cares and ambulation . Uses gait belt and front wheel walker Goals/Discharge Plan: DC home . PT in the AM 0900 * Op Note - Yenni Newsome MD - 04/20/2025 6:54 PM CDT [facility] Nicolette Sweeney Date of : 1950 Age: [age] year old Date of Procedure: 04/20/2025 SURGEON YENNI NEWSOME M.D. LEAF TIER Ignacio Martin PA-C - Assisting PREOPERATIVE DIAGNOSIS Left hip osteoarthritis, failed to respond to conservative management. POSTOPERATIVE DIAGNOSIS Left hip osteoarthritis, failed to respond to conservative management. TITLE OF PROCEDURE Left total hip arthroplasty, Depuy uncemented components, direct anterior approach. Vertical Knowledge computer assisted fluoroscopic hip navigation. ANESTHESIA TYPE: General ESTIMATED BLOOD LOSS: 400 mL SPECIMEN(S) No Specimens Collected COMPLICATIONS: none IMPLANT(S): Implant Name Type Inv. Item Serial No. Railroad Brake Repairer Lot No. LRB No. Used Action APEX HOLE ELIMINATOR PS - [id number] APEX HOLE ELIMINATOR PS NA DEPUY [id number] Left 1 Implanted CUP ACET 54MM PINNACLE SECTOR II - [id number] CUP ACET 54MM PINNACLE SECTOR II NA [id number] Left 1 Implanted SCREW BONE CANCELLOUS 6.5MM X 35MM - [id number] SCREW BONE CANCELLOUS 6.5MM X 35MM NA DEPUY [id number] Left 1 Implanted SCREW BONE CANCELLOUS 6.5MM X 25MM - [id number] SCREW BONE CANCELLOUS 6.5MM X 25MM NA DEPUY [id number] Left 1 Implanted LINER ACET ALTRX 35MM X 54MM NEUTRAL +4 - [id number] LINER ACET ALTRX 35MM X 54MM NEUTRAL +4 NA DEPUY [id number] Left 1 Implanted STEM FEMORAL ACTICS SZ 6 STD COLLAR - [id number] STEM FEMORAL ACTICS SZ 6 STD COLLAR NA DEPUY [id number] Left 1 Implanted HEAD FEMORAL BIOLOX DELTA SZ 36 +5MM - [id number] HEAD FEMORAL BIOLOX DELTA SZ 36 +5MM NA DEPUY [id number] Left 1 Implanted PROCEDURE The patient was brought to the operating room and after satisfactory anesthesia was placed on the Kathryn table. The left lower extremity was then prepped and draped in the usual sterile fashion. Vertical Knowledge computer assisted fluoroscopic hip navigation was utilized during the case for component positioningas well as leg length and offset assessment. An incision was made just lateral to the ASIS and coursing toward the proximal femur. Dissection was carried down to the TFL. The fascia overlying the TFLwas incised and dissection was carried down to the interval between TFL and rectus femoris. This was identified. A lateral cobra retractor was placed followed by a medial cobra around the femoral neck. The leash vessels, anterior circumflex, was identified and was coagulated. The underlying fascia was released. Dissection was carried down to the hip capsule. Capsule was identified and a capsulotomy was performed in a T-type fashion first along the intertrochanteric line and then secondarily up along the femoral neck and head, finally completed by releasing along the saddle of the trochanter. The capsular edges were tagged for later repair. The hip was then externally rotated and medial capsular release was performed such that the lesser trochanter could be palpated. Following this, the femoral neck was osteotomized as per the preoperative plan. The femoral head was removed with a corkscrew without difficulty. The acetabulum was exposed and was reamed sequentially up to 54 mm. This wasreamed under both direct visualization as well as the aid of image intensification. A 54 mm Lewisberry cup was impacted into place in approximately 40 to 45 degrees of abduction, and 20 degrees of anteversion. Two screws were placed and this gave excellent fixation. The 36 mm neutral liner was impacted into place. Attention was then directed to the femur. The hook was placed underneath the proximal aspect of thefemur between the trochanteric ridge and gluteus guerita. The hip was then brought into external rotation, adduction, and extension. The femur was then carefully elevated using the appropriate releases off the inside of the greater trochanter. Once the femur was elevated, a starter broach was placed followed by sequential broaches. The broaches were performed up to size 6 Actis, which gave excellent torsinal as well as axial stability. Trial reduction was performed with a standard offset +5mm head. The hip was reduced and with hip reduction the combined anteversion looked excellent. The hip was brought into full extension and external rotation. There was no evidence of instability. As well,x-rays were printed and compared with the opposite side and found to have good length and synagogue of offset. It was felt that an additional stem size could not be placed. The hip was then dislocated and then the proximal femur was then brought back up into the proximal aspect of the wound. The real size 6 actis stem, standard offset was impacted into place. Again this gave excellent torsion as well as axial stability. The real +5mm ceramic biolox head was impacted into place and the hip wasreduced again. The image intensification confirmed excellent position of the components. A 3 minutedilute betadine soak was performed. The wound was thoroughly irrigated. One gram of vancomycin powder was placed deep and superficial prior to closure. The capsule was closed with interrupted 0 Vicryl suture and tissues infiltrated with toradol/marcaine mixture. The tensor fascia was closed with a running 0 Stratafix suture. The subcutaneous layer was closed with interrupted 2-0 Vicryl, 2-0 Stratafix, and 3- 0 subcuticular monocryl was placed followed by a mesh dressing with skin glue. Sterile dressing was applied. The patient left the operating room in satisfactory condition. Patient received1 gm of tranexamic acid pre-op. A skilled first sampler was necessary for this procedure for assistance with patient positioning,prepping, draping, surgical visualization, performance of the repair, wound closure, and application of the dressing. * Care Plan - Nicole Parker RN - 04/20/2025 5:54 PM CDT End of Shift Summary and Plan of Care Procedure(s): Left - Left total hip arthroplasty direct anterior approach Surgeon(s): Yenni Newsome MD Kretsch, Kaylyn S, JOYCE * Day of Surgery * Pain/Comfort: Patient is resting comfortably in the recliner. She has had minimal pain since arriving to the inpatient unit. Assessment/Interventions: CMS intact, dressing is CDI, patient has paper tape on due to allergy with adhesive, no redness noted under tape or IV dressing. Patient is urinating, bowel sounds are active and lung sounds are clear. Activity: patient has ambulated with physical therapy and nursing assist of one, gait belt and front wheeled walker. Goals/Discharge Plan: all questions answered. Spouse will be back in the morning with patients homewalker. Goals/Plan for Shift Patient/Family stated goal for shift: Pain management, Walking and working with therapy Nursing goal for shift: Patient will have well managed pain control, adaquate nutritional intake during shift, urinate within 6 hours of arrival to inpatient Plan/Interventions to meet goal: Ongonig pain assessments, scheduled medications, Education and encouragement along with focused assessments Summary of goal(s) progression: Progressing Goals per Patient Condition Fall Prevention Plan - Absence of falls. See Fall Risk flowsheet for intervention documentation. * Rehab Evaluation - Alaina Domingo, PT - 04/20/2025 4:30 PM CDT PHYSICAL THERAPY ACUTE CARE ORTHOPEDIC EVALUATION (HIP) Subjective Patient agreeable to participate with physical therapy. Patient seated up in bed, receiving nursingcares and greeted greeting card writer - patient is ready to get up for the first time and indicated she needs touse the restroom Admission Diagnosis: M16.12 Degenerative joint disease of the left hip Treatment Diagnosis: Pain, decreased ROM/strength, and impaired mobility status post left BINDU. Procedures/Diagnostics Affecting Therapy: Procedure(s): Left - Left total hip arthroplasty direct anterior approach See chart. All relevant imaging, procedures, and diagnostics reviewed prior to PT evaluation. Pertinent PMHx: ASHD, HTN, PVCs, DM2, HERBERT, breast CA - left side, no Bps, chronic LBP, R BINDU 2022 without complications Functional Level Prior to Admit: Patient independent with all mobility and ADLs No use of assistive device No falls in the last year Enjoys nature walks Pain: 1-2/10 L hip at rest and after PT Precautions: No hip precaution secondary to surgical approach WBAT Current Living Situation/Social History: Patient lives with spouse but going to [employer] which is a one level home with 1 stairs to enter without rail. Has walk in shower - discussed use of suction grab bar or walker to avoid falls in the shower Durable Medical Equipment Owned: Front wheeled walker Patient's Goal(s): walk outside in nature without hip pain Objective Cognition: Alert , Oriented, and Cooperative Functional Mobility Assessment Supine to Sit: standby assist Sit to Supine: didn't attempt Bed Modification: head of bed elevated Sit<>Stand: CGA Bed<>Chair: didn't attempt Gait: Patient ambulated 40 ft with FWW and CGA. Gait pattern: uncoordinated at first but then smoother, cues to keep the walker on the ground, reciprocal Stairs: N/T Tests and Measures: Motor/Sensation: Patient was able to elicit quad set, patient was unable to elicit SLR with examination. Patient also demonstrates sensation of BLE WFL for initiation of mobility. Strength/Range of Motion Assessment: Lower Extremity Strength: Right: WFL Left: L ankle DF WFL; quad WFL Intervention: Therapeutic exercise: No exercise per surgeon preference Therapeutic Activity: Skilled therapeutic education, program counselor and activity modification was providedto patient for the purpose and intent of improving functional mobility and activities of daily living. Therapist provided education regarding the following topics; Bed mobility- assisted patient with bed transition where education was provided to improve patient understanding of associated post operative precaution with bed mobility for home negotiation. Patient required stand by assistance with bed mobility today and demonstrated good understanding of education. Dressing: Physical therapist provided education and physical assistance post operatively to assist patient in dressing and clothing management. Therapist discussed appropriate sequencing of dressing to aid in post operative precaution for ADL management upon discharge. Toilet: Physical therapist provided assistance post operatively for safe negotiation and completionof toileting with education on appropriate transfer mechanics, post operative precaution/consideration and home education training. Pt required contact guard assistance for safe carry out of task. Gait Training: The patient participates in gait training to improve functional mobility as it relates to ambulation. Therapist provided verbal cues to improve patient understanding and to address aforementioned impairments. The patient has good tolerance this encounter, and required contact guard assistance and ww assistive device. Vitals/Observations/Response to Treatment: Stable throughout session Patient/Caregiver Education: Ambulation only- BINDU: Education provided on fall avoidance within home and DME needs; frequency of ambulation every 1-1.5 hours for 5 minutes with walker and as appropriate progression to cane, icingevery hour for 20-30 minutes during the day; avoidance of over-doing activity; elevation on multiple pillows to decrease swelling and safe coaching handling techniques as well as review of total hip p recautions set forth by surgeon. Educated on surgeon preference for ambulation only for post operative activity. Barriers to Learning: None Evaluation, assessment, goals, and plan of care discussed with patient and spouse. The patient and spouse received written information, verbal information, and a demonstration. The opportunity to ask questions was offered. The patient verbalized and demonstrated good understanding verbalized excellent understanding. Interdisciplinary Communication: Evaluation, goals, and plan of care discussed with nursing and PT. Assessment/Plan Patient is a 74 year old female with pain, decreased ROM/Strength and impaired mobility status postleft BINDU. Patient was limited by pain in Hip with mobility prior to surgery. Today, the patient hasgood tolerance to session and requires contact guard assistance for mobility with use of FWW. Throughout visit, PT observed incision site for drainage- no concerns to note. [facility]. Barriers to Discharge Home: No anticipated barriers PLAN OF CARE Recommendations for Discharge: Home with caregiver / Family support Anticipated DME Needs for Discharge: patients has all necessary AD's Goals to be met by discharge from facility Goals to be met by patient discharge: 1. Patient will ambulate >120 feet with stand by assistance and appropriate assistive device 2. Patient will demonstrate modified independence assistance with bed, chair and car transfer whilemaintaining hip precautions. 3. Patient will demonstrate >= 3 stairs with stand by assistance with appropriate assistive device. 4. Patient will demonstrate/verbalize understanding of post op HEP, precautions, fall avoidance education and recommendations for home s/p BINDU. Rehab Potential: Good Frequency of Physical Therapy Recommended: 1-2x follow up treatment until discharge Planned interventions may consist of any combination of the following: Therapeutic Exercise (strength/range of motion) Therapeutic Activities (transfer training/functional mobility) Gait Training Neuromuscular Re-education Manual Therapy Patient/Caregiver Education Home Exercise Program Self-Care/Home Management (ADL's) PT Total Treatment Time: 35 minutes Evaluation Moderate - Complexity (06772) Therapeutic Activities (82056) = 15 minutes * Brief Op Note - Yenni Newsome MD - 04/20/2025 1:56 PM CDT BRIEF OPERATIVE NOTE Pre-Op Diagnosis: M16.12 Degenerative joint disease of the left hip Post-Op Diagnosis: same as above Procedure(s): Left total hip arthroplasty direct anterior approach Surgeons and Role: * Yenni Newsome MD - Primary * Ignacio Martin PA-C - Assisting Anesthesia Type: General endotracheal anesthesia Estimated Blood Loss: 400 ml Complications: none noted Findings: none Drains: None Disposition: PACU Specimen(s): No Specimens Collected Implant(s): Implant Name Type Inv. Item Serial No. Railroad Brake Repairer Lot No. LRB No. Used Action APEX HOLE ELIMINATOR PS - [id number] APEX HOLE ELIMINATOR PS NA DEPUY [id number] Left 1 Implanted CUP ACET 54MM PINNACLE SECTOR II - [id number] CUP ACET 54MM PINNACLE SECTOR II NA [id number] Left 1 Implanted SCREW BONE CANCELLOUS 6.5MM X 35MM - [id number] SCREW BONE CANCELLOUS 6.5MM X 35MM NA DEPUY [id number] Left 1 Implanted SCREW BONE CANCELLOUS 6.5MM X 25MM - [id number] SCREW BONE CANCELLOUS 6.5MM X 25MM NA DEPUY [id number] Left 1 Implanted LINER ACET ALTRX 35MM X 54MM NEUTRAL +4 - [id number] LINER ACET ALTRX 35MM X 54MM NEUTRAL +4 NA DEPUY [id number] Left 1 Implanted STEM FEMORAL ACTICS SZ 6 STD COLLAR - [id number] STEM FEMORAL ACTICS SZ 6 STD COLLAR NA DEPUY [id number] Left 1 Implanted HEAD FEMORAL BIOLOX DELTA SZ 36 +5MM - [id number] HEAD FEMORAL BIOLOX DELTA SZ 36 +5MM NA DEPUY [id number] Left 1 Implanted See other operative note for full details * Plan of Care - Jackie Romero PA-C - 03/29/2025 11:46 AM CDT PREOPERATIVE ASSESSMENT NOTE Procedure(s): Left total hip arthroplasty direct anterior approach Date of Surgery: 04/20/[address] Yenni Newsome Post-op appointment scheduled with Ignacio Martin PA-C on 05/11/25 at 1:20 pm at the [place] office Patient's goals after surgery: less pain Patient's concerns with upcoming surgery: worried about what would happen if there were medical emergency H&P Patient's pre-operative history and physical with their primary care physician was reviewed. From that, the following should be noted: -mild ASHD, HTN, HLD, PVC's, DM2, GERD, moderate mild untreated HERBERT from sleep noted 03/07/2022 nocturnal hypoxemia, (doesn't use oxygen), h/o L breast cancer, chronic LBP -NO IV's IN LEFT ARM s/p lumpectomy -09/16/24 ECHO: 1. Normal LV size, normal wall thickness, normal global systolic function with an estimated EF of 55 - 60%. 2. The aortic valve is sclerotic, no stenosis and no regurgitation. 3. The mitral valve is sclerotic, trace mitral regurgitation. 4. Since the echo from 09/21, there is no change. -s/p R BINDU 05/08/23 -No further workup prior to surgery per PCP. Patient does meet criteria for hospitalist comanagement. Antibiotic use in last 14 days: no History of defibrillator or pacemaker? no Significant past medical history pertinent to surgery: See above. Denies prior history of anesthetic reactions, malignant hyperthermia or difficult intubation. Any history of antibodies in blood? no History of DVT/PE or clotting disorder including Factor V Leiden? no DVT Prophylaxis Medication Plan: Aspirin 325 mg daily x42 days Allergies were reviewed: adhesives, statins, amlodipine, clinidien BMI: 25.1 Labs were reviewed and discussed, notably: 03/24/25 HGB: 12.1 Cr: 0.9 GFR: 67 (online calculator) Glucose: 152 Hgb A1c: 7.5% (metformin increased by PCP on preop; A1c has been improving- 8% in 07/2024 to 7/7 in 12/2024) Na: 139 K: 3.7 Prior to Admission Medications: Patient will continue the following medications: atorvastatin, metoprolol, citalopram, nitroglycerin, Prilosec Patient will hold the following medications: losartan-hydrochlorothiazide, metformin, fish oil x2 weeks They understand all vitamin supplements and herbal medications should be stopped 7 days prior to surgery. They understand they should not use any aspirin, aspirin-containing products, or anti-inflammatory medication for 7 days prior to surgery. They are able to continue to use Tylenol as needed up until the day before surgery. Guidebook reference to medications was given to patient (pages 7 & 19). Patient's code status was reviewed and is Full Code. Post-Operative Discharge Planning Patient agrees with: Anticipated discharge on post-op day 1 Anticipated time of discharge between 9:00AM-12:00PM with their cdl company flatbed driver arriving by 8:00 AM Color Specialist: tg Paez Discharge location: home Anticipated Home Health Services: None Gear Cutting Machine Set Up Operator/Family member available after discharge: Philippe (was not present for this discussion) Post-operative medication plan and education was discussed Patient's medication dosing and sig for the above medications to be determined post-operatively. In the event of a concern arising after surgery, the patient was provided with the following information: During business hours, call surgeon's patient centered care specialist, Marlen Combs at [phone]. After business hours, call the on-call provider at [phone]. [facility] was discussed. They were asked to first contact [facility] for continuity of care prior to going to another urgent care or ER for issues related to their surgery. They were instructed to go to the ER promptly for any medical emergency that may arise after discharge. Further education was provided to the patient on the following topics and corresponding page numbers from the guidebook were given: CHG Soap (Hibiclens, etc) Page 22 Patient will purchase soap prior to surgery. They will follow theinstructions for showering with the soap the night before surgery and the morning of surgery. Assistive Devices Page 17/51 They understand their customer care team coach should bring their assistive device to their inpatient room after surgery. If they do not have one, their therapist will dispense one as needed. Dental Appointments Page 12 We discussed holding off on any routine dental work for 3 months. Following that timeframe, the patient understands they will use antibiotics one hour prior to any dental work, this includes routine cleanings (Amoxicillin 500mg - 4 tablets)- x2 years. Anesthesia Page 24 The anesthesiologist will discuss the anesthesia care plan with the patient the day of surgery. Incision/Dressing Care Page 33/42 We discussed the type of dressing the patient can expect after surgery as well as how to care for it, how to recognize increased drainage or bleeding, as well as bathing after surgery. They understand that bruising is normal after total joint surgery and will migrate down their extremity in the week following surgery. Post-Op Medications Page 29, 32, 39-41, 54(knee) 56(hip) We discussed the patient's individualized post-operative medication plan and each medication was explained and questions were answered. Guidebook references were given. The patient will likely discharge home with the following medications, patient specific dosing willbe determined post-operatively: ASPIRIN - they understand this medication should not be combined with other medication containing aspirin products and will replace any other aspirin they may be taking. TYLENOL - this medication helps with pain. They will take Tylenol scheduled as long as they have pain. Most patients typically need this medication for 2-3 weeks but some may need it up to 6-8 weeks.Tylenol can be taking safely with the narcotic pain medication, anti-inflammatory, and aspirin. CELEBREX - this is an anti-inflammatory medication that will be taken as prescribed after surgery. They understand they will not take another anti- inflammatory while taking this medication. OXYCODONE - this is a narcotic pain medication and should be used sparingly but used as needed for pain. They understand this is the first of the medications used for pain that they should wean from.Most patients only need this medication for 1-2 weeks after surgery. We discussed titrating the narcotic based on their level of pain as follows: 1/2-1 tablet every 4-6 hours as needed for pain rating 3-6 (moderate pain) or 1-2 tablets every 4-6 hours as needed for pain rating 7- 10 (severe pain). This medication will not be used for pain rating <3 (mild pain). SENOKOT - this stool softener/laxative combination pill will be used after surgery as needed for constipation. 1-2 tablets can be taken as needed. Omeprozole 20 mg 1 tab daily x6 weeks while taking aspirin and Celebrex, #42 They understand there is not an outpatient pharmacy at the [facility] and they will need to sweet pickle maker their post-operative medications at a pharmacy of their choice once they are discharged. Medication Refills Page 39 They understand it is best to allow at lest 48 hours for refills and that all refills can be requested through their pharmacy or directly with their surgeon's team. I did call out that any refills needed before the weekend will need to be submitted on . Pain Control Strategies Page 29 In addition to medication to control pain, we discussed non-medication strategies to helping with pain control and swelling (RICE). Icing and elevating often is extremely beneficial, we discussed a goal of 4-5 times a day for 20-30 minutes at a time. Swelling Page 31/35 Swelling will last at least 3-4 months and take a year to be as good as it's going to get. The operative side may never completely look the same as it did prior to surgery. It is normal for the swelling to cause stiffness in the morning and increase throughout the day with the most swelling being present in the evening. Swelling does go with gravity so the lower leg/arm or foot/hand will be swollen too. If swelling increases dramatically, this typically means your are being a little too active. Constipation Page 32/40 We discussed this is very common after surgery secondary to anesthesia, inactivity, and narcotic pain medication. In addition to the prescribed medication we discussed the useof Miralax, probiotics, prunes/prune juice, fiber rich diet, and hydration. In addition, increasingactivity as they are able will be helpful. They understand if they are having significant trouble they can try magnesium citrate, a suppository, or a Fleet enema. DVT Page 43 We discussed the signs, symptoms, and prophylactic treatment for DVTs post-operatively.We also discussed the importance of recognizing and reporting these symptoms. They understand they should call the office right away to report any concern for post-operative DVT. Activity Post-Operatively Page 35, 50(hip) 55(knee) The patient understands it is best to return to activity slowly and follow the instructions given to them by their surgeon's team. Having an active recovery and increasing activity as pain allows will also help reduce complications (pain, swelling, DVT, etc). General Day of Surgery Timeline Page 23 I briefly ran through what they can expect on the day of surgery after arriving at the [facility]. Avoiding a Delayed Surgery Page 10 I gave them this reference to use between now and surgery to avoid their surgery being delayed or cancelled. Jackie Romero PA-C [facility] documented in this encounter Plan of Treatment Not on file documented as of this encounter Procedures Procedure Name Priority Date/Time Associated Diagnosis Comments GLUCOSE, METER Routine 04/21/2025 7:15 AM CDT HEMOGLOBIN Routine 04/21/2025 6:08 AM CDT GLUCOSE, METER Routine 04/21/2025 12:15 AM CDT GLUCOSE, METER Routine 04/20/2025 9:31 PM CDT GLUCOSE, METER Routine 04/20/2025 6:39 PM CDT GLUCOSE, METER Routine 04/20/2025 3:45 PM CDT XR HIP LEFT 2 OR 3 VIEWS W PELVIS Routine 04/20/2025 2:36 PM CDT S/P total left hip arthroplasty EKG 12-LEAD STAT 04/20/2025 2:22 PM CDT GLUCOSE, METER Routine 04/20/2025 2:05 PM CDT XR C ARM FLUORO Routine 04/20/2025 1:34 PM CDT GLUCOSE, METER Routine 04/20/2025 9:31 AM CDT documented in this encounter Results * (ABNORMAL) GLUCOSE, METER (04/21/2025 7:15 AM CDT) Glucose Meter 285(H) 74 - 100 mg/dL 04/21/2025 7:22 AM CDT [facility] Blood WHOLE BLOOD SPECIMEN / Unknown 04/21/2025 7:15 AM CDT 04/21/2025 7:22 AM CDT us Yenni Newsome MD EC CHEMISTRY ORDERABLES Final Result Performing Organization Address [facility] de Phone Number [facility] [address] [place] [address] * (ABNORMAL) HEMOGLOBIN (04/21/2025 6:08 AM CDT) HGB 10.1(L) 12.0 - 16.0 g/dl 04/21/2025 6:56 AM CDT [facility] Blood BLOOD SPECIMEN / Unknown Venipuncture / Unknown 04/21/2025 6:08 AM CDT 04/21/2025 6:35 AM CDT us Yenni Newsome MD EC HEMATOLOGY ORDERABLES Final Result Performing Organization Address [facility] de Phone Number [facility] [address] [place] [address] * (ABNORMAL) GLUCOSE, METER (04/21/2025 12:15 AM CDT) Glucose Meter 294(H) 74 - 100 mg/dL 04/21/2025 12:23 AM CDT [facility] Blood WHOLE BLOOD SPECIMEN / Unknown 04/21/2025 12:15 AM CDT 04/21/2025 12:23 AM CDT us Yenni Newsome MD EC CHEMISTRY ORDERABLES Final Result Performing Organization Address [facility] de Phone Number [facility] [address] [place] [address] * (ABNORMAL) GLUCOSE, METER (04/20/2025 9:31 PM CDT) Glucose Meter 335(H) 74 - 100 mg/dL 04/20/2025 9:47 PM CDT [facility] Blood WHOLE BLOOD SPECIMEN / Unknown 04/20/2025 9:31 PM CDT 04/20/2025 9:47 PM CDT us Yenni Newsome MD EC CHEMISTRY ORDERABLES Final Result Performing Organization Address [facility] de Phone Number [facility] [address] [place] [address] * (ABNORMAL) GLUCOSE, METER (04/20/2025 6:39 PM CDT) Glucose Meter 297(H) 74 - 100 mg/dL 04/20/2025 6:46 PM CDT [facility] Blood WHOLE BLOOD SPECIMEN / Unknown 04/20/2025 6:39 PM CDT 04/20/2025 6:46 PM CDT us Yenni Newsome MD EC CHEMISTRY ORDERABLES Final Result Performing Organization Address [facility] de Phone Number [facility] [address] [place] [address] * (ABNORMAL) GLUCOSE, METER (04/20/2025 3:45 PM CDT) Glucose Meter 199(H) 74 - 100 mg/dL 04/20/2025 3:54 PM CDT [facility] Blood WHOLE BLOOD SPECIMEN / Unknown 04/20/2025 3:45 PM CDT 04/20/2025 3:54 PM CDT us Yenni Newsome MD EC CHEMISTRY ORDERABLES Final Result Performing Organization Address [facility]/ZIP Co de Phone Number NURIS CALDWELL [address] [phone] * XR HIP LEFT 2 OR 3 VIEWS W PELVIS (04/20/2025 2:36 PM CDT) Anatomical Region Laterality Modality Pelvis, Hip Radiographic Dara ging 04/20/2025 2:26 PM CDT Narrative 04/20/2025 2:42 PM CDT PROCEDURE: XR HIP LEFT 2 OR 3 VIEWS W PELVIS HISTORY: Hip replacement surgery. COMPARISON: Intraoperative fluoroscopic images from earlier the same day. FINDINGS: Interval completion of left total hip arthroplasty. The hardware appears intact and well-positioned. No dislocation or displaced fracture. Postoperative gas about the left hip. Stable right hip arthroplasty hardware. IMPRESSION: Expected postoperative changes of recent left total hip arthroplasty. Electronically signed by Juni Beverly MD Report Date: 04/20/2025 2:42 PM Procedure Note Juni Beverly MD - 04/20/2025 PROCEDURE: XR HIP LEFT 2 OR 3 VIEWS W PELVIS HISTORY: Hip replacement surgery. COMPARISON: Intraoperative fluoroscopic images from earlier the sameday. FINDINGS: Interval completion of left total hip arthroplasty. The hardware appearsintact and well-positioned. No dislocation or displaced fracture. Postoperativegas about the left hip. Stable right hip arthroplasty hardware. IMPRESSION: Expected postoperative changes of recent left total hip arthroplasty. Electronically signed by Juni Beverly MD Report Date: 04/20/2025 2:42 PM Yenni Newsome MD EC DIAGNOSTIC IMAGING ORDERABL ES Final Result * EKG 12-LEAD (04/20/2025 2:22 PM CDT) Ventricular Rate 81 BPM RMCMUSE Atrial Rate 81 BPM RMCMUSE P-R Interval 200 ms RMCMUSE QRS Duration 94 ms RMCMUSE QT 396 ms RMCMUSE QTc 460 ms RMCMUSE P [place] 40 degrees RMCMUSE R [place] -20 degrees RMCMUSE T [place] 133 degrees RMCMUSE 04/20/2025 2:22 PM CDT 04/22/2025 12:44 PM CDT Narrative RMCMUSE - 04/22/2025 12:44 PM CDT Confirming Doc Ricki Barajas Sinus rhythm with occasional premature ventricular complexes Left ventricular hypertrophy with repolarization abnormality Abnormal ECG No previous ECGs available Procedure Note Ricki Barajas MD - 04/22/2025 [address]ing Doc Ricki Barajas Sinus rhythm with occasional premature ventricular complexes Left ventricular hypertrophy with repolarization abnormality Abnormal ECG No previous ECGs available us Ryan Velazquez DO IP ECG ORDERABLES Final Resul t Performing Organization Address City/[facility]/ZIP Co de Phone Number RMCMUSE * (ABNORMAL) GLUCOSE, METER (04/20/2025 2:05 PM CDT) [facility] Glucose Meter 168(H) 74 - 100 mg/dL 04/20/2025 2:12 PM CDT [facility] Blood WHOLE BLOOD SPECIMEN / Unknown 04/20/2025 2:05 PM CDT 04/20/2025 2:12 PM CDT Yenni Newsome MD EC CHEMISTRY ORDERABLES Final Result Performing Organization Address [facility] de Phone Number [facility] [address] [place] [address] * XR C ARM FLUORO (04/20/2025 1:34 PM CDT) Anatomical Region Laterality Modality Radiographic Dara ging 04/20/2025 11:3 5 AM CDT Narrative 04/20/2025 1:47 PM CDT PROCEDURE: C-ARM FLUOROSCOPIC SUPPORT HISTORY: Placement. TECHNIQUE: C-arm fluoroscopic imaging. Total fluoroscopy time: 34 seconds. Number of saved fluoroscopic images: 9. COMPARISON: None. IMPRESSION: Existing right total hip arthroplasty. Images were obtained during performance of a left total hip arthroplasty. Components are in anatomic alignment. No unexpected foreign body on the final image. Hemostat noted in the [id number]. Please see the operative note for additional details. Electronically signed by Carlos Chaves MD Report Date: 04/20/2025 1:47 PM Procedure Note Carlos Chaves MD - 04/20/2025 PROCEDURE: C-ARM FLUOROSCOPIC SUPPORT HISTORY: Placement. TECHNIQUE: C-arm fluoroscopic imaging. Total fluoroscopy time: 34 seconds. Number of saved fluoroscopic images: 9. COMPARISON: None. IMPRESSION: Existing right total hip arthroplasty. Images were obtained duringperformance of a left total hip arthroplasty. Components are in anatomic alignment.No unexpected foreign body on the final image. Hemostat noted in [id number]. Please see the operative note for additional details. Electronically signed by Carlos Chaves MD Report Date: 04/20/2025 1:47 PM Maria Luz Hinojosa PA-C EC DIAGNOSTIC IMAGING ORDER CORNELIA Final Result * (ABNORMAL) GLUCOSE, METER (04/20/2025 9:31 AM CDT) [facility] Signature Glucose Meter 171(H) 74 - 100 mg/dL 04/20/2025 9:39 AM CDT [facility] Blood WHOLE BLOOD SPECIMEN / Unknown 04/20/2025 9:31 AM CDT 04/20/2025 9:39 AM CDT Yenni Newsome MD EC CHEMISTRY ORDERABLES Final Result Performing Organization Address City/State/[facility] Co de Phone Number [facility] [address] [place] [address] documented in this encounter Visit Diagnoses Diagnosis S/P total left hip arthroplasty- Primary S/P total left hip arthroplasty documented in this encounter Administered Medications Inactive Administered Medications Medication Order MAR Action Action Date Dose Rate Site acetaminophen (Tylenol) tablet 1,000 mg 1,000 mg, Oral, ONCE, 1 dose, On Fri04/20/25 at 0930 Given 04/20/2025 9:25 AM CDT 1,000 mg acetaminophen (Tylenol) tablet 1,000 mg 1,000 mg, Oral, 3 TIMES DAILY, First dose on Fri04/20/25 at 1500, Until Discontinued Given 04/21/2025 7:30 AM CDT 1,000 mg Given 04/20/2025 8:03 PM CDT 1,000 mg Given 04/20/2025 4:38 PM CDT 1,000 mg aspirin tablet 325 mg 325 mg, Oral, ONCE DAILY, First dose on Fri04/21/25 at 0730, Until Discontinued Given 04/21/2025 7:30 AM CDT 325 mg atorvaSTATin (Lipitor) tablet 80 mg 80 mg, Oral, AT BEDTIME, First dose on Fri04/20/25 at 2200, Until Discontinued Given 04/20/2025 9:47 PM CDT 80 mg benzocaine-menthol 15-2.6 MG Lozenge 1 Lozenge 1 Lozenge, Mouth/Throat, 4 TIMES DAILY NEEDED, Starting on Fri04/20/25 at 1610, Until Fri04/21/25 at 1412, sore throat bisacodyl (Dulcolax) suppository 10 mg 10 mg, Rectal, ONE TIME DAILY NEEDED, Starting on Fri04/20/25 at 1455, Until Fri04/21/25 at 1412, Constipation calcium carbonate (Tums) chewable tablet 500 mg 500 mg, Chew, 3 TIMES DAILY NEEDED, Starting on Fri04/20/25 at 1610, Until Fri04/21/25 at 1412, Heartburn ceFAZolin (ANCEF) 2 g in dextrose 4% IVPB 100 mL 2,000 mg, Intravenous, at 200 mL/hr, *EVERY 8 HOURS, 2 doses, First dose on Fri04/20/25 at 2000, Last dose on Fri04/21/25 at 0400, Indication? surgical prophylaxis New Bag 04/21/2025 4:04 AM CDT 2,000 mg 200 mL/hr New Bag 04/20/2025 7:54 PM CDT 2,000 mg 200 mL/hr citalopram (CeleXA) tablet 10 mg 10 mg, Oral, ONCE DAILY, First dose on Fri04/21/25 at 0800, Until Discontinued Given 04/21/2025 7:30 AM CDT 10 mg dextrose (D50) 50 % injection 12.5-25 g 12.5-25 g, IV Push, NEEDED, Starting on Fri04/20/25 at 1552, Until Fri04/21/25 at 1412, Hypoglycemia diphenhydrAMINE (Benadryl) capsule 25 mg 25 mg, Oral, EVERY 4 HOURS NEEDED, Starting on Fri04/20/25 at 1455, Until Fri04/21/25 at 1412, Itching diphenhydrAMINE (Benadryl) injection 12.5-25 mg 12.5-25 mg, IV Push, EVERY 4 HOURS NEEDED, Starting on Fri04/20/25 at 1455, Until Fri04/21/25 at 1412, Itching ethyl alcohol nasal 62 % swab Nasal, ONCE, 1 dose, On Fri04/20/25 at 0930 Given 04/20/2025 9:59 AM CDT 2 Swabs ethyl alcohol nasal 62 % swab Nasal, 2 (two) times daily, First dose on Fri04/20/25 at 2100, Until Discontinued Given 04/21/2025 7:30 AM CDT 1 Sw ab Given 04/20/2025 7:56 PM CDT 2 Swabs glucagon (diagnostic) (Glucagen) injection 1 mg 1 mg, Intramuscular, NEEDED, Starting on Fri04/20/25 at 1552, Until Fri04/21/25 at 1412, Hypoglycemia glucose (Glutose) 40 % gel 37.5-75 g 37.5-75 g, Oral, NEEDED, Starting on Fri04/20/25 at 1552, Until Fri04/21/25 at 1412, Hypoglycemia hydrALAZINE (Apresoline) tablet 25 mg 25 mg, Oral, 2 TIMES DAILY NEEDED, Starting on Fri04/20/25 at 1610, Until Fri04/21/25 at 1412, SBP > 180 HYDROmorphone (Dilaudid) injection 0.25-0.5 mg 0.25-0.5 mg, IV Push, EVERY 2 HOURS NEEDED, Starting on Fri04/20/25 at 1455, Until Dinorah 04/21/25 at 1412, Moderate Pain (4-6), Severe Pain (7-10) hydrOXYzine HCl (Atarax) tablet 10 mg 10 mg, Oral, EVERY 6 HOURS NEEDED, Starting on Fri04/20/25 at 1455, Until Dinorah 04/21/25 at 1412, Other, Muscle Spasms insulin aspart (NovoLOG) injection (CORRECTION DOSE) 1-16 Units 1-16 Units, Subcutaneous, WITH MEALS AND BEDTIME, First dose on Fri04/20/25 at 1600, Until Discontinued, Blood Glucose Target - Daytime (mg/dL): 145, Blood Glucose Target - Bedtime and Overnight (mg/dL): 170, Hyperglycemia Correction Factor - Daytime: 30, Hyperglycemia Correction Factor - Bedtime and Overnight: 60 Given 04/21/2025 7:51 AM CDT 5 Units Given 04/20/2025 9:34 PM CDT 3 Units Ab dominal Tissue Given 04/20/2025 6:38 PM CDT 5 Units Given 04/20/2025 4:10 PM CDT 2 Units ketorolac (TORADOL) injection 15 mg 15 mg, IV Push, EVERY 6 HOURS, 4 doses, First dose on Fri04/20/25 at 1900, Last dose on Fri04/21/25 at 1200 Given 04/21/2025 6:41 AM CDT 15 mg Given 04/21/2025 12:14 AM CDT 15 mg Given 04/20/2025 7:54 PM CDT 15 mg lactated ringers BOLUS BAG 250 mL 250 mL, Intravenous, at 1,000 mL/hr, EVERY 30 MINUTES NEEDED, 2 doses, Starting on Fri04/20/25 at 1455, Until Fri04/21/25 at 1412 lactated ringers infusion 10-50 mL/hr, Intravenous, CONTINUOUS, Starting on Fri04/20/25 at 0930, Until Fri04/21/25 at 1412 New Bag 04/20/2025 1:21 PM CDT Restarted 04/20/2025 11:32 AM CDT New Bag 04/20/2025 9:47 AM CDT 10 mL/hr 10 mL/hr lactated ringers infusion Intravenous, at 75 mL/hr, CONTINUOUS, Starting on Fri04/20/25 at 1500, Until Fri04/21/25 at 1412 magnesium hydroxide (Milk of Magnesia) 400 MG/5ML suspension 30 mL 30 mL, Oral, ONE TIME DAILY NEEDED, Starting on Fri04/20/25 at 1455, Until Fri04/21/25 at 1412, Constipation melatonin tablet 3 mg 3 mg, Oral, AT BEDTIME NEEDED, Starting on Fri04/20/25 at 1455, Until Fri04/21/25 at 1412, Sleep metFORMIN (Glucophage) tablet 1,000 mg 1,000 mg, Oral, 2 TIMES DAILY WITH MEALS, First dose (after last modification) on Fri04/21/25 at 0700, Until Discontinued Given 04/21/2025 6:42 AM CDT 1,000 mg metFORMIN (Glucophage) tablet 500 mg 500 mg, Oral, ONCE, 1 dose, On Fri04/20/25 at 1700 Given 04/20/2025 4:58 PM CDT 500 mg metoprolol succinate (Toprol-XL) 24 hour tablet 50 mg 50 mg, Oral, EVERY EVENING, First dose (after last modification) on Fri04/21/25 at 2000, Until Discontinued naloxone (Narcan) injection 0.1 mg 0.1 mg, IV Push, EVERY 3 MINUTES NEEDED, Starting on Fri04/20/25 at 1455, Until Fri04/21/25 at 1412, Respiratory Depression, Other, 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 ondansetron (Zofran ODT) disintegrating tablet 4 mg 4 mg, Oral, EVERY 6 HOURS NEEDED, Starting on Fri04/20/25 at 1455, Until Fri04/21/25 at 1412, Nausea, Vomiting ondansetron (Zofran) injection 4 mg 4 mg, IV Push, EVERY 6 HOURS NEEDED, Starting on Fri04/20/25 at 1455, Until Fri04/21/25 at 1412, Nausea, Vomiting oxyCODONE (Roxicodone) immediate release tablet 2.5-5 mg 2.5-5 mg, Oral, EVERY 4 HOURS NEEDED, Starting on Fri04/20/25 at 1455, Until Fri04/21/25 at 1412, Moderate Pain (4-6), Severe Pain (7-10) pantoprazole (Protonix) tablet 20 mg 20 mg, Oral, ONCE DAILY, First dose on Fri04/21/25 at 0800, Until Discontinued Given 04/21/2025 6:41 AM CDT 20 mg polyethylene glycol 3350 (Glycolax, Miralax) packet 17 g 17 g, Oral, ONCE DAILY, First dose on Fri04/21/25 at 0900, Until Discontinued pregabalin (Lyrica) capsule 75 mg 75 mg, Oral, ONCE, 1 dose, On Fri04/20/25 at 0930 Given 04/20/2025 9:25 AM CDT 75 mg prochlorperazine (COMPAZINE) injection 5 mg 5 mg, IV Push, EVERY 6 HOURS NEEDED, Starting on Fri04/20/25 at 1455, Until Fri04/21/25 at 1412, Nausea, Vomiting prochlorperazine (Compazine) tablet 5 mg 5 mg, Oral, EVERY 6 HOURS NEEDED, Starting on Fri04/20/25 at 1455, Until [place]orah 04/21/25 at 1412, Nausea, Vomiting senna-docusate (Senokot-S) 8.6-50 MG per tablet 1 Tablet 1 Tablet, Oral, 2 TIMES DAILY, First dose on Fri04/20/25 at 2000, Until Discontinued Given 04/21/2025 7:30 A M CDT 1 Tablet Given 04/20/2025 7:56 PM CDT 1 Tablet sodium chloride 0.9% IV FLUSH (NS) SYRINGE 5 mL 5 mL, IV Flush, EVERY 8 HOURS, First dose on Fri04/20/25 at 1500, Until Discontinued Given 04/21/2025 6:42 AM CDT 5 mL Given 04/20/2025 9:47 PM CDT 5 mL Given 04/20/2025 3:24 PM CDT 5 mL sodium chloride 0.9% IV FLUSH (NS) SYRINGE 5 mL 5 mL, IV Flush, NEEDED, Starting on Fri04/20/25 at 1455, Until Fri04/21/25 at 1412, Other, IV Line Flushing sodium phosphate (Fleet) 7-19 GM/118ML enema 1 Enema 1 Enema, Rectal, ONE TIME DAILY NEEDED, Starting on Fri04/20/25 at 1455, Until Fri04/21/25 at 1412, Constipation, For constipation refractory to SENAKOT-S or DULCOLAX documented in this encounter Discontinued Medications Medication Sig Discontinue Reason Start Date End Da te acetaminophen (TYLENOL) 325 MG tablet Take 975 mg by mouth every six hours as needed. Patient quit taking 05/08/2023 04/20/2025 aspirin EC 81 MG tablet Take 81 mg by mouth one time a day. 05/09/2023 04/20/2025 amoxicillin (Amoxil) 500 MG capsuleIndications:Inf ection Take 4 Capsules by mouth as needed for Other (dental appt). Indications: Infection 04/20/2025 losartan-hydroCHLOROth iazide (Hyzaar) 100-25 MG oral tablet Take 1 Tablet by mouth one time a day. 09/20/2024 04/21/2025 omeprazole (PriLOSEC) 20 MG delayed-release capsule Take 20 mg by mouth every morning. Other 06/21/2024 04/21/2025 documented as of this encounter Historical Medications * This list may reflect changes made after this encounter. Multiple Vitamins-Mineral s (MULTIVITAMIN ADULTS OR) Take 1 Tablet by mouth every morning. Probiotic Product (ACIDOPHILUS PROBIOTIC COMPLEX OR) Take 2 Tablets by mouth one time a day. [place]-3 Fatty Acids (SM Fish Oil) 1000 MG capsule Take 1,000 mg by mouth one time a day. 09/29/2017 nitroglycerin (Nitrostat) 0.[address] 0.4 mg under the tongue every five minutes as needed. 05/08/2023 metoprolol succinate (Toprol-XL) 50 MG 24 hour extended-release tablet Take 50 mg by mouth one time a day. 09/16/2022 metFORMIN (GLUCOPHAGE) 1000 MG tablet Take 1,000 mg by mouth two times a day. 04/01/2022 coenzyme Q10 10 MG capsule Take 10 mg by mouth one time a day. 03/10/2017 citalopram (CeleXA) 10 MG tablet Take 10 mg by mouth one time a day. 10/16/2011 vitamin D3, cholecalciferol, (Vitamin D-[address]) 25 mcg (1000 units) tablet Take 3,000 Units by mouth one time a day. 09/18/2020 atorvaSTATin (Lipitor) 80 MG tablet Take 80 mg by mouth at bedtime. 02/14/2025 amoxicillin (Amoxil) 500 MG capsuleIndicatio ns:Infection Take 4 Capsules by mouth as needed for Other (dental appt). Indications: Infection acetaminophen (TYLENOL) 325 MG tablet Take 975 mg by mouth every six hours as needed. 05/08/2023 5 omeprazole (PriLOSEC) 20 MG delayed-release capsule Take 20 mg by mouth every morning. 06/21/2024 5 losartan-hydroCH LOROthiazide (Hyzaar) 100-25 MG oral tablet Take 1 Tablet by mouth one time a day. 09/20/2024 5 aspirin EC 81 MG tablet Take 81 mg by mouth one time a day. 05/09/2023 5 added in this encounter Active and Recently Administered Medications Times are shown in CDT. Scheduled Medication Order 04/19/2025 04/20/2025 04/21/2025 acetaminophen (Tylenol) tablet 1,000 mg (COMPLETED) 1,000 mg, Oral, ONCE, 1 dose, On Fri04/20/25 at 0930 0925 (Given - Provider: Lisa Bedolla, RUBI) acetaminophen (Tylenol) tablet 1,000 mg 1,000 mg, Oral, 3 TIMES DAILY, First dose on Fri04/20/25 at 1500, Until Discontinued 163 (Given - Provider: Nicole Parker RN)2002 (Given - Provider: Yessy Hansen RN) 07 (Given - Provider: Nicole Parker RN) aspirin tablet 325 mg 325 mg, Oral, ONCE DAILY, First dose on Fri04/21/25 at 0730, Until Discontinued 07 (Given - Provid er: Nicole Parker RN) atorvaSTATin (Lipitor) tablet 80 mg 80 mg, Oral, AT BEDTIME, First dose on Fri04/20/25 at 2200, Until Discontinued 2146 (Given - Provider: Yessy Hansen RN) ceFAZolin (ANCEF) 2 g in dextrose 4% IVPB 100 mL (COMPLETED) 2,000 mg, Intravenous, at 200 mL/hr, ONCE, 1 dose, On Fri04/20/25 at 0930, Indication? surgical prophylaxis 1143 (New Bag - Provider: Clementine Mccarthy APRN, ADVERTISING INTERN) ceFAZolin (ANCEF) 2 g in dextrose 4% IVPB 100 mL (COMPLETED) 2,000 mg, Intravenous, at 200 mL/hr, *EVERY 8 HOURS, 2 doses, First dose on Fri04/20/25 at 2000, Last dose on Fri04/21/25 at 0400, Indication? surgical prophylaxis 1953 (New Bag - Provider: Yessy Hansen RN)2024 (Stopped - Provider: Ny Desir RN) 0404 (New Bag - Provider: Yessy Hansen RN)0440 (Stopped - Provider: Yessy Hansen RN) citalopram (CeleXA) tablet 10 mg 10 mg, Oral, ONCE DAILY, First dose on Fri04/21/25 at 0800, Until Discontinued 729 (Given - Provid er: Nicole Parker RN) ethyl alcohol nasal 62 % swab (COMPLETED) Nasal, ONCE, 1 dose, On Fri04/20/25 at 0930 0959 (Given - Provider: Lisa Bedolla RN) ethyl alcohol nasal 62 % swab Nasal, 2 (two) times daily, First dose on Fri04/20/25 at 2100, Until Discontinued 1955 (Given - Provider: Yessy Hansen RN) 729 (Given - Provider: Nicole Parker RN) insulin aspart (NovoLOG) injection (CORRECTION DOSE) 1-16 Units 1-16 Units, Subcutaneous, WITH MEALS AND BEDTIME, First dose on Fri04/20/25 at 1600, Until Discontinued, Blood Glucose Target - Daytime (mg/dL): 145, Blood Glucose Target - Bedtime and Overnight (mg/dL): 170, Hyperglycemia Correction Factor - Daytime: 30, Hyperglycemia Correction Factor - Bedtime and Overnight: 60 1610 (Given - Provider: Nicole Parker RN)1838 (Given - Provider: Nicole Parker RN)2134 (Given - Provider: Yessy Hansen RN) 0751 (Given - Provider: Nicole Parker RN) ketorolac (TORADOL) injection 15 mg 15 mg, IV Push, EVERY 6 HOURS, 4 doses, First dose on Fri04/20/25 at 1900, Last dose on Fri04/21/25 at 1200 1953 (Given - Provider: Yessy Hansen RN) 001 (Given - Provider: Yessy Hansen RN)0641 (Given - Provider: Yessy Hansen RN) metFORMIN (Glucophage) tablet 1,000 mg 1,000 mg, Oral, 2 TIMES DAILY WITH MEALS, First dose (after last modification) on Fri04/21/25 at 0700, Until Discontinued 0642 (Given - Provid er: Yessy Hansen RN) metFORMIN (Glucophage) tablet 500 mg (COMPLETED) 500 mg, Oral, ONCE, 1 dose, On Fri04/20/25 at 1700 1658 (Given - Provider: Nicole Parker RN) metoprolol succinate (Toprol-XL) 24 hour tablet 50 mg 50 mg, Oral, EVERY EVENING, First dose (after last modification) on Fri04/21/25 at 2000, Until Discontinued pantoprazole (Protonix) tablet 20 mg 20 mg, Oral, ONCE DAILY, First dose on Fri04/21/25 at 0800, Until Discontinued 0641 (Given - Provid er: Yessy Hansen RN) polyethylene glycol 3350 (Glycolax, Miralax) packet 17 g 17 g, Oral, ONCE DAILY, First dose on Fri04/21/25 at 0900, Until Discontinued 0740 (Not Given - Provider: Nandini Andrew RN - Reason: Patient/Family refused) pregabalin (Lyrica) capsule 75 mg (COMPLETED) 75 mg, Oral, ONCE, 1 dose, On Fri04/20/25 at 0930 0925 (Given - Provider: Lisa Bedolla RN) senna-docusate (Senokot-S) 8.6-50 MG per tablet 1 Tablet 1 Tablet, Oral, 2 TIMES DAILY, First dose on Fri04/20/25 at 2000, Until Discontinued 1956 (Given - Provider: Yessy Hansen RN) 0730 (Given - Provider: Nicole Parker RN) sodium chloride 0.9% IV FLUSH (NS) SYRINGE 5 mL 5 mL, IV Flush, EVERY 8 HOURS, First dose on Fri04/20/25 at 1500, Until Discontinued 1524 (Given - Provider: Nicole Parker RN)2147 (Given - Provider: Yessy Hansen RN) 0642 (Given - Provider: Yessy Hansen RN) tranexamic acid (Cyklokapron) 1000 mg in sodium chloride 0.7% 100 mL (premix) (COMPLETED) 1,000 mg, Intravenous, at 200 mL/hr, ONCE, 1 dose, On Fri04/20/25 at 0930 1214 (New Bag - Provider: Clementine Mccarthy APRN, BARBARA) tranexamic acid (Cyklokapron) 1000 mg in sodium chloride 0.7% 100 mL (premix) (COMPLETED) 1,000 mg, Intravenous, at 200 mL/hr, ONCE, 1 dose, On Fri04/20/25 at 0930 1335 (New Bag - Provider: Clementine Mccarthy APRN, BARBARA) Continuous Medication Order 04/19/2025 04/20/2025 04/21/2025 lactated ringers infusion 10-50 mL/hr, Intravenous, CONTINUOUS, Starting on Fri04/20/25 at 0930, Until [place]orah 04/21/25 at 1412 0947 (New Bag - Provider: Lisa Bedolla RN)1131 (Paused - Provider: Clementine Mccarthy APRN, BARBARA - Comment: Switch to gravity)1132 (Restarted - Provider: Clementine Mccarthy APRN, BARBARA)1321 (New Bag - Provider: Clementine Mccarthy APRN, BARBARA)1353 (Anesthesia Volume Adjusted - Provider: Clementine Mccarthy APRN, BARBARA) 1412 (Due: Order Ending - Provider: Automatic Discharge Provider - Comment: [Order ends at this time. Document the following action when infusion is complete: Stopped]) lactated ringers infusion Intravenous, at 75 mL/hr, CONTINUOUS, Starting on Fri04/20/25 at 1500, Until [place]orah 04/21/25 at 1412 1524 (Stopped - Provider: Nicole Parker RN) PRN Medication Order 04/19/2025 04/20/2025 04/21/2025 benzocaine-menthol 15-2.6 MG Lozenge 1 Lozenge 1 Lozenge, Mouth/Throat, 4 TIMES DAILY NEEDED, Starting on Fri04/20/25 at 1610, Until [place]orah 04/21/25 at 1412, sore throat bisacodyl (Dulcolax) suppository 10 mg 10 mg, Rectal, ONE TIME DAILY NEEDED, Starting on Fri04/20/25 at 1455, Until [place]orah 04/21/25 at 1412, Constipation calcium carbonate (Tums) chewable tablet 500 mg 500 mg, Chew, 3 TIMES DAILY NEEDED, Starting on Fri04/20/25 at 1610, Until [place]orah 04/21/25 at 1412, Heartburn dextrose (D50) 50 % injection 12.5-25 g 12.5-25 g, IV Push, NEEDED, Starting on Fri04/20/25 at 1552, Until [place]orah 04/21/25 at 1412, Hypoglycemia diphenhydrAMINE (Benadryl) capsule 25 mg(Linked Group 1) 25 mg, Oral, EVERY 4 HOURS NEEDED, Starting on Fri04/20/25 at 1455, Until [place]orah 04/21/25 at 1412, Itching diphenhydrAMINE (Benadryl) injection 12.5-25 mg(Linked Group 1) 12.5-25 mg, IV Push, EVERY 4 HOURS NEEDED, Starting on Fri04/20/25 at 1455, Until [place]orah 04/21/25 at 1412, Itching glucagon (diagnostic) (Glucagen) injection 1 mg 1 mg, Intramuscular, NEEDED, Starting on Fri04/20/25 at 1552, Until [place]orah 04/21/25 at 1412, Hypoglycemia glucose (Glutose) 40 % gel 37.5-75 g 37.5-75 g, Oral, NEEDED, Starting on Fri04/20/25 at 1552, Until [place]orah 04/21/25 at 1412, Hypoglycemia hydrALAZINE (Apresoline) tablet 25 mg 25 mg, Oral, 2 TIMES DAILY NEEDED, Starting on Fri04/20/25 at 1610, Until [place]orah 04/21/25 at 1412, SBP > 180 HYDROmorphone (Dilaudid) injection 0.25-0.5 mg 0.25-0.5 mg, IV Push, EVERY 2 HOURS NEEDED, Starting on Fri04/20/25 at 1455, Until [place] 04/21/25 at 1412, Moderate Pain (4-6), Severe Pain (7-10) hydrOXYzine HCl (Atarax) tablet 10 mg 10 mg, Oral, EVERY 6 HOURS NEEDED, Starting on Fri04/20/25 at 1455, Until [place]orah 04/21/25 at 1412, Other, Muscle Spasms lactated ringers BOLUS BAG 250 mL 250 mL, Intravenous, at 1,000 mL/hr, EVERY 30 MINUTES NEEDED, 2 doses, Starting on Fri04/20/25 at 1455, Until [place]orah 04/21/25 at 1412 magnesium hydroxide (Milk of Magnesia) 400 MG/5ML suspension 30 mL 30 mL, Oral, ONE TIME DAILY NEEDED, Starting on Fri04/20/25 at 1455, Until [place]orah 04/21/25 at 1412, Constipation melatonin tablet 3 mg 3 mg, Oral, AT BEDTIME NEEDED, Starting on Fri04/20/25 at 1455, Until [place] 04/21/25 at 1412, Sleep naloxone (Narcan) injection 0.1 mg 0.1 mg, IV Push, EVERY 3 MINUTES NEEDED, Starting on Fri04/20/25 at 1455, Until [place]orah 04/21/25 at 1412, Respiratory Depression, Other, 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 ondansetron (Zofran ODT) disintegrating tablet 4 mg(Linked Group 2) 4 mg, Oral, EVERY 6 HOURS NEEDED, Starting on Fri04/20/25 at 1455, Until [place] 04/21/25 at 1412, Nausea, Vomiting ondansetron (Zofran) injection 4 mg(Linked Group 2) 4 mg, IV Push, EVERY 6 HOURS NEEDED, Starting on Fri04/20/25 at 1455, Until [place] 04/21/25 at 1412, Nausea, Vomiting oxyCODONE (Roxicodone) immediate release tablet 2.5-5 mg 2.5-5 mg, Oral, EVERY 4 HOURS NEEDED, Starting on Fri04/20/25 at 1455, Until [place]or[place] 04/21/25 at 1412, Moderate Pain (4-6), Severe Pain (7-10) prochlorperazine (COMPAZINE) injection 5 mg(Linked Group 3) 5 mg, IV Push, EVERY 6 HOURS NEEDED, Starting on Fri04/20/25 at 1455, Until [place]orah 04/21/25 at 1412, Nausea, Vomiting prochlorperazine (Compazine) tablet 5 mg(Linked Group 3) 5 mg, Oral, EVERY 6 HOURS NEEDED, Starting on Fri04/20/25 at 1455, Until [place] 04/21/25 at 1412, Nausea, Vomiting ROPivacaine (Naropin) 300 mg, EPINEPHrine (Adrenalin) 0.6 mg, ketorolac (TORADOL) 15 mg in sodium chloride 0.9% (NS) 38.4 mL solution (COMPLETED) 100 mL, Infiltration, ONCE NEEDED, 1 dose, Starting on Fri04/20/25 at 1100, Until Fri04/20/25 at 1329, Other, field block 1329 (Given - Provider: Yenni Newsome MD) sodium chloride 0.9% IV FLUSH (NS) SYRINGE 5 mL 5 mL, IV Flush, NEEDED, Starting on Fri04/20/25 at 1455, Until [place]orah 04/21/25 at 1412, Other, IV Line Flushing sodium phosphate (Fleet) 7-19 GM/118ML enema 1 Enema 1 Enema, Rectal, ONE TIME DAILY NEEDED, Starting on Fri04/20/25 at 1455, Until [place]orah 04/21/25 at 1412, Constipation, For constipation refractory to SENAKOT-S or DULCOLAX vancomycin (Vancocin) injection (CANCELED) NEEDED, Starting on Fri04/20/25 at 1332, Until Fri04/20/25 at 1401 1332 (Given - Provider: Yenni Newsome MD) Linked Groups Order Group 1: diphenhydrAMINE (Benadryl) capsule 25 mgJump to med 25 mg, Oral, EVERY 4 HOURS NEEDED, Starting on Fri04/20/25 at 1455, Until [place]orah 04/21/25 at 1412, Itching Or diphenhydrAMINE (Benadryl) injection 12.5-25 mgJump to med 12.5-25 mg, IV Push, EVERY 4 HOURS NEEDED, Starting on Fri04/20/25 at 1455, Until [place]orah 04/21/25 at 1412, Itching Group 2: ondansetron (Zofran) injection 4 mgJump to med 4 mg, IV Push, EVERY 6 HOURS NEEDED, Starting on Fri04/20/25 at 1455, Until [place]orah 04/21/25 at 1412, Nausea, Vomiting Or ondansetron (Zofran ODT) disintegrating tablet 4 mgJump to med 4 mg, Oral, EVERY 6 HOURS NEEDED, Starting on Fri04/20/25 at 1455, Until [place]or[place] 04/21/25 at 1412, Nausea, Vomiting Group 3: prochlorperazine (Compazine) tablet 5 mgJump to med 5 mg, Oral, EVERY 6 HOURS NEEDED, Starting on Fri04/20/25 at 1455, Until Dinorah 04/21/25 at 1412, Nausea, Vomiting Or prochlorperazine (COMPAZINE) injection 5 mgJump to med 5 mg, IV Push, EVERY 6 HOURS NEEDED, Starting on Fri04/20/25 at 1455, Until Dinorah 04/21/25 at 1412, Nausea, Vomiting documented in this encounter Orders Medications Ordered That Mic ht Not Have Been Administered Count Last Ordered Date First Ordered Date aspirin EC tablet 325 mg 1 04/20/2025 benzocaine-menthol 15-2.6 MG Lozenge 1 Lozenge 1 04/20/2025 bisacodyl (Dulcolax) suppository 10 mg 1 calcium carbonate (Tums) graciela wable tablet 500 mg 1 04/20/2025 ceFAZolin (ANCEF) 2 g in dex trose 4% IVPB 100 mL 1 04/20/2025 dextrose (D50) 50 % injection 12.5-25 g 1 0 04/20/2025 diphenhydrAMINE (Benadryl) capsule 25 mg 04/20/2025 diphenhydrAMINE (Benadryl) i njection 12.5-25 mg 1 04/20/2025 diphenhydrAMINE (Benadryl) injection 25 mg 04/20/2025 ePHEDrine IV syringe 5 mg/mL 04/20/2025 glucagon (diagnostic) (Gluca gen) injection 1 mg 04/20/2025 glucose (Glutose) 40 % gel 37.5-75 g 1 04/01 hydrALAZINE (Apresoline) tablet 25 mg HYDROmorphone (Dilaudid) inj ection 0.25-0.5 mg 04/20/2025 HYDROmorphone (Dilaudid) injection 0.5 mg 04/20/2025 HYDROmorphone (Dilaudid) injection 1 mg 1 0 04/20/2025 hydrOXYzine (VISTARIL) injection 25 mg hydrOXYzine HCl (Atarax) tablet 10 mg 1 labetalol (Trandate) injection 5-25 mg 1 lactated ringers BOLUS BAG 250 mL 025 lactated ringers infusion 04/20/2025 losartan (Cozaar) tablet 100 mg 1 magnesium hydroxide (Milk of Magnesia) 400 MG/5ML suspension 30 mL 04/20/2025 melatonin tablet 3 mg 1 04/20/2025 meperidine (Demerol) injection 12.5 mg 1 metFORMIN (Glucophage) tablet 1,000 mg 1 metoprolol succinate (Toprol -XL) 24 hour tablet 50 mg 2 04/20/2025 naloxone (Narcan) injection 0.1 mg 2024 naloxone (Narcan) injection 0.2 mg 2024 ondansetron (Zofran ODT) dis integrating tablet 4 mg 04/20/2025 ondansetron (Zofran) injection 4 mg 04/20 oxyCODONE (Roxicodone) immed iate release tablet 2.5-5 mg 04/20/2025 phenylephrine (Biorphen) 0.5 MG/5ML injection 0.05 mg 04/20/2025 polyethylene glycol 3350 (Gl ycolax, Miralax) packet 17 g 04/20/2025 prochlorperazine (COMPAZINE) injection 10 mg 04/20/2025 prochlorperazine (COMPAZINE) injection 5 mg 04/20/2025 prochlorperazine (Compazine) tablet 5 mg 04/20/2025 ROPivacaine (Naropin) 300 mg , EPINEPHrine (Adrenalin) 0.6 mg, ketorolac (TORADOL) 15 mg in sodium chloride 0.9% (NS) 38.4 mL solution 04/20/2025 sodium chloride 0.9% IV FLUS H (NS) SYRINGE 5 mL 04/20/2025 sodium phosphate (Fleet) 7-1 9 GM/118ML enema 1 Enema 1 04/20/2025 tranexamic acid (Cyklokapron ) 1000 mg in sodium chloride 0.7% 100 mL (premix) 2 04/20/2025 vancomycin (Vancocin) injection 1 5 Admission Count Last Ordered Date First Orde red Date ASSIGN TO OUTPATIENT 1 04/20/2025 Discharge Count Last Ordered Date First Orde red Date DISCHARGE PATIENT 1 04/21/2025 Nursing Count Last Ordered Date First Orde red Date ACTIVITY ORDER (SPECIFY) 5 04/20/2025 DISCHARGE DIET 1 04/20/2025 DISCHARGE INSTRUCTIONS 11 04/20/2025 FOLLOW UP 1 04/20/2025 NOTIFY PHYSICIAN (SPECIFY) 3 04/20/2025 POST OPERATIVE INSTRUCTIONS 2 04/20/2025 PROVIDE MEDICATION INSTRUCTIONS 5 RESTRICTIONS FOR PATIENT AFTER DISCHARGE 2 04/20/2025 WOUND CARE INSTRUCTIONS 3 04/20/2025 Consult Count Last Ordered Date First Orde red Date ANESTHESIA FOLLOW UP 1 04/20/2025 documented in this encounter Care Teams Staff Software Engineer Relationship Specialty Start Date End Date Tiffanie Romero MD [address] [id number] PCP - General Internal Medicine 04/20/25 documented as of this encounter
--- OUTSIDE RECORDS SUMMARY | 2025-04-20 09:10 | XMS_ITS | Encounter Summary ---
Author Organization [facility] Address [address] [address] Phone Care Team Providers Care Canvas Marker Name Role Phone Tiffanie Romero MD Primary Care Provider [phone] Encounter Details Date Type Department Care Team (Late st Contact Info) Description 04/20/2025 9:10 AM CDT Ancillary Procedure [facility] [address] [facility] [id number] [place] [id number] Social History Tobacco Use Types Packs/Day Years Used Date Smoking Tobacco: Never Smokeless Tobacco: Never Alcohol Use Standard Drinks/Week Comments Yes 0 (1 standard drink = 0.6 oz pur e alcohol) 1 drink every 2 weeks [facility] Utilities Answer Date Recorded In the past [...] any time in the past 12 m [facility], were you homeless or living in a intermediate (including now)? No 04/20/2025 EH IP Custom IPV Answer Date Recorded Do [...] on file documented as of this encounter Functional Status * Patient's Vision [...] Nicole Parker RN documented in this encounter Plan of Treatment Not on file documented as of this encounter Procedures Procedure Name Priority Date/Time Associated Diagnosis Comments XR C ARM FLUORO Routine 04/20/2025 1:34 PM CDT documented in this encounter Results * XR C ARM FLUORO (04/20/2025 1:34 [...] the final image. Hemostat noted in the [id number]. Please see the operative note for additional [...] on the final image. Hemostat noted in [id number]. Please see the operative note for additional details. Electronically signed by Carlos Chaves MD Report Date: 04/20/2025 1:47 PM [facility] [place] Final Result documented in this encounter Visit Diagnoses Not on filedocumented in this encounter Care Teams Canvas Marker Relationship Specialty Start Date End Date Tiffanie Romero MD [place] [phone] PCP - General Internal Medicine 04/20/25 documented as of this encounter
--- OUTSIDE RECORDS SUMMARY | 2025-04-20 11:00 | XMS_ITS | Encounter Summary ---
Author Organization [facility] Address [address] [address] Phone Care Team Providers Care Sales Ambassador Name Role Phone Tiffanie Romero MD Primary Care Provider [phone] Reason for Visit * Auth/Cert Specialty Diagnoses / Procedures Referred By Arcelia t Referred To Contact Diagnoses M16.12 Degenerative joint disease of the left hip Procedures TOTAL HIP REPLACEMENT Left total hip arthroplasty direct anterior approach Yenni Newsome MD [facility] [address] [address] Phone: tel: fax: Referral ID Status Reason Start Date Expiration Date Visits Re quested Visits Authorized [id number] 1 1 Encounter Details Date Type Department Care Team (Late st Contact Info) Description 04/20/2025 11:00 AM CDT - 04/20/2025 2:10 PM CDT Surgery [address] [phone] Yenni Newsome MD [facility] [address] [id number] Left total hip arthroplasty direct anterior approach Social History Tobacco Use Types Packs/Day Years Used Date Smoking Tobacco: Never Smokeless Tobacco: Never Tobacco Cessation:Counseling Given: Not Answered Alcohol Use Standard Drinks/Week Comments Yes 0 (1 standard drink = 0.6 oz pur e alcohol) 1 drink every 2 weeks [facility] Utilities Answer Date Recorded In the past [...] any time in the past 12 m [facility], were you homeless or living in a [facility] (including now)? No 04/20/2025 IP Custom IPV [...] Sign Reading Time Taken Comments Blood Pressure 130/72 04/20/2025 2:01 PM CDT Pulse 82 04/20/2025 2:01 PM CDT Temperature 36.1 C (96.9 F) 04/20/2025 2:01 PM CDT Respiratory Rate 15 04/20/2025 2:01 PM CDT Oxygen Saturation 97% 04/20/2025 2:01 PM CDT Inhaled Oxygen Concentration - - Weight [...] Provider. Follow Up Instructions: Yenni Newsome MD [facility] [place] [address] [facility] [address] Go on 05/11/2025 POST-OP APPOINTMENT SCHEDULED WITH IGNACIO MARTIN PA-C AT THE [place] OFFICE AT 1:20 PM. Jackie Romero PA-C [facility] documented in this encounter Discharge Instructions * Appointments* Kaylee Martinez RN - 04/21/2025 3:07 AM CDT In the event of a concern arising after surgery: During business hours, call surgeon's human services care specialist, Marlen Combs at [phone]. After business hours, call the on-call provider at [phone]. [facility] was discussed. They [...] tongue every five minutes as needed. 05/08/2023 Randolph-3 Fatty Acids (SM Fish Oil) 1000 MG [...] Means Destination Comment s Home and/or Self Usp documented in this encounter Progress Notes * Alaina Domingo, PT - 04/21/2025 9:45 AM CDT PHYSICAL THERAPY ACUTE CARE BINDU DISCHARGE NOTE SUBJECTIVE Patient agreeable to participate with physical therapy. Patient seated in recliner, greeted science writer - patient reported that she feels [...] 61-90 Moderate Dependence 91-99 Slight Dependence 100 Holland Score Prediction Less than 40 Unlikely to [...] cues and stand by assist. Patient and development coach were also educated on exit of [...] minutes with walker and icing every hour [id number] minutes during the day; HEP - 2x/day; [...] precautions following BINDU. The patient and their development coach have been instructed on safe patient [...] Total Treatment Time: 35 minutes Therapeutic Activities (35659) = 12 minutes Gait Training (46267) = 23 minutes * Radha Ardon PA-C [...] the final image. Hemostat noted in the [id number]. Please see the operative note for additional [...] medical problems including HTN, HLD, T2DM, GERD, EHRBERT, hx of breast cancer s/p lumpectomy, depression/anxiety, who presented on 04/20/25 for LTHA. Assessment/Plan Active Hospital Problems S/P total left hip arthroplasty - Orthopedic surgery primary- follow their recommendations for pain control, bowel regimen, activity, anticoagulation, wound care, and discharge instructions - Advance diet as tolerated - PT/OT to evaluate and treat Essential hypertension - Continue OCCUPATIONAL THERAPY SUPERVISOR metoprolol succinate 50 mg QPM with hold parameters - Hold OCCUPATIONAL THERAPY SUPERVISOR losartan 100 mg QAM & HCTZ 25 mg QAM due to soft BP's, resume POD2/tomorrow, discussed with patient - Hydralazine as needed for SBP greater than 180 Hyperlipidemia - Continue OCCUPATIONAL THERAPY SUPERVISOR atorvastatin QPM Diabetes mellitus type 2 Steroid induced hyperglycemia - Last A1c 7.5 in March 2025 - Continue OCCUPATIONAL THERAPY SUPERVISOR metformin 1000 mg twice daily - Patient did receive 10 mg of Decadron in the OR, Glucose in the 200's this AM GERD - Continue OCCUPATIONAL THERAPY SUPERVISOR PPI QAM HERBERT - Patient does not use CPAP Hx of left breast cancer s/p lumpectomy and radiation - Noted Depression/anxiety - Continue OCCUPATIONAL THERAPY SUPERVISOR Celexa QAM Advanced Age - Patient is [...] Please feel free to contact me via Tookitaki chat or cell phone from the hours of 7 AM to 5 PM at [phone] After hours please page hospitalist on-call * [...] the final image. Hemostat noted in the [id number]. Please see the operative note for additional [...] evaluate and treat Essential hypertension - Continue OCCUPATIONAL THERAPY SUPERVISOR metoprolol succinate 50 mg QPM with hold parameters - Continue OCCUPATIONAL THERAPY SUPERVISOR losartan 100 mg QAM on POD1 with hold parameters - Hold OCCUPATIONAL THERAPY SUPERVISOR HCTZ 25 mg QAM - Hydralazine as needed for SBP greater than 180 Hyperlipidemia - Continue OCCUPATIONAL THERAPY SUPERVISOR atorvastatin QPM Diabetes mellitus type 2 - Last A1c 7.5 in March 2025 - Continue OCCUPATIONAL THERAPY SUPERVISOR metformin 1000 mg twice daily - Patient did receive 10 mg of Decadron in the OR, patient is at high risk for steroid-induced hyperglycemia - Accu-Cheks and sliding scale insulin ordered GERD - Continue OCCUPATIONAL THERAPY SUPERVISOR PPI QAM HERBERT - Patient does not use CPAP Hx of left breast cancer s/p lumpectomy and radiation - Noted Depression/anxiety - Continue OCCUPATIONAL THERAPY SUPERVISOR Celexa QAM Advanced Age - Patient is [...] Please feel free to contact me via Tookitaki chat or cell phone from the hours of 7 AM to 5 PM at [phone] After hours please page hospitalist on-call * [...] No Length of Stay Plan reviewed;Overnight stay Sales Commissions Analyst name & phone number Philippe [phone] Will your development coach be the one picking you up [...] Pre-op H&P date 03/24/25 Pre-op H&P location [facility] What blood thinner medication do you take? [...] down as night progressed pt very anxious science writer reassured , and passed concern to [...] onto toilet and getting into bed . Assistant Professor Of Spanish has not heard clicking. The limb appears [...] of Procedure: 04/20/2025 SURGEON YENNI NEWSOME M.D. AUTOMATIC BUFFING WHEEL FORMER Ignacio Martin PA-C - Assisting PREOPERATIVE DIAGNOSIS Left hip osteoarthritis, failed to respond to conservative management. POSTOPERATIVE DIAGNOSIS Left hip osteoarthritis, failed to respond to conservative management. TITLE OF PROCEDURE Left total hip arthroplasty, Depuy uncemented components, direct anterior approach. [employer] computer assisted fluoroscopic hip navigation. ANESTHESIA TYPE: General ESTIMATED BLOOD LOSS: 400 mL SPECIMEN(S) No Specimens Collected COMPLICATIONS: none IMPLANT(S): Implant Name Type Inv. Item Serial No. Geographic Information Systems Manager Lot No. LRB No. Used Action APEX HOLE ELIMINATOR PS - [id number] APEX HOLE ELIMINATOR PS NA [id number] Left 1 Implanted CUP ACET 54MM PINNACLE SECTOR II - [id number] CUP ACET 54MM PINNACLE SECTOR II NA [id number] Left 1 Implanted SCREW BONE CANCELLOUS 6.5MM X 35MM - [id number] SCREW BONE CANCELLOUS 6.5MM X 35MM NA DEPUY [id number] Left 1 Implanted SCREW BONE CANCELLOUS 6.5MM X 25MM - [id number] SCREW BONE CANCELLOUS 6.5MM X 25MM NA DEPUY [id number] Left 1 Implanted LINER ACET ALTRX 35MM X 54MM NEUTRAL +4 - [id number] LINER ACET ALTRX 35MM X 54MM NEUTRAL +4 NA DEPUY [id number] Left 1 Implanted STEM FEMORAL ACTICS SZ 6 STD COLLAR - [id number] STEM FEMORAL ACTICS SZ 6 STD COLLAR NA DEPUY [id number] Left 1 Implanted HEAD FEMORAL BIOLOX DELTA SZ 36 +5MM - [id number] HEAD FEMORAL BIOLOX DELTA SZ 36 +5MM NA DEPUY [id number] Left 1 Implanted PROCEDURE The patient was brought to the operating room and after satisfactory anesthesia was placed on the [place] table. The left lower extremity was then prepped and draped in the usual sterile fashion. [employer] computer assisted fluoroscopic hip navigation was utilized [...] aid of image intensification. A 54 mm [place] cup was impacted into place in approximately [...] and found to have good length and jewish of offset. It was felt that an [...] gm of tranexamic acid pre-op. A skilled sampler first was necessary for this procedure for assistance with patient positioning,prepping, draping, surgical visualization, performance of the repair, wound closure, and application of the dressing. * Care Plan - Nicole Parker RN - 04/20/2025 5:54 PM CDT End of Shift Summary and Plan of Care Procedure(s): Left - Left total hip arthroplasty direct anterior approach Surgeon(s): Yenni Newsome MD Kretsch, Ignacio Aguila, JOYCE * Day of Surgery * Pain/Comfort: [...] up in bed, receiving nursingcares and greeted science writer - patient is ready to get [...] Patient lives with spouse but going to [facility] which is a one level home with [...] surgeon preference Therapeutic Activity: Skilled therapeutic education, travel counselor automobile club and activity modification was providedto patient for [...] no concerns to note. Patient is appropriate forskilled physical therapy services. Barriers to Discharge Home: [...] Time: 35 minutes Evaluation Moderate - Complexity (24944) Therapeutic Activities (83574) = 15 minutes * Brief Op Note [...] Implant Name Type Inv. Item Serial No. Geographic Information Systems Manager Lot No. LRB No. Used Action APEX HOLE ELIMINATOR PS - [id number] APEX HOLE ELIMINATOR PS NA DEPUY [id number] Left 1 Implanted CUP ACET 54MM PINNACLE SECTOR II - [id number] CUP ACET 54MM PINNACLE SECTOR II NA [id number] Left 1 Implanted SCREW BONE CANCELLOUS 6.5MM X 35MM - [id number] SCREW BONE CANCELLOUS 6.5MM X 35MM NA DEPUY [id number] Left 1 Implanted SCREW BONE CANCELLOUS 6.5MM X 25MM - [id number] SCREW BONE CANCELLOUS 6.5MM X 25MM NA DEPUY [id number] Left 1 Implanted LINER ACET ALTRX 35MM X 54MM NEUTRAL +4 - [id number] LINER ACET ALTRX 35MM X 54MM NEUTRAL +4 NA DEPUY [id number] Left 1 Implanted STEM FEMORAL ACTICS SZ 6 STD COLLAR - [id number] STEM FEMORAL ACTICS SZ 6 STD COLLAR NA DEPUY [id number] Left 1 Implanted HEAD FEMORAL BIOLOX DELTA SZ 36 +5MM - [id number] HEAD FEMORAL BIOLOX DELTA SZ 36 +5MM NA DEPUY [id number] Left 1 Implanted See other operative note for full details * Plan of Care - Jackie Romero PA-C - 03/29/2025 11:46 AM CDT PREOPERATIVE ASSESSMENT NOTE Procedure(s): Left total hip arthroplasty direct anterior approach Date of Surgery: 04/20/[address] Yenni Newsome Post-op appointment scheduled with Ignacio Martin PA-C on 05/11/25 at 1:20 pm at the [place] office Patient's goals after surgery: less pain [...] time of discharge between 9:00AM-12:00PM with their route sales delivery drivers supervisor arriving by 8:00 AM Regional Education Manager: tg Paez Discharge location: home Anticipated Home Health Services: None Sales Commissions Analyst/Family member available after discharge: Philippe (was not present for this discussion) Post-operative medication plan and education was discussed Patient's medication dosing and sig for the above medications to be determined post-operatively. In the event of a concern arising after surgery, the patient was provided with the following information: During business hours, call surgeon's human services care specialist, Marlen Combs at [phone]. After business hours, call the on-call provider at [phone]. [facility] was discussed. They [...] Assistive Devices Page 17/51 They understand their development coach should bring their assistive device to [...] used for pain rating <3 (mild pain). NATHALIEOT - this stool softener/laxative combination pill will be used after surgery as needed for constipation. 1-2 tablets can be taken as needed. Omeprozole 20 mg 1 tab daily x6 weeks while taking aspirin and Celebrex, #42 They understand there is not an outpatient pharmacy at the [facility] and they will need to turkey picker their post-operative medications at a pharmacy of [...] of surgery after arriving at the [facility]. Avoiding a Delayed Surgery Page 10 I gave them this reference to use between now and surgery to avoid their surgery being delayed or cancelled. Jackie Romero PA-C [facility] documented in this encounter Plan [...] - 100 mg/dL 04/21/2025 7:22 AM CDT [facility] Blood WHOLE BLOOD SPECIMEN / Unknown 04/21/2025 7:15 AM CDT 04/21/2025 7:22 AM CDT us Yenni Newsome MD EC CHEMISTRY ORDERABLES Final Result Performing Organization Address [facility] de Phone Number [facility] [address] [place] [address] * (ABNORMAL) HEMOGLOBIN (04/21/2025 6:08 AM CDT) HGB 10.1(L) 12.0 - 16.0 g/dl 04/21/2025 6:56 AM CDT [facility] Blood BLOOD SPECIMEN / Unknown Venipuncture / Unknown 04/21/2025 6:08 AM CDT 04/21/2025 6:35 AM CDT us Yenni Newsome MD EC HEMATOLOGY ORDERABLES Final Result Performing Organization Address [facility] Phone Number [facility] [address] [place] [address] * (ABNORMAL) GLUCOSE, METER (04/21/2025 12:15 AM CDT) Glucose Meter 294(H) 74 - 100 mg/dL 04/21/2025 12:23 AM CDT [facility] Blood WHOLE BLOOD SPECIMEN / Unknown 04/21/2025 12:15 AM CDT 04/21/2025 12:23 AM CDT us Yenni Newsome MD EC CHEMISTRY ORDERABLES Final Result Performing Organization Address [facility] de Phone Number [facility] [address] [place] [address] * (ABNORMAL) GLUCOSE, METER (04/20/2025 9:31 PM CDT) Glucose Meter 335(H) 74 - 100 mg/dL 04/20/2025 9:47 PM CDT [facility] Blood WHOLE BLOOD SPECIMEN / Unknown 04/20/2025 9:31 PM CDT 04/20/2025 9:47 PM CDT us Yenni Newsome MD EC CHEMISTRY ORDERABLES Final Result Performing Organization Address [facility] Phone Number [facility] [address] [place] [address] * (ABNORMAL) GLUCOSE, METER (04/20/2025 6:39 PM CDT) Glucose Meter 297(H) 74 - 100 mg/dL 04/20/2025 6:46 PM CDT [facility] Blood WHOLE BLOOD SPECIMEN / Unknown 04/20/2025 6:39 PM CDT 04/20/2025 6:46 PM CDT us Yenni Newsome MD EC CHEMISTRY ORDERABLES Final Result Performing Organization Address [facility] Phone Number [facility] [address] [place] [address], [facility] [phone] * (ABNORMAL) GLUCOSE, METER (04/20/2025 3:45 PM CDT) Glucose Meter 199(H) 74 - 100 mg/dL 04/20/2025 3:54 PM CDT [facility] Blood WHOLE BLOOD SPECIMEN / Unknown 04/20/2025 3:45 PM CDT 04/20/2025 3:54 PM CDT us Yenni Newsome MD EC CHEMISTRY ORDERABLES Final Result Performing Organization Address [facility] Phone Number [facility] [address] [place], [place] [address], [place] [phone] * XR HIP LEFT 2 OR 3 [...] ms RMCMUSE QTc 460 ms RMCMUSE P [place] 40 degrees RMCMUSE R [place] -20 degrees RMCMUSE T [place] 133 degrees RMCMUSE 04/20/2025 2:22 PM CDT [...] ECG No previous ECGs available us Ryan Cyndee Velazquez DO IP ECG ORDERABLES Final Resul t Performing Organization Address City/[facility] Co de Phone Number RMCMUSE * (ABNORMAL) GLUCOSE, METER (04/20/2025 2:05 PM CDT) [facility] Signature Glucose Meter 168(H) 74 - 100 mg/dL 04/20/2025 2:12 PM CDT [facility] Blood WHOLE BLOOD SPECIMEN / Unknown 04/20/2025 2:05 PM CDT 04/20/2025 2:12 PM CDT us Yenni Newsome MD EC CHEMISTRY ORDERABLES Final Result Performing Organization Address [facility] de Phone Number [facility] [address] [place] [address] * XR C ARM FLUORO (04/20/2025 1:34 [...] the final image. Hemostat noted in the [id number]. Please see the operative note for additional [...] on the final image. Hemostat noted in [id number]. Please see the operative note for additional details. Electronically signed by Carlos Chaves MD Report Date: 04/20/2025 1:47 PM Maria Luz [facility] ORDER CORNELIA Final Result * (ABNORMAL) GLUCOSE, METER (04/20/2025 9:31 AM CDT) [facility] Signature Glucose Meter 171(H) 74 - 100 mg/dL 04/20/2025 9:39 AM CDT [facility] Blood WHOLE BLOOD SPECIMEN / Unknown 04/20/2025 9:31 AM CDT 04/20/2025 9:39 AM CDT Yenni Newsome MD EC CHEMISTRY ORDERABLES Final Result [facility] [address] [place] [address] documented in this encounter Visit Diagnoses Not on filedocumented in this encounter Administered Medications Inactive Administered [...] at 1455, Until Fri04/21/25 at 1412, Other, Muscle Spasms insulin aspart [...] Until Fri04/21/25 at 1412, Respiratory Depression, Other, WINCH DERRICK OPERATOR depression ondansetron (Zofran ODT) disintegrating tablet 4 [...] sodium chloride 0.9% (NS) 38.4 mL solution 100 mL, Infiltration, ONCE NEEDED, 1 dose, Starting on Fri04/20/25 at 1100, Until Fri04/20/25 at 1329, Other, field block Given 04/20/2025 1:29 PM CDT senna-docusate (Senokot-S) 8.6-50 MG per tablet 1 [...] to SENAKOT-S or DULCOLAX vancomycin (Vancocin) injection NEEDED, Starting on Fri04/20/25 at 1332, Until Fri04/20/25 at 1401Indications:Infection Given 04/20/2025 1:32 P M CDT 1 g documented in this encounter Discontinued Medications Medication [...] Tablets by mouth one time a day. Randolph-3 Fatty Acids (SM Fish Oil) 1000 MG [...] 0925 (Given - Provider: Lisa Bedolla RN) acetaminophen (Tylenol) tablet 1,000 mg 1,000 mg, Oral, 3 TIMES DAILY, First dose on Fri04/20/25 at 1500, Until Discontinued 1638 (Given - Provider: Nicole Parker RN)2002 (Given - Provider: Yessy Hansen, RUBI) 0730 (Given - Provider: Nicole Parker RN) aspirin [...] (New Bag - Provider: Clementine Mccarthy APRN, DELIVERY DRIVER/CUSTOMER SERVICE) ceFAZolin (ANCEF) 2 g in dextrose 4% IVPB 100 mL (COMPLETED) 2,000 mg, Intravenous, at 200 mL/hr, *EVERY 8 HOURS, 2 doses, First dose on Fri04/20/25 at 2000, Last dose on Fri04/21/25 at 0400, Indication? surgical prophylaxis 1953 (New Bag - Provider: Yessy Hansen RN)2024 (Stopped - Provider: Ny Desir RN) 403 (New Bag - Provider: Yessy Hansen RN)044 (Stopped - Provider: Yessy Hansen RN) citalopram (CeleXA) tablet 10 mg 10 mg, Oral, ONCE DAILY, First dose on Fri04/21/25 at 0800, Until Discontinued 07 (Given - Provid er: Nicole Parker RN) ethyl alcohol nasal 62 % swab (COMPLETED) Nasal, ONCE, 1 dose, On Fri04/20/25 at 0930 0959 (Given - Provider: Lisa Bedolla RN) ethyl alcohol nasal 62 % swab Nasal, 2 (two) times daily, First dose on Fri04/20/25 at 2100, Until Discontinued 1955 (Given - Provider: Yessy Hansen RN) 0730 (Given - Provider: Nicole Parker RN) insulin [...] 1900, Last dose on Fri04/21/25 at 1200 1954 (Given - Provider: Yessy Hansen RN) 0014 (Given - Provider: Yessy Hansen RN)0641 (Given [...] dose on Fri04/21/25 at 0800, Until Discontinued 06 (Given - Provid er: Yessy Hansen RN) [...] dose on Fri04/20/25 at 2000, Until Discontinued 1955 (Given - Provider: Yessy Hansen RN) 0730 (Given - Provider: Nicole Parker RN) sodium chloride 0.9% IV FLUSH (NS) SYRINGE 5 mL 5 mL, IV Flush, EVERY 8 HOURS, First dose on Fri04/20/25 at 1500, Until Discontinued 1524 (Given - Provider: Nicole Parker, RUBI)2147 (Given - Provider: Yessy Hansen, RUBI) 0642 (Given - Provider: Yessy Hansen, RUBI) tranexamic acid (Cyklokapron) 1000 mg in sodium chloride 0.7% 100 mL (premix) (COMPLETED) 1,000 mg, Intravenous, at 200 mL/hr, ONCE, 1 dose, On Fri04/20/25 at 0930 1214 (New Bag - Provider: Clementine Mccarthy APRN, DELIVERY DRIVER/CUSTOMER SERVICE) tranexamic acid (Cyklokapron) 1000 mg in sodium [...] gravity)1132 (Restarted - Provider: Clementine Mccarthy APRN, DELIVERY DRIVER/CUSTOMER SERVICE)1321 (New Bag - Provider: Clementine Mccarthy APRN, DELIVERY DRIVER/CUSTOMER SERVICE)1353 (Anesthesia Volume Adjusted - Provider: Clementine Mccarthy [...] Dinorah 04/21/25 at 1412, Respiratory Depression, Other, WINCH DERRICK OPERATOR depression ondansetron (Zofran ODT) disintegrating tablet 4 [...] 0 04/20/2025 diphenhydrAMINE (Benadryl) capsule 25 mg 1 04/20/2025 diphenhydrAMINE (Benadryl) i njection 12.5-25 mg 1 04/20/2025 diphenhydrAMINE (Benadryl) injection 25 mg 1 04/20/2025 ePHEDrine IV syringe 5 mg/mL 1 04/20/2025 glucagon (diagnostic) (Gluca gen) injection 1 mg 04/20/2025 glucose (Glutose) 40 % gel 37.5-75 g 1 04/01 hydrALAZINE (Apresoline) tablet 25 mg 1 HYDROmorphone (Dilaudid) inj ection 0.25-0.5 mg 04/20/2025 HYDROmorphone (Dilaudid) injection 0.5 mg 1 04/20/2025 HYDROmorphone (Dilaudid) injection 1 mg 1 0 04/20/2025 hydrOXYzine (VISTARIL) injection 25 mg 1 hydrOXYzine HCl (Atarax) tablet 10 mg 1 labetalol (Trandate) injection 5-25 mg 1 lactated ringers BOLUS BAG 250 mL 025 lactated ringers infusion 04/20/2025 losartan (Cozaar) tablet 100 mg magnesium hydroxide (Milk of Magnesia) 400 MG/5ML suspension 30 mL 04/20/2025 melatonin tablet 3 mg 04/20/2025 meperidine (Demerol) injection 12.5 mg metFORMIN (Glucophage) tablet 1,000 mg metoprolol succinate (Toprol -XL) 24 hour tablet [...] g 04/20/2025 prochlorperazine (COMPAZINE) injection 10 mg 1 04/20/2025 prochlorperazine (COMPAZINE) injection 5 mg 04/20/2025 prochlorperazine (Compazine) tablet 5 mg 1 04/20/2025 sodium chloride 0.9% IV FLUS H (NS) SYRINGE 5 mL 1 04/20/2025 sodium phosphate (Fleet) 7-1 9 GM/118ML enema 1 Enema 1 04/20/2025 tranexamic acid (Cyklokapron ) 1000 mg in sodium chloride 0.7% 100 mL (premix) 2 04/20/2025 Admission Count Last Ordered Date First Orde [...] 04/20/2025 documented in this encounter Care Teams Sales Ambassador Relationship Specialty Start Date [place] [address] PCP - General Internal Medicine 04/20/25 documented as of this encounter
--- OUTSIDE RECORDS SUMMARY | 2025-04-20 11:32 | XMS_ITS | Encounter Summary ---
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 Procedures TOTAL HIP REPLACEMENT Left total hip arthroplasty direct anterior approach Asael Calderon MD [facility] [address] [address] Phone: tel: fax: Referral ID Status Reason Start Date Expiration Date Visits Re quested Visits Authorized [id number] 1 1 Encounter Details Date Type Department Care Team (Late st Contact Info) Description 04/20/2025 11:32 AM CDT Anesthesia Event [facility] OR [address] [place] [phone] Ryan Velazquez DO [address] [place] [id number] Baudilio Sanchez MD [address] [place] [address] [id number] Anesthesia Record Procedure Summary Procedure Name Responsible Anesthesiologist Anesthesia Start Time Anesthesia Stop Time Left total hip arthroplasty direct anterior approach (Left: Hip) Ryan Velazquez DO 04/20/25 1132 04/20/25 1405 Events Date Time Event Comment 04/20/2025 0955 1022 AN Equip Check 1023 CEMENT MASON HELPER Ready 1132 An Start The patient was reevaluated immediately prior to initiation of anesthesia. 1132 An Start Data 1136 An Induction 1139 An Intubation 1147 Anesthesia Ready 1346 Emergence Started 1355 An Extubation 1358 Start Supplemental O2 1358 an stop data 1358 MD Intraop Signature Intraop erative Record electronically signed by Ryan Velazquez DO 1405 An Stop Report given to the receiving RN. No apparent anesthesia complications at this time. Electronically signed by Clementine Mccarthy APRN, CRNA Meds Name Total fentaNYL (SUBLIMAZE) injection 0.05 mg/m L 100 mcg propofol 20 mL VIAL 10 mg/mL (Diprivan) 150 mg ondansetron (ZOFRAN) injection 2 mg/mL 4 mg rocuronium (ZEMURON) injection 10 mg/mL - 5 mL Vial 50 mg lidocaine (XYLOCAINE) injection 2% 100 m g sugammadex (Bridion) 100 mg/mL injection 150 mg dexamethasone (DECADRON) injection 10 mg /mL 10 mg ketamine (KETALAR) injection 10 mg/mL 20 mg dexmedetomidine (PRECEDEX) 4 mcg/mL in sodium chloride 0.9 % (NS) infusion (premix) 12 mcg ePHEDrine injection 50 mg/mL 10 mg tranexamic acid (Cyklokapron ) 1000 mg in sodium chloride 0.7% 100 mL (premix) 1,000 mg tranexamic acid (Cyklokapron ) 1000 mg in sodium chloride 0.7% 100 mL (premix) 1,000 mg ceFAZolin (ANCEF) 2 g in dextrose 4% IVP B 100 mL 2,000 mg glycopyrrolate (Robinul) injection 0.2 m g/mL 0.2 mg HYDROmorphone (Dilaudid) injection 1 mg/ mL 0.5 mg lactated ringers infusion 1,400 mL * Agents Name O2 Air Sevoflurane Inspired Sevoflurane * Blood No blood administrations on file. Lines, Drains, and Airways Type Details Placement Removal Wound 04/20/25; Incision; Anterior, Left, Proximal; Thigh 04/20/25 0000 by Darling Conteh RN Peripheral IV 04/20/25; 0945; No; 20; Anterior, Distal, Right; Forearm; ChloraPrep; Anatomical landmarks; None; Catheter Intact, No Complications 04/20/25 0945 by Lisa Bedolla RN 04/21/25 0909 by Nandini Andrew RN ETT 04/20/25; 1139; Mask ; Ventilated by mask (1); Video laryngoscopy; ETT; Cuffed; 7; Bhardwaj; 3; Oral; 1; 1; Auscultation, Capnometry; 21 cm; CEMENT MASON HELPER 04/20/25 1139 by Clementine Mccarthy APRN, CRNA 04/20/25 1355 by Clementine Mccarthy APRN, BARBARA documented in this encounter Social History Tobacco Use Types Packs/Day Years Used Date Smoking Tobacco: Never Smokeless Tobacco: Never Alcohol Use Standard Drinks/Week Comments Yes 0 (1 standard drink = 0.6 oz pur e alcohol) 1 drink every [address] [facility] Utilities Answer Date Recorded In the past 12 months has th e [employer], or [employer] threatened to shut off services in your [...] any time in the past 12 m [facility], were you homeless or living in a residential (including now)? No 04/20/2025 EH IP Custom [...] on file documented as of this encounter Mental Status * Patient's Judgment Adequate to Safely Complete Daily Activities Answer Entry Date Author Yes 04/20/2025 3:07 PM CDT Nicole Parker RN documented in this encounter OR Notes * Anesthesia Postprocedure Evaluation - Ryan Velazquez DO - 04/20/2025 3:52 PM CDT Procedure Summary Date: 04/20/25 Room / Location: [facility] OR Anesthesia Start: 1132 Anesthesia Stop: 1405 Procedure: Left total hip arthroplasty direct anterior approach (Left: Hip) Diagnosis: (M16.12 Degenerative joint disease of the left hip) Surgeons: Asael Calderon MD Responsible Provider: Ryan Velazquez DO Anesthesia Type: general ASA Status: 2 Anesthesia Type: general Vitals Value Taken Time BP 122/72 04/20/25 14:40 Temp 36.1 ??C (96.9 ??F) 04/20/25 14:01 Pulse 78 04/20/25 14:40 Resp 8 04/20/25 14:40 SpO2 95 % 04/20/25 14:40 Vitals shown include unfiled device data. Patient Post-op disposition: inpatient floor planned admission Patient participation: patient able to participate Level of consciousness: awake and alert Pain score: 1 Pain management: adequate Airway patency: spontaneously maintained and patent Cardiovascular status: acceptable Respiratory status: acceptable Hydration status: no apparent hydration abnormalities No PONVDental findings: dentition unchanged No notable events documented. * Anesthesia Preprocedure Evaluation - Ryan Velazquez DO - 04/20/2025 9:35 AM CDT Anesthesia Evaluation Patient has had previous anesthetics No history of anesthetic complications Pulmonary - normal exam (+) sleep apnea on CPAP Cardiovascular - normal exam (+) hypertension well controlled, CAD, dyslipidemia ROS comment: Echo 09/23: Final Impressions: 1. Normal LV size, normal wall thickness, normal global systolic function with an estimated EF of 55 - 60%. 2. The aortic valve is sclerotic, no stenosis and no regurgitation. 3. The mitral valve is sclerotic, trace mitral regurgitation. 4. Since the echo from 09/21, there is no change. Neuro/Psych - negative ROS GI/Hepatic/Renal (+) GERD Endo (+) diabetes mellitus type 2 oral agent (mono therapy) Other BMI Classification: normal (BMI 20-24.9) All allergies reviewed. Physical Exam Airway Mallampati: II TM distance: >3 FB Neck ROM: full Cardiovascular - normal exam Dental - normal exam Pulmonary - normal exam Neurological Anesthesia Plan ASA 2 Plan: general Technique: general endotracheal Induction: intravenous Anesthetic plan and risks discussed and informed consent obtained from: patient. Plan discussed with CEMENT MASON HELPER and surgeon. PONV Plan PONV risk factors: female and non-smoker Calculated risk score: 2 Prevention/prophylaxis plan: Zofran and Decadron Patient is not DNR; Patient is not DNI; documented in this encounter Plan of Treatment Not on file documented as of this encounter Visit Diagnoses Not on filedocumented in this encounter Administered Medications Inactive Administered Medications Medication Order MAR Action Action Date Dose Rate Site ceFAZolin (ANCEF) 2 g in dextrose 4% IVPB 100 mL 2,000 mg, Intravenous, at 200 mL/hr, ONCE, 1 dose, On Fri04/20/25 at 0930, Indication? surgical prophylaxis New Bag 04/20/2025 11:43 AM CDT 2,000 mg dexAMETHasone (Decadron) injection IV Push, NEEDED, Starting on Fri04/20/25 at 1136, Until Fri04/20/25 at 1405 Given 04/20/2025 11:36 AM CDT 10 mg dexmedeTOMIDine (Precedex) 4 mcg/mL in sodium chloride 0.9 % (NS) infusion (premix) Intravenous, NEEDED, Starting on Fri04/20/25 at 1236, Until Fri04/20/25 at 1405 Given 04/20/2025 1:10 PM CDT 4 mcg Given 04/20/2025 12:36 PM CDT 8 mcg ePHEDrine sulfate injection IV Push, NEEDED, Starting on Fri04/20/25 at 1335, Until Fri04/20/25 at 1405 Given 04/20/2025 1:35 PM CDT 10 mg fentaNYL (Sublimaze) injection IV Push, NEEDED, Starting on Fri04/20/25 at 1136, Until Fri04/20/25 at 1405 Given 04/20/2025 12:15 PM CDT 50 mcg Given 04/20/2025 11:36 AM CDT 50 mcg glycopyrrolate (Robinul) injection IV Push, NEEDED, Starting on Fri04/20/25 at 1227, Until Fri04/20/25 at 1405 Given 04/20/2025 12:27 PM C DT 0.2 mg HYDROmorphone (Dilaudid) injection IV Push, NEEDED, Starting on Fri04/20/25 at 1310, Until Fri04/20/25 at 1405 Given 04/20/2025 1:10 PM CDT 0 .5 mg ketamine (Ketalar) 10 MG/ML injection IV Push, NEEDED, Starting on Fri04/20/25 at 1136, Until Fri04/20/25 at 1405 Given 04/20/2025 11:36 AM CDT 20 mg lactated ringers infusion 10-50 mL/hr, Intravenous, CONTINUOUS, Starting on Fri04/20/25 at 0930, Until Dinorah 04/21/25 at 1412 New Bag 04/20/2025 1:21 PM CDT Restarted 04/20/2025 11:32 AM CDT New Bag 04/20/2025 9:47 AM CDT 10 mL/hr 10 mL/hr lidocaine (Xylocaine) 2 % injection IV Push, NEEDED, Starting on Fri04/20/25 at 1136, Until Fri04/20/25 at 1405 Given 04/20/2025 11:36 AM CDT 100 mg ondansetron (Zofran) injection IV Push, NEEDED, Starting on Fri04/20/25 at 1331, Until Fri04/20/25 at 1405 Given 04/20/2025 1:31 PM CDT 4 mg propofol (Diprivan) 200 MG/20ML injection Intravenous, NEEDED, Starting on Fri04/20/25 at 1136, Until Fri04/20/25 at 1405 Given 04/20/2025 11:36 AM CDT 150 mg rocuronium (Zemuron) injection IV Push, NEEDED, Starting on Fri04/20/25 at 1136, Until Fri04/20/25 at 140 Given 04/20/2025 11:36 AM CDT 50 mg sugammadex sodium (Bridion) injection IV Push, NEEDED, Starting on Fri04/20/25 at 1346, Until Fri04/20/25 at 1405 Given 04/20/2025 1:46 PM CDT 150 mg tranexamic acid (Cyklokapron) 1000 mg in sodium chloride 0.7% 100 mL (premix) 1,000 mg, Intravenous, at 200 mL/hr, ONCE, 1 dose, On Fri04/20/25 at 0930 New Bag 04/20/2025 12:14 PM CDT 1,000 mg tranexamic acid (Cyklokapron) 1000 mg in sodium chloride 0.7% 100 mL (premix) 1,000 mg, Intravenous, at 200 mL/hr, ONCE, 1 dose, On Fri04/20/25 at 0930 New Bag 04/20/2025 1:35 PM CDT 1,000 m g documented in this encounter Care Teams Saturator Operator Relationship Specialty Start Date [place] [address] PCP - General Internal Medicine 04/20/25 documented as of this encounter
--- OUTSIDE RECORDS SUMMARY | 2025-04-20 14:05 | XMS_ITS | Encounter Summary ---
Author Organization [facility] Address [address] [address] Phone Care Team Providers Care It Business Systems Analyst Name Role Phone Tiffanie Romero MD Primary Care Provider [phone]- [phone] Encounter Details Date Type Department Care Team (Late st Contact Info) Description 04/20/2025 2:05 PM CDT Ancillary Procedure [facility] [address] [place] [phone] Social History Tobacco Use Types Packs/Day Years Used Date Smoking Tobacco: Never Smokeless Tobacco: Never Alcohol Use Standard Drinks/Week Comments Yes 0 (1 standard drink = 0.6 oz pur e alcohol) 1 drink every 2 weeks [facility] Utilities Answer Date Recorded In the past [...] any time in the past 12 m [facility], were you homeless or living in a detention (including now)? No 04/20/2025 EH IP Custom [...] Name Priority Date/Time Associated Diagnosis Comments XR HIP LEFT 2 OR 3 VIEWS W PELVIS Routine 04/20/2025 2:36 PM CDT S/P total left hip arthroplasty documented in this encounter Results * XR HIP LEFT 2 OR 3 [...] Beverly MD Report Date: 04/20/2025 2:42 PM Asael Calderon MD [facility] ORDERABL ES Final Result documented in this encounter Visit Diagnoses Not on filedocumented in this encounter Care Teams It Business Systems Analyst Relationship Specialty Start Date End [place] [address] PCP - General Internal Medicine 04/20/25 documented as of this encounter
[2025-04-25] VITALS (34 sets, daily range): BP systolic 145–192; BP diastolic 75–100; PULSE 53–72; RESP 9–28; TEMP 36.6–36.8; O2SAT 93–97; BMI 24.7; BMI 25.7
--- OUTSIDE RECORDS SUMMARY | 2025-04-25 14:07 | XMS_ITS | Encounter Summary ---
Author Organization [facility] Address [address] [place] [address] Care Team Providers Care Elevator Troubleshooter Name Role Phone Tiffanie Romero MD Primary Care Provider Encounter Details Date Type Department Care Team (Late st Contact Info) Description 12/15/2024 MyC Medical Advice Initial Department Shelly Hartman Social History Tobacco Use Types Packs/Day Years [...] PM CDT Legal Sex Female 3:40 AM HIDE EXAMINER Gender Identity Female 06/24/2023 3:55 PM CDT Sexual Orientation Straight 06/24/2023 3: 55 PM CDT documented as of this encounter Plan of Treatment Not on file documented as of this encounter Goals Goal Patient Goal Type Associated Problems Recent Progress Patient-Stated? Author Total Joint Replacement Hip Pathway Care Plan Total Joint Replacement Hip Pathway Darling Maki documented as of this encounter Visit Diagnoses Not on filedocumented in this encounter Additional Health Concerns Active Problems Noted Date Diagnosed Date Total Joint Replacement Hip Pathway 12/05/2022 documented as of this encounter Care Teams Elevator Troubleshooter Relationship Specialty Start Date End Date Tiffanie Romero MD [facility] [phone] PCP - General Internal Medicine 05/08/23 documented as of this encounter
--- OUTSIDE RECORDS SUMMARY | 2025-04-25 14:07 | XMS_ITS | Clinical Summary ---
Author Organization [facility] [employer] [facility] Address [address] [address] Phone Care Team Providers Care Soldering Technician Name Role Phone Tiffanie Romero MD Primary Care Provider [phone] Allergies Active Allergy Reactions Criticality Noted Date Comments Adhesive Tape Other,Eczema/Dermatitis Low 3 Redness Amlodipine Swelling Medium 04/07/2006 Clonidine Unknown Low 04/07/2006 Lethargy Slowed her response time-felt extremely sluggish Other reaction(s): lethargy Simvastatin Muscle pain Medium 07/27/2009 Medications atorvaSTATin (Lipitor) 80 MG tablet Take 80 mg by mouth at bedtime. 5 Active vitamin D3, cholecalcifero l, (Vitamin D-[address]) 25 mcg (1000 units) tablet Take 3,000 Units by mouth one time a day. 0 Active citalopram (CeleXA) 10 MG tablet Take 10 mg by mouth one time a day. 1 Active coenzyme Q10 10 MG capsule Take 10 mg by mouth one time a day. 7 Active metFORMIN (GLUCOPHAGE) 1000 MG tablet Take 1,000 mg by mouth two times a day. 2 Active metoprolol succinate (Toprol-XL) 50 MG 24 hour extended-relea se tablet Take 50 mg by mouth one time a day. 2 Active nitroglycerin (Nitrostat) 0.[address] 0.4 mg under the tongue every five minutes as needed. 3 Active [place]-3 Fatty Acids (SM Fish Oil) 1000 MG capsule Take 1,000 mg by mouth one time a day. 7 Active Probiotic Product (ACIDOPHILUS PROBIOTIC COMPLEX OR) Take 2 Tablets by mouth one time a day. Active Multiple Vitamins-[place] als (MULTIVITAMIN ADULTS OR) Take 1 Tablet by mouth every morning. Active oxyCODONE (Roxicodone) 5 MG immediate release tablet Take 1 Tablet by mouth every four hours as needed for Pain. 30 Tablet 5 Active aspirin EC 325 MG tablet Take 1 Tablet by mouth one time a day for 42 days. For DVT prevention. Do not split or crush. 42 Tablet 5 06/01/20 25 Active celecoxib (CeleBREX) 200 MG capsule Take 1 Capsule by mouth one time a day for 42 days. 42 Capsule 5 06/01/20 25 Active senna-docusate (Senna S) 8.6-50 MG oral tablet Take 1-2 Tablets by mouth two times a day. 30 Tablet 5 Active omeprazole (PriLOSEC) 20 MG delayed-releas e capsule Take 1 Capsule by mouth one time a day for 42 days. Do not crush. 42 Capsule 5 06/01/20 25 Active acetaminophen (TYLENOL) 325 MG tablet Take 3 Tablets by mouth every six hours as needed for Pain. Limit acetaminophen to 4000 mg per day from all sources. 100 Tablet 5 Active losartan-hydro CHLOROthiazide (Hyzaar) 100-25 MG oral tablet Take 1 Tablet by mouth one time a day. 5 Active Active Problems Problem Noted Date Diagnosed Date S/P total left hip arthroplasty 04/15/2025 Encounters Date Type Department Care Team Description 04/20/2025 2:05 PM CDT Ancillary Procedure [facility] [address] [facility] [address] [place] [phone] 04/20/2025 11:32 AM CDT Anesthesia Event [facility] [address] [facility] [place] [id number] Ryan Velazquez, Baudilio Arenas MD 04/20/2025 11:00 AM CDT - 04/20/2025 2:10 PM CDT Surgery [facility] OR [address] [facility] [place] [phone] Asael Calderon MD Left total hip arthroplasty direct anterior approach 04/20/2025 9:10 AM CDT Ancillary Procedure [facility] [address] [facility] [address] [place] [phone] 04/20/2025 8:55 AM CDT - 04/21/2025 10:07 AM CDT Hospital Encounter [facility] [address] [place] [phone] Asael Calderon MD S/P total left hip arthroplasty (Primary Dx) Discharge Disposition: Home and/or Self Care 04/20/2025 Travel 04/18/2025 Travel from Last 3 Months Surgical History Surgery Date Site/Laterality Comments REVISION OF UPPER EYELID REMV CATARACT INTRACAP,INSERT LENS TOTAL HIP REPLACEMENT HYSTEROSCOPY,DX,SEP PROC FOOT/TOES SURGERY PROC UNLISTED Right BREAST LUMPECTOMY Left BIOPSY OF BREAST, INCISIONAL DILATION AND CURETTAGE OF UTERUS BREAST REDUCTION LAPAROSCOPY REMOVAL GALLBLADDER APPENDECTOMY Medical History Medical History Date Comments Diabetes mellitus (HCC) Social History Tobacco Use Types Packs/Day Years Used Date Smoking Tobacco: Never Smokeless Tobacco: Never Tobacco Cessation:Counseling Given: Not Answered Alcohol Use Standard Drinks/Week Comments Yes 0 (1 standard drink = 0.6 oz pur e alcohol) 1 drink every 2 weeks [facility] Utilities Answer Date Recorded In the past 12 months has [employer], gas, oil, or water [employer] threatened to shut off services in your [...] any time in the past 12 m [facility], were you homeless or living in a nursing home (including now)? No 04/20/2025 EH IP Custom [...] PM CDT Sexual Orientation Not on file Obstetrics History [...] Mass Index 24.94 04/18/2025 2:22 PM CDT Plan of Treatment Health Maintenance Due Date Last Done Comments PERTUSSIS (Standing Order) 1967 TETANUS (Standing Order) 1967 Pneumococcal Vaccine: 50+ yr s (Standing Order) (1 of 1 - PCV) 1998 Shingrix (Zoster recombinant ) vaccine (Standing Order) (1 of 2) 1998 DXA,FEMALES AGE 65 OR GREATER 2013 RSV Vaccination (60+ yrs) (Abrysvo/Arexvy) (1 - 1-dose 75+ series) 2023 COVID-19 Vaccine (2023-2 5 season) 2024 HPV Vaccine (Standing Order) Aged Out No longer eligible based on patient's age to complete this topic Hepatitis B Vaccine (Standin g Order) Aged Out No longer eligible b ased on patient's age to complete this topic Medical Devices Implanted Type Area Care Giver Device Identifier Shelf Expiration Date Model / Serial / Lot [place] Hole Eliminator Ps - [id number] Implanted:Qty: 1 on 04/20/2025 by Asael Calderon MD at [facility] Left: Hip DEPUY [id number] 12/31/2034 0 / NA / [id number] Cup Acet 54mm [place] [employer] - [id number] Implanted:Qty: 1 on 04/20/2025 by Asael Calderon MD at [facility] Left: Hip 07/31/2034 4 / NA / [id number] Screw Bone Cancellous 6.5mm X 35mm - [id number] Implanted:Qty: 1 on 04/20/2025 by Asael Calderon MD at [facility] Left: Hip DEPUY 03/30/2033 0 / NA / [id number] Screw Bone Cancellous 6.5mm X 25mm - [id number] Implanted:Qty: 1 on 04/20/2025 by Asael Calderon MD at [facility] Left: Hip DEPUY 07/31/2034 0 / NA / [id number] Liner Acet Altrx 35mm X 54mm Neutral +4 - [id number] Implanted:Qty: 1 on 04/20/2025 by Asael Calderon MD at [facility] Left: Hip DEPUY 01/29/2028 4 / NA / [id number] Stem Femoral Actics Sz 6 Std Collar - [id number] Implanted:Qty: 1 on 04/20/2025 by Asael Calderon MD at [facility] Left: Hip DEPUY [id number] 12/31/2034 1010-10-06 0 / NA / [id number] Head Femoral Biolox Delta Sz 36 +5mm - [id number] Implanted:Qty: 1 on 04/20/2025 by Asael Calderon MD at [facility] Left: Hip DEPUY 12/31/2029 0 / NA / [id number] Procedures Procedure Name Priority Date/Time Associated Diagnosis [...] GLUCOSE, METER Routine 04/20/2025 9:31 AM CDT from Last 3 Months Results * (ABNORMAL) GLUCOSE, METER (04/21/2025 7:15 AM CDT) [facility] Signature Glucose Meter 285(H) 74 - 100 mg/dL 04/21/2025 7:22 AM CDT [facility] Blood WHOLE BLOOD SPECIMEN / Unknown 04/21/2025 7:15 AM CDT 04/21/2025 7:22 AM CDT Asael Calderon MD EC CHEMISTRY ORDERABLES Final Result Performing Organization Address [facility] de Phone Number [facility] [address] [place] [address] * (ABNORMAL) HEMOGLOBIN (04/21/2025 6:08 AM CDT) HGB 10.1(L) 12.0 - 16.0 g/dl 04/21/2025 6:56 AM CDT [facility] Blood BLOOD SPECIMEN / Unknown Venipuncture / Unknown 04/21/2025 6:08 AM CDT 04/21/2025 6:35 AM CDT Asael Calderon MD EC HEMATOLOGY ORDERABLES Final Result Performing Organization Address [facility] Phone Number [facility] [address] [place] [address] * (ABNORMAL) GLUCOSE, METER (04/21/2025 12:15 AM CDT) Glucose Meter 294(H) 74 - 100 mg/dL 04/21/2025 12:23 AM CDT [facility] Blood WHOLE BLOOD SPECIMEN / Unknown 04/21/2025 12:15 AM CDT 04/21/2025 12:23 AM CDT Asael Calderon MD EC CHEMISTRY ORDERABLES Final Result Performing Organization Address [facility] de Phone Number [facility] [address] [place] [address] * (ABNORMAL) GLUCOSE, METER (04/20/2025 9:31 PM CDT) Glucose Meter 335(H) 74 - 100 mg/dL 04/20/2025 9:47 PM CDT [facility] Blood WHOLE BLOOD SPECIMEN / Unknown 04/20/2025 9:31 PM CDT 04/20/2025 9:47 PM CDT us Asael Calderon MD EC CHEMISTRY ORDERABLES Final Result Performing Organization Address [facility] Phone Number [facility] [address] [place] [address] * (ABNORMAL) GLUCOSE, METER (04/20/2025 6:39 PM CDT) Glucose Meter 297(H) 74 - 100 mg/dL 04/20/2025 6:46 PM CDT [facility] Blood WHOLE BLOOD SPECIMEN / Unknown 04/20/2025 6:39 PM CDT 04/20/2025 6:46 PM CDT us Asael Calderon MD EC CHEMISTRY ORDERABLES Final Result Performing Organization Address [facility] Phone Number [facility] [address] [place] [address] * (ABNORMAL) GLUCOSE, METER (04/20/2025 3:45 PM CDT) Glucose Meter 199(H) 74 - 100 mg/dL 04/20/2025 3:54 PM CDT [facility] Blood WHOLE BLOOD SPECIMEN / Unknown 04/20/2025 3:45 PM CDT 04/20/2025 3:54 PM CDT us Asael Calderon MD EC CHEMISTRY ORDERABLES Final Result Performing Organization Address [facility] Phone Number [facility] [address] [place] [address] * XR HIP LEFT 2 OR 3 [...] * EKG 12-LEAD (04/20/2025 2:22 PM CDT) Pathologist [facility] Ventricular Rate 81 BPM RMCMUSE Atrial Rate 81 BPM RMCMUSE P-R Interval 200 ms RMCMUSE QRS Duration 94 ms RMCMUSE QT 396 ms RMCMUSE QTc 460 ms RMCMUSE P Gilbert 40 degrees RMCMUSE R Gilbert -20 degrees RMCMUSE T Gilbert 133 degrees RMCMUSE 04/20/2025 2:22 PM CDT 04/22/2025 12:44 PM CDT Narrative RMCMUSE - 04/22/2025 12:44 PM CDT Confirming Humberto Barajas Sinus rhythm with occasional premature ventricular complexes Left ventricular hypertrophy with repolarization abnormality Abnormal ECG No previous ECGs available Procedure Note Ricki Barajas MD - 04/22/2025 Confirming Doc Ricki Barajas Sinus rhythm with occasional premature ventricular complexes Left ventricular hypertrophy with repolarization abnormality Abnormal ECG No previous ECGs available us Ryan Cotter Marcus IP ECG ORDERABLES Final Resul t RMCMUSE * (ABNORMAL) GLUCOSE, METER (04/20/2025 2:05 PM CDT) Glucose Meter 168(H) 74 - 100 mg/dL 04/20/2025 2:12 PM CDT [facility] Blood WHOLE BLOOD SPECIMEN / Unknown 04/20/2025 2:05 PM CDT 04/20/2025 2:12 PM CDT Asael Calderon MD EC CHEMISTRY ORDERABLES Final Result Performing Organization Address [facility] Co de Phone Number [facility] [address] [place] [address] * XR C ARM FLUORO (04/20/2025 1:34 [...] the final image. Hemostat noted in the [id number]. Please see the operative note for additional [...] on the final image. Hemostat noted in [id number]. Please see the operative note for additional details. Electronically signed by Carlos Chaves MD Report Date: 04/20/2025 1:47 PM Maria Luz Hinojosa PA-Fredy EC DIAGNOSTIC IMAGING ORDER CORNELIA Final Result * (ABNORMAL) GLUCOSE, METER (04/20/2025 9:31 AM CDT) Glucose Meter 171(H) 74 - 100 mg/dL 04/20/2025 9:39 AM CDT [facility] Blood WHOLE BLOOD SPECIMEN / Unknown 04/20/2025 9:31 AM CDT 04/20/2025 9:39 AM CDT Asael Calderon MD EC CHEMISTRY ORDERABLES Final Result Performing Organization Address City/State/[facility] Co de Phone Number [facility] [address] [place] [address] from Last 3 Months Insurance MEDICARE COST PART A&B [facility] [id number] BL[facility] Advance Directives For more information, please contact: [phone] Documents on File Type Date Recorded Patient Restaurant Associate Expl anation Advance Directive - RV 04/20/2025 1:10 PM Advance Directive * Full Code (Latest Code Status on File) Date Activated Date Inactivated Comments 04/20/2025 9:02 AM 04/21/2025 2:07 PM Care Teams Soldering Technician Relationship Specialty Start Date End Date Tiffanie Romero MD [facility] [address] [address] PCP - General Internal Medicine 04/20/25
--- OUTSIDE RECORDS SUMMARY | 2025-04-25 14:08 | XMS_ITS | Clinical Summary ---
Author Organization [facility] Address [address] [place] [address] Care Team Providers Care Gymnasium Teacher Name Role Phone Tiffanie Romero MD Primary Care Provider [phone] Allergies Active Allergy Reactions Criticality Noted Date Comments Adhesive Tape Dermatitis 05/08/2023 Amlodipine Swelling 05/08/2023 Clonidine Fatigue 05/08/2023 Lethargy Simvastatin Muscle Pain (Myalgia) 05/08/2023 Medications atorvastatin (LIPITOR) 40 MG tablet Take 1 tablet by mouth At Bedtime 2 Active metoprolol succinate ER (TOPROL XL) 50 MG 24 hr tablet Take 1 tablet by mouth every evening 2 Active [place]-3 Fatty Acids (FISH OIL) 1200 MG capsule [...] PM CDT Legal Sex Female 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 Gender Identity Female 06/24/2023 3:55 PM CDT Sexual Orientation Straight 06/24/2023 3: 55 PM CDT Last Filed Vital Signs Vital Sign Reading Time Taken Comments Blood Pressure 125/62 05/09/2023 8:02 AM CDT Pulse 53 05/09/2023 8:02 AM CDT Temperature 36.8 C (98.2 F) 05/09/2023 8:02 AM CDT Respiratory Rate 16 05/09/2023 8:02 AM CDT [...] REVIEW OF HM ORDERS 1950 DEXA 1948 HEPATITIS C SCREENING 1966 LIPID 07/23/2011 07/23/2010 FALL RISK ASSESSMENT 2013 MEDICARE ANNUAL WELLNESS VISIT 2013 RSV VACCINE (1 - 1-dose 75+ series) 2023 DTAP/TDAP/TD IMMUNIZATION (2 - Td or Tdap) 08/16/2023 08/16/2013 COVID-19 Vaccine ( season) 2024 10/09/2022, 05/24/2022, 10/02/2021, Additional history exists PHQ-2 (once per calendar year) 2024 INFLUENZA VACCINE (Season Ended) 2025 09/05/2022, 08/29/2021, 09/11/2020, Additional history exists DIABETES SCREENING 05/09/2026 05/09/2023, 0 05/09/2023, 05/09/2023, Additional history exists ADVANCE CARE PLANNING 05/14/2028 05/14/2023 ZOSTER IMMUNIZATION Completed 07/15/2019, 06/10/2019, 05/27/2019, Additional history exists Pneumococcal Vaccine: 50+ Years Completed 08/30/2021, 02/15/2015, 07/05/2010 HPV IMMUNIZATION [...] [facility]ling [facility] Medical Devices Implanted Type Area Rotary Bar Operator Device Identifier Shelf Expiration Date Model / Serial / Lot Imp [place] Hole Eliminator Hip Depuy Duraloc 1246-03-000 - [id number] Implanted:Qty : 1 on 05/08/2023 by Asael Melo MD at [facility] Metallic Hardware/An chor Right: Hip [employer]- [id number] 02/28/2033 [id number] / / [id number] Imp Scr Bone Can Sean 6.5x25mm 1217-25-500 - [id number] Implanted:Qty : 1 on 05/08/2023 by Asael Melo MD at [facility] Metallic Hardware/An chor Right: Hip [employer]- [id number] 02/28/2033 [id number] / / [id number] Imp Scr Bone Can Sean 6.5x20mm 1217-20-500 - [id number] Implanted:Qty : 1 on 05/08/2023 by Asael Melo MD at [facility] Metallic Hardware/An chor Right: Hip [employer]- [id number] 01/28/2033 [id number] / / [id number] Imp Scr Bone Can Sean 6.5x30mm 1217-30-500 - [id number] Implanted:Qty : 1 on 05/08/2023 by Asael Melo MD at [facility] Metallic Hardware/An chor Right: Hip [employer]- [id number] 01/28/2033 [id number] / / [id number] Imp Cup Sean [place] 56mm 1217-22-056 - [id number] Implanted:Qty : 1 on 05/08/2023 by Asael Melo MD at [facility] Total Joint Component/I nsert Right: Hip [employer]- [id number] 04/30/2032 [id number] / / [id number] Liner Acetabular Altrx Neutral 76c40zw - [id number] Implanted:Qty : 1 on 05/08/2023 by Asael Melo MD at [facility] Total Joint Component/I nsert Right: Hip [employer]- [id number] 01/29/2028 1221-36-056 / / [id number] Imp Stem Fem Depuy Actis Std Collar Tpr Sz 6mm 1010-11-060 - [id number] Implanted:Qty : 1 on 05/08/2023 by Asael Melo MD at [facility] Total Joint Component/I nsert Right: Hip [employer]- [id number] 10/30/2032 [id number] / / [id number] Imp Head Femoral Depuy Ceramic 36mm +1.5mm 1365-36-310 - [id number] Implanted:Qty : 1 on 05/08/2023 by Asael Melo MD at [facility] Total Joint Component/I nsert Right: Hip [employer]- [id number] 02/29/2028 [id number] / / [id number] Procedures Procedure Name Priority Date/Time Associated Diagnosis [...] CDT 05/09/2023 2:22 AM CDT us Asael Flex Melo MD LAB - BEAKER POCT Final Resul t LABORATORY POC [facility] [address], [address] [place] [address], [place] [phone] * (ABNORMAL) A.M.A. 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 Insurance [place] OF [place] [facility] MEDICARE Advance Directives For more information, please contact: [phone] Documents on File Type Date Recorded Patient Screen Print Operator Expl anation Advance Directives and Living [...] Name Relationship Healthcare Agent Relationship Communication Philippe Rowemari Spouse Health Care Agent Chalo Sweeney Son First Alternate Health Care Agent Yousif Sweeney Son Second Alternate Health Care Agent Care Teams Gymnasium Teacher Relationship Specialty Start Date End Date Tiffanie Romero MD [place] [id number] PCP - General Internal Medicine 05/08/23
--- OUTSIDE RECORDS SUMMARY | 2025-04-25 14:08 | XMS_ITS | Clinical Summary ---
Author Organization [employer] [facility] Address [address] [place] [address] Care Team Providers Care Shearer Screen Measurer And Trimmer Name Role Phone Tiffanie Romero MD Primary Care Provider [phone]- [phone] Allergies Active Allergy Reactions Criticality Noted Date Comments Adhesive Contact Dermatitis Low 07/24/2015 Other reaction(s): Irritation Amlodipine Edema 04/07/2006 Other reaction(s): Unknown Clonidine Other - Describe In Comment Field Low 04/07/2006 Slowed her response time-felt extremely sluggish Other reaction(s): lethargy Simvastatin Myalgia Medium 07/27/2009 Unlisted Allergen (Include Detail In Comments) Muscle Weakness Low 03/06/2022 Medications citalopram (CELEXA) 10 mg tablet Take 1 tablet by mouth once daily. 0 10/16/20 11 Active LACTOBACILLUS COMBO NO.6 (PROBIOTIC COMPLEX ORAL) Take by mouth. Activ e FLUTICASONE PROPIONATE (FLUTICASONE NASL) Inhale in the nostril(s). Active Coenzyme Q10 10 mg cap Take 1 capsule by mouth once daily. 0 03/10/20 17 Active omega-3 fatty acids (FISH OIL CONCENTRATE) cap Take 1 capsule by mouth once daily. 1500 mg once daily 0 09/29/20 17 Active cholecalciferol (VITAMIN D3) 1,000 unit tablet Take 3 tablets by mouth once daily. 09/18/20 20 Active Microlet Lancet 4 times daily. 12/12/19 21 Active Contour Next Test Strips strip TEST THREE TIMES DAILY TO FOUR TIMES DAILY 11/25/20 20 Active aspirin (ECOTRIN) 81 mg enteric coated tablet Take 81 mg by mouth. Active metFORMIN (GLUCOPHAGE) 500 mg tablet Take 500 mg by mouth 2 times daily with meals. 04/01/20 22 Active calcium carb-magnesium hydrox (MYLANTA MAX STR) 700-300 mg chewable Chew by mouth. 0 05/07/20 22 Active magnesium oxide (MAG-OX 400) 400 mg tablet Daily Active nitroglycerin (NITROSTAT) 0.4 mg sublingual tabletIndications: Other chest pain Place 1 Tablet (0.4 mg) under the tongue every 5 minutes if needed for Chest Pain. 25 Tablet 3 05/08/20 23 Active polyethylene glycol-electrolyte (GOLYTELY) 236-22.74-6.74 -5.86 gram suspensionIndicati ons:Polyp of colon, unspecified part of colon, unspecified type Drink 2 liters the day before colonoscopy and 2 liters 6 hours before colonoscopy appointment 4000 mL 05/25/20 24 Active polyethylene glycol-electrolyte (GOLYTELY) 236-22.74-6.74 -5.86 gram suspensionIndicati ons:Encounter for screening colonoscopy Drink 2 liters the day before the procedure and 2 liters 6 hours prior to procedure. 4000 mL 07/02/20 24 Active omeprazole (PRILOSEC) 20 mg Delayed-Release capsule Take 20 mg by mouth. 06/21/20 24 Active metoprolol succinate (TOPROL XL) 50 mg sustained-release tabletIndications: SVT (supraventricular tachycardia) (HC) TAKE 1 TABLET(50 MG) BY MOUTH EVERY DAY 90 Tablet 3 09/10/20 24 Active losartan-hydrochlo rothiazide (HYZAAR) 100-25 mg tabletIndications: HTN (hypertension) TAKE 1 TABLET BY MOUTH EVERY DAY 90 Tablet 3 09/20/20 24 Active atorvastatin (LIPITOR) 80 mg tabletIndications: Coronary artery disease due to lipid rich plaque,Hyperlipide reginaldo, unspecified hyperlipidemia type Take 1 Tablet (80 mg) by mouth at bedtime. 90 Tablet 3 02/15/20 25 Active Active Problems Problem Noted Date Diagnosed Date Colon polyp 04/04/2011 Overview (10/12/2024): Colonoscopy 03/2011 polyp repeat in 5 years Colonoscopy 10/2024 TA, repeat in 5 years Acute myocardial infarction, [...] Encounters Date Type Department Care Team Description 02/14/2025 Telephone [facility] [address] [place] [address] Shey Feliciano MD Medication Management (Lipid results) 02/11/2025 1:45 PM CDT Orders Only [facility] [address] [place] [address] [place], [place] Lab 02/11/2025 Travel from Last 3 Months Immunizations Immunization Administration Dates Next Due Amb Influenza, Inactivated [...] = 0.6 oz pur e alcohol) occ Financial Resource Strain Answer Date R ecorded Difficulty of Paying Living Expenses Not on file 12/01/2021 Difficulty of Paying Living Expenses Not on file 12/01/2021 Comments No Sex and Gender Information Value Date Recorded Sex Assigned at Not on file Legal Sex Female 5:25 AM GEARCASE ASSEMBLER Gender Identity Not on file Sexual Orientation Not on file Obstetrics History Last Filed Vital Signs Vital Sign Reading Time Taken Comments Blood Pressure 120/80 10/14/2024 9:51 AM GEARCASE ASSEMBLER Pulse 70 10/14/2024 9:51 AM GEARCASE ASSEMBLER Temperature 35.7 C (96.2 F) 07/14/2024 8:39 AM CDT Respiratory Rate 17 07/03/2022 8:37 AM CDT Oxygen Saturation 97% 10/14/2024 9:51 AM GEARCASE ASSEMBLER Inhaled Oxygen Concentration - - Weight 71.7 kg (158 lb) 10/14/2024 9:51 AM GEARCASE ASSEMBLER Height 167.6 cm (5' 5.98) 10/14/2024 9:51 AM CS T Body Mass Index 25.51 10/14/2024 9:51 AM GEARCASE ASSEMBLER Plan of Treatment Upcoming Encounters Date Type Department Care Team (Late st Contact Info) Description 05/17/2025 8:30 AM CDT Orders Only [facility] [address] [place] [address] [place] 07/19/2025 8:15 AM CDT Appointment [address] [place] [address] 07/19/2025 9:00 AM CDT Office Visit [address] [place] [address] Cathleen Garcia PA [address] [facility] [address] [place], [place] [id number] Health Maintenance Due Date Last Done Comments Depression screening for age 12+ 1960 Hepatitis C screening for age 18-79 1966 DEXA/DXA scan for age 65+ 2013 08/05/2007 Medicare Wellness for age 65+ 2013 Pneumococcal series for age 50+ (3 of 3 - PCV20 or PCV21) 02/16/2020 02/15/2015, 07/05/2010 RSV vaccine for adults or (1 - 1-dose 75+ series) 2023 Tetanus booster 08/16/2023 08/16/2013 COVID-19 vaccine series ( season) 2025 09/17/2024, 09/11/2023, 10/09/2022, Additional history exists Influenza Vaccine (Season Ended) 2025 08/29/2021, 09/11/2020, 08/13/2018, Additional history exists BMI (ht and wt on same day) for age 18+ 10/14/2025 10/14/2024, 07/14/2024, 09/26/2023, Additional history exists Tdap Completed 08/16/2013 Zoster (shingles) series for age 50+ Completed 05/27/2019, 03/09/2019, 11/03/2009 Hepatitis B series for 19+ Aged Out N o longer eligible based on patient's age to complete this topic Procedures Procedure Name Priority Date/Time Associated Diagnosis Comments ALT (SGPT) Routine 02/11/2025 2:00 PM CDT HTN (hypertension) Hyperlipidemia, unspecified hyperlipidemia type ASHD (arteriosclerotic heart disease) AST (SGOT) Routine 02/11/2025 2:00 PM CDT HTN (hypertension) Hyperlipidemia, unspecified hyperlipidemia type ASHD (arteriosclerotic heart disease) CK TOTAL Routine 02/11/2025 2:00 PM CDT HTN (hypertension) Hyperlipidemia, unspecified hyperlipidemia type ASHD (arteriosclerotic heart disease) LIPID PANEL Routine 02/11/2025 2:00 PM CDT HTN (hypertension) Hyperlipidemia, unspecified hyperlipidemia type ASHD (arteriosclerotic heart disease) SCAN-BONE DENSITOMETRY DEXA 08/05/2007 12:00 AM CDT from Last 3 Months or Most Recently Relevant to Health Maintenance Results * ALT (SGPT) (02/11/2025 2:00 PM CDT) ALT 12 6 - 29 U/L [facility] Blood BLOOD SPECIMEN / Unknown 02/11/2025 2:00 PM CDT 02/11/2025 2:01 PM CDT us Shey Feliciano MD CHEMISTRY Final R esult [employer] [facility] [address] [place] [address], [place] [phone] [facility] [address] [facility] [place] [address] * AST (SGOT) (02/11/2025 2:00 PM CDT) Pathologist [facility] AST 19 10 - 35 U/L [facility] Blood BLOOD SPECIMEN / Unknown 02/11/2025 2:00 PM CDT 02/11/2025 2:01 PM CDT Shey Feliciano MD CHEMISTRY Final R esult [facility] [address] [place] [address], [place] [phone] [facility] [address] [place] [address] * CK TOTAL (02/11/2025 2:00 PM CDT) [facility] CREATINE KINASE, TOTAL 49 18 - 225 U/L [facility] Blood BLOOD SPECIMEN / Unknown 02/11/2025 2:00 PM CDT 02/11/2025 2:01 PM CDT Shey Feliciano MD CHEMISTRY Final R esult [facility] [address] [place] [address], [place] [phone] [facility] [address] [place] [address] * LIPID PANEL (02/11/2025 2:00 PM CDT) Pathologist [facility] CHOLESTEROL, TOTAL 145 <200 mg/dL [facility] HDL CHOLESTEROL 64 > OR = 50 mg/dL [facility] TRIGLYCERIDES 108 <150 mg/dL [facility] LDL-CHOLESTEROL 62 mg/dL (calc) [facility] Comment: Reference range: <100 Desirable range <100 mg/dL for primary prevention; <70 mg/dL for patients with CHD or diabetic patients with > or = 2 CHD risk factors. LDL-C is now calculated using the Darlene calculation, which is a validated novel method providing better accuracy than the Friedewald equation in the estimation of LDL-C. Nas SS et al. DENIA. 2013;310(19): 4894-0967 (http://education.Diplopia/faq/QGV582) CHOL/HDLC RATIO 2.3 <5.0 (calc) [facility] NON HDL CHOLESTEROL 81 <130 mg/dL (calc) [facility] Comment: For patients with diabetes plus 1 major ASCVD risk factor, treating to a non-HDL-C goal of <100 mg/dL (LDL-C of <70 mg/dL) is considered a therapeutic option. Blood BLOOD SPECIMEN / Unknown 02/11/2025 2:00 PM CDT 02/11/2025 2:01 PM CDT Shey Feliciano MD CHEMISTRY Final R esult [facility] [address] [place] [address], [place] [phone] [facility] [address] [place] [address] * SCAN-BONE DENSITOMETRY DEXA (08/05/2007 12:00 AM CDT) Anatomical Region Laterality Modality Other us Scanner OTHER Final Result from Last 3 Months or Most Recently Relevant to Health Maintenance Insurance MEDICARE PART B HB ONLY MEDICARE PART A HB ONLY [employer] BLUE HB ONLY [employer] BLUE MR PB ONLY Advance Directives * Full Code (Latest Code [...] 7:39 PM 10/17/2009 5:58 PM Care Teams Shearer Screen Measurer And Trimmer Relationship Specialty Start Date End Date Tiffanie Romero MD PCP - General 03/02/09
--- OUTSIDE RECORDS SUMMARY | 2025-04-25 14:08 | XMS_ITS | Encounter Summary ---
Author Organization [facility] Address [address] [address] Phone Care Team Providers Care Bark Scaler Name Role Phone Unavailable Primary Care Provider Unavailabl e Encounter Details Date Type Department Care Team (Latest Contact Info) Description 04/18/2025 Travel Social History Tobacco Use Types Packs/Day Years Used Date Smoking Tobacco: Never Smokeless Tobacco: Never Alcohol Use Standard Drinks/Week Comments Yes 0 (1 standard drink = 0.6 oz pur e alcohol) 1 drink every 2 weeks IP Custom IPV Answer Date Recorded Do [...]
--- OUTSIDE RECORDS SUMMARY | 2025-04-25 14:08 | XMS_ITS | Clinical Summary ---
Author Organization [facility] Address [address] [place] [address] Care Team Providers Care Lead Technologist In Cytogenetics Name Role Phone Tiffanie Romero MD Primary Care Provider [phone]- [phone] Source Comments You are receiving this document as you are listed as the primary care provider,follow-up provider, or the patient has been referred to you for consultation.This is in compliance with the Medicare and[facility] EHR Incentive Program,which states Providers who transition their patient to another setting of careor provider of care or refers their patient to another provider of care shouldprovide summary care record for each transition of care or referral. [facility] Allergies No known active allergies Medications alendronate (FOSAMAX) 35 MG tablet Take 35 [...] Years Used Date Smoking Tobacco: Never Assessed Comments Unknown Sex and Gender Information Value Date Recorded Sex Assigned at Not on file Legal Sex Female 9:41 AM CDT Gender Identity Not on file Sexual Orientation Not on file Plan of Treatment Health Maintenance Due Date Last Done Comments Hep C Screening (Preventive Services) 1950 Medicare Welcome Visit 1950 Dexa 2013 Pneumococcal Vaccine 50+ Yrs (3 of 3 - PCV) 02/16/2020 02/15/2015, 07/05/2010 RSV Vaccine (1 - 1-dose 75+ series) 2023 DTaP/Tdap/Td Vaccine (2 - Tdap) 08/16/2023 08/16/2013 COVID-19 Vaccine (3 - season) 2024 02/16/2021, 01/19/2021 Influenza Vaccine (Season Ended) 2025 09/11/2020, 09/06/2019, 08/27/2017, Additional history exists Zoster/Shingles Vaccine Completed 07/15/20, 06/10/2019, 03/10/2019, Additional history exists HepA Vaccine Aged Out No longer eligi ble based on patient's age to complete this topic HepB Vaccine Aged Out No longer eligi ble based on patient's age to complete this topic Hib Vaccine Aged Out No longer eligi ble based on patient's age to complete this topic IPV (Polio) Vaccine Aged Out No longe r eligible based on patient's age to complete this topic MCV4 Vaccine Aged Out No longer eligi ble based on patient's age to complete this topic Meningococcal B Vaccine Aged Out No l onger eligible based on patient's age to complete this topic [place] [address] [place] [address] [facility] [place] [id number] Care Teams Lead Technologist In Cytogenetics Relationship Specialty Start Date End Date Tiffanie Romero MD [address] [place] [address] PCP - General Internal Medicine 06/30/18
--- OUTSIDE RECORDS SUMMARY | 2025-04-25 14:08 | XMS_ITS | Encounter Summary ---
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
--- OUTSIDE RECORDS SUMMARY | 2025-04-25 14:08 | XMS_ITS | Encounter Summary ---
Author Organization [facility] Address [address] [place] [address] Care Team Providers Care Rip Tailer Name Role Phone Tiffanie Romero MD Primary [...] PM CDT Legal Sex Female 3:40 AM INTERNAL CONSULTANT Gender Identity Female 06/24/2023 3:55 PM CDT [...] documented as of this encounter Care Teams Rip Tailer Relationship Specialty Start Date End Date Tiffanie Romero MD [facility] [place] [id number] PCP - General Internal Medicine 05/08/23 documented as of this encounter
--- OUTSIDE RECORDS SUMMARY | 2025-04-25 14:08 | XMS_ITS | Encounter Summary ---
Author Organization [facility] Address [address] [place] [address] Care Team Providers Care Flag Car Driver Name Role Phone Tiffanie Romero MD Primary [...] PM CDT Legal Sex Female 3:40 AM KETTLE HAND Gender Identity Female 06/24/2023 3:55 PM CDT [...] documented as of this encounter Care Teams Flag Car Driver Relationship Specialty Start Date End Date Tiffanie Romero MD [facility] [place] [phone] PCP - General Internal Medicine 05/08/23 documented as of this encounter
--- OUTSIDE RECORDS SUMMARY | 2025-04-25 14:08 | XMS_ITS | Encounter Summary ---
Author Organization [facility] Address [address] [address] Phone Care Team Providers Care Bookie Name Role Phone Tiffanie Romero MD Primary Care Provider +1- [phone] Encounter Details Date Type Department Care Team (Latest Contact Info) Description 04/20/2025 Travel Social History Tobacco Use Types Packs/Day Years Used Date Smoking Tobacco: Never Smokeless Tobacco: Never Alcohol Use Standard Drinks/Week Comments Yes 0 (1 standard drink = 0.6 oz pur e alcohol) 1 drink every 2 weeks [facility] Utilities Answer Date Recorded In the [...] any time in the past 12 m [facility] [place], were you homeless or living in a correction (including now)? No 04/20/2025 EH IP Custom [...] of Assessment Author Yes 04/20/2025 3:07 PM CATALINAT Nicole Parker RN documented as of this encounter Mental Status * Patient's Judgment Adequate to Safely Complete Daily Activities Answer Entry Date Author Yes 04/20/2025 3:07 PM Nicole Vega RN documented in this encounter Plan of Treatment Not on file documented as of this encounter Visit Diagnoses Not on filedocumented in this encounter Care Teams Bookie Relationship Specialty Start Date [place] [address] PCP - General Internal Medicine 04/20/25 documented as of this encounter
--- NOTE | 2025-04-25 14:18 | ED.GENADULT ---
HPI - General Adult General Time Seen by Provider: 14:19 Date Seen: 04/25/25 Chief complaint: Dizziness/Vertigo Stated complaint: Dizziness Time Seen by Provider: 04/25/25 14:11 Source: patient, EMS and RN notes reviewed Mode of arrival: EMS Limitations: no limitations History of Present Illness HPI narrative: This 74-year-old female is brought in by EMS from home with episode of dizziness. Patient is status post left total hip arthroplasty on April 20, staying overnight to April 21 at [facility] with [facility]. Dr. Calderon was the performing physician she was on the toilet today when this dizziness started. She was having some lower abdominal cramping, had taken senna this morning for constipation. She was sitting on the toilet when she became hot and sweaty, felt dizzy like she was going to pass out. There was no chest pain, no shortness of breath, no palpitations. She denies any major cardiac history. She states she was hospitalized here and was told she had a heart attack and when transferred to [place] she states they did not find any evidence of a heart attack. She is using 325 mg aspirin daily for 6 weeks postprocedure. She is also using Tylenol, Celebrex. She has oxycodone but has not appeared to use any of this. She took the senna tablet at 10:00 a.m. this morning. She is feeling better as far as not feeling dizzy. She does feel some cramping or lower abdominal movement, wonders if she is going to need to have a bowel movement. She is back on her usual medicines, does have hypertension and diabetes, is on metformin. She does admit that she probably has not been drinking enough fluids. Related Data Home Medications ?Medication ?Instructions ?Recorded ?Confirmed Lacto.acidophilus-Bif.animalis 2 tab PO DAILY 07/04/22 04/25/25 [Daily Probiotic] metoprolol succinate 50 mg 50 mg PO HS 07/04/22 04/25/25 tablet,extended release 24 hr nitroglycerin 0.4 mg sublingual 0.4 mg sublingual Q5M PRN 07/04/22 04/25/25 tablet omega-3 fatty acids [Fish Oil] 1 cap PO DAILY 07/04/22 04/25/25 bifido balance PO 06/30/23 04/06/25 vision elements PO 06/30/23 04/06/25 losartan 100 1 tab PO DAILY 11/04/23 04/25/25 mg-hydrochlorothiazide 25 mg tablet multivitamin 1 tab PO QAM 05/24/24 04/25/25 cholecalciferol (vitamin D3) 75 3,000 unit PO DAILY 07/22/24 04/25/25 mcg (3,000 unit) tablet coenzyme Q10 200 mg capsule 100 mg PO DAILY 07/22/24 04/25/25 amoxicillin 500 mg capsule 2,000 mg PO QDAY PRN 12/23/24 04/25/25 atorvastatin 40 mg tablet 80 mg PO HS 03/24/25 04/25/25 celecoxib 200 mg capsule 200 mg PO DAILY 04/25/25 04/25/25 docusate sodium 50 mg capsule 50 mg PO BID 04/25/25 04/25/25 (Stool Softener) oxycodone 5 mg tablet 5 mg PO Q4H PRN pain 04/25/25 04/25/25 Previous Rx's ?Medication ?Instructions ?Recorded Diabetic Test Strips #360 ea 11/04/23 omeprazole 20 mg capsule,delayed 20 mg PO QAM #90 caps 08/04/24 release lancets #100 ea 12/02/24 citalopram 10 mg tablet 10 mg PO DAILY #90 tabs 03/18/25 aspirin 325 mg tablet,delayed 325 mg PO DAILY #30 tabs 04/26/25 release metformin 1,000 mg tablet 500 mg (1/2 x 1,000 mg) PO BID #60 04/26/25 tabs polyethylene glycol 3350 17 gram 17 g PO DAILY PRN #238 ea 04/26/25 oral powder packet (Miralax) potassium chloride 10 mEq 10 meq PO DAILY #30 caps 04/26/25 capsule,extended release Allergies Allergy/AdvReac Type Severity Reaction Status Date / Time adhesive Allergy Mild irritation Verified 04/25/25 14:12 Xxbmsli-GPI-CnB Reductase Allergy Mild Muscle Pain Verified 04/25/25 14:12 Inhibitor amlodipine Allergy Unknown Unknown Verified 04/25/25 14:12 clonidine AdvReac Mild lethargy Verified 04/25/25 14:12 Bandaides Allergy Mild reddened, Uncoded 04/06/25 13:45 irritations Review of Systems Status of ROS: Reports: 6 or more systems reviewed and unremarkable except as noted in History and below [facility] PFS Medical History (Updated 04/26/25 @ 16:51 by Tiffanie Romero MD) History of breast cancer ?Z85.3 - Personal history of malignant neoplasm of breast (ICD-10) Family history of colorectal cancer ?Z80.0 - Family history of malignant neoplasm of digestive organs (ICD-10) History of depression ?Z86.59 - Personal history of other mental and behavioral disorders (ICD-10) H/O parotitis ?Z87.19 - Personal history of other diseases of the digestive system (ICD-10) Adrenal nodule ?E27.8 - Other specified disorders of adrenal gland (ICD-10) Surgical History (Updated 04/26/25 @ 16:51 by Tiffanie Romero MD) History of blepharoplasty ?Z98.890 - Other specified postprocedural states (ICD-10) History of cataract surgery ?Z98.49 - Cataract extraction status, unspecified eye (ICD-10) History of hip replacement (05/2023) ?Z96.649 - Presence of unspecified artificial hip joint (ICD-10) Status post hysteroscopy (~2014) ?Z98.890 - Other specified postprocedural states (ICD-10) Status post right foot surgery ?Z98.890 - Other specified postprocedural states (ICD-10) History of lumpectomy of left breast (08/2010) ?Z98.890 - Other specified postprocedural states (ICD-10) History of breast biopsy ?Z98.890 - Other specified postprocedural states (ICD-10) Status post dilation and curettage ?Z98.890 - Other specified postprocedural states (ICD-10) Status post breast reduction (2010) ?Z98.890 - Other specified postprocedural states (ICD-10) History of laparoscopy ?Z98.890 - Other specified postprocedural states (ICD-10) History of cholecystectomy (2006) ?Z90.49 - Acquired absence of other specified parts of digestive tract (ICD-10) History of appendectomy (1969) ?Z90.49 - Acquired absence of other specified parts of digestive tract (ICD-10) Family History Father Colorectal cancer, Onset Age: 78 High blood pressure Uncle Colon cancer Mother Stroke Coronary artery disease High blood pressure Uterine cancer Social History (Updated 04/25/25 @ 22:25 by Liliana Clarke MD) Narrative: , retired. College education. Never smoked. Denies alcohol use. 1-2 drinks per month. What is your current living situation?: I presently have a place to live Problems where you live: no known problems Problems where you live details: NA In the past 12 months, utilities in danger of being shut off: no In past 12 months, lack of transportation kept you from medical appts, meetings, work, or getting things needed for daily living: no In the past 12 mos, have been you worried that your food would run out before you had money to buy more?: never true In the past 12 mos, the food you bought just didn't last and you didn't have money to buy more?: never true Highest level of school completed/degree received: some college, no degree Smoking Status: Never smoker Do you use any of these nicotine containing products: None How often do you have a drink containing alcohol: monthly or less How many standard drinks containing alcohol do you have on a typical day: 1 or 2 How often do you have six or more drinks on one occasion: Never AUDIT-C Alcohol total score: 1 Non-prescribed substance use: denies use Caffeine: Yes How often does anyone, including family, friends and others, physically hurt you: never How often does anyone, including family, friends and others, insult or talk down to you: never How often does anyone, including family, friends and others, threaten you with harm: never How often does anyone, including family, friends and others, scream or curse at you: never service: No Exam Const: Vital Signs, click to edit/add: Vital Signs - 24 hr 04/25/25 14:07 04/25/25 14:30 04/25/25 14:31 Temperature 98 F Pulse Rate 55 L Pulse Rate [Right Pulse Oximeter] 56 L Respiratory Rate 18 Blood Pressure Blood Pressure [Ri ght Upper Arm] 154/76 H Pulse Oximetry 96 97 97 Oxygen Delivery Me thod Room Air 04/25/25 14:47 04/25/25 15:00 04/25/25 15:15 Temperature Pulse Rate 53 L 53 L 60 Pulse Rate [Right Pulse Oximeter] Respiratory Rate Blood Pressure Blood Pressure [Ri ght Upper Arm] Pulse Oximetry 97 97 96 Oxygen Delivery Sc thod 04/25/25 15:37 04/25/25 15:39 04/25/25 15:45 Temperature Pulse Rate 59 L 57 L Pulse Rate [Right Pulse Oximeter] Respiratory Rate 16 17 19 Blood Pressure 162/86 H Blood Pressure [Ri ght Upper Arm] Pulse Oximetry 95 97 [facility] 04/25/25 16:00 04/25/25 16:02 04/25/25 16:15 Temperature Pulse Rate 55 L 58 L 57 L Pulse Rate [Right Pulse Oximeter] Respiratory Rate 14 14 21 Blood Pressure 166/84 H Blood Pressure [Ri ght Upper Arm] Pulse Oximetry 95 96 94 [facility] 04/25/25 16:30 04/25/25 16:45 04/25/25 17:02 Temperature Pulse Rate 56 L 57 L Pulse Rate [Right Pulse Oximeter] Respiratory Rate 19 9 L 11 L Blood Pressure Blood Pressure [Ri ght Upper Arm] Pulse Oximetry 94 96 [facility] 04/25/25 17:04 04/25/25 17:05 04/25/25 17:15 Temperature Pulse Rate Pulse Rate [Right Pulse Oximeter] Respiratory Rate 17 12 18 Blood Pressure 192/96 H 183/86 H Blood Pressure [Ri ght Upper Arm] Pulse Oximetry [facility]xygen Delivery [facility] 04/25/25 17:30 04/25/25 18:59 04/25/25 19:00 Temperature Pulse Rate 58 L 61 Pulse Rate [Right Pulse Oximeter] Respiratory Rate 18 Blood Pressure Blood Pressure [Ri ght Upper Arm] Pulse Oximetry 97 Oxygen Delivery [facility] 04/25/25 19:02 04/25/25 19:15 04/25/25 19:30 Temperature Pulse Rate 61 68 58 L Pulse Rate [Right Pulse Oximeter] Respiratory Rate 18 17 14 Blood Pressure 186/100 H Blood Pressure [Ri ght Upper Arm] Pulse Oximetry 96 97 96 Oxygen Delivery [facility] Room Air 04/25/25 19:45 Temperature Pulse Rate 61 Pulse Rate [Right Pulse Oximeter] Respiratory Rate 16 Blood Pressure Blood Pressure [Ri ght Upper Arm] Pulse Oximetry 95 Oxygen Delivery [facility] This 74-year-old female is alert, interactive, no apparent distress but does look mildly pale. Conjugate gaze, sclera clear, symmetrical facial function. Speech is normal. Lungs are clear, good air entry, no wheezing or crackles. CV regular rate and rhythm, no murmur, normal S1-S2, no S3-S4. Abdomen is soft, nontender, nondistended, no organomegaly. She has no significant lower extremity swelling, no calf tenderness on either side. She is following commands, no focal deficit noted. She is afebrile on arrival, not hypoxic, not tachycardic. Documenting provider has reviewed patient's vital signs: yes Course Course ED Course: Patient will be on cardiac monitoring, pulse oximetry. Do think she could have had issues due to vasovagal presyncope based on her history. Will watch her vitals here, she is not tachycardic or hypoxic on arrival. Will be doing a D-dimer, understandably this could be elevated from her surgery but need to consider thromboembolic disease in this patient. Will watch for arrhythmia. This does not sound like it was vertigo or anything of cerebrovascular disease nature. Will check full complement of labs. Consider imaging is indicated but at this time overall examination is reassuring and patient does feel better. Will consider some IV fluids while she is here. We did review that staying hydrated is important for healthy bowel function. Reevaluation(s) Time of Reevaluation #1: 16:17 Reevaluation #1: Have rechecked patient, she is feeling better, did have a bowel movement. We did discuss that she has elevated lactate, agree with her that she has not been drinking enough. She does deny any urinary symptoms. Her states that she will likely be staying over night which I do have to tell him that she very likely will go home, not meeting criteria for hospitalization at this point. Her potassium is mildly low, will give her oral supplementation. Will need to recheck her lactate and troponin. Awaiting her D-dimer. She is not that significantly anemic. I did look at her surgical scar, there is a clear dressing over it and it looks clean dry and intact. She has some mild peripheral erythematous change that it is macular papular, almost in a distribution of potentially something surgical that they had on the skin. She states it was much more itchy. I would recommend observation. As it is improving, feel less is more, do not feel this is infectious in feel it is likely something that the did with the skin in prep for surgery. Time of Reevaluation #2: 16:36 Reevaluation #2: Did update patient that her D-dimer is elevated. We discussed that this is elevated it in inflammatory processes but also can be elevated due to blood clots like pulmonary emboli. We will be doing chest CT PE protocol to ensure she does not have any thromboembolic phenomenon. If her chest CT is positive, will need to ultrasound her legs to to look for full clot burden. She is currently hemodynamically stable. Have ordered her potassium and subsequent fluids. Time of Reevaluation #3: 18:51 Reevaluation #3: Nursing staff alerted me to the fact that patient's IV infiltrated into her arm with attempts to do the CT PE scan. She is a very difficult IV access and has a history of breast cancer necessitating just 1 arm to be used. We will be unable to access her at this time. Will look at venous ultrasound to rule out DVTs. Need to discuss with her that we may actually need to send her where she can have a V/Q scan. Additional Reevaluation(s): 9:04 p.m.: Have updated the patient that she actually will be staying here. Have reviewed my conversations with the hospitalist as well as the industrial custodian at [place]. Will be getting a portable chest x-ray and urinalysis on her to complete our evaluation here. Want to ensure no infectious etiology. Consultations Consultation #1: Have contacted [facility], both [place] as well as [place] are on divert for medical beds. We will start checking in the [facility] as well, staff is contacting [facility] as patient states she has been hospitalized at [place] before. 7:27 p.m.: Have reviewed case with Dr. Otto from [facility] at [place]. We will await her venous ultrasounds of her lower extremities. I will call back with those results. He is wondering if we potentially should talk to pulmonology, see if they would have any inclination to not do further studies if ultrasounds are negative. Her surgery certainly may elevate the D-dimer. I will contact them back once we have ultrasound reports. He ultimately is willing to accept this patient if she does need transfer. 8:41 p.m.: Did speak with Dr. Rosales from pulmonology at [place]. We reviewed patient's case. He does not believe that she needs a V/Q scan, he thinks with negative bilateral lower extremity ultrasounds that the elevated D-dimer is indeed an acute phase reactant from her surgery. The elevated lactate, elevated proBNP do warrant watching. We discussed keeping the patient here overnight under observation to ensure no occult infection developing and continuing to monitor her hemodynamics. She has had 2- troponins, EKG is not showing any ischemic change. Patient is notably blocked with metoprolol and is mildly bradycardic which certainly could have affected symptoms earlier today. Do believe that this certainly may have represented a vasovagal episode. She certainly could have some component of being intravascularly dry verses occult early infection potentially. She will be observed here. Did subsequently talk to our hospitalist Dr. Clarke whom accepts. Time: 18:56 Vital Signs Vital signs: Initial Vital Signs Temperature 98 F 04/25/25 14:07 Temperature Source Temporal Artery Scan 04/25/25 14:07 Pulse Rate 56 L 04/25/25 14:07 Pulse Rhythm Regular 04/25/25 14:07 Pulse Strength 3+ Normal 04/25/25 14:07 Respiratory Rate 18 04/25/25 14:07 Blood Pressure 154/76 H 04/25/25 14:07 Blood Pressure Mean 102 04/25/25 14:07 Blood Pressure Position Semi-Fowlers 04/25/25 14:07 Pulse Oximetry 96 04/25/25 14:07 Oxygen Delivery Method Room Air 04/25/25 14:07 Vital Signs Temperature 98 F 04/25/25 14:07 Pulse Rate 56 L 04/25/25 14:07 Respiratory Rate 18 04/25/25 14:07 Blood Pressure 154/76 H 04/25/25 14:07 Pulse Oximetry 96 04/25/25 14:07 Oxygen Delivery Method Room Air 04/25/25 14:07 Temperature 98.3 F 04/26/25 11:45 Pulse Rate 66 04/26/25 11:45 Respiratory Rate 16 04/26/25 11:45 Blood Pressure 151/77 H 04/26/25 11:45 Pulse Oximetry 92 04/26/25 11:45 Oxygen Delivery Method Room Air 04/26/25 11:45 Medications Administered Medications: Discontinued Medications Generic Name Dose Route Start Last Admin Trade Name Freq PRN Reason Stop Dose Admin Acetaminophen 1,000 mg 04/25/25 23:15 04/25/25 23:18 Acetaminophen 500 Mg Tablet PO 04/25/25 23:16 1,000 mg ONCE ONE Administration Aspirin 325 mg 04/26/25 09:00 04/26/25 09:51 Aspirin Ec 325 Mg Tablet PO 325 mg DAILY SCOT Administration Atorvastatin Calcium 80 mg 04/25/25 23:00 04/25/25 23:18 Atorvastatin Calcium 40 Mg Tablet PO 80 mg HS SCOT Administration Celecoxib 200 mg 04/26/25 09:00 04/26/25 09:43 Celecoxib 200 Mg Capsule PO 200 mg DAILY SCOT Administration Citalopram Hydrobromide 10 mg 04/26/25 09:00 04/26/25 09:50 Citalopram Hydrobromide 20 Mg Tablet PO 10 mg DAILY SCOT Administration Hydrochlorothiazide 25 mg 04/26/25 09:00 04/26/25 09:50 Hydrochlorothiazide 25 Mg Tablet PO 25 mg DAILY SCOT Administration Sodium Chloride 1,000 mls @ 500 mls/hr 04/25/25 14:42 04/25/25 21:40 0.9 % Sodium Chloride 1000 Ml IV 04/25/25 16:41 Infused .Q2H SCOT Infusion Sodium Chloride 500 mls @ 500 mls/hr 04/25/25 16:29 04/25/25 21:40 0.9 % Sodium Chloride 500 Ml IV 04/25/25 17:28 Infused .Q1H ONE Infusion Sodium Chloride 500 mls @ 500 mls/hr 04/25/25 22:53 04/26/25 02:14 0.9 % Sodium Chloride 500 Ml IV 04/25/25 23:52 Infused .Q1H ONE Infusion Lactobacillus Acidophilus 2 tab 04/26/25 09:00 04/26/25 09:44 Lactobacillus Acidophilus 1 Tablet PO 2 tab DAILY SCOT Administration Losartan Potassium 100 mg 04/26/25 09:00 04/26/25 09:44 Losartan Potassium 50 Mg Tablet PO 100 mg DAILY SCOT Administration Metformin HCl 500 mg 04/26/25 09:00 04/26/25 09:43 Metformin 1,000 Mg Tablet PO 500 mg BID SCOT Administration Metoprolol Succinate 50 mg 04/25/25 19:55 04/25/25 20:25 Metoprolol Succinate (Xl) 50 Mg Tab PO 50 mg DAILY SCOT Administration Multivitamins/Minerals 1 tab 04/26/25 09:00 04/26/25 09:46 Multivitamin/Minerals 1 Tablet PO Not Given QAM SCOT Omeprazole 20 mg 04/26/25 09:00 04/26/25 09:03 [address]eprazole [address] PO 20 mg QAM SCOT Administration Potassium Bicarbonate 25 meq 04/25/25 16:29 04/25/25 17:03 Potassium Bicarb 25 Meq Effervescent Tab PO 04/25/25 16:30 25 meq ONCE ONE Administration Potassium Bicarbonate 50 meq 04/26/25 07:02 04/26/25 09:50 Potassium Bicarb 25 Meq Effervescent Tab PO 04/26/25 07:03 50 meq ONCE ONE Administration Sodium Chloride 5 ml 04/25/25 22:53 04/25/25 23:18 Sodium Chloride 0.9 % (Flush) 10 Ml Syringe IVF 5 ml .FLUSH PRN Administration Sodium Chloride 5 ml 04/26/25 09:00 04/26/25 09:51 Sodium Chloride 0.9 % (Flush) 10 Ml Syringe IVF 5 ml BID SCOT Administration Medical Decision Making Lab Data Lab results reviewed: Yes I reviewed the patient's lab results Labs: Lab Results 04/25/25 04/25/25 04/25/25 Range/Units 14:32 15:15 17:35 WBC 11.75 H (4.50-11.00) K/uL RBC 3.83 L (4.00-5.20) m/uL Hgb 11.0 L (12.0-16.0) gm/dL Hct 33.9 (33.0-51.0) % MCV 89 (80-100) fL MCH 29 (26-34) pg MCHC 32 (32-36) gm/dL RDW Coeff of Boni 13.2 (11.5-15.5) % Plt Count 295 (140-440) K/uL Neut % (Auto) 77.9 H (42.0-72.0) % Lymph % (Auto) 12.1 L (20-44) % Lamb % (Auto) 6.8 (0.0-11.0) % Eos % (Auto) 1.6 (0.0-7.0) % Baso % (Auto) 0.3 (0.0-3.0) % Neut # (Auto) 9.20 H (1.7-7.0) K/uL Lymph # (Auto) 1.40 (0.90-2.90) K/uL Lamb # (Auto) 0.80 (0.00-0.90) K/UL Eos # (Auto) 0.20 (0.00-0.50) K/uL Baso # (Auto) 0.00 (0.00-0.30) K/uL Abs Immat Gran (auto) 0.20 (0.00-0.30) K/uL Imm/Tot Granulo (auto) 1.3 % D-Dimer Quant (PE/DVT) 6.48 H (0.00-0.50) ug/ml Sodium 140 (135-149) mmol/L Potassium 3.2 L (3.6-5.1) mmol/L Chloride 103 (96-114) mmol/L Carbon Dioxide 27 (20-32) mmol/L Anion Gap 10 (7-15) mEq/L BUN 25 (7-30) mg/dL Creatinine 1.1 (0.5-1.5) mg/dL Estimated Creat Clear 40.73 Estimated GFR 52 ml/min Glucose 181 H (60-115) mg/dL Lactate 3.1 H 2.2 H (0.5-1.9) mmol/L Calcium 9.6 (8.4-10.6) mg/dL Magnesium 1.7 (1.5-2.6) mg/dL Total Bilirubin 1.1 (0.1-1.5) mg/dL AST 42 H (12-35) U/L ALT 17 (4-35) U/L Alkaline Phosphatase 93 (40-150) U/L Troponin I < 0.01 (0.01-0.04) ng/mL NT-Pro-B Natriuret Pep 1570 H (See Note) pg/mL Total Protein 6.9 (6.0-8.3) g/dL Albumin 3.8 (3.3-5.0) g/dL POC Troponin I 0.00 L Cancelled (0.01-0.04) ng/ml Imaging Data Venous US: Attestation: I have reviewed the pertinent imaging results. Radiologist's impression: Patient: JEFF OLIVEIRA Facility:?[facility] Patient ID:?[id number] Site Patient ID:?[id number]. Site :?[id number] Study:?US-Extremity Bilateral Venous legs-04/25/2025 8:29:13 PM Ordering Physician:George Burden Final Report: INDICATION: Elevated D-dimer, recent left BINDU. COMPARISON: None. TECHNIQUE: A compression venous ultrasound exam was performed of both lower extremities using aquino scale imaging, color Doppler, and spectral Doppler analysis. FINDINGS: Right: Sonographic imaging of the right lower extremity demonstrates normal compressibility and color Doppler venous blood flow within the common femoral, femoral, deep femoral, and proximal greater saphenous veins. At a lower level the popliteal, peroneal, and posterior tibial veins also show normal compressibility and color Doppler venous blood flow. Left: Sonographic imaging of the left lower extremity demonstrates normal compressibility and color Doppler venous blood flow within the common femoral, femoral, deep femoral, and proximal greater saphenous veins. At a lower level the popliteal, peroneal, and posterior tibial veins also show normal compressibility and color Doppler venous blood flow. IMPRESSION: Both lower extremities are negative for acute DVT. Dictated by Erika Cutler MD @ 04/25/2025 9:10:46 PM (Electronic Signature) Chest x-ray: Attestation: I have reviewed the pertinent imaging results. Radiologist's impression: Patient: JEFF OLIVEIRA Facility:[facility] Patient ID:?[id number] Site Patient ID:?[id number]. Site :?[id number] Study:?XRay-Chest PORTABLE-04/25/2025 8:59:39 PM Ordering Physician:George Burden Final Report: INDICATION: Elevated d dimer, elevated lactate TECHNIQUE: Chest radiograph 1 view COMPARISON: 08/21/2019, 01/28/2019, 09/04/2017 FINDINGS: The sensitivity and specificity of the exam are moderately limited by the patient`s body habitus. Mediastinum: The mediastinum is normal in appearance. The heart silhouette is normal in size and morphology. Lung: Both lungs are unremarkable in appearance with small lung volumes. No sign of pleural effusion seen. No pneumothorax is identified. Bone and Soft tissue: Unremarkable for age. IMPRESSION: 1. No acute cardiopulmonary disease is seen. Dictated by: Carlos Keith MD @ 04/25/2025 21:07:30 (Electronic Signature) ECG Data Attestation: I personally reviewed and interpreted this ECG as follows: (Sinus bradycardia, 57 beats per minute. Flattened T-waves in general, no definitive ST segment change noted.) Prior ECG tracings: available for review (Compared to old EKGs and no significant change appreciated.) Discharge Plan Discharge Clinical Impression: Dizziness, Elevated lactic acid level, Elevated d-dimer, Status post total replacement of left hip Patient Disposition: Admitted As Observation Condition: Improved Activity Level: Activity as Tolerated and Use Walker Discharge Diet: Regular
[2025-04-25] MEDS: 0.9 % SODIUM CHLORIDE 1000 ml 1,000 ML 500 ML IV (15:00)
[2025-04-25 15:19] LABS: Lactate* 3.1 mmol/L (0.5-1.9)
[2025-04-25 15:21] LABS: Basophils Percent Auto 0.3 % (0.0-3.0); Eosinophils Percent Auto 1.6 % (0.0-7.0); Hematocrit 33.9 % (33.0-51.0); Immature Granulocytes Pct Auto 1.3 %; Lymphocytes Percent Auto 12.1 % (20-44); Mean Corpuscular HGB Conc 32 gm/dL (32-36); Mean Corpuscular Hemoglobin 29 pg (26-34); Mean Corpuscular Volume 89 fL (80-100); Monocytes Percent Auto 6.8 % (0.0-11.0); Neutrophils Percent Auto 77.9 % (42.0-72.0); Platelet Count* 295 K/uL (140-440); RDW Coefficient of Variation % 13.2 % (11.5-15.5); Red Blood Count 3.83 m/uL (4.00-5.20); White Blood Count* 11.75 K/uL (4.50-11.00)
[2025-04-25 15:25] LABS: Slide Review Reflex No
[2025-04-25 15:36] LABS: Albumin* 3.8 g/dL (3.3-5.0); Chloride* 103 mmol/L (96-114); Sodium* 140 mmol/L (135-149)
[2025-04-25 15:37] LABS: Potassium* 3.2 mmol/L (3.6-5.1)
[2025-04-25 15:39] LABS: Alanine Aminotransferase* 17 U/L (4-35); Alkaline Phosphatase* 93 U/L (40-150); Anion Gap 10 mEq/L (7-15); Aspartate Amino Transferase* 42 U/L (12-35); Bilirubin Total* 1.1 mg/dL (0.1-1.5); Blood Urea Nitrogen* 25 mg/dL (7-30); Carbon Dioxide* 27 mmol/L (20-32); Creatinine* 1.1 mg/dL (0.5-1.5); Est. Creatinine Clearance* 40.73; Estimated Glomerular Filt Rate 52 ml/min; Total Protein* 6.9 g/dL (6.0-8.3)
[2025-04-25 15:40] LABS: Calcium* 9.6 mg/dL (8.4-10.6); Glucose* 181 mg/dL (60-115); Magnesium* 1.7 mg/dL (1.5-2.6)
[2025-04-25 15:54] LABS: NT Pro B Type NatriureticPept* 1570 pg/mL (See Note); Troponin I* < 0.01 ng/mL (0.01-0.04)
[2025-04-25 16:16] LABS: D Dimer Quantitative* 6.48 ug/ml (0.00-0.50)
[2025-04-25] MEDS: 0.9 % SODIUM CHLORIDE 500 ML 500 ML IV ×2 (16:57→23:18)
[2025-04-25] MEDS: POTASSIUM BICARB 25 MEQ EFFERVESCENT TAB PO (17:03)
[2025-04-25 17:44] LABS: Lactate* 2.2 mmol/L (0.5-1.9)
--- NOTE | 2025-04-25 18:49 | CRLHL7_ITS ---
For Patients: As a result of the Cures Act, medical imaging exams and procedure reports are released immediately into your electronic medical record. You may view this report before your referring provider. If you have questions, please contact your health care provider. INDICATION: Elevated D-dimer, recent left BINDU. COMPARISON: None. TECHNIQUE: A compression venous ultrasound exam was performed of both lower extremities using aquino scale imaging, color Doppler, and spectral Doppler analysis. FINDINGS: Right: Sonographic imaging of the right lower extremity demonstrates normal compressibility and color Doppler venous blood flow within the common femoral, femoral, deep femoral, and proximal greater saphenous veins. At a lower level the popliteal, peroneal, and posterior tibial veins also show normal compressibility and color Doppler venous blood flow. Left: Sonographic imaging of the left lower extremity demonstrates normal compressibility and color Doppler venous blood flow within the common femoral, femoral, deep femoral, and proximal greater saphenous veins. At a lower level the popliteal, peroneal, and posterior tibial veins also show normal compressibility and color Doppler venous blood flow. IMPRESSION: Both lower extremities are negative for acute DVT. Dictated by Erika Cutler MD @ 04/25/2025 9:10:46 PM (Electronically Signed)
[2025-04-25] MEDS: METOPROLOL SUCCINATE (XL) 50 MG TAB PO (20:25)
--- NOTE | 2025-04-25 20:47 | CRLHL7_ITS ---
For Patients: As a result of the Century Cures Act, medical imaging exams and procedure reports are released immediately into your electronic medical record. You may view this report before your referring provider. If you have questions, please contact your health care provider. INDICATION: Elevated d dimer, elevated lactate TECHNIQUE: Chest radiograph 1 view COMPARISON: 08/21/2019, 01/28/2019, 09/04/2017 FINDINGS: The sensitivity and specificity of the exam are moderately limited by the patient`s body habitus. Mediastinum: The mediastinum is normal in appearance. The heart silhouette is normal in size and morphology. Lung: Both lungs are unremarkable in appearance with small lung volumes. No sign of pleural effusion seen. No pneumothorax is identified. Bone and Soft tissue: Unremarkable for age. IMPRESSION: 1. No acute cardiopulmonary disease is seen. Dictated by: Carlos Keith MD @ 04/25/2025 21:07:30 (Electronically Signed)
--- NOTE | 2025-04-25 21:56 | PM.IMHP1 ---
Assessment and Plan Assessment and plan (1) Dizziness: Problem comment: - suspect vasovagal episode while attempting BM due to abdominal pain/cramping versus anxiety. Also on differential is orthostatic hypotension, cardiac arrhythmia, less likely is PE. O2 sats are reassuring and she had no chest discomfort or SOB. BLE are neg for DVT. Monitor on cardiac telemetry overnight. Check orthostatic BPs. Status: Acute (2) Status post total replacement of left hip: Problem comment: - @ [facility] by Yumiko from [facility] Status: Acute (3) Elevated lactic acid level: Problem comment: - suspect dehydration. Give 500cc IVF bolus, recheck lactate in am. Status: Acute (4) Elevated d-dimer: Problem comment: - acute phase reactant. Regarding possibility of VTE, see above. Continue daily aspirin 325 mg for VTE prevention in post op setting. TEDs overnight here. Status: Acute (5) Hypokalemia: Problem comment: - Was given oral KCl in ER. 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 Feliciano, Dr. Feliciano increased losartan 03/23 - Continue home antihypertensives Status: Chronic (8) Type 2 diabetes mellitus: Problem comment: progressed from pre-diabetes 10/18, metformin started 04/21, increased in january - Patient self discontinued due to side effects. She's agreeable to restart at 500mg BID and discuss with PCP as outpatient. Will add ISS for tonight. Status: Chronic (9) Hyperlipidemia: Problem comment: On treatment, followed by Dr. Feliciano Status: Chronic (10) Obstructive sleep apnea syndrome: Problem comment: Diagnosed by a Ear Nose Throat physician, Dr. Woody, 12/22, followed by Dr. Woody, recommended to do CPAP (not on CPAP as of 04/21), also has nocturnal hypoxemia Status: Chronic (11) Contact dermatitis: Problem comment: - From adhesive tape. Trial of prn steroid cream. Status: Acute Plan Although proBNP is elevated, she is clinically asymptomatic. Monitor for symptoms Hospitalist- H&P: HPI History of Present Illness Time Seen by Provider: 22:00 Date Seen: 04/25/25 Chief complaint: Dizziness Narrative: Nicolette Sweeney is a 74 year old female with h/o DM2, hypertension, dyslipidemia, breast cancer, and coronary artery disease who had a left total hip replacement on Friday and had an episode of dizziness today. After her surgery on Friday she felt well and stayed the night in the hospital. Upon discharge the next day, she went to stay with her daughter for a few days. She has not needed much pain medication, but has been following the schedule the surgeon prescribed. She had not yet had a bowel movement since surgery, so she took 1 senna this morning. She was supposed to be taking at this entire time, but did not because of being at her daughter's house and not wanting to have an accident there. By 1:00 p.m. today she felt sweaty, shaky, worsening lower abdominal cramps and pressure and went to sit on the toilet to try to have a bowel movement. These symptoms got worse and she eventually felt like she was going to vomit or pass out. Her was there with her and said she felt clammy. They called an ambulance and she was brought to the emergency department. Although she felt somewhat better by the time she got to the emergency department, she notes that she still felt shaky and weak for a bit. She then proceeded to have several good-sized bowel movements in the ER. She now feels much better in many ways. She notes that she had been drinking enough water over the last few days and feels a bit dry yet. She denies any shortness of breath, chest discomfort, palpitations, emesis, or loss of consciousness. She tells me that she was started on metformin about 2 years ago and then this was increased to 1000 mg twice a day in near the end of January. She does not like the way it makes her feel so fatigued all the time and so she stopped it altogether about a day or so ago. She has a glucometer and does note that her blood sugar has been higher today, mostly in the high 100s to low 200s. Also she has not yet taken Celebrex or acetaminophen today, but she has not noticed any pain in her left hip either. There is a rash around her surgical wound which has been there for few days now. It was really itchy when it for showed up, but has been getting better. Review of Systems Status of ROS: Reports: 10 or more systems reviewed and unremarkable except as noted in History and below [facility] Medical History (Updated 04/26/25 @ 00:07 by Liliana Clarke MD) Obstructive sleep apnea syndrome ?G47.33 - Obstructive sleep apnea (adult) (pediatric) (ICD-10) Acute IL ?I21.9 - Acute myocardial infarction, unspecified (ICD-10) Palpitations ?R00.2 - Palpitations (ICD-10) Adenomatous polyp of colon ?D12.6 - Benign neoplasm of colon, unspecified (ICD-10) Chronic low back pain ?M54.50 - Low back pain, unspecified (ICD-10) ?G89.29 - Other chronic pain (ICD-10) Coronary artery disease ?I25.10 - Atherosclerotic heart disease of [place] coronary artery without angina pectoris (ICD-10) Gastroesophageal reflux disease (10/27/09) ?K21.9 - Gastro-esophageal reflux disease without esophagitis (ICD-10) Hyperlipidemia (08/25/09) ?E78.5 - Hyperlipidemia, unspecified (ICD-10) Osteopenia ?M85.80 - Other specified disorders of bone density and structure, unspecified site (ICD-10) Situational anxiety ?F41.8 - Other specified anxiety disorders (ICD-10) History of breast cancer ?Z85.3 - Personal history of malignant neoplasm of breast (ICD-10) Osteoporosis ?M81.0 - Age-related osteoporosis without current pathological fracture (ICD-10) Family history of colorectal cancer ?Z80.0 - Family history of malignant neoplasm of digestive organs (ICD-10) Essential hypertension ?I10 - Essential (primary) hypertension (ICD-10) History of depression ?Z86.59 - Personal history of other mental and behavioral disorders (ICD-10) Type 2 diabetes mellitus ?E11.9 - Type 2 diabetes mellitus without complications (ICD-10) H/O parotitis ?Z87.19 - Personal history of other diseases of the digestive system (ICD-10) Adrenal nodule ?E27.8 - Other specified disorders of adrenal gland (ICD-10) Surgical History (Updated 04/26/25 @ 00:02 by Liliana Clarke MD) Status post total replacement of left hip (~03/2025) ?Z96.642 - Presence of left artificial hip joint (ICD-10) History of blepharoplasty ?Z98.890 - Other specified postprocedural states (ICD-10) History of cataract surgery ?Z98.49 - Cataract extraction status, unspecified eye (ICD-10) History of hip replacement (05/2023) ?Z96.649 - Presence of unspecified artificial hip joint (ICD-10) Status post hysteroscopy (~2014) ?Z98.890 - Other specified postprocedural states (ICD-10) Status post right foot surgery ?Z98.890 - Other specified postprocedural states (ICD-10) History of lumpectomy of left breast (08/2010) ?Z98.890 - Other specified postprocedural states (ICD-10) History of breast biopsy ?Z98.890 - Other specified postprocedural states (ICD-10) Status post dilation and curettage ?Z98.890 - Other specified postprocedural states (ICD-10) Status post breast reduction (2010) ?Z98.890 - Other specified postprocedural states (ICD-10) History of laparoscopy ?Z98.890 - Other specified postprocedural states (ICD-10) History of cholecystectomy (2006) ?Z90.49 - Acquired absence of other specified parts of digestive tract (ICD-10) History of appendectomy (1969) ?Z90.49 - Acquired absence of other specified parts of digestive tract (ICD-10) Family History Father Colorectal cancer, Onset Age: 78 High blood pressure Uncle Colon cancer Mother Stroke Coronary artery disease High blood pressure Uterine cancer Social History (Updated 04/25/25 @ 22:25 by Liliana Clarke MD) Narrative: , retired. College education. Never smoked. Denies alcohol use. 1-2 drinks per month. What is your current living situation?: I presently have a place to live Problems where you live: no known problems In the past 12 months, utilities in danger of being shut off: no In past 12 months, lack of transportation kept you from medical appts, meetings, work, or getting things needed for daily living: no In the past 12 mos, have been you worried that your food would run out before you had money to buy more?: never true In the past 12 mos, the food you bought just didn't last and you didn't have money to buy more?: never true Smoking Status: Never smoker Do you use any of these nicotine containing products: None How often do you have a drink containing alcohol: monthly or less AUDIT-C Alcohol total score: 1 Non-prescribed substance use: denies use How often does anyone, including family, friends and others, physically hurt you: never How often does anyone, including family, friends and others, insult or talk down to you: never How often does anyone, including family, friends and others, threaten you with harm: never How often does anyone, including family, friends and others, scream or curse at you: never Meds Home Medications and Allergies Home Medications ?Medication ?Instructions ?Recorded ?Confirmed ?Type Lacto.acidophilus-Bif.animalis 2 tab PO DAILY 07/04/22 04/25/25 History [Daily Probiotic] aspirin 81 mg capsule 81 mg PO QDAY 07/04/22 04/25/25 History metoprolol succinate 50 mg 50 mg PO HS 07/04/22 04/25/25 History tablet,extended release 24 hr nitroglycerin 0.4 mg sublingual 0.4 mg sublingual Q5M PRN 07/04/22 04/25/25 History tablet omega-3 fatty acids [Fish Oil] 1 cap PO DAILY 07/04/22 04/25/25 History bifido balance PO 06/30/23 04/06/25 History vision elements PO 06/30/23 04/06/25 History Diabetic Test Strips #360 ea 11/04/23 04/06/25 Rx losartan 100 1 tab PO DAILY 11/04/23 04/25/25 History mg-hydrochlorothiazide 25 mg tablet multivitamin 1 tab PO QAM 05/24/24 04/25/25 History cholecalciferol (vitamin D3) 75 3,000 unit PO DAILY 07/22/24 04/25/25 History mcg (3,000 unit) tablet coenzyme Q10 200 mg capsule 100 mg PO DAILY 07/22/24 04/25/25 History omeprazole 20 mg capsule,delayed 20 mg PO QAM #90 caps 08/04/24 04/25/25 Rx release lancets #100 ea 12/02/24 04/06/25 Rx amoxicillin 500 mg capsule 2,000 mg PO QDAY PRN 12/23/24 04/25/25 History citalopram 10 mg tablet 10 mg PO DAILY #90 tabs 03/18/25 04/25/25 Rx metformin 1,000 mg tablet 1,000 mg PO BID #180 tabs 03/21/25 04/25/25 Rx atorvastatin 40 mg tablet 80 mg PO HS 03/24/25 04/25/25 History celecoxib 200 mg capsule 200 mg PO DAILY 04/25/25 04/25/25 History docusate sodium 50 mg capsule 50 mg PO BID 04/25/25 04/25/25 History (Stool Softener) oxycodone 5 mg tablet 5 mg PO Q4H PRN pain 04/25/25 04/25/25 History Allergies Allergy/AdvReac Type Severity Reaction Status Date / Time adhesive Allergy Mild irritation Verified 04/25/25 14:12 Jadvwnm-KNP-PgS Reductase Allergy Mild Muscle Pain Verified 04/25/25 14:12 Inhibitor amlodipine Allergy Unknown Unknown Verified 04/25/25 14:12 clonidine AdvReac Mild lethargy Verified 04/25/25 14:12 Bandaides Allergy Mild reddened, Uncoded 04/06/25 13:45 irritations Exam Narrative: Exam Narrative: General: No acute distress. Awake alert oriented x3. HEENT: Normocephalic atraumatic, pupils equally round and reactive to light and accommodation. Oropharynx clear. Mucous membranes are slightly dry. No cervical lymphadenopathy, thyromegaly or carotid bruits. No JVD. Cardiovascular: Regular rate and rhythm. No murmurs, gallops, or rubs. Chest: No increased work of breathing. Clear to auscultation bilaterally. No crackles or wheezes. Abdomen: Bowel sounds present. Soft, nondistended, nontender. No hepatosplenomegaly or masses. Extremities: No edema, no cyanosis or clubbing. Skin: Rash in the shape of tape around surgical wound. There is some ecchymosis over the surgical wound. The wound itself is clean, dry, and intact. No jaundice, no pallor. Neuro: Grossly intact. No focal deficits. Const: Vital Signs, click to edit/add: Vital Signs - 24 hr 04/25/25 14:07 04/25/25 14:30 04/25/25 14:31 Temperature 98 F Pulse Rate 55 L Pulse Rate [Right Pulse Oximeter] 56 L Respiratory Rate 18 Blood Pressure Blood Pressure [Ri ght Upper Arm] 154/76 H Pulse Oximetry 96 97 97 Oxygen Delivery Me thod Room Air 04/25/25 14:47 04/25/25 15:00 04/25/25 15:15 Temperature Pulse Rate 53 L 53 L 60 Pulse Rate [Right Pulse Oximeter] Respiratory Rate Blood Pressure Blood Pressure [Ri ght Upper Arm] Pulse Oximetry 97 97 96 Oxygen Delivery Me thod 04/25/25 15:37 04/25/25 15:39 04/25/25 15:45 Temperature Pulse Rate 59 L 57 L Pulse Rate [Right Pulse Oximeter] Respiratory Rate 16 17 19 Blood Pressure 162/86 H Blood Pressure [Ri ght Upper Arm] Pulse Oximetry 95 97 Oxygen Delivery Me thod 04/25/25 16:00 04/25/25 16:02 04/25/25 16:15 Temperature Pulse Rate 55 L 58 L 57 L Pulse Rate [Right Pulse Oximeter] Respiratory Rate 14 14 21 Blood Pressure 166/84 H Blood Pressure [Ri ght Upper Arm] Pulse Oximetry 95 96 94 Oxygen Delivery Me thod 04/25/25 16:30 04/25/25 16:45 04/25/25 17:02 Temperature Pulse Rate 56 L 57 L Pulse Rate [Right Pulse Oximeter] Respiratory Rate 19 9 L 11 L Blood Pressure Blood Pressure [Ri ght Upper Arm] Pulse Oximetry 94 96 Oxygen Delivery Me thod 04/25/25 17:04 04/25/25 17:05 04/25/25 17:15 Temperature Pulse Rate Pulse Rate [Right Pulse Oximeter] Respiratory Rate 17 12 18 Blood Pressure 192/96 H 183/86 H Blood Pressure [Ri ght Upper Arm] Pulse Oximetry Oxygen Delivery Me thod 04/25/25 17:30 04/25/25 18:59 04/25/25 19:00 Temperature Pulse Rate 58 L 61 Pulse Rate [Right Pulse Oximeter] Respiratory Rate 18 Blood Pressure Blood Pressure [Ri ght Upper Arm] Pulse Oximetry 97 Oxygen Delivery Ny thod 04/25/25 19:02 04/25/25 19:15 04/25/25 19:30 Temperature Pulse Rate 61 68 58 L Pulse Rate [Right Pulse Oximeter] Respiratory Rate 18 17 14 Blood Pressure 186/100 H Blood Pressure [Ri ght Upper Arm] Pulse Oximetry [address] [facility] 04/25/25 19:45 04/25/25 20:00 04/25/25 20:01 Temperature Pulse Rate 61 Pulse Rate [Right Pulse Oximeter] Respiratory Rate 16 14 14 Blood Pressure 172/82 H Blood Pressure [Ri ght Upper Arm] Pulse Oximetry 95 Oxygen Delivery Me thod 04/25/25 20:15 04/25/25 20:32 04/25/25 20:45 Temperature Pulse Rate 69 67 Pulse Rate [Right Pulse Oximeter] Respiratory Rate 15 28 H 16 Blood Pressure Blood Pressure [Ri ght Upper Arm] Pulse Oximetry 95 95 Oxygen Delivery Ny thod 04/25/25 21:00 04/25/25 21:01 04/25/25 21:15 Temperature Pulse Rate 64 65 65 Pulse Rate [Right Pulse Oximeter] Respiratory Rate 17 17 15 Blood Pressure 145/77 H Blood Pressure [Ri ght Upper Arm] Pulse Oximetry [address] [facility] - H&P: Result Labs Labs: Short CBC 04/25/25 Range/Units 15:15 WBC 11.75 H (4.50-11.00) K/uL Hgb 11.0 L (12.0-16.0) gm/dL Hct 33.9 (33.0-51.0) % Plt Count 295 (140-440) K/uL BMP 04/25/25 15:15 Sodium 140 Potassium 3.2 L Chloride 103 Carbon Dioxide 27 BUN 25 Creatinine 1.1 Glucose 181 H Calcium 9.6 Cardiac Enzymes 04/25/25 Range/Units 15:15 Troponin I < 0.01 (0.01-0.04) ng/mL Liver Function 04/25/25 Range/Units 15:15 Total Bilirubin 1.1 (0.1-1.5) mg/dL AST 42 H (12-35) U/L ALT 17 (4-35) U/L Alkaline Phosphatase 93 (40-150) U/L Albumin 3.8 (3.3-5.0) g/dL 04/25/2025 EKG: Sinus bradycardia, 57 beats per minute, low-voltage QRS, nonspecific ST and T-wave abnormality. Ordering Physician: Jenise Arellano M.D. Date of Service: 04/25/25 Procedure(s): US venous LE BI Accession Number(s): [id number] cc: Tiffanie Romero M.D.; Jenise Arellano M.D.~ For Patients: As a result of the Cures Act, medical imaging exams and procedure reports are released immediately into your electronic medical record. You may view this report before your referring provider. If you have questions, please contact your health care provider. INDICATION: Elevated D-dimer, recent left BINDU. COMPARISON: None. TECHNIQUE: A compression venous ultrasound exam was performed of both lower extremities using aquino scale imaging, color Doppler, and spectral Doppler analysis. FINDINGS: Right: Sonographic imaging of the right lower extremity demonstrates normal compressibility and color Doppler venous blood flow within the common femoral, femoral, deep femoral, and proximal greater saphenous veins. At a lower level the popliteal, peroneal, and posterior tibial veins also show normal compressibility and color Doppler venous blood flow. Left: Sonographic imaging of the left lower extremity demonstrates normal compressibility and color Doppler venous blood flow within the common femoral, femoral, deep femoral, and proximal greater saphenous veins. At a lower level the popliteal, peroneal, and posterior tibial veins also show normal compressibility and color Doppler venous blood flow. IMPRESSION: Both lower extremities are negative for acute DVT. Dictated by Erika Cutler MD @ 04/25/2025 9:10:46 PM (Electronically Signed) Ordering Physician: Jenise Arellano M.D. Date of Service: 04/25/25 Procedure(s): XR chest 1V portable Accession Number(s): [id number] cc: Tiffanie Romero M.D.; Jenise Arellano M.D.~ For Patients: As a result of the Cures Act, medical imaging exams and procedure reports are released immediately into your electronic medical record. You may view this report before your referring provider. If you have questions, please contact your health care provider. INDICATION: Elevated d dimer, elevated lactate TECHNIQUE: Chest radiograph 1 view COMPARISON: 08/21/2019, 01/28/2019, 09/04/2017 FINDINGS: The sensitivity and specificity of the exam are moderately limited by the patient`s body habitus. Mediastinum: The mediastinum is normal in appearance. The heart silhouette is normal in size and morphology. Lung: Both lungs are unremarkable in appearance with small lung volumes. No sign of pleural effusion seen. No pneumothorax is identified. Bone and Soft tissue: Unremarkable for age. IMPRESSION: 1. No acute cardiopulmonary disease is seen. Dictated by: Carlos Keith MD @ 04/25/2025 21:07:30 (Electronically Signed)
[2025-04-25 22:06] LABS: Appearance Urine Clear (Clear); Bilirubin Urine Negative (Negative); Blood Urine Negative (Negative); Color Urine Yellow (Yellow); Glucose Urine Negative (Negative); Ketones Urine Negative (Negative); Leukocyte Esterase Urine Negative (Negative); Nitrite Urine Negative (Negative); Protein Urine Negative (Negative); Urobilinogen Urine 0.2 (0.2-1.0)
[2025-04-25 22:17] LABS: RBC Urine 0-2 (0-2); Squamous Epithelial Cell Urine Few (None-Few)
[2025-04-25] MEDS: SODIUM CHLORIDE 0.9 % (FLUSH) 10 ML SYRINGE 5 ML IVF (23:18)
[2025-04-25] MEDS: ACETAMINOPHEN 500 MG TABLET 1000 MG PO (23:18)
[2025-04-25] MEDS: ATORVASTATIN CALCIUM 40 MG TABLET 80 MG PO (23:18)
[2025-04-26 03:00] VITALS: BP 154/85; PULSE 61; RESP 18; TEMP 36.8; O2SAT 93
[2025-04-26 06:27] LABS: Lactate* 0.9 mmol/L (0.5-1.9)
[2025-04-26 06:32] LABS: Basophils Percent Auto 0.1 % (0.0-3.0); Hematocrit 29.5 % (33.0-51.0); Hemoglobin* 9.6 gm/dL (12.0-16.0); Immature Granulocytes Pct Auto 0.1 %; Lymphocytes Percent Auto 10.7 % (20-44); Mean Corpuscular HGB Conc 33 gm/dL (32-36); Mean Corpuscular Hemoglobin 29 pg (26-34); Mean Corpuscular Volume 88 fL (80-100); Monocytes Percent Auto 7.8 % (0.0-11.0); Neutrophils Percent Auto 80.3 % (42.0-72.0); Platelet Count* 272 K/uL (140-440); RDW Coefficient of Variation % 13.1 % (11.5-15.5); Red Blood Count 3.37 m/uL (4.00-5.20); White Blood Count* 14.64 K/uL (4.50-11.00)
[2025-04-26 06:36] LABS: Slide Review Reflex No
[2025-04-26 06:46] LABS: Chloride* 107 mmol/L (96-114); Potassium* 3.2 mmol/L (3.6-5.1); Sodium* 137 mmol/L (135-149)
[2025-04-26 06:49] LABS: Blood Urea Nitrogen* 23 mg/dL (7-30); Creatinine* 0.7 mg/dL (0.5-1.5); Estimated Glomerular Filt Rate 90 ml/min
[2025-04-26 06:50] LABS: Anion Gap 4 mEq/L (7-15); Calcium* 8.5 mg/dL (8.4-10.6); Carbon Dioxide* 26 mmol/L (20-32); Glucose* 170 mg/dL (60-115)
[2025-04-26 06:55] VITALS: BP 186/113; PULSE 72; RESP 22; TEMP 37; O2SAT 97
[2025-04-26 07:01] VITALS: BP 166/84; PULSE 63; RESP 16; TEMP 36.8; O2SAT 94
[2025-04-26 07:30] LABS: Magnesium* 1.6 mg/dL (1.5-2.6)
--- NOTE | 2025-04-26 07:30 | PC.NURSE ---
Pt c/o feeling hot while toileting just before 0700 this morning and reported stomach cramping. Pt noted to be afebrile with temp of 98.6. Pt noted to have had a medium soft/formed bowel movement with small amount of medium red blood present. She is unsure if she has hemorrhoids at baseline. Lead Manufacturing Engineer updated MD Varghese regarding pt's complaints and noting blood in stool. Pt's primary RN assessed pt's vital signs once pt was assisted back into bed- elevated B/P noted by primary RN. Pt has been seen by MD Varghese this morning.
--- NOTE | 2025-04-26 07:44 | PC.NURSE ---
Pt alert and oriented. Pt admitted from ED around 2129. Pt had no complaints of dizziness or being lightheaded. Pt up with SBA with walker. Pt had no complaints of pain. VSS. Orthostatic BP?s done-see chart.?
[2025-04-26 07:45] LABS: Troponin I* < 0.01 ng/mL (0.01-0.04)
--- NOTE | 2025-04-26 07:45 | PC.NURSE ---
At 0655am Pt was in the bathroom. Pt felt lightheaded, warm,weak and overall unwell. Pt assisted to bed vital signs completed-see chart. MD updated see chart for new orders.
[2025-04-26 08:05] VITALS: PULSE 69
[2025-04-26] MEDS: OMEPRAZOLE 20 MG CAPSULE DR PO (09:03)
[2025-04-26] MEDS: METFORMIN 1,000 MG TABLET 500 MG PO (09:43)
[2025-04-26] MEDS: CELECOXIB 200 MG CAPSULE PO (09:43)
[2025-04-26] MEDS: LACTOBACILLUS ACIDOPHILUS 1 TABLET 2 TAB PO (09:44)
[2025-04-26] MEDS: LOSARTAN POTASSIUM 50 MG TABLET 100 MG PO (09:44)
[2025-04-26] MEDS: POTASSIUM BICARB 25 MEQ EFFERVESCENT TAB 50 MEQ PO (09:50)
[2025-04-26] MEDS: hydroCHLOROthiazide 25 MG TABLET PO (09:50)
[2025-04-26] MEDS: CITALOPRAM HYDROBROMIDE 20 MG TABLET 10 MG PO (09:50)
[2025-04-26] MEDS: SODIUM CHLORIDE 0.9 % (FLUSH) 10 ML SYRINGE 5 ML IVF (09:51)
[2025-04-26] MEDS: ASPIRIN EC 325 MG TABLET PO (09:51)
[2025-04-26 10:00] VITALS: BP 144/71; BP 151/91; PULSE 67; PULSE 79
[2025-04-26 11:45] VITALS: BP 151/77; PULSE 66; RESP 16; TEMP 36.8; O2SAT 92
[2025-04-26 13:14] LABS: Potassium* 4.5 mmol/L (3.6-5.1)
--- NOTE | 2025-04-26 13:32 | PM.DS1 ---
DS: Providers Provider Date Seen: 04/26/25 Date of admission: 04/25/25 21:26 Primary care physician: Tiffanie Romero MD Admitting Clinician: Liliana Clarke MD Attending Physician on discharge: Meño Varghese MD Date of Discharge: 04/26/25 DS: Diagnosis Discharge Diagnosis (1) Contact dermatitis: Status: Acute Problem details: - From adhesive tape. Trial of prn steroid cream. (2) Hypokalemia: Status: Acute Problem details: Potassium 3.2. Improved with oral replacement. Recommend potassium 10 mEq daily and outpatient follow-up. (3) Vasovagal episode: Status: Acute Problem details: Patient had symptoms typical for vasovagal or neurocardiogenic presyncope without loss of consciousness. Recurrent episode prior to admission and then this morning again while having a bowel movement. Has been feeling fine since that time (4) Status post total replacement of left hip: Status: Acute Problem details: - @ [place] by Y[facility] from [facility] (5) Type 2 diabetes mellitus: Status: Chronic Problem details: progressed from pre-diabetes 10/18, metformin started 04/21, increased in january - Patient self discontinued due to side effects. She's agreeable to restart at 500mg BID and discuss with PCP as outpatient. Will add ISS for tonight. (6) Essential hypertension: Status: Chronic Problem details: on treatment, resolved by Summer 2014 when she was able to go off medication, automatic clipper and stripper resumed lisinopril and metoprolol 10/19, managed by automatic clipper and stripper, Dr. Feliciano, Dr. Feliciano increased losartan 03/23 - Continue home antihypertensives (7) Constipation: Status: Acute Problem details: Patient is had constipation following hip surgery. She has not been taking any laxative since his hip surgery until yesterday. Hip surgery, opioid pain medication, decreased oral intake all likely contributing to constipation. She reports poorly tolerating senna so I have recommended switching to MiraLax which may have fewer side effects. DS: Summary Hospital Course Hospital Course: Nicolette Sweeney is a 74 year old female with h/o DM2, hypertension, dyslipidemia, breast cancer, and coronary artery disease who had a left total hip replacement on Friday and had an episode of dizziness today. After her surgery on Friday she felt well and stayed the night in the hospital. Upon discharge the next day, she went to stay with her daughter for a few days. She has not needed much pain medication, but has been following the schedule the surgeon prescribed. She had not yet had a bowel movement since surgery, so she took 1 senna this morning. She was supposed to be taking at this entire time, but did not because of being at her daughter's house and not wanting to have an accident there. By 1:00 p.m. today she felt sweaty, shaky, worsening lower abdominal cramps and pressure and went to sit on the toilet to try to have a bowel movement. These symptoms got worse and she eventually felt like she was going to vomit or pass out. Her was there with her and said she felt clammy. They called an ambulance and she was brought to the emergency department. Although she felt somewhat better by the time she got to the emergency department, she notes that she still felt shaky and weak for a bit. She then proceeded to have several good-sized bowel movements in the ER. She now feels much better in many ways. She notes that she had been drinking enough water over the last few days and feels a bit dry yet. She denies any shortness of breath, chest discomfort, palpitations, emesis, or loss of consciousness. She tells me that she was started on metformin about 2 years ago and then this was increased to 1000 mg twice a day in near the end of January. She does not like the way it makes her feel so fatigued all the time and so she stopped it altogether about a day or so ago. She has a glucometer and does note that her blood sugar has been higher today, mostly in the high 100s to low 200s. Also she has not yet taken Celebrex or acetaminophen today, but she has not noticed any pain in her left hip either. There is a rash around her surgical wound which has been there for few days now. It was really itchy when it for showed up, but has been getting better. 04/26/2025: This morning patient had couple bowel movements with soft brown stool. At the time she was having bowel movements chief reported similar symptoms of low abdominal crampiness, diaphoresis, at shakiness. No loss of consciousness. Since early this morning she has been feeling fine. She has been able to eat and has been ambulate in the hallway with a walker without difficulty. No further abdominal/GI symptoms. Status at Discharge Functional status at discharge: uses cane/walker Overall status at discharge: patient is progressing back to baseline Time Spent with Patient Time attestation: Total time spent providing and/or coordinating discharge services: 45 minutes Time spent: Greater than 30 minutes Exam Narrative: Exam Narrative: She is alert and appears in no distress. Respirations are clear to auscultation. Cardiovascular: S1, S2, regular rate and rhythm. No murmur gallop or rub. Abdomen: Bowel sounds active. Abdomen is soft without tenderness or mass. Hip incision is clean and dry. She does have slightly raised purpuric patches which have sharp linear borders around her incision consistent with a contact dermatitis from adhesive bandage or tape. The wound itself is without erythema or drainage, appears clean and dry and well healing. Distally she has intact pulses and sensation. She moves her feet and ankles well. No significant edema. No tenderness. Const: Vital Signs, click to edit/add: Vital Signs - 24 hr 04/25/25 14:07 04/25/25 14:30 04/25/25 14:31 Temperature 98 F Pulse Rate 55 L Pulse Rate [Bilate ral] Pulse Rate [Pulse Oximeter] Pulse Rate [Right Pulse Oximeter] 56 L Pulse Rate [orthos tatic lying Right Pulse Oximeter] Pulse Rate [orthos tatic sitting Left Pulse Oximeter] Pulse Rate [orthos tatic standing Pul se Oximeter] Respiratory Rate 18 Blood Pressure Blood Pressure [Ri ght Arm] Blood Pressure [Ri ght Upper Arm] 154/76 H Blood Pressure [or thostatic lying Ri ght Arm] Blood Pressure [or thostatic sitting Right Arm] Blood Pressure [or thostatic standing Right Arm] Pulse Oximetry 96 97 97 Oxygen Delivery Me thod Room Air 04/25/25 14:47 04/25/25 15:00 04/25/25 15:15 Temperature Pulse Rate 53 L 53 L 60 Pulse Rate [Bilate ral] Pulse Rate [Pulse Oximeter] Pulse Rate [Right Pulse Oximeter] Pulse Rate [orthos tatic lying Right Pulse Oximeter] Pulse Rate [orthos tatic sitting Left Pulse Oximeter] Pulse Rate [orthos tatic standing Pul se Oximeter] Respiratory Rate Blood Pressure Blood Pressure [Ri ght Arm] Blood Pressure [Ri ght Upper Arm] Blood Pressure [or thostatic lying Ri ght Arm] Blood Pressure [or thostatic sitting Right Arm] Blood Pressure [or thostatic standing Right Arm] Pulse Oximetry 97 97 96 Oxygen Delivery Me thod 04/25/25 15:37 04/25/25 15:39 04/25/25 15:45 Temperature Pulse Rate 59 L 57 L Pulse Rate [Bilate ral] Pulse Rate [Pulse Oximeter] Pulse Rate [Right Pulse Oximeter] Pulse Rate [orthos tatic lying Right Pulse Oximeter] Pulse Rate [orthos tatic sitting Left Pulse Oximeter] Pulse Rate [orthos tatic standing Pul se Oximeter] Respiratory Rate 16 17 19 Blood Pressure 162/86 H Blood Pressure [Ri ght Arm] Blood Pressure [Ri ght Upper Arm] Blood Pressure [or thostatic lying Ri ght Arm] Blood Pressure [or thostatic sitting Right Arm] Blood Pressure [or thostatic standing Right Arm] Pulse Oximetry 95 97 Oxygen Delivery Tn thod 04/25/25 16:00 04/25/25 16:02 04/25/25 16:15 Temperature Pulse Rate 55 L 58 L 57 L Pulse Rate [Bilate ral] Pulse Rate [Pulse Oximeter] Pulse Rate [Right Pulse Oximeter] Pulse Rate [orthos tatic lying Right Pulse Oximeter] Pulse Rate [orthos tatic sitting Left Pulse Oximeter] Pulse Rate [orthos tatic standing Pul se Oximeter] Respiratory Rate 14 14 21 Blood Pressure 166/84 H Blood Pressure [Ri ght Arm] Blood Pressure [Ri ght Upper Arm] Blood Pressure [or thostatic lying Ri ght Arm] Blood Pressure [or thostatic sitting Right Arm] Blood Pressure [or thostatic standing Right Arm] Pulse Oximetry 95 96 94 Oxygen Delivery Tn thod 04/25/25 16:30 04/25/25 16:45 04/25/25 17:02 Temperature Pulse Rate 56 L 57 L Pulse Rate [Bilate ral] Pulse Rate [Pulse Oximeter] Pulse Rate [Right Pulse Oximeter] Pulse Rate [orthos tatic lying Right Pulse Oximeter] Pulse Rate [orthos tatic sitting Left Pulse Oximeter] Pulse Rate [orthos tatic standing Pul se Oximeter] Respiratory Rate 19 9 L 11 L Blood Pressure Blood Pressure [Ri ght Arm] Blood Pressure [Ri ght Upper Arm] Blood Pressure [or thostatic lying Ri ght Arm] Blood Pressure [or thostatic sitting Right Arm] Blood Pressure [or thostatic standing Right Arm] Pulse Oximetry 94 96 Oxygen Delivery Me thod 04/25/25 17:04 04/25/25 17:05 04/25/25 17:15 Temperature Pulse Rate Pulse Rate [Bilate ral] Pulse Rate [Pulse Oximeter] Pulse Rate [Right Pulse Oximeter] Pulse Rate [orthos tatic lying Right Pulse Oximeter] Pulse Rate [orthos tatic sitting Left Pulse Oximeter] Pulse Rate [orthos tatic standing Pul se Oximeter] Respiratory Rate 17 12 18 Blood Pressure 192/96 H 183/86 H Blood Pressure [Ri ght Arm] Blood Pressure [Ri ght Upper Arm] Blood Pressure [or thostatic lying Ri ght Arm] Blood Pressure [or thostatic sitting Right Arm] Blood Pressure [or thostatic standing Right Arm] Pulse Oximetry Oxygen Delivery Tn thod 04/25/25 17:30 04/25/25 18:59 04/25/25 19:00 Temperature Pulse Rate 58 L 61 Pulse Rate [Bilate ral] Pulse Rate [Pulse Oximeter] Pulse Rate [Right Pulse Oximeter] Pulse Rate [orthos tatic lying Right Pulse Oximeter] Pulse Rate [orthos tatic sitting Left Pulse Oximeter] Pulse Rate [orthos tatic standing Pul se Oximeter] Respiratory Rate 18 Blood Pressure Blood Pressure [Ri ght Arm] Blood Pressure [Ri ght Upper Arm] Blood Pressure [or thostatic lying Ri ght Arm] Blood Pressure [or thostatic sitting Right Arm] Blood Pressure [or thostatic standing Right Arm] Pulse Oximetry 97 Oxygen Delivery Me thod 04/25/25 19:02 04/25/25 19:15 04/25/25 19:30 Temperature Pulse Rate 61 68 58 L Pulse Rate [Bilate ral] Pulse Rate [Pulse Oximeter] Pulse Rate [Right Pulse Oximeter] Pulse Rate [orthos tatic lying Right Pulse Oximeter] Pulse Rate [orthos tatic sitting Left Pulse Oximeter] Pulse Rate [orthos tatic standing Pul se Oximeter] Respiratory Rate 18 17 14 Blood Pressure 186/100 H Blood Pressure [Ri ght Arm] Blood Pressure [Ri ght Upper Arm] Blood Pressure [or thostatic lying Ri ght Arm] Blood Pressure [or thostatic sitting Right Arm] Blood Pressure [or thostatic standing Right Arm] Pulse Oximetry 96 97 96 Oxygen Delivery Me thod Room Air 04/25/25 19:45 04/25/25 20:00 04/25/25 20:01 Temperature Pulse Rate 61 Pulse Rate [Bilate ral] Pulse Rate [Pulse Oximeter] Pulse Rate [Right Pulse Oximeter] Pulse Rate [orthos tatic lying Right Pulse Oximeter] Pulse Rate [orthos tatic sitting Left Pulse Oximeter] Pulse Rate [orthos tatic standing Pul se Oximeter] Respiratory Rate 16 14 14 Blood Pressure 172/82 H Blood Pressure [Ri ght Arm] Blood Pressure [Ri ght Upper Arm] Blood Pressure [or thostatic lying Ri ght Arm] Blood Pressure [or thostatic sitting Right Arm] Blood Pressure [or thostatic standing Right Arm] Pulse Oximetry 95 Oxygen Delivery Tn thod 04/25/25 20:15 04/25/25 20:32 04/25/25 20:45 Temperature Pulse Rate 69 67 Pulse Rate [Bilate ral] Pulse Rate [Pulse Oximeter] Pulse Rate [Right Pulse Oximeter] Pulse Rate [orthos tatic lying Right Pulse Oximeter] Pulse Rate [orthos tatic sitting Left Pulse Oximeter] Pulse Rate [orthos tatic standing Pul se Oximeter] Respiratory Rate 15 28 H 16 Blood Pressure Blood Pressure [Ri ght Arm] Blood Pressure [Ri ght Upper Arm] Blood Pressure [or thostatic lying Ri ght Arm] Blood Pressure [or thostatic sitting Right Arm] Blood Pressure [or thostatic standing Right Arm] Pulse Oximetry 95 95 Oxygen Delivery Tn thod 04/25/25 21:00 04/25/25 21:01 04/25/25 21:15 Temperature Pulse Rate 64 65 65 Pulse Rate [Bilate ral] Pulse Rate [Pulse Oximeter] Pulse Rate [Right Pulse Oximeter] Pulse Rate [orthos tatic lying Right Pulse Oximeter] Pulse Rate [orthos tatic sitting Left Pulse Oximeter] Pulse Rate [orthos tatic standing Pul se Oximeter] Respiratory Rate 17 17 15 Blood Pressure 145/77 H Blood Pressure [Ri ght Arm] Blood Pressure [Ri ght Upper Arm] Blood Pressure [or thostatic lying Ri ght Arm] Blood Pressure [or thostatic sitting Right Arm] Blood Pressure [or thostatic standing Right Arm] Pulse Oximetry 94 93 96 Oxygen Delivery Tn thod 04/25/25 23:00 04/25/25 23:00 04/25/25 23:00 Temperature 98.2 F Pulse Rate 62 Pulse Rate [Bilate ral] Pulse Rate [Pulse Oximeter] 61 Pulse Rate [Right Pulse Oximeter] Pulse Rate [orthos tatic lying Right Pulse Oximeter] 65 Pulse Rate [orthos tatic sitting Left Pulse Oximeter] 69 Pulse Rate [orthos tatic standing Pul se Oximeter] 72 Respiratory Rate 18 Blood Pressure Blood Pressure [Ri ght Arm] 146/75 H Blood Pressure [Ri ght Upper Arm] Blood Pressure [or thostatic lying Ri ght Arm] 145/83 H Blood Pressure [or thostatic sitting Right Arm] 146/87 H Blood Pressure [or thostatic standing Right Arm] 148/84 H Pulse Oximetry 96 Oxygen Delivery Me thod Room Air 04/26/25 03:00 04/26/25 06:55 04/26/25 07:01 Temperature 98.2 F 98.6 F 98.3 F Pulse Rate Pulse Rate [Bilate ral] 63 Pulse Rate [Pulse Oximeter] 61 72 Pulse Rate [Right Pulse Oximeter] Pulse Rate [orthos tatic lying Right Pulse Oximeter] Pulse Rate [orthos tatic sitting Left Pulse Oximeter] Pulse Rate [orthos tatic standing Pul se Oximeter] Respiratory Rate 18 22 16 Blood Pressure Blood Pressure [Ri ght Arm] 154/85 H 186/113 H 166/84 H Blood Pressure [Ri ght Upper Arm] Blood Pressure [or thostatic lying Ri ght Arm] Blood Pressure [or thostatic sitting Right Arm] Blood Pressure [or thostatic standing Right Arm] Pulse Oximetry 93 97 94 Oxygen Delivery Me thod Room Air Room Air Room Air 04/26/25 08:05 04/26/25 10:00 04/26/25 11:45 Temperature 98.3 F Pulse Rate 69 Pulse Rate [Bilate ral] 66 Pulse Rate [Pulse Oximeter] Pulse Rate [Right Pulse Oximeter] Pulse Rate [orthos tatic lying Right Pulse Oximeter] Pulse Rate [orthos tatic sitting Left Pulse Oximeter] 67 Pulse Rate [orthos tatic standing Pul se Oximeter] 79 Respiratory Rate 16 Blood Pressure Blood Pressure [Ri ght Arm] 151/77 H Blood Pressure [Ri ght Upper Arm] Blood Pressure [or thostatic lying Ri ght Arm] Blood Pressure [or thostatic sitting Right Arm] 144/71 H Blood Pressure [or thostatic standing Right Arm] 151/91 H Pulse Oximetry 92 Oxygen Delivery Me thod Room Air DS: Data Data Completed and Pending Labs on day of discharge: Labs from last 24 hours 04/26/25 04/26/25 04/26/25 12:50 07:04 06:18 WBC 14.64 H RBC 3.37 L Hgb 9.6 L Hct 29.5 L MCV 88 MCH 29 MCHC 33 RDW Coeff of Boni 13.1 Plt Count 272 Neut % (Auto) 80.3 H Lymph % (Auto) 10.7 L [place] % (Auto) 7.8 Eos % (Auto) 1.0 Baso % (Auto) 0.1 Neut # (Auto) 11.80 H Lymph # (Auto) 1.60 [place] # (Auto) 1.10 H Eos # (Auto) 0.10 Baso # (Auto) 0.00 Abs Immat Gran (auto) 0.00 Imm/Tot Granulo (auto) 0.1 D-Dimer Quant (PE/DVT) Sodium 137 Potassium 4.5 3.2 L Chloride 107 Carbon Dioxide 26 Anion Gap 4 L BUN 23 Creatinine 0.7 Estimated Creat Clear 44.80 Estimated GFR 90 Glucose 170 H Lactate 0.9 Calcium 8.5 Magnesium 1.6 Total Bilirubin AST ALT Alkaline Phosphatase Troponin I < 0.01 NT-Pro-B Natriuret Pep Total Protein Albumin Urine Color Urine Appearance Urine pH Ur Specific [place] Urine Protein Urine Glucose (UA) Urine Ketones Urine Blood Urine Nitrite Urine Bilirubin Urine Urobilinogen Ur Leukocyte Esterase Urine RBC Urine WBC Ur Squamous Epith Cells Urine Bacteria Lab Acknowledgement Test Added POC Troponin I 04/25/25 04/25/25 04/25/25 21:55 17:35 15:15 WBC 11.75 H RBC 3.83 L Hgb 11.0 L Hct 33.9 MCV 89 MCH 29 MCHC 32 RDW Coeff of Boni 13.2 Plt Count 295 Neut % (Auto) 77.9 H Lymph % (Auto) 12.1 L [place] % (Auto) 6.8 Eos % (Auto) 1.6 Baso % (Auto) 0.3 Neut # (Auto) 9.20 H Lymph # (Auto) 1.40 [place] # (Auto) 0.80 Eos # (Auto) 0.20 Baso # (Auto) 0.00 Abs Immat Gran (auto) 0.20 Imm/Tot Granulo (auto) 1.3 D-Dimer Quant (PE/DVT) 6.48 H Sodium 140 Potassium 3.2 L Chloride 103 Carbon Dioxide 27 Anion Gap 10 BUN 25 Creatinine 1.1 Estimated Creat Clear 40.73 Estimated GFR 52 Glucose 181 H Lactate 2.2 H 3.1 H Calcium 9.6 Magnesium 1.7 Total Bilirubin 1.1 AST 42 H ALT 17 Alkaline Phosphatase 93 Troponin I < 0.01 NT-Pro-B Natriuret Pep 1570 H Total Protein 6.9 Albumin 3.8 Urine Color Yellow Urine Appearance Clear Urine pH 6.0 Ur Specific [place] 1.010 Urine Protein Negative Urine Glucose (UA) Negative Urine Ketones Negative Urine Blood Negative Urine Nitrite Negative Urine Bilirubin Negative Urine Urobilinogen 0.2 Ur Leukocyte Esterase Negative Urine RBC 0-2 Urine WBC 2-5 Ur Squamous Epith Cells Few Urine Bacteria None Lab Acknowledgement POC Troponin I Pending 04/25/25 14:32 WBC RBC Hgb Hct MCV MCH MCHC RDW Coeff of Boni Plt Count Neut % (Auto) Lymph % (Auto) [place] % (Auto) Eos % (Auto) Baso % (Auto) Neut # (Auto) Lymph # (Auto) [place] # (Auto) Eos # (Auto) Baso # (Auto) Abs Immat Gran (auto) Imm/Tot Granulo (auto) D-Dimer Quant (PE/DVT) Sodium Potassium Chloride Carbon Dioxide Anion Gap BUN Creatinine Estimated Creat Clear Estimated GFR Glucose Lactate Calcium Magnesium Total Bilirubin AST ALT Alkaline Phosphatase Troponin I NT-Pro-B Natriuret Pep Total Protein Albumin Urine Color Urine Appearance Urine pH Ur Specific [place] Urine Protein Urine Glucose (UA) Urine Ketones Urine Blood Urine Nitrite Urine Bilirubin Urine Urobilinogen Ur Leukocyte Esterase Urine RBC Urine WBC Ur Squamous Epith Cells Urine Bacteria Lab Acknowledgement POC Troponin I 0.00 L Imaging Chest x-ray: Radiologist's impression: INDICATION: Elevated d dimer, elevated lactate TECHNIQUE: Chest radiograph 1 view COMPARISON: 08/21/2019, 01/28/2019, 09/04/2017 FINDINGS: The sensitivity and specificity of the exam are moderately limited by the patient`s body habitus. Mediastinum: The mediastinum is normal in appearance. The heart silhouette is normal in size and morphology. Lung: Both lungs are unremarkable in appearance with small lung volumes. No sign of pleural effusion seen. No pneumothorax is identified. Bone and Soft tissue: Unremarkable for age. IMPRESSION: 1. No acute cardiopulmonary disease is seen. Venous US: Radiologist's impression: INDICATION: Elevated D-dimer, recent left BINDU. COMPARISON: None. TECHNIQUE: A compression venous ultrasound exam was performed of both lower extremities using aquino scale imaging, color Doppler, and spectral Doppler analysis. FINDINGS: Right: Sonographic imaging of the right lower extremity demonstrates normal compressibility and color Doppler venous blood flow within the common femoral, femoral, deep femoral, and proximal greater saphenous veins. At a lower level the popliteal, peroneal, and posterior tibial veins also show normal compressibility and color Doppler venous blood flow. Left: Sonographic imaging of the left lower extremity demonstrates normal compressibility and color Doppler venous blood flow within the common femoral, femoral, deep femoral, and proximal greater saphenous veins. At a lower level the popliteal, peroneal, and posterior tibial veins also show normal compressibility and color Doppler venous blood flow. IMPRESSION: Both lower extremities are negative for acute DVT. Discharge Plan Discharge Disposition: Home, Self-Care Date of Admission: 04/25/25 21:26 Attending Provider on Discharge: Thom Varghese Primary Care Provider: Tiffanie Romero Condition: Improved Anticipated Discharge Date/Time: 04/26/25 13:45 Discharge Medications: New polyethylene glycol 3350 [Miralax] 17 gram Powder In Packet 17 g PO DAILY PRNQty: 238 0RF aspirin 325 mg Tablet,Delayed Release (Dr/Ec) 325 mg PO DAILY Qty: 30 0RF metformin 1,000 mg Tablet 500 mg PO BID Qty: 60 0RF potassium chloride 10 mEq capsule, extended release 10 meq PO DAILY Qty: 30 0RF Continued omega-3 fatty acids [Fish Oil] 1 cap PO DAILY Lacto.acidophilus-Bif.animalis [Daily Probiotic] 2 tab PO DAILY nitroglycerin 0.4 mg tablet, sublingual 0.4 mg sublingual Q5M PRN Rx Instructions: do not exceed 3 doses per episode metoprolol succinate 50 mg tablet extended release 24 hr 50 mg PO HS cholecalciferol (vitamin D3) 75 mcg (3,000 unit) tablet 3,000 unit PO DAILY coenzyme Q10 200 mg capsule 100 mg PO DAILY Patient Comments: unsure if she's taking 100 or 200mg atorvastatin 40 mg tablet 80 mg PO HS losartan-hydrochlorothiazide 100-25 mg tablet 1 tab PO DAILY (DME) Diabetic Test Strips Misc See Rx Instructions .Route Qty: 360 3RF Rx Instructions: Test TID vision elements PO bifido balance PO multivitamin Tablet 1 tab PO QAM amoxicillin 500 mg capsule 2,000 mg PO QDAY PRN Rx Instructions: 1 hour prior to dental appt celecoxib 200 mg capsule 200 mg PO DAILY oxycodone 5 mg tablet 5 mg PO Q4H PRN (Reason: pain) Stool Softener 50 mg capsule 50 mg PO BID omeprazole 20 mg capsule,delayed release(DR/EC) 20 mg PO QAM Qty: 90 3RF (DME) lancets Misc See Rx Instructions .Route Qty: 100 0RF Rx Instructions: test TID citalopram 10 mg tablet 10 mg PO DAILY Qty: 90 0RF Discontinued aspirin 81 mg capsule 81 mg PO DAILY Patient Comments: Currently taking 325 mg a day for postsurgical VTE prophylaxis metformin 1,000 mg tablet 1,000 mg PO BID Qty: 180 3RF Discharge Orders: Discharge Order (Routine); Ordered 04/26/25 Ordered By: Thom Varghese Additional Instructions: Stay as active as possible with walking. Use MiraLax as much as needed to maintain a daily bowel movement without straining. Activity Level: Activity as Tolerated and Use Walker Discharge Diet: Regular Follow Up Appointments: Tiffanie Romero MD [Primary Care Provider, Internal Medicine] Referral Note: Follow-up in 1 week. Potassium check in 1 week. Forms: [facility]
--- NOTE | 2025-04-26 14:50 | PC.SOCIAL ---
Discharge planning: [employer] construction worker met with the pt and her today. The pt will be discharging home later today and feels good about this plan. Pt states that she feels better about her movement after meeting with PT/OT this morning. Pt lives with her and he will be her vessel builder. Social work to follow-up as needed.
--- NOTE | 2025-04-26 14:54 | PC.NURSE ---
Discharge: Patient pleasant and cooperative. Up with SBA, walker and gait belt. Vitals stable and WNL. Orthostatic BPs done, patient denies dizziness throughout shift. No episodes of vasovagal, x2 soft BM. Tolerat regular diet. IV removed with catheter intact. Discharge instructions, new medications and follow up reviewed [facility] patient and spouse. Patient discharged @ 1450 via wheelchair.
== END 2025-04-26 14:50 | disposition home or self-care (01) ==
LOC: ED 21:08 → MEDSURG 21:27
PROVIDERS: Family Medicine; Admitting Provider Family Medicine; Emergency Provider Family Medicine; PCP Internal Medicine; Visit Provider Family Medicine
DX: L25.9 Unspecified contact dermatitis, unspecified cause (principal); R74.02 Elevation of levels of lactic acid dehydrogenase [LDH]; R79.89 Other specified abnormal findings of blood chemistry; E87.6 Hypokalemia; Z96.642 Presence of left artificial hip joint; K59.00 Constipation, unspecified; R10.9 Unspecified abdominal pain; F41.8 Other specified anxiety disorders; R55 Syncope and collapse; E11.9 Type 2 diabetes mellitus without complications; Z79.84 Long term (current) use of oral hypoglycemic drugs; I25.10 Atherosclerotic heart disease of native coronary artery without angina pectoris; Z79.01 Long term (current) use of anticoagulants; Z79.82 Long term (current) use of aspirin; E78.5 Hyperlipidemia, unspecified; I10 Essential (primary) hypertension; D12.6 Benign neoplasm of colon, unspecified; G47.33 Obstructive sleep apnea (adult) (pediatric); M81.0 Age-related osteoporosis without current pathological fracture; M85.80 Other specified disorders of bone density and structure, unspecified site; K21.9 Gastro-esophageal reflux disease without esophagitis; Z90.49 Acquired absence of other specified parts of digestive tract; Z86.59 Personal history of other mental and behavioral disorders; Z87.19 Personal history of other diseases of the digestive system; Z85.3 Personal history of malignant neoplasm of breast; Z80.0 Family history of malignant neoplasm of digestive organs; Z98.890 Other specified postprocedural states
CPT/HCPCS: 36415; 71045; 71275; 80048; 80053; 81001; 83605; 83735; 83880; 84132; 84484; 85025; 85379; 93005; 93970; 94761; 96360; 96361; 97116; 97161; 97165; 99285; A9270; G0378; J7030; Q9967

== ENCOUNTER 2025-05-02 13:51 | Outpatient (CLI) | payer MEDICARE, BC, SELFPAY | END 2025-05-02 13:52 | disposition home or self-care (01) | LOC: NFLDREF 13:51 | PROVIDERS: PCP Internal Medicine; Visit Provider Internal Medicine | DX: Z13.228 Encounter for screening for other metabolic disorders (principal); Z86.39 Personal history of other endocrine, nutritional and metabolic disease | CPT/HCPCS: 84132 ==

== ENCOUNTER 2025-09-21 07:45 | Outpatient (CLI) | payer MEDICARE, BC, SELFPAY | END 2025-09-21 07:46 | disposition home or self-care (01) | LOC: NFLDREF 09-24 15:58 | PROVIDERS: PCP Internal Medicine; Referring Provider Internal Medicine; Visit Provider Internal Medicine | DX: E11.9 Type 2 diabetes mellitus without complications (principal) | CPT/HCPCS: 80053; 80061 ==